=== PATIENT | female | born 1950 | race Caucasian/White ===

== ENCOUNTER → 2017-09-03 13:19 | Outpatient (CLI) | payer MEDICARE, OTHER, SELFPAY ==
[2017-09-03 15:33] LABS: Absolute Lymphocyte Count 1.68 X10^3/ul (0.83-4.51); Absolute Neutrophil Count 2.6 X10^3/uL (2.0-7.7); Basophil# 0.01 X10^3/uL; Basophil% 0.2 % (0-1); Eosinophil# 0.06 X10^3/uL; Eosinophils% 1.3 % (0-5); Hemoglobin 15.7 g/dl (12.0-15.0); Lymphocyte # 1.68 X10^3/ul (4.0); Lymphocyte % 35.6 % (19-41); Mean Corpuscular Hgb 27.2 pg (27.0-32.0); Mean Corpuscular Volume 84.9 fL (81-99); Mean Platelet Vol. 10.6 fl (6.2-12.0); Monocyte# 0.37 X10^3/uL; Monocyte% 7.8 % (0-10); Neutrophil % 55.1 % (47-70); Platelet Count 193 K/mm3 (150-450); RBC Distribution Width CV 13.8 % (11.6-14.6); RBC Distribution Width SD 42.4 fl (35.1-43.9); Red Blood Count 5.77 M/mm3 (4.2-5.4); White Blood Count 4.7 K/mm3 (4.4-11.0)
[2017-09-03 15:43] LABS: POSITIVE COUNT NO; POSITIVE DIFFERENTIAL NO; POSITIVE MORPHOLOGY NO
[2017-09-03 17:10] LABS: AST(SGOT) 18 U/L (15-37); Alanine Aminotransfer ALT/SGPT 27 U/L (13-56); Albumin, Serum 3.5 g/dL (3.2-5.0); Alkaline Phosphatase 105 U/L (45-117); Anion Gap 8 (5-15); BUN 8 mg/dL (7-18); BUN/Creat Ratio 9.1 RATIO (10-20); Chloride 101 mmol/L (98-107); Cholesterol 189 mg/dL (200); Creatinine, Serum 0.88 mg/dL (0.55-1.02); EST Glomerular Filtration Rate 69 mL/min (>60); Est Glom Filt Rate - Afr Amer 83 mL/min (>60); Free T3 2.2 pg/mL (2.18-3.98); Globulin 3.5 g/dL (2.2-4.2); Glucose 209 mg/dL (74-106); High Density Lipoprotein 42 mg/dL; Sodium Level 141 mmol/L (136-145); Thyroid Stim Hormone (TSH) 1.05 uIU/mL (0.358-3.74); Triglycerides 202 mg/dL; Very Low Density Lipoprotein 40 mg/dL (5-40)
== END ==
PROVIDERS: Family Provider Internal Medicine; PCP Internal Medicine; Visit Provider Internal Medicine
DX: E11.65 Type 2 diabetes mellitus with hyperglycemia (principal); E78.5 Hyperlipidemia, unspecified; R94.6 Abnormal results of thyroid function studies
CPT/HCPCS: 36415; 80053; 80061; 84439; 84443; 84481; 85025

== ENCOUNTER → 2017-09-27 13:25 | Outpatient (CLI) | payer MEDICARE, OTHER, SELFPAY ==
[2017-09-27 14:55] LABS: Erythrocyte Sedimentation Rate 35 mm/hr (0-30)
[2017-09-27 14:56] LABS: Absolute Lymphocyte Count 1.77 X10^3/ul (0.83-4.51); Absolute Neutrophil Count 4.7 X10^3/uL (2.0-7.7); Basophil# 0.03 X10^3/uL; Basophil% 0.4 % (0-1); Eosinophil# 0.08 X10^3/uL; Eosinophils% 1.1 % (0-5); Hematocrit 48.4 % (37-47); Hemoglobin 15.1 g/dl (12.0-15.0); Lymphocyte # 1.77 X10^3/ul (4.0); Lymphocyte % 25.1 % (19-41); Mean Corp Hgb Conc 31.2 g/gl (32-36); Mean Corpuscular Hgb 26.9 pg (27.0-32.0); Mean Corpuscular Volume 86.3 fL (81-99); Mean Platelet Vol. 10.7 fl (6.2-12.0); Monocyte# 0.49 X10^3/uL; Neutrophil # 4.68 X10^3/uL (2.7-7.7); Neutrophil % 66.4 % (47-70); Platelet Count 187 K/mm3 (150-450); RBC Distribution Width CV 13.1 % (11.6-14.6); RBC Distribution Width SD 41.2 fl (35.1-43.9); Red Blood Count 5.61 M/mm3 (4.2-5.4); White Blood Count 7.1 K/mm3 (4.4-11.0)
[2017-09-27 14:57] LABS: POSITIVE COUNT NO; POSITIVE DIFFERENTIAL NO; POSITIVE MORPHOLOGY NO
== END ==
PROVIDERS: Family Provider Internal Medicine; PCP Internal Medicine; Visit Provider Orthopaedic Surgery
DX: T84.84XA Pain due to internal orthopedic prosthetic devices, implants and grafts, initial encounter (principal)
CPT/HCPCS: 36415; 85025; 85652; 86140

== ENCOUNTER → 2017-11-18 16:49 | Outpatient (CLI) | payer MEDICARE, OTHER, SELFPAY ==
--- NOTE | 2017-11-18 17:03 | RAD_ITS ---
STUDY: X-RAY CHEST REASON FOR EXAM: Female, 67 years old. Preop TECHNIQUE: Frontal and lateral views COMPARISON: April 09, 2014 FINDINGS: The lungs are clear and expanded. There is no demonstrated pleural abnormality. Normal size heart. Normal mediastinum and gogo. Normal visualized pulmonary arteries. Normal visualized aortic arch and descending thoracic aorta. Degenerative changes of the thoracic spine. Status post surgical fusion of mid cervical levels. Prior right shoulder surgery. There is no demonstrated abnormality of the visualized soft tissue structures of the upper abdomen. RAD/Chest PA and Lateral IMPRESSION: Normal x-ray examination of the chest. Electronically Signed: Shar Arevalo DO at 18:48 EDT Tel [phone], Service support ,
--- NOTE | 2017-11-18 17:04 | EKG12_ITS ---
Test Reason : PRE-OP Blood Pressure : / mmHG Vent. Rate : 073 BPM Atrial Rate : 073 BPM P-R Int : 154 ms QRS Dur : 100 ms QT Int : 414 ms P-R-T Axes : 074 077 064 degrees QTc Int : 456 ms Normal sinus rhythm Possible Left atrial enlargement Low voltage QRS Borderline ECG Confirmed by MARTINA PAN, RIGO ([id number]), fashion editor CATY MEJIA ([id number]) on 11/22/2017 2:38:43 PM Referred By: Jazzy Dunn Confirmed By:RIGO MACK MD
[2017-11-18 17:24] LABS: Hematocrit 47.8 % (37-47); Hemoglobin 14.9 g/dl (12.0-15.0); Mean Corp Hgb Conc 31.2 g/gl (32-36); Mean Corpuscular Hgb 26.9 pg (27.0-32.0); Mean Corpuscular Volume 86.3 fL (81-99); Mean Platelet Vol. 10.1 fl (6.2-12.0); Platelet Count 165 K/mm3 (150-450); RBC Distribution Width CV 13.8 % (11.6-14.6); RBC Distribution Width SD 43.2 fl (35.1-43.9); Red Blood Count 5.54 M/mm3 (4.2-5.4); White Blood Count 4.7 K/mm3 (4.4-11.0)
[2017-11-18 17:26] LABS: Scan Indicated on CBC? Y/N NO
[2017-11-18 17:35] LABS: Anion Gap 4 (5-15); BUN 5 mg/dL (7-18); BUN/Creat Ratio 5.6 RATIO (10-20); Calcium,Total 8.9 mg/dL (8.5-10.1); Chloride 104 mmol/L (98-107); Creatinine, Serum 0.88 mg/dL (0.55-1.02); EST Glomerular Filtration Rate 68 mL/min (>60); Est Glom Filt Rate - Afr Amer 82 mL/min (>60); Glucose 205 mg/dL (74-106); Potassium 3.8 mmol/L (3.5-5.1); Sodium Level 137 mmol/L (136-145)
== END ==
PROVIDERS: Family Provider Internal Medicine; PCP Internal Medicine; Referring Provider Podiatrist Foot & Ankle Surgery; Visit Provider Podiatrist Foot & Ankle Surgery
DX: Z01.810 Encounter for preprocedural cardiovascular examination (principal); Z01.818 Encounter for other preprocedural examination; F17.200 Nicotine dependence, unspecified, uncomplicated
CPT/HCPCS: 36415; 71046; 80048; 85027; 93005

== ENCOUNTER → 2017-12-02 08:03 | Outpatient (CLI) | payer MEDICARE, OTHER, SELFPAY ==
--- NOTE | 2017-12-02 08:03 | MASS_PTH ---
PATIENT: GERARD MEYERS LOC: [facility] U#:[id number] AGE/SX: 74/F ROOM: RE12/02/[address]: Dr. Jazzy Dunn DPM : 1950 BED: DIS: SPEC #: [id number] RECD: 12/02/17 15:59 STATUS: AAMIR PRADIP #: [id number] LUPE: 12/02/17 08:[address]: Jazzy Dunn DEPT: SURGICAL PATHOLOGY RECD BY: Kraig Urbano ENTERED: 12/03/17 11:20 SP TYPE: Mass OTHR DR: Dr. Lucretia Henson, [facility] Tissues: Foot, NOS Procedures: Special Stain Group I Surgery Specimen Level IV AFB Stain (control) GMS Stain (control) HEADER OPERATION: Left foot excision of soft tissue PRE-OP DIAGNOSIS: Mass of left foot TISSUE SUBMITTED: Soft tissue mass left extensor hallucis longus tendon sheath MICROSCOPIC DIAGNOSIS Soft tissue mass extensor hallucis longus tendon sheath: Palisaded granuloma, consistent with granuloma annulare. Special stains for acid fast bacilli and fungi are negative for organisms; matched controls are appropriate. Negative for malignancy. SAMEERA:bernard 12/06/17 COMMENT Differential diagnosis also includes rheumatoid nodule or necrobiosis lipoidica. Clinical correlation and appropriate follow up are necessary. Case has been reviewed in consultation with Dr. Londono who concurs with the above diagnosis. IDC:AM MICROSCOPIC DESCRIPTION Slides are reviewed. GROSS DESCRIPTION Received is one container labeled with the patient's name and not further designated. The specimen consists of three variable sized pieces of churchill, indurated tissue measuring in aggregate 1.5 x 1.4 x 0.2 cm. The entire specimen is submitted in one cassette. / SAMEERA:bernard 12/03/17 TC:5 CPT: 02857, 24418 x2
== END ==
PROVIDERS: Family Provider Internal Medicine; PCP Internal Medicine; Referring Provider Podiatrist Foot & Ankle Surgery; Visit Provider Podiatrist Foot & Ankle Surgery
DX: L92.9 Granulomatous disorder of the skin and subcutaneous tissue, unspecified (principal)
CPT/HCPCS: 88305; 88312

== ENCOUNTER 2017-12-21 07:38 | Day surgery (SDC) | payer MEDICARE, OTHER, SELFPAY ==
[2017-12-21] VITALS (7 sets, daily range): BP systolic 90–134; BP diastolic 49–68; PULSE 71–81; RESP 16–18; TEMP 35.7–37.2; O2SAT 92–98; BMI 30.4
[2017-12-21 08:40] LABS: Bedside Glucose 195 mg/dL (70-110)
[2017-12-21 09:06] LABS: Hematocrit 45.9 % (37-47); Hemoglobin 14.8 g/dl (12.0-15.0); Mean Corp Hgb Conc 32.2 g/gl (32-36); Mean Corpuscular Hgb 27.4 pg (27.0-32.0); Mean Corpuscular Volume 84.8 fL (81-99); Mean Platelet Vol. 10.8 fl (6.2-12.0); Platelet Count 174 K/mm3 (150-450); RBC Distribution Width CV 13.8 % (11.6-14.6); RBC Distribution Width SD 42.5 fl (35.1-43.9); Red Blood Count 5.41 M/mm3 (4.2-5.4); White Blood Count 5.3 K/mm3 (4.4-11.0)
[2017-12-21 09:08] LABS: Scan Indicated on CBC? Y/N NO
[2017-12-21 09:24] LABS: Hemoglobin A1c 10.3 % (4.2-6.3)
[2017-12-21 09:29] LABS: Anion Gap 8 (5-15); BUN 8 mg/dL (7-18); BUN/Creat Ratio 9.3 RATIO (10-20); Calcium,Total 8.9 mg/dL (8.5-10.1); Chloride 103 mmol/L (98-107); Creatinine, Serum 0.86 mg/dL (0.55-1.02); EST Glomerular Filtration Rate 70 mL/min (>60); Est Glom Filt Rate - Afr Amer 85 mL/min (>60); Estimated Creatinine Clearance 60.24 ml/min; Glucose 208 mg/dL (74-106); Potassium 3.7 mmol/L (3.5-5.1); Sodium Level 141 mmol/L (136-145); Thyroid Stim Hormone (TSH) 0.11 uIU/mL (0.358-3.74)
[2017-12-21] MEDS: Cefazolin 2 GM in 0.9% Normal Saline 100 ML IV (09:42)
[2017-12-21] MEDS: Bupivacaine Mpf 0.5% 30 ML VIAL (10:20)
--- NOTE | 2017-12-21 10:38 | PCM.IMDPSTOP ---
Immediate Post-Op Note Date of Procedure: 12/21/17 Primary Surgeon/Physician: Jazzy Dunn DPM computer systems software architect: none Pre-Operative Diagnosis: Left foot abscess Post-Operative Diagnosis: same Surgery/Procedure Performed:: L foot incision and drainage, washout Description of Surgical Findings:: see dictation Estimated Blood Loss: minimal Specimen's removed: wound cx Drains: giorgio Type of Anesthesia:: Local MAC - Admit VTE Documentation VTE Present on Admission: No VTE Mechan Device Prophylaxis: SCD's
--- NOTE | 2017-12-21 10:41 | OP.PN_ITS ---
Immediate Post-Op Note Date of Procedure: 12/21/17 Primary Surgeon/Physician: Jazzy Dunn DPM shoe shanker: none Pre-Operative Diagnosis: Left foot abscess Post-Operative Diagnosis: same Surgery/Procedure Performed:: L foot incision and drainage, washout Description of Surgical Findings:: see dictation Estimated Blood Loss: minimal Specimen's removed: wound cx Drains: giorgio Type of Anesthesia:: Local MAC - Admit VTE Documentation VTE Present on Admission: No VTE Mechan Device Prophylaxis: SCD's
--- NOTE | 2017-12-21 10:56 | OP.PCM_ITS ---
Report of Operation Date of Procedure: 12/21/17 Pre-Operative Diagnosis: Left foot abscess Post-Operative Diagnosis: same Surgery/Procedure Performed:: L foot incision and drainage, washout Description of Surgical Findings:: Indications: Pt is a 67 yo F who presented to my office yesterday for a post- operative appointment for a left EHL tendon soft tissue mass excision, DOI 12/02/2017. Her post operative course had been uneventful until 12/16/2017 when she had gotten her surgical dressing wet while bathing. She did not call the office as she had an appointment already scheduled and felt it would be ok to wait. She presented yesterday with edema, erythema and a small amount of drainage to the surgical site. Two sutures were still intact. She denies pain, fever, chills, nausea, vomiting. She was started on doxycycline and scheduled for surgery this morning. Pt was verbally and visually identified in the pre operative holding area. Risks, benefits and complications were again reviewed with the patient. Patient wished to proceed with the proposed surgery. The left foot was marked as the correct operative extremity. The patient was brought to the operating room by anesthesia and placed on the operating table in the normal supine position. A time out was performed and all present were in agreement. The left lower extremity was then prepped and draped in normal sterile fashion. Attention was the directed to the left dorsal foot. Using a #15 blade a linear incision was made at the previous surgical site. Minimal purulent drainage was noted. The soft tissue was explored with with no jayna abscess noted. Pulse lavage of 3L NSS was used and wound cultures were taken. I felt that the EHL tendon look well healed and did not need opened as the infection appeared to be contained to the superficial soft tissues. I did not want to expose the EHL tendon at this time. Electrocautery was utilized for all bleeders. After copious amounts of irrigation via pulse lavage I used 3.0 prolene for retention sutures of the most distal and proximal ends of my incision. A giorgio drain was placed at the central incision to allow for continued drainage. 10 cc of 0.5% marcaine plain was injected at the surgical site. Betadine soaked adaptic was then applied with 4x4 gauze, kerlix and light compression dressing to the LLE. At the end of the case all neddle and instrument counts were found to be correct. The patient was transported to the pacu by a member of the anesthesia team and myself with all vital signs stable. Pt tolerated the anesthesia and procedure well. Capillary refill was < 3 seconds to all digits of the operative extremity. PT will be WBAT in surgical shoe and continue the doxycycline. I will see her in 6 days in clinic or sooner if needed. household manager: none Type of Anesthesia:: Local MAC Specimen's removed: wound cx Drains: giorgio Estimated Blood Loss (mL): minimal - Admit VTE Documentation VTE Present on Admission: No VTE Mechan Device Prophylaxis: SCD's
--- NOTE | 2017-12-21 11:07 | DCINST_ITS ---
Discharge Activity: May not drive while taking narcotic pain medications., May Not Shower - Do NOT get dressing wet. Weight Bearing Status: Weight bearing as tolerated - in surgical shower, limit activity Keep extremity elevated above heart level: Operative Extremity Call your doctor if your incision/area has: Continuous Slow Oozing, Sudden Increased Bleeding, Increased Pain/ Swelling, Increased Redness, Foul Smelling Discharge, Swelling at the incision site, - - if dressing becomes wet! Call your doctor if you observe: Fever of 101 or Higher, Coldness, Increased Pain, Numbness or Tingling, Change in Color, Shortness of breath, Chest pain, Uncontrolled pain Cleanse incision/area with: Keep Dressing Clean & Dry Allergies/Adverse Reactions: Allergies No Known Allergies Allergy (Verified 02/24/13 15:31) Medications to take at Discharge Doxepin HCl 25 mg PO DAILY 02/24/13 Escitalopram Oxalate [Lexapro] 10 mg PO DAILY 02/24/13 Levothyroxine [Synthroid] 175 mcg PO DAILY 02/24/13 Sulfasalazine [Azulfidine] 500 mg PO BIDCM 02/24/13 Cholecalciferol (VIT D3) [Vitamin D3] 5,000 unit PO DAILY 01/16/14 Folic Acid 1 mg PO DAILY@0800 01/16/14 Metformin HCl [Glucophage] 500 mg PO DAILY 01/16/14 Methotrexate 20 mg PO TU 01/16/14 Omeprazole [Prilosec] 40 mg PO DAILY 01/16/14 Pioglitazone [Actos] 15 mg PO DAILY 01/16/14 Rosuvastatin Calcium [Crestor] 20 mg PO DAILY 01/16/14 Stool Softner 1 tab PO DAILY 01/16/14 Acetaminophen/Codeine #3 [Tylenol#3] 1 tab PO Q4H PRN PRN 7 Days #30 tab 12/21/17 The following prescriptions were given: Acetaminophen/Codeine #3 [Tylenol#3] 1 tab PO Q4H PRN PRN 7 Days #30 tab PRN Reason: Pain Primary Care Physician: Lucretia Henson DO [Primary Care Provider] - Test Results: Test results from this visit will be discussed in further detail at your follow- up appointment, if applicable. Please Follow Up With: Jazzy Dunn DPM When: as previously scheduled
== END 2017-12-21 11:30 | disposition home or self-care (01) ==
LOC: SDC 07:40 → AC 07:40
PROVIDERS: Anesthesiology; Family Provider Internal Medicine; PCP Internal Medicine; Referring Provider Podiatrist Foot & Ankle Surgery; Visit Provider Podiatrist Foot & Ankle Surgery
PROC: (CPT 28002; principal; 2017-12-21 09:20)
DX: L02.612 Cutaneous abscess of left foot (principal); M79.7 Fibromyalgia; M06.9 Rheumatoid arthritis, unspecified; M19.90 Unspecified osteoarthritis, unspecified site; E11.9 Type 2 diabetes mellitus without complications; J44.9 Chronic obstructive pulmonary disease, unspecified; K21.9 Gastro-esophageal reflux disease without esophagitis; E78.00 Pure hypercholesterolemia, unspecified; F17.210 Nicotine dependence, cigarettes, uncomplicated; E07.9 Disorder of thyroid, unspecified; Z79.899 Other long term (current) drug therapy; F32.9 Major depressive disorder, single episode, unspecified
CPT/HCPCS: 28002; 36415; 80048; 82962; 83036; 84443; 85027; 87070; 87075; 87077; 87186; 87205; J7120

== ENCOUNTER → 2018-02-01 09:35 | Outpatient (CLI) | payer MEDICARE, OTHER, SELFPAY ==
[2017-12-21 08:28] VITALS: BMI 30.4
[2018-02-01 12:30] LABS: Hematocrit 45.4 % (37-47); Hemoglobin 14.4 g/dl (12.0-15.0); Mean Corp Hgb Conc 31.7 g/gl (32-36); Mean Corpuscular Hgb 27.2 pg (27.0-32.0); Mean Corpuscular Volume 85.8 fL (81-99); Mean Platelet Vol. 11.7 fl (6.2-12.0); Platelet Count 167 K/mm3 (150-450); RBC Distribution Width CV 13.3 % (11.6-14.6); RBC Distribution Width SD 41.3 fl (35.1-43.9); Red Blood Count 5.29 M/mm3 (4.2-5.4); White Blood Count 5.6 K/mm3 (4.4-11.0)
[2018-02-01 12:36] LABS: Scan Indicated on CBC? Y/N NO
[2018-02-01 12:57] LABS: Anion Gap 10 (5-15); BUN 11 mg/dL (7-18); BUN/Creat Ratio 12.1 RATIO (10-20); Chloride 101 mmol/L (98-107); Creatinine, Serum 0.91 mg/dL (0.55-1.02); EST Glomerular Filtration Rate 66 mL/min (>60); Est Glom Filt Rate - Afr Amer 80 mL/min (>60); Glucose 267 mg/dL (74-106); Potassium 4.3 mmol/L (3.5-5.1); Sodium Level 141 mmol/L (136-145)
--- OUTSIDE RECORDS SUMMARY | 2018-03-20 08:53 | XMS RPT_ITS | Continuity of Care Document ---
:1950 Author Organization [facility] Address [address] [facility] [address] [place] [address] Phone Care Team Providers Name Role Phone Lucretia Henson DO Unavailable VikiReyes pat DO Unavailable GOKUL Cunha Unavailable Unavailable Unavailable Unavailable Problems Name Dates Details Abnormal TSH (R79.89, 790.6) Status: Active Abnormal TSH (R79.89, 790.6) Comments: will try Se first and if doesnt help with more T4- to T3 conversion will add rx cytomel to her levothyroxine Status: Active Abnormal TSH (R79.89, 790.6) Status: Active Annual Medicare Phyiscal WITHOUT abnormal findings (Renamed from Encounter for general adult medical examination without abnormal findings) (Z00.00, V70.9) Status: Active Arthritis, rheumatic, acute or subacute (I00, 390) Comments: sees Dr Gurrola until he retired now [facility] Status: Active BMI 30.0-30.9,adult (Z68.30, V85.30) Status: Active BMI 31.0-31.9,adult (Z68.31, V85.31) Status: Active Body mass index 35.0-35.9, adult (Renamed from Adult body mass index 35.0-35.9) (Z68.35, V85.35) Status: Active Cataract Extraction-Left Comments: 2009 Status: Active Cataract Extraction-Right Comments: 2009 Status: Active COPD, moderate (J44.9, 496) Comments: pt does not take dulera often bc of cost but she states it does work and feels less breathless when she does take italpha one antitrypsin screened 01/07 Status: Active Degenerative Disc Disease Status: Active Depressive disorder (F32.9, 311) Status: Active Diabetes mellitus type 2, uncontrolled (E11.65, 250.02) Comments: pt refuses any medication chg - cant afford most adn doesnt want me to give her rx - she said she feels great and refuses-- we discussed at least changing diet and lifestyle to help reduce sugars. also reiterated feeling good now is not likely a feel good later with cont uncontrolled dm -- she said she doesnt care i am not doing anything diffenetcant afford insulin- and byetta & treseba caused rash and sweats Status: Active Diabetes Mellitus, Type II Status: Active Dyshidrosis (L30.1, 705.81) Status: Active Encounter for Medicare annual wellness exam (Z00.00, V70.0) Status: Active Encounter for screening for malignant neoplasm of colon (Renamed from Special screening for malignant neoplasms, colon) (Z12.11, V76.51) Status: Active Encounter for screening mammogram for breast cancer (Renamed from Encounter for screening mammogram for malignant neoplasm of breast) (Z12.31, V76.12) Status: Active Esophageal Reflux Status: Active Fibroids in uterus Status: Active Fibromyalgia (M79.7, 729.1) Comments: mariah Elliott Status: Active GERD (gastroesophageal reflux disease) (K21.9, 530.81) Status: Active Hypercholesteremia (E78.00, 272.0) Status: Active Hyperlipidemia (E78.5, 272.4) Comments: uncotnrolled-- ekg-4./18diet and exercise -- add fish oil Status: Active Hypothyroidism (E03.9, 244.9) Comments: keep close eye on thyriod labs -- trending toward hyper but not quite yet? Status: Active Hypoxemia (R09.02, 799.02) Status: Active Insomnia, persistent (G47.00, 307.42) Status: Active Knee pain (M25.569, 719.46) Status: Active Need for prophylactic vaccination and inoculation against influenza (Z23, V04.81) Status: Active Noncompliance with dietary restriction (Z91.11, V15.81) Comments: and medication Status: Active Noncompliance with medications (Z91.14, V15.81) Status: Active Non-smoker (Z78.9, V49.89) Status: Active Nutritional counseling (Z71.3, V65.3) Status: Active Obesity, unspecified (E66.9, 278.00) Status: Active Pregnancies () Comments: 2 Status: Active Respiratory distress (Renamed from Distressed breathing) (R06.00, 786.09) Comments: sats at 86% when walked in O2 3 liters to 93% Status: Active Rotater cuff sx Comments: rt arm 10/03 Status: Active Sinusitis, acute (J01.90, 461.9) Status: Active Sinusitis, bacterial (J32.9, 473.9) Status: Active Tobacco use disorder (F17.200, 305.1) Comments: couple cigarretees a day Status: Active Tonsillectomy Comments: 2nd grade Status: Active Total Knee Replacement Comments: rt 03-04 Status: Active Tubal Ligation Comments: 1979 Status: Active Unspecified Diagnosis Status: Active Unspecified osteoarthritis, unspecified site (M19.90, 715.90) Status: Active Vaginal Delivery Comments: Status: Active Vitamin D deficiency (E55.9, 268.9) Status: Active Medications Name Dates Details Actos 15 MG Oral Tablet 1 Tablet qd for 0 days Quantity: 30 {Tablet} Refills: 3 Ordered:22-Nov-2017 Annel Henson DO, DO, Kathleen Start : 22-Nov-2017 Active BD PEN NEEDLE MINI U/F, 31G X 5 MM (Miscellaneous) 1 (one) Misc Misc qd for 0 days Quantity: 1 {Box} Refills: 4 Ordered:03-Sep-2014 Annel Henson DO, DO, Kathleen Start : 03-Sep-2014 Active DIABETIC TESTING SUPPLIES ( Strip) (Free Text) 1 Package(s) tid for 0 days Quantity: 100 {Strip} Refills: 3 Ordered:03-Sep-2014 Annel Henson DO, DO, Kathleen Start : 03-Sep-2014 Active Comments:free style litedx 250.02 Doxepin HCl 75 MG Oral Capsule 1 Capsule qd for 0 days Quantity: 90 {Capsule} Refills: 3 Ordered:06-Sep-2017 Omayra Cunha LPN Start : 06-Sep-2017 Active Folic Acid 1 MG Oral Tablet 1 Tablet qd for 0 days Quantity: 30 {Tablet} Refills: 3 Ordered:06-Sep-2017 Omayra Cunha LPN Start : 06-Sep-2017 Active FREESTYLE LANCETS (Miscellaneous) 1 (one) Misc Misc tid for 0 days Quantity: 270 {Each} Refills: 0 Ordered:21-May-2014 Argenis Sandra MD Start : 25-Jan-2014 Active Levothyroxine Sodium 175 MCG Oral Tablet 1 Tablet qd for 0 days Quantity: 30 {Tablet} Refills: 3 Ordered:06-Sep-2017 Omayra Cunha LPN Start : 06-Sep-2017 Active Comments:new dose Lexapro 20 MG Oral Tablet 1 (one) Tablet daily for 0 days Quantity: 30 {Tablet} Refills: 3 Ordered:06-Sep-2017 Omayra Cunha LPN Start : 06-Sep-2017 Active Lipitor 40 MG Oral Tablet 1 Tablet qd for 0 days Quantity: 30 {Tablet} Refills: 3 Ordered:06-Sep-2017 Omayra Cunha LPN Start : 06-Sep-2017 Active Comments:substitute generic MELOXICAM, 15MG (Oral Tablet) qd (15 MG) Active Comments:Dr. Mendoza MetFORMIN HCl 500 MG Oral Tablet tad Tablet 2am ,1@lunch, 2pm for 0 days Quantity: 150 {Tablet} Refills: 3 Ordered:06-Sep-2017 Annel Henson DO, DO, Kathleen Start : 06-Sep-2017 Active METHOTREXATE, 2.5MG (Oral Tablet) 6 Tablet q week for 30 days Refills: 0 Ordered:28-Dec-2011 Annel Henson DO, DO, Kathleen Start : 28-Dec-2011 Active Omeprazole 40 MG Oral Capsule Delayed Release 1 (one) Capsule DR daily for 0 days Quantity: 30 {Capsule} Refills: 3 Ordered:24-Nov-2017 Annel Henson DO, DO, Kathleen Start : 24-Nov-2017 Active STOOL SOFTENER, 100MG (Oral Tablet) 1 Tablet qd for 30 days Refills: 0 Ordered:28-Dec-2011 Annel Henson DO, DO, Kathleen Start : 28-Dec-2011 Active VITAMIN D3, 5000UNIT (Oral Capsule) 1 Capsule qd for 0 days Quantity: 30 {Capsule} Refills: 3 Ordered:24-Oct-2013 Argenis Sandra MD Start : 24-Oct-2013 Active Zolpidem Tartrate 10 MG Oral Tablet 1 (one) Tablet qhs/prn for 0 days Quantity: 30 {Tablet} Refills: 0 Ordered:23-Dec-2017 Annel Henson DO, DO, Kathleen Start : 23-Dec-2017 Active Comments:thirty Acetaminophen-Codeine #4 300-60 MG Oral Tablet 1 Tablet q 6hrs prn for 30 days Refills: 0 Ordered:11-May-2016 Omayra Cunha LPN Start : 28-Dec-2011 End : 11-May-2016 Inactive Amoxicillin-Pot Clavulanate 875-125 MG Oral Tablet 1 (one) Tablet bid for 0 days Quantity: 20 {Tablet} Refills: 0 Ordered:06-Sep-2017 Omayra Cunha LPN Start : 02-Jun-2017 End : 06-Sep-2017 Inactive AUGMENTIN, 875-125MG (Oral Tablet) 1 Tablet bid for 0 days Quantity: 20 {Tablet} Refills: 0 Ordered:18-Mar-2011 Omayra Cunha LPN Start : 07-Jan-2011 End : 18-Mar-2011 Inactive AZULFIDINE, 500MG (Oral Tablet) 1 bid (500 MG) Inactive CELEXA, 40MG (Oral Tablet) 1 Tablet qd for 0 days Quantity: 30 {Tablet} Refills: 5 Ordered:18-Sep-2010 Omayra Cunha LPN Start : 11-Jun-2010 End : 18-Sep-2010 Inactive CHANTIX, 1MG (Oral Tablet) 1 Tablet bid for 0 days Quantity: 60 {Tablet} Refills: 3 Ordered:28-Dec-2011 Omayra Cunha LPN Start : 21-Dec-2011 End : 28-Dec-2011 Inactive Clobetasol Propionate 0.05 % External Cream appy to affected area Cream sparingly bid for 0 days Quantity: 30 {Gram} Refills: 1 Ordered:14-Aug-2016 Omayra Cunha LPN Start : 03-Dec-2014 End : 14-Aug-2016 Inactive COLACE, 100MG (Oral Capsule) 1 Capsule qd for 30 days Refills: 0 Ordered:28-Dec-2011 Omayra Cunha LPN Start : 09-Sep-2011 End : 28-Dec-2011 Inactive COMBIVENT, 18-103MCG/ACT (Inhalation Aerosol) 3 pufss Aerosol qid for 0 days Quantity: 1 {Aerosol} Refills: 4 Ordered:28-Dec-2011 Omayra Cunha LPN Start : 20-Aug-2011 End : 28-Dec-2011 Inactive DEPLIN, 7.5MG (Oral Tablet) 1 (one) Tablet Every other day for 0 days Quantity: 30 {Tablet} Refills: 3 Ordered:16-Mar-2008 Hayde Major Start : 16-Mar-2008 End : 18-Apr-2008 Inactive Diprolene AF 0.05 % External Cream apply sparingly Cream Cream to affected areas on hand for 0 days Quantity: 15 {Gram} Refills: 1 Ordered:06-Sep-2015 Omayra Cunha LPN Start : 29-May-2013 End : 06-Sep-2015 Inactive Dulera 100-5 MCG/ACT Inhalation Aerosol 1 Aerosol bid for 0 days Quantity: 1 {Aerosol} Refills: 2 Ordered:02-Jan-2016 Omayra Cunha LPN Start : 31-Aug-2012 End : 02-Jan-2016 Inactive FreeStyle Lite Test In Vitro Strip 1 (one) Strip Strip tid for 0 days Quantity: 270 {Strip} Refills: 3 Ordered:02-Jan-2016 Omayra Cunha LPN Start : 25-Jan-2014 End : 02-Jan-2016 Inactive HumaLOG 100 UNIT/ML Subcutaneous Solution 50 units tid ac for 30 days Quantity: 1 {Vial} Refills: 3 Ordered:02-Jan-2016 Omayra Cunha LPN Start : 13-Mar-2015 End : 02-Jan-2016 Inactive HYDROCHLOROTHIAZIDE, 25MG (Oral Tablet) 1/2 Tablet qod for 0 days Quantity: 30 {Tablet} Refills: 3 Ordered:24-Nov-2012 Omayra Cunha LPN Start : 13-Jun-2012 End : 24-Nov-2012 Inactive JANUVIA, 100MG (Oral Tablet) 1 (one) Tablet daily for 0 days Quantity: 30 {Tablet} Refills: 3 Ordered:28-Dec-2011 Omayra Cunha LPN Start : 21-Dec-2011 End : 28-Dec-2011 Inactive Jardiance 10 MG Oral Tablet 1 (one) Tablet qd for 0 days Quantity: 30 {Tablet} Refills: 4 Ordered:02-Jun-2017 Omayra Cunha LPN Start : 03-Mar-2017 End : 02-Jun-2017 Inactive KLOR-CON M20, 20MEQ (Oral Tablet Extended Release) 1 Tablet ER bid for 0 days Quantity: 60 {Tablet_ER} Refills: 3 Ordered:24-Nov-2012 Omayra Cunha LPN Start : 13-Jun-2012 End : 24-Nov-2012 Inactive Lantus SoloStar 100 UNIT/ML Subcutaneous Solution Pen-injector 45 Solution qd for 0 days Quantity: 1 {Container} Refills: 0 Ordered:06-Sep-2015 Omayra Cunha LPN Start : 13-Mar-2015 End : 06-Sep-2015 Inactive LANTUS SOLOSTAR, 100UNIT/ML (Subcutaneous Solution Pen-injector) 50 Soln Pen-inj Soln Pen-inj qd for 0 days Quantity: 3 {Container} Refills: 3 Ordered:13-Mar-2015 Omayra Cunha LPN Start : 03-Sep-2014 End : 13-Mar-2015 Inactive LEVAQUIN, 500MG (Oral Tablet) 1 (one) Tablet daily for 14 days Quantity: 14 {Tablet} Refills: 0 Ordered:28-Dec-2011 Annel Henson DO, DO, Kathleen Start : 28-Dec-2011 End : 11-Jan-2012 Inactive LEVAQUIN, 750MG (Oral Tablet) 1 Tablet Daily for 0 days Quantity: 5 {Tablet} Refills: 0 Ordered:02-Apr-2008 Hayde Major Start : 02-Apr-2008 End : 18-Apr-2008 Inactive LEVEMIR FLEXPEN, 100UNIT/ML (Subcutaneous Solution Pen-injector) 40 Solution bid for 0 days Quantity: 1 {Box} Refills: 2 Ordered:28-Mar-2014 Annel Henson DO, DO, Kathleen Start : 28-Mar-2014 End : 28-Mar-2014 Inactive Comments:dispense pen needles appropriate - 1 box 3 refills LEVEMIR, 100UNIT/ML (Subcutaneous Solution) 40 Solution Solution bid for 0 days Quantity: 2 {Vial} Refills: 4 Ordered:23-Mar-2014 Argenis Sandra MD Start : 23-Mar-2014 End : 23-Mar-2014 Inactive Comments:hold until patient calls for it LOPID, 600MG (Oral Tablet) 1 (one) Tablet bid for 0 days Quantity: 60 {Tablet} Refills: 3 Ordered:11-Nov-2009 Teetee Torres Start : 19-Aug-2009 Inactive LYRICA, 50MG (Oral Capsule) qd (50 MG) Inactive MEDROL, 32MG (Oral Tablet) qd (32 MG) Inactive Comments:[facility] NIASPAN, 500MG (Oral Tablet Extended Release) 1 (one) Tablet ER qd with food for 0 days Quantity: 30 {Tablet_ER} Refills: 3 Ordered:12-Mar-2010 Omayra Cunha LPN Start : 11-Nov-2009 End : 12-Mar-2010 Inactive NovoTwist 32G X 5 MM Miscellaneous 1 Misc Misc 5 x day for 0 days Quantity: 150 {Each} Refills: 4 Ordered:02-Jan-2016 Omayra Cunha LPN Start : 21-Mar-2014 End : 02-Jan-2016 Inactive Osteo Bi-Flex 2 qd Inactive PIOGLITAZONE HCL, 15MG (Oral Tablet) 1 (one) Tablet daily for 360 days Quantity: 360 {Tablet} Refills: 0 Ordered:13-Mar-2015 Omayra Cunha LPN Start : 21-May-2014 End : 13-Mar-2015 Inactive PREDNISONE, 20MG (Oral Tablet) tad Tablet uad for 0 days Quantity: 11 {Tablet} Refills: 0 Ordered:30-Mar-2012 Pilar Kimbrough LPN Start : 29-Dec-2011 End : 30-Mar-2012 Inactive Comments:1 tab bid for 3 days , 1 tab daily for 3 days then 1/2 tab daily for 4 daydispense sufficient quantitiy PROVENTIL HFA, 108 (90 Base)MCG/ACT (Inhalation Aerosol Solution) 2 (two) Aerosol Soln Q 6hr/PRN for 0 days Quantity: 1 {Aerosol_Soln} Refills: 0 Ordered:15-Mar-2013 Ayah Chavis Start : 13-Jun-2012 End : 15-Mar-2013 Inactive SULFAZINE EC, 500MG (Oral Tablet Delayed Release) [address] bid for 30 days Refills: 0 Ordered:07-Sep-2013 Omayra Cunha LPN Start : 09-Sep-2011 End : 07-Sep-2013 Inactive SYMBICORT, 160-4.5MCG/ACT (Inhalation Aerosol) 2 (two) Aerosol bid for 0 days Quantity: 1 {Aerosol} Refills: 3 Ordered:09-Sep-2011 Omayra Cunha LPN Start : 03-Sep-2011 End : 09-Sep-2011 Inactive THEOPHYLLINE ER, 300MG (Oral Tablet Extended Release 12 Hour) 1 tab bid (300 MG) Inactive Comments:[facility] #26 starting on 03-04-13 Tresiba FlexTouch 200 UNIT/ML Subcutaneous Solution Pen-injector 50 Soln Pen-inj qhs for 30 days Quantity: 1 {Container} Refills: 3 Ordered:25-Nov-2016 Omayra Cunha LPN Start : 14-Aug-2016 End : 25-Nov-2016 Inactive Tresiba FlexTouch 200 UNIT/ML Subcutaneous Solution Pen-injector 50 Soln Pen-inj qhs for 0 days Quantity: 3 {Box} Refills: 3 Ordered:25-Nov-2016 Omayra Cunha LPN Start : 14-Aug-2016 End : 25-Nov-2016 Inactive Trulicity 1.5 MG/0.5ML Subcutaneous Solution Pen-injector 1 (one) Milliliter qweek for 0 days Quantity: 1 {Box} Refills: 2 Ordered:25-Nov-2016 Omayra Cunha LPN Start : 14-Aug-2016 End : 25-Nov-2016 Inactive TYLENOL WITH CODEINE #4, 300-60MG (Oral Tablet) 1 Tablet q 6 hr prn for 360 days Refills: 0 Ordered:15-Dec-2010 Omayra Cunha LPN Start : 11-Jun-2010 End : 06-Jun-2011 Inactive VICTOZA, 18MG/3ML (Subcutaneous Solution) 1 Solution UAD for 0 days Quantity: 3 {Solution} Refills: 5 Ordered:09-Sep-2011 Omayra Cunha LPN Start : 18-Mar-2011 End : 09-Sep-2011 Inactive VITAMIN D, 1000UNIT (Oral Capsule) 1 Daily for 0 days Refills: 0 Ordered:28-Dec-2011 Omayra Cunha LPN Start : 09-Sep-2011 End : 28-Dec-2011 Inactive VITAMIN D, 14847COYH (Oral Capsule) 1 daily for 0 days Refills: 0 Ordered:10-May-2009 Omayra Cunhanactive WELLBUTRIN SR, 150MG (Oral Tablet Extended Release 12 Hour) 1 Tablet ER 12HR bid for 0 days Quantity: 60 {Tablet} Refills: 2 Ordered:13-Mar-2015 Omayra Cunha LPN Start : 31-May-2013 End : 13-Mar-2015 Inactive Comments:substitute generic ZETIA, 10MG (Oral Tablet) 1 (one) Tablet Tablet daily for 30 days Quantity: 30 {Tablet} Refills: 3 Ordered:13-Mar-2015 Omayra Cunha LPN Start : 03-Sep-2014 End : 13-Mar-2015 Inactive AMARYL, 1MG (Oral Tablet) 1 (one) Tablet Daily for 0 days Quantity: 30 {Tablet} Refills: 3 Ordered:21-May-2008 Annel Henson DO, DO, Kathleen Start : 21-May-2008 End : 21-May-2008 Discontinued BYETTA 10 MCG PEN, 10MCG/0.04ML (Subcutaneous Solution) 1 Solution 1/2 hr before meal bid for 0 days Quantity: 1 {pen} Refills: 4 Ordered:07-Jan-2011 Annel Henson DO, DO, Kathleen Start : 07-Jan-2011 End : 07-Jan-2011 Discontinued Comments:dispense pen needles with it #qs rfx4 CELEBREX, 200MG (Oral Capsule) 2 Capsule QD for 0 days Quantity: 60 {Capsule} Refills: 3 Ordered:14-Nov-2008 Claudia Ibarra CNP Start : 14-Nov-2008 End : 14-Nov-2008 Discontinued CHANTIX STARTING MONTH RILEY, 0.5 MG X 11 &1 MG X 42 (Oral Tablet) 1 Tablet bid for 0 days Quantity: 1 {package(s)} Refills: 0 Ordered:08-Jul-2011 Annel Henson DO, DO, Kathleen Start : 08-Jul-2011 End : 08-Jul-2011 Discontinued CITALOPRAM HYDROBROMIDE, 40MG (Oral Tablet) 1 Tablet qd for 0 days Refills: 0 Ordered:23-Apr-2008 Hayde Major Start : 15-Jun-2007 End : 15-Jun-2007 Discontinued CRESTOR, 20MG (Oral Tablet) 1 (one) Tablet daily for 0 days Quantity: 30 {Tablet} Refills: 4 Ordered:31-Aug-2012 Annel Henson DO, DO, Kathleen Start : 31-Aug-2012 End : 31-Aug-2012 Discontinued Comments:160$/3 months DUONEB, 0.5-2.5 (3)MG/3ML (Inhalation Solution) 1 (one) Solution Solution qid and q 2 hours prn for 0 days Quantity: 200 {Inhalation} Refills: 4 Ordered:08-Mar-2013 Annel Henson DO, DO, Kathleen Start : 08-Mar-2013 End : 29-Nov-2013 Discontinued Comments:This order discontinued per [employer]. ERGOCALCIFEROL, 91190RHZY (Oral Capsule) 1 (one) Capsule twice weekly for 0 days Quantity: 8 {Capsule} Refills: 2 Ordered:11-Dec-2008 Pilar Kimbrough LPN Start : 11-Dec-2008 End : 11-Mar-2009 Discontinued Comments:This order discontinued per [employer]. LEVEMIR FLEXTOUCH, 100UNIT/ML (Subcutaneous Solution Pen-injector) uad Soln Pen-inj Soln Pen-inj 40 units bid for 0 days Quantity: 2 {Pre-filled_Pen_Syringe} Refills: 2 Ordered:03-Sep-2014 Annel Henson DO, DO, Kathleen Start : 03-Sep-2014 End : 03-Sep-2014 Discontinued METHOTREXATE SODIUM, 2.5MG (Oral Tablet) 8 pills tues for 0 days Refills: 0 Ordered:11-Dec-2008 Omayra Cunha LPN Start : 11-Dec-2008 End : 18-Sep-2010 Discontinued Comments:This order discontinued per [employer]. OMEPRAZOLE, 20MG (PO Cap CR) 1 qd for 0 days Refills: 0 Ordered:25-Oct-2007 Hayde Major Start : 25-Oct-2007 End : 25-Oct-2007 Discontinued Comments:This order discontinued per [employer]. OMEPRAZOLE, 20MG (PO Cap CR) 1 qd for 0 days Refills: 0 Ordered:16-Mar-2008 Omayra Cunha LPN End : 10-May-2009 Discontinued Comments:This order discontinued per [employer]. SIMVASTATIN, 40MG (Oral Tablet) 1 Tablet qd for 0 days Quantity: 30 {Tablet} Refills: 3 Ordered:31-Aug-2012 Annel Henson DO, DO, Kathleen Start : 31-Aug-2012 End : 31-Aug-2012 Discontinued Comments:dont remember reason SPIRIVA HANDIHALER, 18MCG (Inhalation Capsule) 1 Capsule qd for 0 days Quantity: 1 {Capsule} Refills: 3 Ordered:13-Jun-2012 Annel Henson DO, DO, Kathleen Start : 13-Jun-2012 End : 13-Jun-2012 Discontinued Comments:throat feels dry and irritated STOOL SOFTENER & LAXATIVE, 30-100MG (PO Cap) 1 qd for 0 days Refills: 0 Ordered:09-Sep-2011 Omayra Cunha LPN End : 09-Sep-2011 Discontinued Comments:This order discontinued per [employer]. TYLENOL ARTHRITIS EXT RELIEF, 650MG (Oral Tablet Extended Release) 1 prn for 0 days Refills: 0 Ordered:28-Dec-2011 Omayra Cunha LPN End : 28-Dec-2011 Discontinued Comments:This order discontinued per -. ZETIA, 10MG (Oral Tablet) 1 (one) Tablet qd for 0 days Quantity: 30 {Tablet} Refills: 4 Ordered:21-Sep-2013 Annel Henson DO, DO, Kathleen Start : 21-Sep-2013 End : 21-Sep-2013 Discontinued Allergies and Adverse Reactions Name Dates Details No Known Allergies (Allergy) Status: Active Past Medical History Name Dates Details Abnormal blood chemistry (R79.9, 790.6) Status: Inactive as of 11-Sep-2015 Abnormal lung sounds (R09.89, 786.7) Status: Inactive as of 13-Jun-2012 Acute exacerbation of COPD with asthma (J44.1, 493.22) Status: Inactive as of 13-Mar-2015 Acute pain of right hip (M25.551, 719.45) Status: Inactive as of 14-Aug-2016 Acute pain of right knee (M25.561, 719.46) Status: Inactive as of 14-Aug-2016 BMI 32.0-32.9,adult (Z68.32, V85.32) Status: Resolved as of 05-Apr-2017 BMI 33.0-33.9,adult (Z68.33, V85.33) Status: Resolved as of 05-Apr-2017 BMI 37.0-37.9, adult (Z68.37, V85.37) Status: Resolved as of 05-Apr-2017 Controlled diabetes mellitus type II without complication (E11.9, 250.00) Comments: [facility] current from mid [facility]-- she is establishing since dr Johana vee Status: Inactive as of 14-Nov-2008 Cough (R05, 786.2) Status: Resolved as of 15-Mar-2013 Cramp of limb (R25.2, 729.82) Status: Resolved as of 03-Jul-2008 Fibromylgia Status: Inactive as of 14-Aug-2016 Other abnormal finding of urine (R82.99, 791.9) Status: Inactive as of 13-Jun-2012 Pneumonia (J18.9, 486) Status: Inactive as of 13-Mar-2015 Pre-operative examination (Z01.818, V72.84) Comments: requested by DR. Reyes Peres Status: Inactive as of 13-Jun-2012 Shortness of breath (R06.02, 786.05) Status: Inactive as of 13-Jun-2012 Unspecified bacterial pneumonia (J15.9, 482.9) Status: Inactive as of 13-Jun-2012 Uterine fibroid (D25.9, 218.9) Comments: sees dr funez and no intervention needed Status: Inactive as of 03-Jul-2008 Procedures Procedure Dates Details Arthroscopic Knee Surgery - Right Completed Comments: 08/05 Rotator Cuff Repair - Left Completed Comments: Date: 04/11/2014. Total Hip Replacement - Right Completed Comments: Date: 01/29/2014. Date Value Details 21-Dec-2017 Discharge Instruction Result: Comments: See Note; NOTES: [facility] Medical Records Department [address] [place] [id number] Instructions for Home/Discharge Instructions 12/21/17 1103 MR#: [id number] Acct: [id number] Name: ELIZABETH MEYERS Rep #: [id number] : 1950 67 From: Jazzy Dunn DPM PCP: Lucretia Henson DO [place] [facility] [place] Activity: May not drive while taking narcotic pain medication s., May Not Shower - Do NOT get dressing wet. Weight Bearing Status: Weight bearing as tolerated - in surgical shower, limit activity Keep extremity elevated above heart level: Operative Extremity Call your doctor if your incision/area has: Continuous Slow Oozing, Sudden Increased Bleeding, Increased Pain/ Swelling, Increased Redness, Foul Smelling Discharge, Swelling at the incision site, - - if dres sing becomes wet! Call your doctor if you observe: Fever of 101 or Higher, Coldness, Increased Pain, Numbness or Tingling, Change in Color, Shortness of breath, Chest pain, Uncontrolled pain Cleanse inc ision/area with: Keep Dressing Clean AND Dry Allergies/Adverse Reactions: Allergies No Known Allergies Allergy (Verified 02/24/13 15:31) Medications to take at Discharge Doxepin HCl 25 mg PO DAILY 02/24/13 Escitalopram Oxalate [Lexapro] 10 mg PO DAILY 02/24/13 Levothyroxine [Synthroid] 175 mcg PO DAILY 02/24/13 Sulfasalazine [Azulfidine] 500 mg PO BIDCM 02/24/13 Cholecalciferol (VIT D3) [Vitamin D3] 5,000 unit PO DAILY 01/16/14 Folic Acid 1 mg PO DAILY@0800 01/16/14 Metformin HCl [Glucophage] 500 mg PO DAILY 01/16/14 Methotrexate 20 mg PO TU 01/16/14 Omeprazole [Prilosec] 40 mg PO DAILY 4 Pioglitazone [Actos] 15 mg PO DAILY 01/16/14 Rosuvastatin Calcium [Crestor] 20 mg PO DAILY 01/16/14 Stool Softner 1 tab PO DAILY 01/16/14 Acetaminophen/Codeine #3 [Tylenol#3] 1 tab PO Q4H PRN PRN 7 Da ys #30 tab 12/21/17 The following prescriptions were given: Acetaminophen/Codeine #3 [Tylenol#3] 1 tab PO Q4H PRN PRN 7 Days #30 tab PRN Reason: Pain Primary Care Physician: Lucretia Henson DO [[facility]] - Test Results: Test results from this visit will be discussed in further detail at your follow-up appointment, if applicable. Please Follow Up With: Jazzy Dunn DPM When: as previ ously scheduled 12/21/17 1107 <Electronically signed by Jazzy Dunn DPM> Date Jazzy Dunn DPM CC: Lucretia Henson DO 21-Dec-2017 Operative Report Result: Comments: See Note; NOTES: [facility] Medical Records Department [address] [place] [address] Operative Report 12/21/17 1041 MR#: [id number] Acct: [id number] Name: ELIZABETH MEYERS Rep #: [id number] : 1950 67 From: Jazzy Dunn DPM PCP: Lucretia Henson DO Status: REG [facility] Y Location: [place] [address] Report of Operation Date of Procedure: 12/21/17 Pre-Operative Diagnosis: Lef t foot abscess Post-Operative Diagnosis: same Surgery/Procedure Performed:: L foot incision and drainage, washout Description of Surgical Findings:: Indications: Pt is a 67 yo F who presented to my off ice yesterday for a post-operative appointment for a left EHL tendon soft tissue mass excision, DOI 12/02/2017. Her post operative course had been uneventful until 12/16/2017 when she had gotte n her surgical dressing wet while bathing. She did not call the office as she had an appointment already scheduled and felt it would be ok to wait. She presented yesterday with edema, erythema and a sma ll amount of drainage to the surgical site. Two sutures were still intact. She denies pain, fever, chills, nausea, vomiting. She was started on doxycycline and scheduled for surgery this morning. Pt wa s verbally and visually identified in the pre operative holding area. Risks, benefits and complications were again reviewed with the patient. Patient wished to proceed with the proposed surgery. The lef t foot was marked as the correct operative extremity. The patient was brought to the operating room by anesthesia and placed on the operating table in the normal supine position. A time out was performe d and all present were in agreement. The left lower extremity was then prepped and draped in normal sterile fashion. Attention was the directed to the left dorsal foot. Using a #15 blade a linear incisi on was made at the previous surgical site. Minimal purulent drainage was noted. The soft tissue was explored with with no jayna abscess noted. Pulse lavage of 3L NSS was used and wound cultures were maylin en. I felt that the EHL tendon look well healed and did not need opened as the infection appeared to be contained to the superficial soft tissues. I did not want to expose the EHL tendon at this time. E lectrocautery was utilized for all bleeders. After copious amounts of irrigation via pulse lavage I used 3.0 prolene for retention sutures of the most distal and proximal ends of my incision. A giorgio drain was placed at the central incision to allow for continued drainage. 10 cc of 0.5% marcaine plain was injected at the surgical site. Betadine soaked adaptic was then applied with 4x4 gauze, kerlix and light compression dressing to the LLE. At the end of the case all neddle and instrument counts were found to be correct. The patient was transported to the pacu by a member of the anesthesia team an d myself with all vital signs stable. Pt tolerated the anesthesia and procedure well. Capillary refill was < 3 seconds to all digits of the operative extremity. PT will be WBAT in surgical shoe and continue the doxycycline. I will see her in 6 days in clinic or sooner if needed. staff radiologist: none Type of Anesthesia:: Local MAC Specimen's removed: wound cx Drains: giorgio Estimated Blood Loss (mL): minimal - Admit VTE Documentation VTE Present on Admission: No VTE Mechan Device Prophylaxis: SCD's 12/21/17 1058 <Electronically signed by Jazzy Dunn DPM> Date __ Jazzy Dunn DPM CC: ABHAY Dunn; Lucretia Henson DO Signed 22-Nov-2017 12 Lead Electrocardiogram Result: Comments: See Note; NOTES: [facility] Cardiovascular Services [address] [place] [address] 12 Lead EKG 11/18/17 1724 MR#: [id number] Acct: [id number] Name: ELIZABETH MEYERS Rep # : [id number] : 1950 67 From: Hayden Farnsworth MD Attending Dr: Jazzy Dunn DPM Status: REG CLI Ordering Dr: Jazzy Dunn DPM Date: 11/18/17 Location: LAB Sex: F C Admitted: Test Reason : PRE -OP Blood Pressure : / mmHG Vent. Rate : 073 BPM Atrial Rate : 073 BPM P- R Int : 154 ms QRS Dur : 100 ms QT Int : 414 ms P-R-T Axes : 074 077 064 degrees QTc Int : 456 ms Normal sinus rhythm Poss ible Left atrial enlargement Low voltage QRS Borderline ECG Confirmed by MARTINA PAN, HAYDEN ([id number]), primer expeditor and drier CATY MEJIA ([id number]) on 11/22/2017 2:38:43 PM Referred By: Jazzy Dunn Confirmed By:HAYDEN LOZANO MD 11/22/17 1438 Date Hayden Farnsworth MD CC: ABHAY Dunn; Lucretia Henson DO Signed 18-Nov-2017 Chest PA and Lateral Result: Comments: See Note; NOTES: [facility] Imaging Services [address] [place] [address] Chest PA and Lateral MR#: [id number] Acct: [id number] Name: ELIZABETH MEYERS Rep #: [id number] : 1950 F 67 From: Shar Arevalo DO PCP: Lucretia Henson DO Status: REG CLI Study: Chest PA and Lateral Date of Exam: 11/18/17 Exam# [id number] Ordering Dr: Jazzy Dunn DPM STUDY: X-RAY CHEST RE ASON FOR EXAM: Female, 67 years old. Preop TECHNIQUE: Frontal and lateral views COMPARISON: April 09, 2014 FINDINGS: The lungs are clear and expanded. There is no demonstrated pleural abnormality. Normal size heart. Normal mediastinum and gogo. Normal visualized pulmonary arteries. Normal visualized aortic arch and descending thoracic aorta. Degenerative ch anges of the thoracic spine. Status post surgical fusion of mid cervical levels. Prior right shoulder surgery. There is no demonstrated abnormality of the visualized soft tissue structures of the upper abdomen. RAD/Chest PA and Lateral IMPRESSION: Normal x-ray examination of the chest. Electronically Signed: Shar Arevalo DO at 18:48 ED T Tel [phone], Service support , CC: ABHAY Dunn; Lucretia Henson DO Chaperone: Signed 09-Jul-2015 12 Lead Electrocardiogram Result: Comments: See Note; NOTES: [facility] Cardiovascular Services [address] [place] [address] 12 Lead EKG 07/04/151641 MR#: [id number] Acct: [id number] Name: ELIZABETH EPSINAL Rep #: [id number] : 1950 65 From: Ernesto Peacock MD Attending Dr: Siddharth Valdovinos Status: REG [facility] Ordering Dr: Siddharth Mendoza PA-C Date: 07/04/15 Location: LAB Sex: F C Admitted: Test Reason : PREOP Blood Pressure : / mmHG Vent. Rate : 064 BPM Atrial Rate : 064 BPM P-R Int : 148 ms QRS Dur : 094 ms QT Int : 426 ms P-R-T Axes : 064 078 067 degrees QTc Int : 439 ms Normal sinus rhythm Low voltage QRS Borderline ECG Confirmed by ERNESTO PEACOCK MD ([id number]), primer expeditor and drier CATY MEJIA ([id number]) on 07/09/2015 9:57:58 AM Referred By: TANNER Confirmed By:ERNESTO PEACOCK MD 07/08 0958 Date Ernesto Peacock MD CC: Lucretia Henson DO Date Dictated: 07/04/151641 Date Transcribed: 07/04/151641 Chaperone: Signed 19-Jun-2015 Spirometry (36800) Comments: mild restricitoin Result: 03-Dec-2014 EKG (49713) Comments: INC rbbb NSR NO ACUTE CGH Result: [MEASUREMENTS ANALYSIS] Date of Test: 12/03/2014 16:09:42; Heart Rate: 67; ID Interval: 144; QRS: 108; QT Interval: 420; Corrected QT Interval (QTc): 432; P [place]: 63; QRS [place]: 72; T [place] : 65; Blood Pressure: 122/74 [ECG DIAGNOSTIC STATEMENTS] Date of Test: 12/03/2014 16:09:42; Summary: Sinus Rhythm Low voltage -possible pulmonary disease. ABNORMAL 21-May-2014 Spirometry (39267) Comments: good stable Result: 09-Apr-2014 Chest PA and Lateral Result: Comments: See Note; NOTES: [facility] Imaging Services [address] [place] [address] Radiology Report MR#: [id number] Acct: [id number] Name: ELIZABETH MEYERS Rep #: [id number] : 1950 F 63 From: Sabino Osorio DO PCP: Lucretia Henson DO Status: REG CLI Study: Chest PA and Lateral Date of Exam: 04/09/14 Exam# [id number] Ordering Dr: Reyes Goodwin DO STUDY: X-RAY CHEST REASON FOR EXAM: Female, 63 years old. Preop, history of COPD and pneumonia TECHNIQUE: PA and lateral views of the chest. COMPARISON: 05/01/13 F INDINGS: Small granulomatous calcifications are unchanged. There is no focal consolidation. There is no demonstrated pleural abnormality. There is mild cardiac enlargement. Normal mediastinum and h [place]. Normal visualized pulmonary arteries. There is atherosclerotic tortuosity of the aortic arch and descending thoracic aorta. There are diffuse degenerative changes of the visualized thoracic spi ne. Metal suture anchors are seen within the proximal right humerus. Metallic density projects over the lower cervical spine, suggesting previous spinal surgery. There is no demonstrated abnormalit y of the visualized soft tissue structures of the upper abdomen. IMPRESSION: No acute process in the chest. No significant change from 05/01/13. Electronically Signed: Sabino Osorio DO at 2:15 EST Tel , Service support [phone], CC: Lucretia Henson DO; Reyes Goodwin DO Chaperone: Signed 06-Apr-2014 12 Lead Electrocardiogram Result: Comments: See Note; NOTES: [facility] Cardiovascular Services [address] [place] [address] 12 Lead EKG 04/05/142 MR#: [id number] Acct: [id number] Name: KAYLA MEYERSRosa Maria Payne Rep #: [id number] : 1950 63 From: Jey Azar MD Attending Dr: Reyes Goodwin DO Status: REG CLI Ordering Dr: Reyes Goodwin DO Date: 04/05/14 Location: LAB Sex: F C Admitted: Estefani t Reason : PREOP Blood Pressure : / mmHG Vent. Rate : 074 BPM Atrial Rate : 074 BPM P-R Int : 146 ms QRS Dur : 090 ms QT Int : 408 ms P-R-T Axes : 063 080 065 degrees QTc Int : 452 ms No rmal sinus rhythm Low voltage QRS Borderline ECG Confirmed by JEY AZAR ([id number]), primer expeditor and drier CATY MEJIA ([id number]) on 04/06/2014 10 :05:50 AM Referred By: TANNER Confirmed By:JEY AZAR 04/06/14 1005 Date Jey Azar MD CC: Lucretia Henson DO Date Dictated: 04/05/14 1522 Date Transcribed: 04/05/141521 Chaperone: Signed 31-Jan-2014 Operative Report Result: Comments: See Note; NOTES: [facility] Medical Records Department [address] [place] [address] Operative Report MR#: [id number] Acct: [id number] Name: ELIZABETH MEYERS Rep # : [id number] : 1950 63 From: Reyes Goodwin DO PCP: Lucretia Henson DO Status: ADM IN DATE OF SERVICE: 01/29/2014 OPERATION: Right total hip replacement arthroplasty utilizing [place] Trident size 48 cup, MDM metal liner, size 4 Accolade type 2, 132 degree neck angle femoral stem with +3 modular cobalt chromium polyethylene femoral head. PREOPERATIVE DIAGNOSIS: Osteoarthritis, right hip. POSTOPERATIVE DIAGNOSIS: Osteoarthritis, right hip. SURGEON: Reyes Goodwin D.O. AWNING FRAME MAKER: Siddharth Mendoza PA-C. SECOND HEARTH FEEDER ____ PGY4. ANESTHESIA: Spinal. ANESTH ESIOLOGIST: Demar Valadez M.D. DRAINS: None. SPECIMEN: Bone. COMPLICATIONS: None. ESTIMATED BLOOD LOSS: 100 mL. DESCRIPTION OF PROCEDURE: With appropriate informed consent, the patient w as taken to the operative suite. After the induction of spinal anesthetic and administration of preoperative antibiotics, the patient was placed in the lateral decubitus position with the right side up. All bony prominences were well padded. Subsequently, the right hip and leg were prepared and draped in sterile fashion. Thereafter, a gently curved longitudinal incision was made over the later al aspect of the right hip and a standard posterior approach to the hip was carried out. A Charnley retractor was placed underneath the tensor fascia. After incising it, the piriformis was tagged an d cut. Posterior capsulotomy was performed. There was severe osteoarthritis appreciated after dislocating the hip. The femoral neck was measured and marked and an oscillating saw was utilized to pe rform the femoral neck osteotomy. The osteotomized bone was sent as specimen. Retractions were placed deep inside the acetabulum. Subsequently, the labrum was removed and then sequential reaming of the cup was undertaken up to a size 47-mm reamer. A 48 cup was impacted into place with excellent fit and fill within the bony confines of the pelvis. Thereafter, the metal MDM liner was placed. A ttention was now brought to the femur. The access was gained in the femoral shaft and then sequential broaching was carried out to a size 4 broach. Trialing off the 4 broach revealed the +3 head nec k length gave the best combination of range of motion, stability, and reapproximation of the patient's leg lengths. Subsequently, the trial was removed. The pericapsular soft tissues were injected with Exparel (liposomal bupivacaine) for postoperative pain control. Thereafter, the permanent stem was impacted into place. It seated to the exact level of the trial. A trial head was placed and I measured from the lesser trochanter to the center of the femoral head, which was 6 cm. Trial relocation revealed excellent range of motion, stability, and leg length gnosticism. Trial head and nec k was removed and then the trunnion of the stem was thoroughly cleansed. Thereafter, the permanent head neck was impacted into place. The wound was copiously irrigated with sterile saline and then dr ied thoroughly. Thereafter, the hip was relocated for a final time. Short external rotators were repaired through drill holes in the greater trochanter and the wound was closed in layers in standard fashion with renetta on the skin. Sterile well-padded dressing was applied. My water quality assistant, Mr. Mendoza, provided a vital role in performance of this procedure, beginning with positioning the patient, retraction of soft tissues, and maneuvering the leg during exposure of the wound, cutting the bone, and placement of prosthesis. Then, under my direct supervision, he closed the wounds and applied s terile postoperative dressing. Postoperatively, the patient was transferred to the PACU in stable and satisfactory condition. Reyes Goodwin DO T: SHARLA JOB: [id number] 01/31/14 1549 &#60 ;Electronically signed by Reyes Goodwin DO> Date Reyes Goodwin DO CC: Lucretia Goodwin DO Date Dictated: 01/29/141419 Date Transcribed: 01/29/141419 Chaperone: Signed 31-Jan-2014 Discharge Instruction Result: Comments: See Note; NOTES: [facility] Medical Records Department [address] [place] [address] Instructions for Home/Discharge Instructions 01/31/14 1512 MR#: [id number] Acc t: [id number] Name: ELIZABETH MEYERS Rep #: [id number] : 1950 63 From: Siddharth Mendoza PA-C PCP: Lucretia Henson DO Status: DIS IN Discharge Diet: 1800 Calorie Control Diet Discharge Activit y: May Not Drive, May Shower, Use Walker May shower in (days): 3 - only if incision is dry and without drainage. Do NOT soak/submerge in tub/pool/hester/stream/hot tub. May resume sexual activity in: N o Restrictions Ice area for (Minutes): 20 - every hour while awake Weight Bearing Status: Weight bearing as veronica Lifting Restrictions: 20 pounds Elevate: Operative Extremity Call your doctor if your incision/area has: Continuous Slow Oozing, Sudden Increased Bleeding, Increased Pain/ Swelling, Increased Redness, Foul Smelling Discharge Call your doctor if you observe: Fever of 101 or Higher, In ability to urinate, Inability to have a bowel movement, Shortness of breath, Fainting spells, Chest pain, Increased palpitations (irregular heartbeat), Calf discomfort, Uncontrolled pain Change Dres sing in (Days):: 1 - Change daily and as needed. Cleanse incision/area with: Soap AND Water Allergies/Adverse Reactions: Allergies No Known Allergies Allergy (Verified 02/24/13 15:31) Medicatio ns to take at Discharge BuPROPion (SR) [Wellbutrin Sr] 150 mg PO DAILY Doxepin HCl 25 mg PO DAILY Escitalopram Oxalate [Lexapro] 20 mg PO DAILY Levothyroxine [Synthroid] 175 mcg PO DAILY Sulfasala zine [Azulfidine] 500 mg PO BIDCM Cholecalciferol (Vitamin D3) [Vitamin D3] 5,000 unit PO DAILY Folic Acid 1 mg PO DAILY@0800 Insulin Detemir [Levemir FlexPen] 40 units SC BID Insulin Lispro [Humalo g] 30 unit SQ TIDCM Meloxicam [Mobic] 15 mg PO DAILY Metformin HCl [Glucophage] 500 mg PO BIDCM Methotrexate 20 mg PO TU Omeprazole [Prilosec] 40 mg PO DAILY Pioglitazone [Actos] 15 mg PO DAILY Ro suvastatin Calcium [Crestor] 20 mg PO DAILY Stool Softner 1 tab PO DAILY Aspirin E.C. [Ecotrin] 325 mg PO BIDCM #60 tablet Nicotine [Nicoderm Cq] 21 mg TRANSDERM. DAILY #30 patch Oxycodone HCl/Aceta minophen [Percocet 5-325] 1 - 2 tablet PO Q6H PRN PRN #90 tablet The following prescriptions were given: Oxycodone HCl/Acetaminophen [Percocet 5-325] 1 - 2 tablet PO Q6H PRN PRN #90 tablet PRN Re ason: PAIN Nicotine [Nicoderm Cq] 21 mg TRANSDERM. DAILY #30 patch Aspirin E.C. [Ecotrin] 325 mg PO BIDCM #60 tablet Please Follow Up With: Physical therapy w/Reyes Please Follow Up With: Tech sher t with [employer] [facility] @ [place] office Please Follow Up With: Siddharth Mendoza 01/31/14 1514 <Electronically signed by Siddharth Mendoza PA-C> Date Siddharth Mendoza PA-C CC: Lucretia Henson DO; Mau Faulkner DO 31-Jan-2014 12 Lead Electrocardiogram Result: Comments: See Note; NOTES: [facility] Cardiovascular Services [address] [place] [address] 12 Lead EKG 01/29/14 1454 MR#: [id number] Acct: [id number] Name: RACHEL MEYERS Rep #: [id number] : 1950 63 From: Hayden Farnsworth MD Attending Dr: Nadeem Ceballos MD Status: ADM IN Ordering Dr: Demar Valadez MD Date: 01/29/14 [place] [facility] [place] C Admitted: 01/29/14 Test Reason : POST OP Blood Pressure : / mmHG Vent. Rate : 065 BPM Atrial Rate : 065 BPM P-R Int : 158 ms QRS Dur : 092 ms QT Int : 456 ms P-R-T Axes : 063 065 064 degrees QTc Int : 474 m s Normal sinus rhythm Low voltage QRS Borderline ECG Confirmed by MARTINA PAN, HAYDEN ([id number]), primer expeditor and drier CATY MEJIA ([id number]) on 2013 9:46:18 AM Referred By: TANNER Confirmed By:HAYDEN FARNSWORTH MD 01/31/14 0946 Date Hayden Farnsworth MD CC: Lucretia Hensno DO Date Dictated: 01/29/14 145 Date Transcribed: 01/29/141453 Chaperone: Signed 30-Jan-2014 Echocardiogram Complete Result: Comments: See Note; NOTES: [facility] Cardiovascular Services [address] [place] [address] Echo Complete 01/29/14 1508 MR#: [id number] Acct: [id number] Name: ULICES MEYERS Rep #: [id number] : 1950 63 From: Ernesto Peacock MD Attending Dr: Nadeem Ceballos MD Status: ADM IN Ordering Dr: Demar Valadez MD Date: 01/29/14 Location: [facility] Sex: F C Admitted: 01/29/14 Procedure This was a 2D Doppler, Color Flow transthoracic echocardiogram. The exam was of poor technical quality due to pt inability to lay on left side due to recent rt hip surgery. Exam performed portable in patient room. Left Ventricle Normal LV size. Mild concentric left ventricular hypertrophy. Left ventricular systolic function is normal. The estimated ejection fraction is 55 %. Transmi tral diastolic flow velocities suggest mild (stage 1) diastolic dysfunction (reversed pattern). No regional wall motion abnormalities noted. Right Ventricle Normal RV size. Normal systolic functio n. Atria Normal left atrium. Normal right atrium. Mitral Valve Normal mitral valve. Tricuspid Valve The tricuspid valve is not well visualized. Aortic Valve The aortic valve is not well visu alized. Pulmonic Valve The pulmonic valve is not well visualized. Great Vessels Normal aortic root. Pericardium/Pleural Trivial pericardial effusion. MMode/2D Measurements AND Calculations L VIDd: 3.8 cm IVSd: 1.2 cm Ao root diam: 3.1 cm LAV( MOD-sp4): 19.9 ml LVIDs: 2.4 cm LVPWd: 1.2 cm Ao root area: 7.3 cm2 RVDd: 2.4 cm FS: 36.3 % LA dimension: 4.0 cm LA A4 area: 10.1 cm2 RA A4 area: 14.9 cm2 Doppler Measurements AND Calculations MV E max zak: Lat Peak E' Zak: Med Peak E' Zak: Ao V2 max: 54.5 cm /sec 5.3 cm/sec 6.1 cm/sec 129.5 cm/sec MV A max zak: Ao max P.7 mmHg 60.7 cm/sec MV E/A: 0.90 LV V1 max: 1 08.8 cm/sec PA V2 max: 66.5 cm/sec E/E' lat: 10.4 E/ E' med: 8.9 LV V1 max P.7 mmHg PA max P.8 mmHg Interpretation Summary Normal LV size. Mild concentric left ventricular hypertrophy. Lef t ventricular systolic function is normal. The estimated ejection fraction is 55 %. Transmitral diastolic flow velocities suggest mild (stage 1) diastolic dysfunction (reversed pattern). Ordering Physician: Demar Valadez Referring Physician: Lucretia Henson M.D. Performed By: Nicole Augustine 01/29/14 1556 Date Ernesto Peacock MD CC: Demar Valadez MD; Lucretia Henson DO Date Dictated: 01/29/14 1508 Date Transcribed: 01/29/14 1556 Chaperone: Signed 30-Jan-2014 Consultation Result: Comments: See Note; NOTES: [facility] Medical Records Department [address] [place] [address] Consultation 01/30/14 1128 MR#: [id number] Acct: [id number] Name: ULICES MEYERS Rep #: [id number] : 1950 63 From: Nadeem Ceballos MD PCP: Lucretia Henson DO Status: ADM IN Location: [facility] [id number] Reason for Consult Date of Consultation: 01/30/14 Reason for Con sultation: medical management in a patient with right total hip arthroplasty History of Present Illness: The patient is a 63 year old F who has had rheumatoid arthritis for about 20 years. She has b een followed by physicians at the [facility] in [place] since about the year 1999. She states she has taken methotrexate folic acid and other immunosuppressive agents for rheumatoid arthritis over the years. Her primary care physician is Dr. Lucretia Henson. When blood sugars began to become elevated today. She had a total right hip arthroplasty on Wednesday by . There were no complic ations and she states she has only a modest amount of pain in the right hip region. She would like to go home tomorrow she states. Current medicines are listed below Current Home Med List Medica tion Instructions Recorded Confirmed Type BuPROPion (SR) [Wellbutrin Sr] 150 mg PO DAILY 02/24/13 01/16/14 History Doxepin HCl 25 mg PO DAILY 02/24/13 01/16/14 History Escitalopram Oxalate [Lexapr o] 20 mg PO DAILY 02/24/13 01/16/14 History Levothyroxine [Synthroid] 175 mcg PO DAILY 02/24/13 01/16/14 History Sulfasalazine [Azulfidine] 500 mg PO BIDCM 02/24/13 01/16/14 History Acetaminophen [Tylenol] 325 mg PO PRN PRN 01/16/14 01/16/14 History Cholecalciferol (Vitamin D3) 5,000 unit PO DAILY 01/16/14 01/16/14 History [Vitamin D3] Folic Acid 1 mg PO DAILY@0800 01/16/14 01/16/14 Histor y Insulin Detemir [Levemir FlexPen] 40 units SC BID 01/16/14 01/30/14 History Insulin Lispro [Humalog] 30 unit SQ TIDCM 01/16/14 01/30/14 History Meloxicam [Mobic] 15 mg PO DAILY 01/16/14 01/16/14 History Metformin HCl [Glucophage] 500 mg PO BIDCM 01/16/14 01/16/14 History Methotrexate 20 mg PO TU 01/16/14 01/16/14 History Omeprazole [Prilosec] 40 mg PO DAILY 01/16/14 01/29/14 History Pi oglitazone [Actos] 15 mg PO DAILY 01/16/14 01/16/14 History Rosuvastatin Calcium [Crestor] 20 mg PO DAILY 01/16/14 01/16/14 History Stool Softner 1 tab PO DAILY 01/16/14 01/16/14 History She has had diabetes for several years. Interestingly she attributes the origin of diabetes to the use of Crestor. Hospitalist service was asked to see her on consultation Current vital signs Last Vital S igns Temp 98.8 F 01/30/14 07:49 Pulse 90 01/30/14 08:54 Resp 18 01/30/14 07:49 BP 97/58 01/30/14 07:49 Pulse Ox 97 01/30/14 07:40 Current laboratory work Laboratory Tests Past 24 Hrs 01/29/14 01/30/14 15:07 05:06 WBC 10.6 9.5 RBC 5.06 4.15 L Hgb 13.8 11.4 L Hct 44.3 35.9 L MCV 87.5 86.5 MCH 27.3 27.5 MCHC 31.2 L 31.8 L RDW 13.2 13.0 RDW Differential 41.9 39.8 Plt Count 186 162 MPV 11.3 11.4 Sodium 140 138 Potassium 3.6 4.2 Chloride 105 104 Carbon Dioxide 31.0 27.0 Anion Gap 4 L 7 BUN 14 14 Creatinine 1.2 H 1.1 H Estim Creat Clear Calc 45. 50 49.64 Est GFR (MDRD) Af Amer 58 L 64 Est GFR (MDRD) Non-Af 48 L 53 L BUN/Creatinine Ratio 11.7 12.7 Glucose 168 H 259 H Calcium 9.1 8.2 L Total Creatine Kinase 76 CK-MB (CK-2) 1.3 CK- MB (CK-2) Rel Index Not Reportable Troponin I < 0.02 Past Medical History Past Medical History (Chronic Problems): Chronic Problems Depression (Chronic) Fibromyalgia (Chronic) GERD (gastroesophageal reflux disease) (Chronic) HTN (hypertension) (Chronic) Obesity (BMI 35.0-39.9 without comorbidity) (Chronic) Rheumatoid arthritis (Chronic) Allergies No Known Allergies Allergy (Verified 02/24/13 15:31) Home Medications: Ambulatory Orders Medication Instructions Recorded BuPROPion (SR) [Wellbutrin Sr] 150 mg PO DAILY 02/24/13 Doxepin HCl 25 mg PO DAILY 02/24/13 Escitalopram Oxalate [Lexapro] 20 mg PO DAILY 02/24/13 Levothyroxine [Synthroid] 175 mcg PO DAILY 02/24/13 Sulfasalazine [Azulfidine] 500 mg PO BIDCM 02/24/13 Acetaminophen [Tylenol] 325 mg PO ID N PRN 01/16/14 Cholecalciferol (Vitamin D3) 5,000 unit PO DAILY 01/16/14 [Vitamin D3] Folic Acid 1 mg PO DAILY@0800 01/16/14 Insulin Detemir [Levemir FlexPen] 40 units SC BID 01/16/14 Insulin Lispro [Humalog] 30 unit SQ TIDCM 01/16/14 Meloxicam [Mobic] 15 mg PO DAILY 01/16/14 Metformin HCl [Glucophage] 500 mg PO BIDCM 01/16/14 Methotrexate 20 mg PO TU 01/16/14 Omeprazole [Prilosec] 4 0 mg PO DAILY 01/16/14 Pioglitazone [Actos] 15 mg PO DAILY 01/16/14 Rosuvastatin Calcium [Crestor] 20 mg PO DAILY 01/16/14 Stool Softner 1 tab PO DAILY 01/16/14 Surgical History: adenoidectomy , cataract, total knee arthroplasty, tonsillectomy, - - Partial thyroidectomy, rotator cuff surgery Psychiatric History: No pertinent psych hx 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 Denies: Head Aches, Sinus Congestion, Sinus Drainage Cardiovascular: Repo rts: - - No history of coronary artery disease. Denies: Chest Pain, Palpitations Respiratory: Reports: - - No history of lung disease although she does smoke cigarettes. Denies: Cough, Shortness of b reath at rest, Sputum production Gastrointestinal: Denies: Abdominal Pain, Nausea, Vomiting Genitourinary: Reports: - - No current difficulties. Denies: Dysuria Musculoskeletal: Reports: - - Has mult i-joint discomfort from fibromyalgia and rheumatoid arthritis. Denies: Joint Pain, Joint Tenderness Skin: Denies: Rash, Wounds Neurological: Reports: - - Has no history of headaches no history of str christopher. Denies: Focal weakness, Numbness, Tingling Psychiatric: Denies: Anxiety, Depression, Homicidal Ideations, Suicidal Ideations Endocrine: Reports: - Hematologic/ Lymphatic: Denies: Easy Bruising , Easy Bleeding Subjective: This is a white female who was awake alert oriented answered questions appropriately she stated she was only having a modest amount of pain. - Physical Exam General: Al ert, Oriented x3, Cooperative HEENT: Atraumatic, PERRLA, EOMI, Normocephalic Neck: Supple, No JVD, Negative Carotid Bruits Lungs: Clear to auscultation, Normal air movement Cardiovascular: Regular r ate, No murmurs Abdomen: Bowel Sounds Present, Soft, Non Tender Extremities: No edema, Capillary Refill Less than 3 Seconds Skin: No rashes, No breakdown Musculoskeletal: No Tenderness to Palpation of Joints or Extremities, - - Right hip areas covered with a bandage she is wearing compression devices Neurological: Cranial nerves II-XII grossly intact Psych/Mental Status: Normal Affect, Appropri ate Vital Signs Temp Pulse Resp BP Pulse Ox 98.8 F 90 18 97/58 97 01/30/14 07:49 01/30/14 08:54 01/30/14 07:49 01/30/14 07:49 01/30/14 07:40 Oxygen Flow Rate 2 Oxygen Delivery Method Room Air Weight: 226 lb Body Mass Index (BMI) 36.4 Finger Stick Blood Glucose 177 Intake and Output for Last 24 Hours 01/28/14 01/29/14 01/30/14 23:59 23:59 23:59 Intake Total 3700 Balance 3700 Laboratory Tests Past 24 Hrs 01/29/14 01/30/14 15:07 05:06 WBC 10.6 9.5 RBC 5.06 4.15 L Hgb 13.8 11.4 L Hct 44.3 35.9 L MCV 87.5 86.5 MCH 27.3 27.5 MCHC 31.2 L 31.8 L RDW 13.2 13.0 RDW Differential 41.9 39.8 Plt Count 186 162 MPV 11.3 11.4 Sodium 140 138 Potassium 3.6 4.2 Chloride 105 104 Carbon Dioxide 31.0 27.0 Anion Gap 4 L 7 BUN 14 14 Creatinine 1.2 H 1.1 H Estim Creat Clear Calc 45.50 49.64 Est GFR (MDRD) Af Amer 58 L 64 Est GFR (MDRD) Non-Af 48 L 53 L BUN/Creatinine Ratio 11.7 12.7 Glucose 168 H 259 H Calcium 9.1 8.2 L Total Cre atine Kinase 76 CK-MB (CK-2) 1.3 CK-MB (CK-2) Rel Index Not Reportable Troponin I < 0.02 POC Glucose 01/30/14 01/30/14 01/30/14 06:51 04:04 02:10 POC Glucose 289 H 335 H 313 H 01/29/14 01/29/14 01/29/14 21:23 17:43 15:03 POC Glucose 352 H 234 H 177 H Assessment/Plan Problem list * Osteoarthritis not amenable to outpatient therapy right total hip arthroplas ty by Dr. Goodwin * Chronic rheumatoid arthritis * Chronic diabetes mellitus type 2 she uses 50 units of Levemir twice a day * History of partial direct to me now on thyroid replacement therapy * Chr onic depression * Chronic hyperlipidemia * Chronic hypertension * Chronic tobacco abuse disorder * COPD Medical treatment plan/medical decision making * Agree with current medical regimen. * Co ntinue SCD * Nicotine patch for nicotine withdrawal symptoms * We'll follow blood glucoses with sliding scale * Continue home medicines agree with these * We'll speak to orthopedic about plan for DV T prophylaxis * CBC BMP in a.m. * PT OT eval and treat 01/30/14 1139 <Electronically signed by Nadeem Ceballos MD> Date Nadeem cam MD CC: Lucretia Henson DO; Mau Faulkner DO Signed 29-Jan-2014 Hip Min 2 Views (Portable) Result: Comments: See Note; NOTES: [facility] Imaging Services [address] [place] [address] Radiology Report MR#: [id number] Acct: [id number] Name: ELIZABETH MEYERS Rep #: [id number] : 1950 F 63 From: Mane Stephens MD PCP: Lucretia Henson DO Status: ADM IN Study: Hip Min 2 Views (Portable) Date of Exam: 01/29/14 Exam# [id number] Ordering Dr: Reyes Goodwin DO STUDY: X-RAY - RIGHT HIP REASON FOR EXAM: Female, 63 years old. The patient is status post right total hip replacement. TECHNIQUE: 2 view(s) of the hip. COMPARISON: None. FINDINGS: The patient is status post right total hip replacement. There is good alignment. Normal visualized superior and inferior pubic rami and ischial tuberosities. There is a moderate degree of joint space narrowing of the left hip joint. Postoperative soft tissue swelling. IMPRESSION: The patient is status post right total hip repl acement. There is good alignment. Postoperative soft tissue swelling. Electronically Signed: Mane Stephens MD at 16:01 EST Tel [phone], Service support [phone], Fax RAD/Hip Min 2 Views (Portable) IMPRESSION: The patient is status post right total hip replacement. There is good alignment. Postoperative soft tissue swelling. Sandra ctronically Signed: Mane Stephens MD at 16:01 EST Tel [phone], Service support [phone], CC: Lucretia Henson DO; Reyes Goodwin DO Chaperone: Signed 01-May-2013 Chest PA and Lateral Result: Comments: See Note; NOTES: [facility] Imaging Services [address] [place] [address] Radiology Report MR#: [id number] Acct: [id number] Name: ELIZABETH MEYERS Rep #: [id number] : 1950 F 62 From: Siddharth Wahl MD PCP: Lucretia Henson DO Status: REG CLI Study: Chest PA and Lateral Date of Exam: 05/01/13 Exam# [id number] Ordering Dr: Lucretia Henson DO STUDY: X- RAY CHEST REASON FOR EXAM: Female, 62 years old. 6 weeks followup for pneumonia. TECHNIQUE: Frontal and lateral views of the chest. COMPARISON: February 27, 2013 FINDINGS: The patchy linear opacities noted on the prior study have resolved. There are stable granulomatous calcifications. There is no demonstrated pleural abnormality. There is cardiomegaly unchanged. Normal mediastinum and gogo. Normal visualized pulmonary arteries. Normal visualized aortic arch and descending thoracic aorta. Normal visualized thoracic spine. Normal visualized ribs, c lavicles, and shoulders. There is no demonstrated abnormality of the visualized soft tissue structures of the upper abdomen. IMPRESSION: No acute pathology of the chest at this time. Electronically Signed: Siddharth Wahl MD at 11:51 EDT , Service support [phone], CC: Lucretia Henson DO Chaperone: Signed Immunization Name Dates Details Influenza (3 years and up) on: 15-Dec-2007 Comments: 0.5cc given lt arm lot [id number] exp 07-31 Influenza (3 years and up) on: 14-Nov-2008 Pneumococcal (2 years and up) on: 15-Dec-2007 Family History Unknown Family Member Name Dates Details Depression Comments: Family Members In General Status: Active Lung Cancer Comments: First Degree Relatives, Maternal Uncle Status: Active Thyroid Comments: Maternal Grandmother Status: Active Social History Name Dates Details Alcohol Use Comments: Occasional alcohol use Status: Active Caffeine Use Comments: qd Status: Active Exercise History Comments: Inactive Status: Active Living Situation Comments: Lives alone Status: Active No Drug Use Status: Active Pets/Animals Comments: none Status: Active Tobacco Use: Former smoker. Comments: Smokes 2 cigarettes a day. 07/08/11 Status: Active Smoking Status Name Dates Details Former smoker Vital Signs Date Test Result Details :48 Temperature 97.2 f Comments: Method: Temporal Pulse 72 /min Comments: Pattern: Regular Respiration Rate 18 /min Comments: Pattern: Unlabored O2 SAT 20 % Comments: Room air BP Systolic 122 mm[Hg] Comments: Patient Position: Sitting; Cuff Location: Left Arm; Cuff Size: Large BP Diastolic 74 mm[Hg] Comments: Patient Position: Sitting; Cuff Location: Left Arm; Cuff Size: Large Weight 191.375 lb Height 66 in Body Mass Index Calculated 30.89 kg/m2 Body Surface Area Calculated 1.96 m2 [id number] Pulse 78 /min Comments: Pattern: Regular Respiration Rate 18 /min Comments: Pattern: Unlabored O2 SAT 94 % Comments: Room air BP Systolic 134 mm[Hg] Comments: Patient Position: Sitting; Cuff Location: Left Arm; Cuff Size: Large BP Diastolic 70 mm[Hg] Comments: Patient Position: Sitting; Cuff Location: Left Arm; Cuff Size: Large Weight 188 lb Height 66 in Body Mass Index Calculated 30.34 kg/m2 Body Surface Area Calculated 1.95 m2 :21 Pulse 72 /min Comments: Pattern: Regular Respiration Rate 18 /min Comments: Pattern: Unlabored O2 SAT 93 % Comments: Room air BP Systolic 124 mm[Hg] Comments: Patient Position: Sitting; Cuff Location: Left Arm; Cuff Size: Large BP Diastolic 62 mm[Hg] Comments: Patient Position: Sitting; Cuff Location: Left Arm; Cuff Size: Large Weight 198.125 lb Height 66 in Body Mass Index Calculated 31.98 kg/m2 Body Surface Area Calculated 1.99 m2 :31 Pulse 72 /min Comments: Pattern: Regular Respiration Rate 18 /min Comments: Pattern: Unlabored O2 SAT 94 % Comments: Room air BP Systolic 138 mm[Hg] Comments: Patient Position: Sitting; Cuff Location: Left Arm; Cuff Size: Large BP Diastolic 64 mm[Hg] Comments: Patient Position: Sitting; Cuff Location: Left Arm; Cuff Size: Large Weight 196 lb Height 66 in Body Mass Index Calculated 31.63 kg/m2 Body Surface Area Calculated 1.98 m2 :59 Pulse 88 /min Comments: Pattern: Regular Respiration Rate 18 /min Comments: Pattern: Unlabored O2 SAT 91 % Comments: Room air BP Systolic 126 mm[Hg] Comments: Patient Position: Sitting; Cuff Location: Left Arm; Cuff Size: Large BP Diastolic 88 mm[Hg] Comments: Patient Position: Sitting; Cuff Location: Left Arm; Cuff Size: Large Weight 200.3125 lb Height 66 in Body Mass Index Calculated 32.33 kg/m2 Body Surface Area Calculated 2 m2 :05 Pulse 83 /min Comments: Pattern: Regular Respiration Rate 18 /min Comments: Pattern: Unlabored O2 SAT 93 % Comments: Room air BP Systolic 128 mm[Hg] Comments: Patient Position: Sitting; Cuff Location: Left Arm; Cuff Size: Large BP Diastolic 80 mm[Hg] Comments: Patient Position: Sitting; Cuff Location: Left Arm; Cuff Size: Large Weight 207.25 lb Height 66 in Body Mass Index Calculated 33.45 kg/m2 Body Surface Area Calculated 2.03 m2 :21 Pulse 76 /min Comments: Pattern: Regular Respiration Rate 18 /min Comments: Pattern: Unlabored O2 SAT 97 % Comments: Room air BP Systolic 138 mm[Hg] Comments: Patient Position: Sitting; Cuff Location: Left Arm; Cuff Size: Large BP Diastolic 78 mm[Hg] Comments: Patient Position: Sitting; Cuff Location: Left Arm; Cuff Size: Large Weight 210.25 lb Height 66 in Body Mass Index Calculated 33.93 kg/m2 Body Surface Area Calculated 2.04 m2 :32 Comments: hearing wnlDr. Grimm and had a glaucoma test done Pulse 90 /min Comments: Pattern: Regular Respiration Rate 18 /min Comments: Pattern: Unlabored O2 SAT 91 % Comments: Room air BP Systolic 118 mm[Hg] Comments: Patient Position: Sitting; Cuff Location: Left Arm; Cuff Size: Large BP Diastolic 72 mm[Hg] Comments: Patient Position: Sitting; Cuff Location: Left Arm; Cuff Size: Large Weight 217.25 lb Height 66 in Body Mass Index Calculated 35.06 kg/m2 Body Surface Area Calculated 2.07 m2 :46 Pulse 60 /min Comments: Pattern: Regular Respiration Rate 18 /min Comments: Pattern: Unlabored O2 SAT 96 % Comments: Room air BP Systolic 122 mm[Hg] Comments: Patient Position: Sitting; Cuff Location: Left Arm; Cuff Size: Large BP Diastolic 70 mm[Hg] Comments: Patient Position: Sitting; Cuff Location: Left Arm; Cuff Size: Large Weight 217.25 lb Height 66 in Body Mass Index Calculated 35.06 kg/m2 Body Surface Area Calculated 2.07 m2 :57 Pulse 97 /min Comments: Pattern: Regular Respiration Rate 16 /min Comments: Pattern: Unlabored O2 SAT 97 % Comments: Room air BP Systolic 126 mm[Hg] Comments: Patient Position: Sitting; Cuff Location: Left Arm; Cuff Size: Standard BP Diastolic 80 mm[Hg] Comments: Patient Position: Sitting; Cuff Location: Left Arm; Cuff Size: Standard Weight 213 lb Height 66 in Body Mass Index Calculated 34.38 kg/m2 Body Surface Area Calculated 2.05 m2 :40 Temperature 97.4 f Comments: Method: Tympanic Pulse 91 /min Comments: Pattern: Regular Respiration Rate 18 /min Comments: Pattern: Unlabored O2 SAT 93 % Comments: Room air BP Systolic 128 mm[Hg] Comments: Patient Position: Sitting; Cuff Location: Left Arm; Cuff Size: Standard BP Diastolic 78 mm[Hg] Comments: Patient Position: Sitting; Cuff Location: Left Arm; Cuff Size: Standard Weight 213 lb Height 66 in Body Mass Index Calculated 34.38 kg/m2 Body Surface Area Calculated 2.05 m2 :30 Pulse 92 /min Comments: Pattern: Regular Respiration Rate 18 /min Comments: Pattern: Unlabored O2 SAT 98 % Comments: Room air BP Systolic 124 mm[Hg] Comments: Patient Position: Sitting; Cuff Location: Left Arm; Cuff Size: Large BP Diastolic 80 mm[Hg] Comments: Patient Position: Sitting; Cuff Location: Left Arm; Cuff Size: Large Weight 214 lb Height 66 in Body Mass Index Calculated 34.54 kg/m2 Body Surface Area Calculated 2.06 m2 :29 Temperature 98.2 f Comments: Method: Temporal Pulse 70 /min Comments: Pattern: Regular Respiration Rate 16 /min Comments: Pattern: Unlabored O2 SAT 97 % Comments: Room air BP Systolic 122 mm[Hg] Comments: Patient Position: Sitting; Cuff Location: Left Arm; Cuff Size: Standard BP Diastolic 74 mm[Hg] Comments: Patient Position: Sitting; Cuff Location: Left Arm; Cuff Size: Standard Weight 214 lb Height 66 in Body Mass Index Calculated 34.54 kg/m2 Body Surface Area Calculated 2.06 m2 :13 Pulse 82 /min Comments: Pattern: Regular Respiration Rate 18 /min Comments: Pattern: Unlabored O2 SAT 97 % Comments: Room air BP Systolic 138 mm[Hg] Comments: Patient Position: Sitting; Cuff Location: Left Arm; Cuff Size: Large BP Diastolic 82 mm[Hg] Comments: Patient Position: Sitting; Cuff Location: Left Arm; Cuff Size: Large Weight 214.25 lb Height 66 in Body Mass Index Calculated 34.58 kg/m2 Body Surface Area Calculated 2.06 m2 :51 Temperature 98.7 f Pulse 83 /min Comments: Pattern: Regular Respiration Rate 16 /min Comments: Pattern: Unlabored O2 SAT 96 % Comments: Room air BP Systolic 118 mm[Hg] Comments: Patient Position: Sitting; Cuff Location: Left Arm; Cuff Size: Standard BP Diastolic 72 mm[Hg] Comments: Patient Position: Sitting; Cuff Location: Left Arm; Cuff Size: Standard Weight 214.5 lb Height 66 in Body Mass Index Calculated 34.62 kg/m2 Body Surface Area Calculated 2.06 m2 :37 Pulse 113 /min Comments: Pattern: Regular Respiration Rate 20 /min Comments: Pattern: Unlabored O2 SAT 93 % Comments: Room air BP Systolic 118 mm[Hg] Comments: Patient Position: Sitting; Cuff Location: Left Arm; Cuff Size: Large BP Diastolic 62 mm[Hg] Comments: Patient Position: Sitting; Cuff Location: Left Arm; Cuff Size: Large Weight 227.125 lb Height 66 in Body Mass Index Calculated 36.66 kg/m2 Body Surface Area Calculated 2.11 m2 :45 Temperature 96.5 f Comments: Method: Tympanic Pulse 91 /min Comments: Pattern: Regular Respiration Rate 16 /min Comments: Pattern: Unlabored O2 SAT 91 % Comments: Room air BP Systolic 116 mm[Hg] Comments: Patient Position: Sitting; Cuff Location: Left Arm; Cuff Size: Standard BP Diastolic 64 mm[Hg] Comments: Patient Position: Sitting; Cuff Location: Left Arm; Cuff Size: Standard Weight 235.25 lb Height 66 in Body Mass Index Calculated 37.97 kg/m2 Body Surface Area Calculated 2.14 m2 :49 Pulse 88 /min Comments: Pattern: Regular Respiration Rate 18 /min Comments: Pattern: Unlabored O2 SAT 98 % Comments: Room air BP Systolic 142 mm[Hg] Comments: Patient Position: Sitting; Cuff Location: Left Arm; Cuff Size: Large BP Diastolic 98 mm[Hg] Comments: Patient Position: Sitting; Cuff Location: Left Arm; Cuff Size: Large Weight 235.25 lb Height 66 in Body Mass Index Calculated 37.97 kg/m2 Body Surface Area Calculated 2.14 m2 :45 Pulse 88 /min Comments: Pattern: Regular Respiration Rate 20 /min Comments: Pattern: Unlabored O2 SAT 96 % Comments: Room air BP Systolic 128 mm[Hg] Comments: Patient Position: Sitting; Cuff Location: Left Arm; Cuff Size: Large BP Diastolic 82 mm[Hg] Comments: Patient Position: Sitting; Cuff Location: Left Arm; Cuff Size: Large Weight 231 lb Height 66 in Body Mass Index Calculated 37.28 kg/m2 Body Surface Area Calculated 2.13 m2 :15 Pulse 85 /min Comments: Pattern: Regular Respiration Rate 16 /min Comments: Pattern: Unlabored O2 SAT 97 % Comments: 3L O2 BP Systolic 118 mm[Hg] Comments: Patient Position: Sitting; Cuff Location: Left Arm; Cuff Size: Standard BP Diastolic 74 mm[Hg] Comments: Patient Position: Sitting; Cuff Location: Left Arm; Cuff Size: Standard Weight 230 lb Height 66 in Body Mass Index Calculated 37.12 kg/m2 Body Surface Area Calculated 2.12 m2 :57 Pulse 68 /min Comments: Pattern: Regular Respiration Rate 18 /min Comments: Pattern: Unlabored O2 SAT 95 % Comments: 3L O2 BP Systolic 120 mm[Hg] Comments: Patient Position: Sitting; Cuff Location: Left Arm; Cuff Size: Large BP Diastolic 78 mm[Hg] Comments: Patient Position: Sitting; Cuff Location: Left Arm; Cuff Size: Large Weight 230 lb Height 66 in Body Mass Index Calculated 37.12 kg/m2 Body Surface Area Calculated 2.12 m2 :36 Temperature 98.4 f Comments: Method: Oral Pulse 90 /min Comments: Pattern: Regular Respiration Rate 22 /min O2 SAT 86 % Comments: Room air BP Systolic 118 mm[Hg] Comments: Patient Position: Sitting; Cuff Location: Left Arm; Cuff Size: Standard BP Diastolic 72 mm[Hg] Comments: Patient Position: Sitting; Cuff Location: Left Arm; Cuff Size: Standard Weight 235 lb Height 66 in Body Mass Index Calculated 37.93 kg/m2 Body Surface Area Calculated 2.14 m2 :16 Pulse 83 /min Comments: Pattern: Regular Respiration Rate 20 /min Comments: Pattern: Unlabored O2 SAT 95 % Comments: Room air BP Systolic 128 mm[Hg] Comments: Patient Position: Sitting; Cuff Location: Left Arm; Cuff Size: Large BP Diastolic 62 mm[Hg] Comments: Patient Position: Sitting; Cuff Location: Left Arm; Cuff Size: Large Weight 235 lb Height 66 in Body Mass Index Calculated 37.93 kg/m2 Body Surface Area Calculated 2.14 m2 :42 Pulse 86 /min Comments: Pattern: Regular Respiration Rate 18 /min Comments: Pattern: Unlabored O2 SAT 94 % Comments: Room air BP Systolic 115 mm[Hg] Comments: Patient Position: Sitting; Cuff Location: Left Arm; Cuff Size: Standard BP Diastolic 70 mm[Hg] Comments: Patient Position: Sitting; Cuff Location: Left Arm; Cuff Size: Standard Weight 240.3125 lb Height 66 in Body Mass Index Calculated 38.79 kg/m2 Body Surface Area Calculated 2.16 m2 :53 Pulse 80 /min Comments: Pattern: Regular Respiration Rate 18 /min Comments: Pattern: Unlabored BP Systolic 122 mm[Hg] Comments: Patient Position: Sitting; Cuff Location: Left Arm; Cuff Size: Large BP Diastolic 60 mm[Hg] Comments: Patient Position: Sitting; Cuff Location: Left Arm; Cuff Size: Large Weight 244.3125 lb Height 66 in Body Mass Index Calculated 39.43 kg/m2 Body Surface Area Calculated 2.18 m2 :09 Temperature 98.9 f Comments: Method: Oral Pulse 80 /min Comments: Pattern: Regular Respiration Rate 16 /min Comments: Pattern: Unlabored O2 SAT 94 % Comments: Room air BP Systolic 122 mm[Hg] Comments: Patient Position: Sitting; Cuff Location: Left Arm; Cuff Size: Standard BP Diastolic 80 mm[Hg] Comments: Patient Position: Sitting; Cuff Location: Left Arm; Cuff Size: Standard Weight 250.5625 lb Height 66 in Body Mass Index Calculated 40.44 kg/m2 Body Surface Area Calculated 2.2 m2 :45 Temperature 98.6 f Comments: Method: Oral Pulse 72 /min Comments: Pattern: Regular Respiration Rate 16 /min Comments: Pattern: Unlabored BP Systolic 116 mm[Hg] Comments: Patient Position: Sitting; Cuff Location: Left Arm; Cuff Size: Standard BP Diastolic 70 mm[Hg] Comments: Patient Position: Sitting; Cuff Location: Left Arm; Cuff Size: Standard Weight 234.5625 lb Height 66 in Body Mass Index Calculated 37.86 kg/m2 Body Surface Area Calculated 2.14 m2 :58 Temperature 97.9 f Pulse 80 /min Comments: Pattern: Regular Respiration Rate 20 /min Comments: Pattern: Unlabored O2 SAT 91 % Comments: Room air BP Systolic 116 mm[Hg] Comments: Patient Position: Sitting; Cuff Location: Left Arm; Cuff Size: Standard BP Diastolic 68 mm[Hg] Comments: Patient Position: Sitting; Cuff Location: Left Arm; Cuff Size: Standard Weight 234.5625 lb Height 66 in Body Mass Index Calculated 37.86 kg/m2 Body Surface Area Calculated 2.14 m2 :01 Pulse 80 /min Comments: Pattern: Regular Respiration Rate 20 /min Comments: Pattern: Unlabored BP Systolic 136 mm[Hg] Comments: Patient Position: Sitting; Cuff Location: Left Arm; Cuff Size: Standard BP Diastolic 82 mm[Hg] Comments: Patient Position: Sitting; Cuff Location: Left Arm; Cuff Size: Standard Weight 240.375 lb Height 66 in Body Mass Index Calculated 38.8 kg/m2 Body Surface Area Calculated 2.16 m2 :02 Pulse 68 /min Comments: Pattern: Regular Respiration Rate 20 /min Comments: Pattern: Unlabored BP Systolic 128 mm[Hg] Comments: Patient Position: Sitting; Cuff Location: Left Arm; Cuff Size: Large BP Diastolic 60 mm[Hg] Comments: Patient Position: Sitting; Cuff Location: Left Arm; Cuff Size: Large Weight 237.1875 lb Height 66 in Body Mass Index Calculated 38.28 kg/m2 Body Surface Area Calculated 2.15 m2 :26 Pulse 68 /min Comments: Pattern: Regular Respiration Rate 20 /min Comments: Pattern: Unlabored BP Systolic 118 mm[Hg] Comments: Patient Position: Sitting; Cuff Location: Left Arm; Cuff Size: Large BP Diastolic 62 mm[Hg] Comments: Patient Position: Sitting; Cuff Location: Left Arm; Cuff Size: Large Weight 237.1875 lb Height 66 in Body Mass Index Calculated 38.28 kg/m2 Body Surface Area Calculated 2.15 m2 :53 Pulse 68 /min Comments: Pattern: Regular Respiration Rate 20 /min Comments: Pattern: Unlabored BP Systolic 128 mm[Hg] Comments: Patient Position: Sitting; Cuff Location: Left Arm; Cuff Size: Large BP Diastolic 60 mm[Hg] Comments: Patient Position: Sitting; Cuff Location: Left Arm; Cuff Size: Large Weight 237.1875 lb Height 66 in Body Mass Index Calculated 38.28 kg/m2 Body Surface Area Calculated 2.15 m2 :33 Pulse 76 /min Comments: Pattern: Regular Respiration Rate 20 /min Comments: Pattern: Unlabored BP Systolic 122 mm[Hg] Comments: Patient Position: Sitting; Cuff Location: Left Arm; Cuff Size: Large BP Diastolic 70 mm[Hg] Comments: Patient Position: Sitting; Cuff Location: Left Arm; Cuff Size: Large Weight 240.3125 lb Height 66 in Body Mass Index Calculated 38.79 kg/m2 Body Surface Area Calculated 2.16 m2 :46 Comments: pt refused weight today Temperature 98.2 f Comments: Method: Oral Pulse 80 /min Comments: Pattern: Regular Respiration Rate 20 /min Comments: Pattern: Unlabored BP Systolic 122 mm[Hg] Comments: Patient Position: Sitting; Cuff Location: Left Arm; Cuff Size: Large BP Diastolic 78 mm[Hg] Comments: Patient Position: Sitting; Cuff Location: Left Arm; Cuff Size: Large Weight 240.3125 lb Height 66 in Body Mass Index Calculated 38.79 kg/m2 Body Surface Area Calculated 2.16 m2 :55 Pulse 88 /min Comments: Pattern: Regular Respiration Rate 20 /min Comments: Pattern: Unlabored BP Systolic 122 mm[Hg] Comments: Patient Position: Sitting; Cuff Location: Left Arm; Cuff Size: Large BP Diastolic 68 mm[Hg] Comments: Patient Position: Sitting; Cuff Location: Left Arm; Cuff Size: Large Weight 240.3125 lb Height 66 in Body Mass Index Calculated 38.79 kg/m2 Body Surface Area Calculated 2.16 m2 :52 Temperature 97.9 f Comments: Method: Oral Pulse 83 /min Comments: Pattern: Regular Respiration Rate 17 /min Comments: Pattern: Unlabored BP Systolic 102 mm[Hg] Comments: Patient Position: Sitting; Cuff Location: Left Arm; Cuff Size: Large BP Diastolic 64 mm[Hg] Comments: Patient Position: Sitting; Cuff Location: Left Arm; Cuff Size: Large Weight 232.0625 lb Height 66 in Body Mass Index Calculated 37.46 kg/m2 Body Surface Area Calculated 2.13 m2 :08 Temperature 97.6 f Comments: Method: Oral Pulse 76 /min Comments: Pattern: Regular Respiration Rate 20 /min Comments: Pattern: Unlabored BP Systolic 118 mm[Hg] Comments: Patient Position: Sitting; Cuff Location: Left Arm; Cuff Size: Large BP Diastolic 72 mm[Hg] Comments: Patient Position: Sitting; Cuff Location: Left Arm; Cuff Size: Large Weight 229.0625 lb Height 66 in Body Mass Index Calculated 36.97 kg/m2 Body Surface Area Calculated 2.12 m2 :57 Temperature 98 f Comments: Method: Oral Pulse 64 /min Comments: Pattern: Regular Respiration Rate 20 /min Comments: Pattern: Unlabored BP Systolic 122 mm[Hg] Comments: Patient Position: Sitting; Cuff Location: Left Arm; Cuff Size: Large BP Diastolic 70 mm[Hg] Comments: Patient Position: Sitting; Cuff Location: Left Arm; Cuff Size: Large Weight 229.0625 lb Height 66 in Body Mass Index Calculated 36.97 kg/m2 Body Surface Area Calculated 2.12 m2 :17 Temperature 99.2 f Comments: Method: Oral Pulse 68 /min Comments: Pattern: Regular Respiration Rate 20 /min Comments: Pattern: Unlabored BP Systolic 122 mm[Hg] Comments: Patient Position: Sitting; Cuff Location: Left Arm; Cuff Size: Large BP Diastolic 70 mm[Hg] Comments: Patient Position: Sitting; Cuff Location: Left Arm; Cuff Size: Large Weight 229.0625 lb Height 66 in Body Mass Index Calculated 36.97 kg/m2 Body Surface Area Calculated 2.12 m2 :11 Pulse 80 /min Comments: Pattern: Regular Respiration Rate 20 /min Comments: Pattern: Unlabored BP Systolic 118 mm[Hg] Comments: Patient Position: Sitting; Cuff Location: Left Arm; Cuff Size: Large BP Diastolic 70 mm[Hg] Comments: Patient Position: Sitting; Cuff Location: Left Arm; Cuff Size: Large Weight 222.375 lb Height 66 in Body Mass Index Calculated 35.89 kg/m2 Body Surface Area Calculated 2.09 m2 :38 Pulse 60 /min Comments: Pattern: Regular Respiration Rate 20 /min Comments: Pattern: Unlabored BP Systolic 98 mm[Hg] Comments: Patient Position: Sitting; Cuff Location: Left Arm; Cuff Size: Large BP Diastolic 60 mm[Hg] Comments: Patient Position: Sitting; Cuff Location: Left Arm; Cuff Size: Large Weight 217.5 lb Height 66 in Body Mass Index Calculated 35.11 kg/m2 Body Surface Area Calculated 2.07 m2 :50 Pulse 64 /min Comments: Pattern: Regular Respiration Rate 20 /min Comments: Pattern: Unlabored BP Systolic 98 mm[Hg] Comments: Patient Position: Sitting; Cuff Location: Left Arm; Cuff Size: Large BP Diastolic 60 mm[Hg] Comments: Patient Position: Sitting; Cuff Location: Left Arm; Cuff Size: Large Weight 208.4375 lb Height 66 in Body Mass Index Calculated 33.64 kg/m2 Body Surface Area Calculated 2.04 m2 :59 Pulse 68 /min Comments: Pattern: Regular Respiration Rate 20 /min Comments: Pattern: Unlabored BP Systolic 122 mm[Hg] Comments: Patient Position: Sitting; Cuff Location: Left Arm; Cuff Size: Large BP Diastolic 60 mm[Hg] Comments: Patient Position: Sitting; Cuff Location: Left Arm; Cuff Size: Large Weight 214.125 lb :53 Temperature 99.4 f Comments: Method: Oral Pulse 68 /min Comments: Pattern: Regular Respiration Rate 18 /min Comments: Pattern: Unlabored BP Systolic 102 mm[Hg] Comments: Patient Position: Sitting; Cuff Location: Left Arm; Cuff Size: Standard BP Diastolic 78 mm[Hg] Comments: Patient Position: Sitting; Cuff Location: Left Arm; Cuff Size: Standard Weight 211.3125 lb :20 Pulse 72 /min Comments: Pattern: Regular Respiration Rate 18 /min Comments: Pattern: Unlabored BP Systolic 110 mm[Hg] Comments: Patient Position: Sitting; Cuff Location: Left Arm; Cuff Size: Standard BP Diastolic 72 mm[Hg] Comments: Patient Position: Sitting; Cuff Location: Left Arm; Cuff Size: Standard Weight 209 lb :38 Pulse 80 /min Comments: Pattern: Regular Respiration Rate 20 /min Comments: Pattern: Unlabored BP Systolic 120 mm[Hg] Comments: Patient Position: Sitting; Cuff Location: Left Arm; Cuff Size: Large BP Diastolic 76 mm[Hg] Comments: Patient Position: Sitting; Cuff Location: Left Arm; Cuff Size: Large Weight 215.1875 lb Height 66 in Body Mass Index Calculated 34.73 kg/m2 Body Surface Area Calculated 2.06 m2 :27 Pulse 60 /min Comments: Pattern: Regular Respiration Rate 16 /min Comments: Pattern: Unlabored BP Systolic 118 mm[Hg] Comments: Patient Position: Supine; Cuff Location: Left Arm; Cuff Size: Standard BP Diastolic 60 mm[Hg] Comments: Patient Position: Supine; Cuff Location: Left Arm; Cuff Size: Standard Weight 209 lb Height 66 in Body Mass Index Calculated 33.73 kg/m2 Body Surface Area Calculated 2.04 m2 Head Circumference 0.00 cm :18 Pulse 80 /min Comments: Pattern: Regular Respiration Rate 16 /min Comments: Pattern: Unlabored BP Systolic 118 mm[Hg] Comments: Patient Position: Supine; Cuff Location: Left Arm; Cuff Size: Standard BP Diastolic 70 mm[Hg] Comments: Patient Position: Supine; Cuff Location: Left Arm; Cuff Size: Standard Weight 209.25 lb Height 66 in Body Mass Index Calculated 33.77 kg/m2 Body Surface Area Calculated 2.04 m2 Head Circumference 0.00 cm :15 Pulse 67 /min Comments: Pattern: Regular Respiration Rate 16 /min Comments: Pattern: Undefined BP Systolic 102 mm[Hg] Comments: Patient Position: Supine; Cuff Location: Right Arm; Cuff Size: Standard BP Diastolic 60 mm[Hg] Comments: Patient Position: Supine; Cuff Location: Right Arm; Cuff Size: Standard Weight 0 lb Height 0 in Head Circumference 0.00 cm :05 Weight 214 lb Height 0 in Head Circumference 0.00 cm :00 Pulse 72 /min Comments: Pattern: Regular Respiration Rate 20 /min Comments: Pattern: Unlabored O2 SAT 97 % Comments: Room air BP Systolic 118 mm[Hg] Comments: Patient Position: Sitting; Cuff Location: Left Arm; Cuff Size: Large BP Diastolic 72 mm[Hg] Comments: Patient Position: Sitting; Cuff Location: Left Arm; Cuff Size: Large Weight 234.25 lb Height 67 in Body Mass Index Calculated 36.69 kg/m2 Body Surface Area Calculated 2.16 m2 Head Circumference 0.00 cm :22 Temperature 98.2 f Comments: Method: Oral Pulse 90 /min Comments: Pattern: Regular Respiration Rate 18 /min Comments: Pattern: Unlabored O2 SAT 94 % Comments: Room air BP Systolic 112 mm[Hg] Comments: Patient Position: Sitting; Cuff Location: Right Arm; Cuff Size: Large BP Diastolic 70 mm[Hg] Comments: Patient Position: Sitting; Cuff Location: Right Arm; Cuff Size: Large Weight 236.375 lb Height 67 in Body Mass Index Calculated 37.02 kg/m2 Body Surface Area Calculated 2.17 m2 Head Circumference 0.00 cm :56 Temperature 97.1 f Comments: Method: Oral Pulse 73 /min Comments: Pattern: Regular Respiration Rate 18 /min Comments: Pattern: Unlabored O2 SAT 93 % Comments: Room air BP Systolic 122 mm[Hg] Comments: Patient Position: Sitting; Cuff Location: Left Arm; Cuff Size: Large BP Diastolic 64 mm[Hg] Comments: Patient Position: Sitting; Cuff Location: Left Arm; Cuff Size: Large Weight 236.4375 lb Height 0 in Head Circumference 0.00 cm :16 Pulse 72 /min Comments: Pattern: Regular Respiration Rate 20 /min Comments: Pattern: Wheezing O2 SAT 93 % Comments: Room air BP Systolic 118 mm[Hg] Comments: Patient Position: Sitting; Cuff Location: Left Arm; Cuff Size: Standard BP Diastolic 70 mm[Hg] Comments: Patient Position: Sitting; Cuff Location: Left Arm; Cuff Size: Standard Weight 233 lb Height 67 in Body Mass Index Calculated 36.49 kg/m2 Body Surface Area Calculated 2.16 m2 Head Circumference 0.00 cm :51 Temperature 98.1 f Comments: Method: Oral Pulse 88 /min Comments: Pattern: Regular Respiration Rate 20 /min Comments: Pattern: Unlabored O2 SAT 90 % Comments: Room air BP Systolic 118 mm[Hg] Comments: Patient Position: Sitting; Cuff Location: Left Arm; Cuff Size: Large BP Diastolic 64 mm[Hg] Comments: Patient Position: Sitting; Cuff Location: Left Arm; Cuff Size: Large Weight 233.375 lb Height 67 in Body Mass Index Calculated 36.55 kg/m2 Body Surface Area Calculated 2.16 m2 Head Circumference 0.00 cm :01 Pulse 80 /min Comments: Pattern: Regular Respiration Rate 20 /min Comments: Pattern: Unlabored BP Systolic 124 mm[Hg] Comments: Patient Position: Sitting; Cuff Location: Left Arm; Cuff Size: Large BP Diastolic 70 mm[Hg] Comments: Patient Position: Sitting; Cuff Location: Left Arm; Cuff Size: Large Weight 233.375 lb Height 67 in Body Mass Index Calculated 36.55 kg/m2 Body Surface Area Calculated 2.16 m2 Head Circumference 0.00 cm :41 Pulse 60 /min Comments: Pattern: Regular Respiration Rate 20 /min Comments: Pattern: Unlabored BP Systolic 122 mm[Hg] Comments: Patient Position: Sitting; Cuff Location: Left Arm; Cuff Size: Large BP Diastolic 70 mm[Hg] Comments: Patient Position: Sitting; Cuff Location: Left Arm; Cuff Size: Large Weight 228.125 lb Height 66.5 in Body Mass Index Calculated 36.27 kg/m2 Body Surface Area Calculated 2.13 m2 Head Circumference 0.00 cm :29 Pulse 80 /min Comments: Pattern: Regular Respiration Rate 18 /min Comments: Pattern: Unlabored BP Systolic 128 mm[Hg] Comments: Patient Position: Sitting; Cuff Location: Left Arm; Cuff Size: Standard BP Diastolic 72 mm[Hg] Comments: Patient Position: Sitting; Cuff Location: Left Arm; Cuff Size: Standard Weight 235.0625 lb Height 66.5 in Body Mass Index Calculated 37.37 kg/m2 Body Surface Area Calculated 2.15 m2 Head Circumference 0.00 cm :56 Pulse 88 /min Comments: Pattern: Regular Respiration Rate 20 /min Comments: Pattern: Unlabored BP Systolic 128 mm[Hg] Comments: Patient Position: Sitting; Cuff Location: Left Arm; Cuff Size: Standard BP Diastolic 78 mm[Hg] Comments: Patient Position: Sitting; Cuff Location: Left Arm; Cuff Size: Standard Weight 230.375 lb Height 66.5 in Body Mass Index Calculated 36.63 kg/m2 Body Surface Area Calculated 2.14 m2 Head Circumference 0.00 cm Results Date Description Value Details [id number] Culture, Deep Wound Comments: [facility] [address] [place], [address] CUDW See Note (Normal) Comments: Order Date: 09/23/16 List Antibiotics Last 48 Hours? ANCEF Has pt arrived? Y Comments: LEFT FOOT ABSCESS- SWABSGram StainGram Stain 3+ Red Blood Cells No organisms seen Wound CultureORGANISM 1: St aphylococcus aureusAmount Growth 1+ Staphylococcus aureus: REACTION Benzylpenicillin NF <=0.03 R Cefoxitin *NF - Clindamycin $$ <=0.25 S Inducable Clindamycin Resistan - Erythromycin $ 4 I Gentamicin $ <=0.5 S Levofloxacin $ <=0.12 S Linezolid $$$$ 1 S Moxifloxicin *NF <=0.25 S Oxacillin NF <=0.25 S Tigecycline $$$$ <=0.12 S Rifampin $$ <=0.5 S Tetracycline NF <=1 S Trimethoprim/Sulfametho $ <=10 S Vancomycin $ <=0.5 S(NF) indicates non-formulary drug at [facility]. Approval by Infectious Disease Specialist required before non-formulary drugs may be ordered and/or dispensed. * CLSI guidelines does not recommend testing of cephalosporins. This interpretation is deduced from Beta-lactam/penicillin results. Cult, AnaerobicNo anaerobic bacteria isolated. [id number] Basic Metabolic Profile (BMP) Comments: [facility] [address] [place], [place], [id number] GAP 8 (Normal) Range: 5-15 CO2 30.0 mmol/L (Normal) Range: 21.0-32.0 CL 103 mmol/L (Normal) Range: 98-107 K 3.7 mmol/L (Normal) Range: 3.5-5.1 NA 141 mmol/L (Normal) Range: 136-145 CA 8.9 mg/dL (Normal) Range: 8.5-10.1 BUN/CRE 9.3 {RATIO} (Abnormal) Range: 10-20 Estimated CRCL 60.24 ml/min (Normal) EST GFR - AA 85 mL/min (Normal) Comments: GFR Calc EST GFR 70 mL/min (Normal) Comments: Non- GFR Calc CREAT,SERUM 0.86 mg/dL (Normal) Range: 0.55-1.02 Comments: The validity of the calculated GFR AND GFRAA in patients over70 years has not been determined. Clinical correlation isessential. BUN 8 mg/dL (Normal) Range: 7-18 GLU 208 mg/dL (Abnormal) Range: 74-106 Comments: Glucose result greater than or equal to 200 mg/dLsuggests DIABETES MELLITUS per A.D.A. criteria.Please note revised GLUCOSE reference range opdnpqgcv48/02/2018. [id number] CBC-Complete Blood Cnt No Diff Comments: [facility] [address] [place], [place], [id number] MPV 10.8 fL (Normal) Range: 6.2-12.0 PLT 174 K/mm3 (Normal) Range: 150-450 RDW SD 42.5 fL (Normal) Range: 35.1-43.9 RDW CV 13.8 % (Normal) Range: 11.6-14.6 MCHC 32.2 {g/gl} (Normal) Range: 32-36 MCH 27.4 pg (Normal) Range: 27.0-32.0 MCV 84.8 fL (Normal) Range: 81-99 HCT 45.9 % (Normal) Range: 37-47 HGB 14.8 g/dL (Normal) Range: 12.0-15.0 RBC 5.41 {M/mm3} (Abnormal) Range: 4.2-5.4 WBC 5.3 K/mm3 (Normal) Range: 4.4-11.0 :58 Hemoglobin A1c Comments: [facility] [address] [place], [address] HGB A1C 10.3 % (Abnormal) Range: 4.2-6.3 55-[id number]:58 Thyroid Stim Hormone (TSH) Comments: [facility] [address] [place], [address] TSH 0.11 {uIU/mL} (Abnormal) Range: 0.358-3.74 :20 Bedside Glucose Comments: [facility] [address] [place] [address] BEDSIDE GLU 195 mg/dL (Abnormal) Range: 70-110 Comments: MANAGEMENT OF PATIENT CARE PER NURSING PROTOCOL :03 Mass (define area) See Note (Normal) Comments: [facility] [address] [place], [address] Comments: Patient: ELIZABETH MEYERS : 1950 (67/F) Acct Num: [id number] Phys: Jazzy Dunn DPM Unit Num: [id number] Loc: LABSPEC Specimen: [id number] Received: 12/02/171558 Spec Type: Mass TISSUES 1 TISSUES: Foot, NOS COMMENT Differential diagnosis also includes rheumatoid nodule or necrobiosis lipoidica. Clinical correlation and appropriate follow up ar e necessary. Case has been reviewed in consultation with Dr. Londono who concurs with the above diagnosis. IDC:AM GROSS DESCRIPTION Received is one container labeled with the patient's name and no t further designated. The specimen consists of three variable sized pieces of churchill, indurated tissue measuring in aggregate 1.5 x 1.4 x 0.2 cm. The entire specimenis submitted in one cassette. / SJ:bernard 12/03/17 TC:5 CPT: 87691, 17585 x2 HEADER OPERATION: Left foot excision of soft tissue PRE-OP DIAGNOSIS: Mass of left foot TISSUE SUBMITTED: Soft tissue mass left extensor hallucis longus tendon sheath MICROSCOPIC DESCRIPTION Slides are reviewed. MICROSCOPIC DIAGNOSIS Soft tissue mass extensor hallucis longus tendon sheath: Palisaded granuloma, consistent with granuloma annul are. Special stains for acid fast bacilli and fungi are negative for organisms; matched controls are appropriate. Negative for malignancy. SJ:bernard 12/06/17 Signed Dru Al 12/07/17 <signature on file> :54 Basic Metabolic Profile (BMP) Comments: [facility] [address] [place], [place], [id number] GAP 4 (Abnormal) Range: 5-15 CO2 29.0 mmol/L (Normal) Range: 21.0-32.0 CL 104 mmol/L (Normal) Range: 98-107 K 3.8 mmol/L (Normal) Range: 3.5-5.1 Comments: Moderate Hemolysis, Result may be falsely increased. NA 137 mmol/L (Normal) Range: 136-145 CA 8.9 mg/dL (Normal) Range: 8.5-10.1 BUN/CRE 5.6 {RATIO} (Abnormal) Range: 10-20 EST GFR - AA 82 mL/min (Normal) Comments: GFR Calc EST GFR 68 mL/min (Normal) Comments: Non- GFR Calc CREAT,SERUM 0.88 mg/dL (Normal) Range: 0.55-1.02 Comments: The validity of the calculated GFR AND GFRAA in patients over70 years has not been determined. Clinical correlation isessential. BUN 5 mg/dL (Abnormal) Range: 7-18 GLU 205 mg/dL (Abnormal) Range: 74-106 Comments: Glucose result greater than or equal to 200 mg/dLsuggests DIABETES MELLITUS per A.D.A. criteria.Please note revised GLUCOSE reference range /02/2018. [id number] CBC-Complete Blood Cnt No Diff Comments: [facility] [address] [place], [place], [id number] MPV 10.1 fL (Normal) Range: 6.2-12.0 PLT 165 K/mm3 (Normal) Range: 150-450 RDW SD 43.2 fL (Normal) Range: 35.1-43.9 RDW CV 13.8 % (Normal) Range: 11.6-14.6 MCHC 31.2 {g/gl} (Abnormal) Range: 32-36 MCH 26.9 pg (Abnormal) Range: 27.0-32.0 MCV 86.3 fL (Normal) Range: 81-99 HCT 47.8 % (Abnormal) Range: 37-47 HGB 14.9 g/dL (Normal) Range: 12.0-15.0 RBC 5.54 {M/mm3} (Abnormal) Range: 4.2-5.4 WBC 4.7 K/mm3 (Normal) Range: 4.4-11.0 :36 CBC W/Diff, Automated Comments: [facility] [address] [place], [place], [id number] Absolute Lymph 1.77 {X10_3/ul} (Normal) Range: 0.83-4.51 Absolute Neut 4.7 {X10_3/uL} (Normal) Range: 2.0-7.7 IM GRAN % 0.000 % (Normal) Range: 0.0-0.9 Comments: IG% - Immature Granulocytes (promyelocytes, myelocytes andmetamyelocytes) > 1% indicates that a LEFT SHIFT is Present. BASO% 0.4 % (Normal) Range: 0-1 EO% 1.1 % (Normal) Range: 0-5 MONO% 7.0 % (Normal) Range: 0-10 LY% 25.1 % (Normal) Range: 19-41 NEUT% 66.4 % (Normal) Range: 47-70 MPV 10.7 fL (Normal) Range: 6.2-12.0 PLT 187 K/mm3 (Normal) Range: 150-450 RDW SD 41.2 fL (Normal) Range: 35.1-43.9 RDW CV 13.1 % (Normal) Range: 11.6-14.6 MCHC 31.2 {g/gl} (Abnormal) Range: 32-36 MCH 26.9 pg (Abnormal) Range: 27.0-32.0 MCV 86.3 fL (Normal) Range: 81-99 HCT 48.4 % (Abnormal) Range: 37-47 HGB 15.1 g/dL (Abnormal) Range: 12.0-15.0 RBC 5.61 {M/mm3} (Abnormal) Range: 4.2-5.4 WBC 7.1 K/mm3 (Normal) Range: 4.4-11.0 :36 CRP Comments: [facility] [address] [place], [address] C-REACTIVE PROT 24.50 mg/L (Abnormal) Range: 0.0-3.0 Comments: C-Reactive Protein (CRP) provides useful information for thediagnosis, therapy and monitoring of inflammatory processesand associated diseases. For the evaluation of Relative Riskfor Cardiovascular Dise ase, a High Sensitivity CRP (HSCRP)should be ordered. :36 Erythrocyte Sed Rate Comments: [facility] [address] [place], [place], [address] SED RATE 35 mm/h (Abnormal) Range: 0-30 :42 HgA1C , Office (02104) HgA1C , Office 11.2 % (Abnormal) Range: 4.6 - 7.1 :42 Blood Glucose , Office (17109) Blood Glucose , Office 375 (Normal) :28 CBC W/Diff, Automated Comments: [facility] [address] [place], [place], [address] Absolute Lymph 1.68 {X10_3/ul} (Normal) Range: 0.83-4.51 Absolute Neut 2.6 {X10_3/uL} (Normal) Range: 2.0-7.7 IM GRAN % 0.000 % (Normal) Range: 0.0-0.9 Comments: IG% - Immature Granulocytes (promyelocytes, myelocytes andmetamyelocytes) > 1% indicates that a LEFT SHIFT is Present. BASO% 0.2 % (Normal) Range: 0-1 EO% 1.3 % (Normal) Range: 0-5 MONO% 7.8 % (Normal) Range: 0-10 LY% 35.6 % (Normal) Range: 19-41 NEUT% 55.1 % (Normal) Range: 47-70 MPV 10.6 fL (Normal) Range: 6.2-12.0 PLT 193 K/mm3 (Normal) Range: 150-450 RDW SD 42.4 fL (Normal) Range: 35.1-43.9 RDW CV 13.8 % (Normal) Range: 11.6-14.6 MCHC 32.0 {g/gl} (Normal) Range: 32-36 MCH 27.2 pg (Normal) Range: 27.0-32.0 MCV 84.9 fL (Normal) Range: 81-99 HCT 49.0 % (Abnormal) Range: 37-47 HGB 15.7 g/dL (Abnormal) Range: 12.0-15.0 RBC 5.77 {M/mm3} (Abnormal) Range: 4.2-5.4 WBC 4.7 K/mm3 (Normal) Range: 4.4-11.0 [id number] Comprehensive Metabolic Profil Comments: [facility] [address] [place], [address] GAP 8 (Normal) Range: 5-15 CO2 32.0 mmol/L (Normal) Range: 21.0-32.0 CL 101 mmol/L (Normal) Range: 98-107 K 4.0 mmol/L (Normal) Range: 3.5-5.1 NA 141 mmol/L (Normal) Range: 136-145 T BILI 0.40 mg/dL (Normal) Range: 0.20-1.00 ALT 27 U/L (Normal) Range: 13-56 ALK P 105 U/L (Normal) Range: 45-117 AST 18 U/L (Normal) Range: 15-37 CA 9.0 mg/dL (Normal) Range: 8.5-10.1 A/G 1.0 {RATIO} (Normal) Range: 0.9-2.4 GLOB 3.5 g/dL (Normal) Range: 2.2-4.2 ALB 3.5 g/dL (Normal) Range: 3.2-5.0 T PROT 7.0 g/dL (Normal) Range: 6.4-8.2 BUN/CRE 9.1 {RATIO} (Abnormal) Range: 10-20 EST GFR - AA 83 mL/min (Normal) Comments: GFR Calc EST GFR 69 mL/min (Normal) Comments: Non- GFR Calc CREAT,SERUM 0.88 mg/dL (Normal) Range: 0.55-1.02 Comments: The validity of the calculated GFR AND GFRAA in patients over70 years has not been determined. Clinical correlation isessential. BUN 8 mg/dL (Normal) Range: 7-18 GLU 209 mg/dL (Abnormal) Range: 74-106 Comments: Glucose result greater than or equal to 200 mg/dLsuggests DIABETES MELLITUS per A.D.A. criteria.Please note revised GLUCOSE reference range ukeeebtsl00/02/2018. [id number] Free T3 Comments: [facility] [address] [place], [id number] FREE T3 2.2 pg/mL (Normal) Range: 2.18-3.98 47-[id number] Lipid Profile Comments: [facility] [address] [place], [address] VLDL 40 mg/dL (Normal) Range: 5-40 LDL 107 mg/dL (Normal) Range: 0-130 HDL 42 mg/dL (Normal) Comments: The drugs N-Acetylcysteine and Metamizole may falselydepress this assay. Reference Range HDL <40 mg/dL Low HDL Cholesterol HDL >or= 60 mg/dL High HDL Cholesterol TRIG 202 mg/dL (Abnormal) Comments: The drugs N-Acetylcysteine and Metamizole may falselydepress this assay.Serum Triglycerides Reference Interval Normal <150 mg/dL Borderline high 150 - 199 mg/dL High 200 - 499 mg/dL Very High > or = 500 mg/dL CHOL 189 mg/dL (Normal) Comments: <200 mg/dL Desirable 200-240 mg/dL Borderline >240 mg/dL High Risk [id number]-[id number]:28 T4 Free Direct Comments: [facility] [address] [place], [id number] T4 FREE DIRECT 1.70 ng/dL (Abnormal) Range: 0.76-1.46 [id number]-[id number]:28 Thyroid Stim Hormone (TSH) Comments: [facility] [address] [place], [address] TSH 1.05 {uIU/mL} (Normal) Range: 0.358-3.74 59-Ebd-410852:16 HgA1C , Office (17568) HgA1C , Office 11.0 % (Abnormal) Range: 4.6 - 7.1 92-[id number]:15 Blood Glucose , Office (33710) Blood Glucose , Office 508 (Normal) 21-Tys-877242:18 HgA1C , Office (99249) HgA1C , Office 11.7 % (Abnormal) Range: 4.6 - 7.1 26-[id number]:18 Blood Glucose , Office (61826) Blood Glucose , Office 360 (Normal) [id number]-Egn-[id number]:55 CBC W/Diff, Automated Comments: [facility] [address] [place], [address] Absolute Lymph 1.93 {X10_3/ul} (Normal) Range: 0.83-4.51 Absolute Neut 3.3 {X10_3/uL} (Normal) Range: 2.0-7.7 IM GRAN % 0.200 % (Normal) Range: 0.0-0.9 Comments: IG% - Immature Granulocytes (promyelocytes, myelocytes andmetamyelocytes) > 1% indicates that a LEFT SHIFT is Present. BASO% 0.4 % (Normal) Range: 0-1 EO% 0.9 % (Normal) Range: 0-5 MONO% 7.0 % (Normal) Range: 0-10 LY% 33.8 % (Normal) Range: 19-41 NEUT% 57.7 % (Normal) Range: 47-70 MPV 10.7 fL (Normal) Range: 6.2-12.0 PLT 169 K/mm3 (Normal) Range: 150-450 RDW SD 44.4 fL (Abnormal) Range: 35.1-43.9 RDW CV 14.2 % (Normal) Range: 11.6-14.6 MCHC 32.4 {g/gl} (Normal) Range: 32-36 MCH 27.8 pg (Normal) Range: 27.0-32.0 MCV 85.8 fL (Normal) Range: 81-99 HCT 48.4 % (Abnormal) Range: 37-47 HGB 15.7 g/dL (Abnormal) Range: 12.0-15.0 RBC 5.64 {M/mm3} (Abnormal) Range: 4.2-5.4 WBC 5.7 K/mm3 (Normal) Range: 4.4-11.0 [id number] Comprehensive Metabolic Profil Comments: [facility] [address] [place], [place], [id number] GAP 9 (Normal) Range: 5-15 CO2 28.0 mmol/L (Normal) Range: 21.0-32.0 CL 100 mmol/L (Normal) Range: 98-107 K 3.9 mmol/L (Normal) Range: 3.5-5.1 NA 137 mmol/L (Normal) Range: 136-145 T BILI 0.70 mg/dL (Normal) Range: 0.20-1.00 ALT 29 U/L (Normal) Range: 12-78 ALK P 89 U/L (Normal) Range: 45-117 AST 20 U/L (Normal) Range: 15-37 CA 8.5 mg/dL (Normal) Range: 8.5-10.1 A/G 1.1 {RATIO} (Normal) Range: 0.9-2.4 GLOB 3.2 g/dL (Normal) Range: 2.2-4.2 ALB 3.6 g/dL (Normal) Range: 3.4-5.0 Comments: Please note revised Albumin AND Globulin reference rangeeffective 2016. T PROT 6.8 g/dL (Normal) Range: 6.4-8.2 BUN/CRE 8.8 {RATIO} (Abnormal) Range: 10-20 EST GFR - AA 80 mL/min (Normal) Comments: GFR Calc EST GFR 66 mL/min (Normal) Comments: Non- GFR Calc CREAT,SERUM 0.91 mg/dL (Normal) Range: 0.55-1.02 Comments: The validity of the calculated GFR AND GFRAA in patients over70 years has not been determined. Clinical correlation isessential. BUN 8 mg/dL (Normal) Range: 7-18 GLU 231 mg/dL (Abnormal) Range: 70-110 Comments: Glucose result greater than or equal to 200 mg/dLsuggests DIABETES MELLITUS per A.D.A. criteria. [id number] Free T3 Comments: [facility] [address] [place], [place], [id number] FREE T3 1.8 pg/mL (Abnormal) Range: 2.18-3.98 [id number] Lipid Profile Comments: [facility] [address] [facility] [place], [place], [id number] VLDL 41 mg/dL (Abnormal) Range: 5-40 LDL 89 mg/dL (Normal) Range: 0-130 HDL 52 mg/dL (Normal) Comments: The drugs N-Acetylcysteine and Metamizole may falselydepress this assay. Reference Range HDL <40 mg/dL Low HDL Cholesterol HDL >or= 60 mg/dL High HDL Cholesterol TRIG 205 mg/dL (Abnormal) Comments: The drugs N-Acetylcysteine and Metamizole may falselydepress this assay.Serum Triglycerides Reference Interval Normal <150 mg/dL Borderline high 150 - 199 mg/dL High 200 - 499 mg/dL Very High > or = 500 mg/dL CHOL 182 mg/dL (Normal) Comments: <200 mg/dL Desirable 200-240 mg/dL Borderline >240 mg/dL High Risk [id number] Microalb:Creat Ratio,Random UR Comments: [facility] [address] [place], [address] MALB:CREAT 17.2 {mg/g_CRE} (Normal) MICROALBUMIN,UR 7.6 mg/L (Normal) UR CREAT 44.40 mg/dL (Normal) 2-Scl-570924:55 T4 Free Direct Comments: [facility] [address] [place], [place], [id number] T4 FREE DIRECT 1.23 ng/dL (Normal) Range: 0.76-1.46 9-Vfg-630853:55 Thyroid Stim Hormone (TSH) Comments: [facility] [address] [place], [address] TSH 15.10 {uIU/mL} (Abnormal) Range: 0.358-3.74 1-Lbj-575807:55 Urinalysis, Complete Comments: How was Urine Obtained? CLEAN [facility] [address] [place], [address] MUCUS, URINE 0 SEEN {/hpf} (Normal) BACTERIA 0 SEEN {/hpf} (Normal) SQUAM EPI 0-5 SEEN {/hpf} (Normal) Range: 5-10 RBC-UA 0 SEEN {/hpf} (Normal) Range: 0-5 WBC 0 SEEN {/hpf} (Normal) Range: 0-5 LEUK ESTERASE 25 /ul (Abnormal) OCCULT BLOOD-UR 10 /ul (Abnormal) NITRITE UR Negative (Normal) UROBILI Normal mg/dL (Normal) PROT DIPSTX Negative mg/dL (Normal) pH UR 6.0 (Normal) Range: 5.0 - 8.0 SP.GR. DIPSTX 1.010 (Normal) Range: 1.002-1.030 KETONE UR Negative mg/dL (Normal) BILIRUBIN URINE Negative mg/dL (Normal) GLUCOSE, UR 250 mg/dL (Abnormal) CLARITY Clear (Normal) COLOR Yellow (Normal) :55 Vitamin D,25 Hydroxy Comments: [facility] [address] [place], [address] Vitamin D 25-OH 66.6 ng/mL (Normal) Comments: Vitamin D 25(OH) Status Range Deficiency <20 ng/mL (50nmol/L) Insuffciency 20 - 30 ng/mL (50 - 75 nmol/L) Sufficiency 30 - 100 ng/mL (75 - 250 nmol/L) Toxicity >100 ng/mL (>250 nmol/L) :24 HgA1C , Office (62491) HgA1C , Office 10.2 % (Abnormal) Range: 4.6 - 7.1 :24 Blood Glucose , Office (57426) Blood Glucose , Office 261 (Normal) :35 CBC W/Diff, Automated Comments: [facility] [address] [place], [id number] Absolute Lymph 1.72 {X10_3/ul} (Normal) Range: 0.83-4.51 Absolute Neut 3.2 {X10_3/uL} (Normal) Range: 2.0-7.7 IM GRAN % 0.000 % (Normal) Range: 0.0-0.9 Comments: IG% - Immature Granulocytes (promyelocytes, myelocytes andmetamyelocytes) > 1% indicates that a LEFT SHIFT is Present. BASO% 0.4 % (Normal) Range: 0-1 EO% 1.9 % (Normal) Range: 0-5 MONO% 6.7 % (Normal) Range: 0-10 LY% 32.1 % (Normal) Range: 19-41 NEUT% 58.9 % (Normal) Range: 47-70 MPV 11.2 fL (Normal) Range: 6.2-12.0 PLT 196 K/mm3 (Normal) Range: 150-450 RDW SD 44.4 fL (Abnormal) Range: 35.1-43.9 RDW CV 13.9 % (Normal) Range: 11.6-14.6 MCHC 31.2 {g/gl} (Abnormal) Range: 32-36 MCH 27.4 pg (Normal) Range: 27.0-32.0 MCV 87.8 fL (Normal) Range: 81-99 HCT 49.0 % (Abnormal) Range: 37-47 HGB 15.3 g/dL (Abnormal) Range: 12.0-15.0 RBC 5.58 {M/mm3} (Abnormal) Range: 4.2-5.4 WBC 5.4 K/mm3 (Normal) Range: 4.4-11.0 82-Ipt-966585:35 Comprehensive Metabolic Profil Comments: [facility] [address] [place], [place], [address] GAP 10 (Normal) Range: 5-15 CO2 27.0 mmol/L (Normal) Range: 21.0-32.0 CL 102 mmol/L (Normal) Range: 98-107 K 4.0 mmol/L (Normal) Range: 3.5-5.1 NA 139 mmol/L (Normal) Range: 136-145 T BILI 0.40 mg/dL (Normal) Range: 0.20-1.00 ALT 24 U/L (Normal) Range: 12-78 ALK P 105 U/L (Normal) Range: 45-117 AST 18 U/L (Normal) Range: 15-37 CA 8.8 mg/dL (Normal) Range: 8.5-10.1 A/G 0.9 {RATIO} (Normal) Range: 0.9-2.4 GLOB 3.7 g/dL (Abnormal) Range: 2.3-3.5 ALB 3.2 g/dL (Abnormal) Range: 3.4-5.0 T PROT 6.9 g/dL (Normal) Range: 6.4-8.2 BUN/CRE 7.5 {RATIO} (Abnormal) Range: 10-20 EST GFR - AA 78 mL/min (Normal) Comments: GFR Calc EST GFR 64 mL/min (Normal) Comments: Non- GFR Calc CREAT,SERUM 0.93 mg/dL (Normal) Range: 0.55-1.02 Comments: The validity of the calculated GFR AND GFRAA in patients over70 years has not been determined. Clinical correlation isessential. BUN 7 mg/dL (Normal) Range: 7-18 GLU 196 mg/dL (Abnormal) Range: 70-110 Comments: Fasting Glucose result greater than or equal to 126 mg/dLsuggests DIABETES MELLITUS per A.D.A. criteria. 66-Zei-[id number]:35 Lipid Profile Comments: [facility] [address] [place], [place], [id number] VLDL 65 mg/dL (Abnormal) Range: 5-40 LDL 81 mg/dL (Normal) Range: 0-130 HDL 41 mg/dL (Normal) Comments: The drugs N-Acetylcysteine and Metamizole may falselydepress this assay. Reference Range HDL <40 mg/dL Low HDL Cholesterol HDL >or= 60 mg/dL High HDL Cholesterol TRIG 324 mg/dL (Abnormal) Comments: The drugs N-Acetylcysteine and Metamizole may falselydepress this assay.Serum Triglycerides Reference Interval Normal <150 mg/dL Borderline high 150 - 199 mg/dL High 200 - 499 mg/dL Very High > or = 500 mg/dL CHOL 187 mg/dL (Normal) Comments: <200 mg/dL Desirable 200-240 mg/dL Borderline >240 mg/dL High Risk 32-Cmc-803835:35 Microalb:Creat Ratio,Random UR Comments: [facility] [address] [place], [place], [id number] MALB:CREAT Test not performed {mg/g_CRE} (Normal) MICROALBUMIN,UR < 5.0 mg/L (Normal) UR CREAT 19.80 mg/dL (Normal) 50-Xxi-625351:35 Thyroid Stim Hormone (TSH) Comments: [facility] [address] [place], [address] TSH 0.34 {uIU/mL} (Abnormal) Range: 0.358-3.74 03-Jwr-663522:35 Urinalysis, Complete Comments: How was Urine Obtained? CLEAN [facility] [address] [place], [place], [address] MUCUS, URINE 0 SEEN {/hpf} (Normal) BACTERIA 0 SEEN {/hpf} (Normal) SQUAM EPI 0-5 SEEN {/hpf} (Normal) Range: 5-10 RBC-UA 0 SEEN {/hpf} (Normal) Range: 0-5 WBC 0 SEEN {/hpf} (Normal) Range: 0-5 LEUK ESTERASE Negative /ul (Normal) OCCULT BLOOD-UR Negative /ul (Normal) NITRITE UR Negative (Normal) UROBILI Normal mg/dL (Normal) PROT DIPSTX Negative mg/dL (Normal) pH UR 6.5 (Normal) Range: 5.0 - 8.0 SP.GR. DIPSTX 1.005 (Normal) Range: 1.002-1.030 KETONE UR Negative mg/dL (Normal) BILIRUBIN URINE Negative mg/dL (Normal) GLUCOSE, UR Normal mg/dL (Normal) CLARITY Clear (Normal) COLOR Yellow (Normal) 98-Pny-012077:35 Vitamin D,25 Hydroxy Comments: [facility] [address] [facility] [place], [place], [address] Vitamin D 25-OH 49.0 ng/mL (Normal) Comments: Vitamin D 25(OH) Status Range Deficiency <20 ng/mL (50nmol/L) Insuffciency 20 - 30 ng/mL (50 - 75 nmol/L) Sufficiency 30 - 100 ng/mL (75 - 250 nmol/L) Toxicity >100 ng/mL (>250 nmol/L) 50-Eif-597702:55 HgA1C , Office (61482) HgA1C , Office 12.7 % (Abnormal) Range: 4.6 - 7.1 :55 Blood Glucose , Office (04976) Blood Glucose , Office 281 (Normal) 67-Dzx-055781:00 HgA1C , Office (70346) HgA1C , Office 10.9 % (Abnormal) Range: 4.6 - 7.1 08-Diq-779377:00 Blood Glucose , Office (92472) Blood Glucose , Office 294 (Normal) 21-Vje-930454:06 CBC W/Diff, Automated Comments: [facility] [address] [place], [address] Absolute Lymph 2.04 {X10_3/ul} (Normal) Range: 0.83-4.51 Absolute Neut 2.8 {X10_3/uL} (Normal) Range: 2.0-7.7 IM GRAN % 0.200 % (Normal) Range: 0.0-0.9 Comments: IG% - Immature Granulocytes (promyelocytes, myelocytes andmetamyelocytes) > 1% indicates that a LEFT SHIFT is Present. BASO% 0.4 % (Normal) Range: 0-1 EO% 1.1 % (Normal) Range: 0-5 MONO% 6.8 % (Normal) Range: 0-10 LY% 38.7 % (Normal) Range: 19-41 NEUT% 52.8 % (Normal) Range: 47-70 MPV 10.9 fL (Normal) Range: 6.2-12.0 PLT 178 K/mm3 (Normal) Range: 150-450 RDW SD 43.0 fL (Normal) Range: 35.1-43.9 RDW CV 13.5 % (Normal) Range: 11.6-14.6 MCHC 31.5 {g/gl} (Abnormal) Range: 32-36 MCH 27.4 pg (Normal) Range: 27.0-32.0 MCV 86.8 fL (Normal) Range: 81-99 HCT 49.8 % (Abnormal) Range: 37-47 HGB 15.7 g/dL (Abnormal) Range: 12.0-15.0 RBC 5.74 {M/mm3} (Abnormal) Range: 4.2-5.4 WBC 5.3 K/mm3 (Normal) Range: 4.4-11.0 39-Jqx-713496:06 Comprehensive Metabolic Profil Comments: [facility] [address] [place], [address] GAP 7 (Normal) Range: 5-15 CO2 31.0 mmol/L (Normal) Range: 21.0-32.0 CL 100 mmol/L (Normal) Range: 98-107 K 4.6 mmol/L (Normal) Range: 3.5-5.1 NA 138 mmol/L (Normal) Range: 136-145 T BILI 0.30 mg/dL (Normal) Range: 0.20-1.00 ALT 32 U/L (Normal) Range: 12-78 ALK P 102 U/L (Normal) Range: 45-117 AST 20 U/L (Normal) Range: 15-37 CA 8.8 mg/dL (Normal) Range: 8.5-10.1 A/G 1.0 {RATIO} (Normal) Range: 0.9-2.4 GLOB 3.6 g/dL (Abnormal) Range: 2.3-3.5 ALB 3.5 g/dL (Normal) Range: 3.4-5.0 T PROT 7.1 g/dL (Normal) Range: 6.4-8.2 BUN/CRE 9.0 {RATIO} (Abnormal) Range: 10-20 EST GFR - AA 72 mL/min (Normal) Comments: GFR Calc EST GFR 60 mL/min (Normal) Comments: Non- GFR Calc CREAT,SERUM 1.00 mg/dL (Normal) Range: 0.55-1.02 Comments: The validity of the calculated GFR AND GFRAA in patients over70 years has not been determined. Clinical correlation isessential. BUN 9 mg/dL (Normal) Range: 7-18 GLU 246 mg/dL (Abnormal) Range: 70-110 Comments: Glucose result greater than or equal to 200 mg/dLsuggests DIABETES MELLITUS per A.D.A. criteria. 73-Qfa-509792:06 Free T3 Comments: [facility] [address] [place], [place], [address] FREE T3 2.4 pg/mL (Normal) Range: 2.18-3.98 89-Tqy-398606:06 Microalb:Creat Ratio,Random UR Comments: [facility] [address] [place], [address] MALB:CREAT 23.5 {mg/g_CRE} (Normal) MICROALBUMIN,UR 39.5 mg/L (Normal) UR CREAT 168.00 mg/dL (Normal) 86-Byg-984200:06 T4 Free Direct Comments: [facility] [address] [place], [address] T4 FREE DIRECT 1.48 ng/dL (Abnormal) Range: 0.76-1.46 99-Duc-390613:06 Thyroid Stim Hormone (TSH) Comments: [facility] [address] [place], [address] TSH 1.80 {uIU/mL} (Normal) Range: 0.358-3.74 62-Qpt-577907:06 Urinalysis, Complete Comments: How was Urine Obtained? CLEAN [facility] [address] [place], [address] MUCUS, URINE 0 SEEN {/hpf} (Normal) BACTERIA RARE {/hpf} (Normal) SQUAM EPI 5-10 SEEN {/hpf} (Normal) Range: 5-10 RBC-UA 0 SEEN {/hpf} (Normal) Range: 0-5 WBC 0-5 SEEN {/hpf} (Normal) Range: 0-5 LEUK ESTERASE 25 /ul (Abnormal) OCCULT BLOOD-UR Negative /ul (Normal) NITRITE UR Negative (Normal) UROBILI Normal mg/dL (Normal) PROT DIPSTX 15 mg/dL (Abnormal) pH UR 5.0 (Normal) Range: 5.0 - 8.0 SP.GR. DIPSTX 1.020 (Normal) Range: 1.002-1.030 KETONE UR Negative mg/dL (Normal) BILIRUBIN URINE Negative mg/dL (Normal) GLUCOSE, UR 1000 mg/dL (Abnormal) CLARITY Sl. Cloudy (Normal) COLOR Yellow (Normal) 81-Yuy-084634:06 Vitamin D,25 Hydroxy Comments: [facility] [address] [place], [address] Vitamin D 25-OH 38.6 ng/mL (Normal) Comments: Vitamin D 25(OH) Status Range Deficiency <20 ng/mL (50nmol/L) Insuffciency 20 - 30 ng/mL (50 - 75 nmol/L) Sufficiency 30 - 100 ng/mL (75 - 250 nmol/L) Toxicity >100 ng/mL (>250 nmol/L) 26-Hyx-835022:12 HgA1C , Office (34503) HgA1C , Office 10.1 % (Abnormal) Range: 4.6 - 7.1 :12 Blood Glucose , Office (24282) Blood Glucose , Office 265 (Normal) :01 Free T3 Comments: [facility] [address] [place], [id number] FREE T3 1.9 pg/mL (Abnormal) Range: 2.18-3.98 :01 T4 Free Direct Comments: [facility] [address] [place], [id number] T4 FREE DIRECT 1.24 ng/dL (Normal) Range: 0.76-1.46 :01 Thyroid Stim Hormone (TSH) Comments: [facility] [address] [place], [address] TSH 7.84 {uIU/mL} (Abnormal) Range: 0.358-3.74 :26 Fecal Occult Blood , Office (63602) Fecal Occult Blood , Office (Inhouse) negative (Normal) :41 HgA1C , Office (33460) HgA1C , Office 9.1 % (Abnormal) Range: 4.6 - 7.1 :41 Blood Glucose , Office (36925) Blood Glucose , Office 188 (Normal) :54 CBC W/Diff, Automated Comments: [facility] [address] [place], [place], [address] Absolute Lymph 2.03 {X10_3/ul} (Normal) Range: 0.83-4.51 Absolute Neut 4.2 {X10_3/uL} (Normal) Range: 2.0-7.7 IM GRAN % 0.100 % (Normal) Range: 0.0-0.9 Comments: IG% - Immature Granulocytes (promyelocytes, myelocytes andmetamyelocytes) > 1% indicates that a LEFT SHIFT is Present. BASO% 0.1 % (Normal) Range: 0-1 EO% 1.2 % (Normal) Range: 0-5 MONO% 6.1 % (Normal) Range: 0-10 LY% 30.0 % (Normal) Range: 19-41 NEUT% 62.5 % (Normal) Range: 47-70 MPV 10.8 fL (Normal) Range: 6.2-12.0 PLT 163 K/mm3 (Normal) Range: 150-450 RDW SD 41.9 fL (Normal) Range: 35.1-43.9 RDW CV 13.1 % (Normal) Range: 11.6-14.6 MCHC 31.7 {g/gl} (Abnormal) Range: 32-36 MCH 27.7 pg (Normal) Range: 27.0-32.0 MCV 87.2 fL (Normal) Range: 81-99 HCT 45.7 % (Normal) Range: 37-47 HGB 14.5 g/dL (Normal) Range: 12.0-15.0 RBC 5.24 {M/mm3} (Normal) Range: 4.2-5.4 WBC 6.8 K/mm3 (Normal) Range: 4.4-11.0 0-Zzr-877821:54 Comprehensive Metabolic Profil Comments: [facility] [address] [place], [place], [address] GAP 6 (Normal) Range: 5-15 CO2 28.0 mmol/L (Normal) Range: 21.0-32.0 CL 105 mmol/L (Normal) Range: 98-107 K 3.6 mmol/L (Normal) Range: 3.5-5.1 Comments: Slight Hemolysis, Result may be falsely increased. NA 139 mmol/L (Normal) Range: 136-145 T BILI 0.30 mg/dL (Normal) Range: 0.20-1.00 ALT 20 U/L (Normal) Range: 12-78 ALK P 86 U/L (Normal) Range: 50-136 AST 12 U/L (Abnormal) Range: 15-37 Comments: Slight Hemolysis, Result may be falsely increased. CA 8.7 mg/dL (Normal) Range: 8.5-10.1 A/G 1.0 {RATIO} (Normal) Range: 0.9-2.4 GLOB 3.5 g/dL (Normal) Range: 2.3-3.5 ALB 3.4 g/dL (Normal) Range: 3.4-5.0 T PROT 6.9 g/dL (Normal) Range: 6.4-8.2 BUN/CRE 12.8 {RATIO} (Normal) Range: 10-20 EST GFR - AA 78 mL/min (Normal) Comments: GFR Calc EST GFR 64 mL/min (Normal) Comments: Non- GFR Calc CREAT,SERUM 0.93 mg/dL (Normal) Range: 0.55-1.20 Comments: The validity of the calculated GFR AND GFRAA in patients over70 years has not been determined. Clinical correlation isessential. BUN 12 mg/dL (Normal) Range: 7-18 GLU 162 mg/dL (Abnormal) Range: 70-110 Comments: Fasting Glucose result greater than or equal to 126 mg/dLsuggests DIABETES MELLITUS per A.D.A. criteria. 0-Fev-071287:54 Lipid Profile Comments: [facility] [address] [facility] [place], [address] VLDL 53 mg/dL (Abnormal) Range: 5-40 LDL 88 mg/dL (Normal) Range: 0-130 HDL 42 mg/dL (Normal) Comments: The drugs N-Acetylcysteine and Metamizole may falsely deressthis assay. Reference Range HDL <40 mg/dL Low HDL Cholesterol HDL >or= 60 mg/dL High HDL Cholesterol TRIG 264 mg/dL (Abnormal) Comments: The drugs N-Acetylcysteine and Metamizole may falsely deressthis assay.Serum Triglycerides Reference Interval Normal <150 mg/dL Borderline high 150 - 199 mg/dL High 200 - 499 mg/dL Very High > or = 500 mg/dL CHOL 183 mg/dL (Normal) Comments: <200 mg/dL Desirable 200-240 mg/dL Borderline >240 mg/dL High Risk [id number]-Zdx-992176:54 Microalb:Creat Ratio,Random UR Comments: [facility] [address] [place], [address] MALB:CREAT Test not performed {mg/g_CRE} (Normal) MICROALBUMIN,UR < 5.0 mg/L (Normal) UR CREAT < 13.00 mg/dL (Normal) 6-His-025180:54 Thyroid Stim Hormone (TSH) Comments: [facility] [address] [place], [address] TSH 5.02 {uIU/mL} (Abnormal) Range: 0.358-3.74 8-Uwx-837814:54 Urinalysis, Complete Comments: How was Urine Obtained? CLEAN [facility] [address] [place], [address] MUCUS, URINE 0 SEEN {/hpf} (Normal) BACTERIA 1+ {/hpf} (Normal) SQUAM EPI 10-25 SEEN {/hpf} (Normal) Range: 5-10 RBC-UA 0 SEEN {/hpf} (Normal) Range: 0-5 WBC 0 SEEN {/hpf} (Normal) Range: 0-5 LEUK ESTERASE Negative /ul (Normal) OCCULT BLOOD-UR Negative /ul (Normal) NITRITE UR Negative (Normal) UROBILI Normal mg/dL (Normal) PROT DIPSTX Negative mg/dL (Normal) pH UR 5.0 (Normal) Range: 5.0 - 8.0 SP.GR. DIPSTX 1.010 (Normal) Range: 1.002-1.030 KETONE UR Negative mg/dL (Normal) BILIRUBIN URINE Negative mg/dL (Normal) GLUCOSE, UR Normal mg/dL (Normal) CLARITY Cloudy (Normal) COLOR Yellow (Normal) 3-Ebj-644839:54 Vitamin D,25 Hydroxy Comments: [facility] [address] [place], [address] Vitamin D 25-OH 49.1 ng/mL (Normal) Comments: Vitamin D 25(OH) Status Range Deficiency <20 ng/mL (50nmol/L) Insuffciency 20 - 30 ng/mL (50 - 75 nmol/L) Sufficiency 30 - 100 ng/mL (75 - 250 nmol/L) Toxicity >100 ng/mL (>250 nmol/L) 32-Ezg-358143:26 Basic Metabolic Profile (BMP) Comments: [facility] [address] [place], [id number] GAP 1 (Abnormal) Range: 5-15 CO2 34.0 mmol/L (Abnormal) Range: 21.0-32.0 CL 105 mmol/L (Normal) Range: 98-107 K 4.2 mmol/L (Normal) Range: 3.5-5.1 NA 140 mmol/L (Normal) Range: 136-145 CA 8.9 mg/dL (Normal) Range: 8.5-10.1 BUN/CRE 8.5 {RATIO} (Abnormal) Range: 10-20 EST GFR - AA 67 mL/min (Normal) Comments: GFR Calc EST GFR 56 mL/min (Abnormal) Comments: Non- GFR Calc CREAT,SERUM 1.06 mg/dL (Normal) Range: 0.55-1.20 Comments: The validity of the calculated GFR AND GFRAA in patients over70 years has not been determined. Clinical correlation isessential. BUN 9 mg/dL (Normal) Range: 7-18 GLU 212 mg/dL (Abnormal) Range: 70-110 Comments: Glucose result greater than or equal to 200 mg/dLsuggests DIABETES MELLITUS per A.D.A. criteria. :26 CBC-Complete Blood Cnt No Diff Comments: [facility] [address] [place], [place], [id number] MPV 10.6 fL (Normal) Range: 6.2-12.0 PLT 173 K/mm3 (Normal) Range: 150-450 RDW SD 43.9 fL (Normal) Range: 35.1-43.9 RDW CV 13.5 % (Normal) Range: 11.6-14.6 MCHC 30.9 {g/gl} (Abnormal) Range: 32-36 MCH 27.5 pg (Normal) Range: 27.0-32.0 MCV 89.1 fL (Normal) Range: 81-99 HCT 46.0 % (Normal) Range: 37-47 HGB 14.2 g/dL (Normal) Range: 12.0-15.0 RBC 5.16 {M/mm3} (Normal) Range: 4.2-5.4 WBC 6.7 K/mm3 (Normal) Range: 4.4-11.0 :32 HgA1C , Office (76178) HgA1C , Office 12.0 % (Abnormal) Range: 4.6 - 7.1 :24 CBC W/Diff, Automated Comments: [facility] [address] [place], [place], [id number] Absolute Lymph 1.99 {X10_3/ul} (Normal) Range: 0.83-4.51 Absolute Neut 3.2 {X10_3/uL} (Normal) Range: 2.0-7.7 IM GRAN % 0.200 % (Normal) Range: 0.0-0.9 Comments: IG% - Immature Granulocytes (promyelocytes, myelocytes andmetamyelocytes) > 1% indicates that a LEFT SHIFT is Present. BASO% 0.4 % (Normal) Range: 0-1 EO% 1.1 % (Normal) Range: 0-5 MONO% 5.9 % (Normal) Range: 0-10 LY% 35.6 % (Normal) Range: 19-41 NEUT% 56.8 % (Normal) Range: 47-70 MPV 11.2 fL (Normal) Range: 6.2-12.0 PLT 170 K/mm3 (Normal) Range: 150-450 RDW SD 44.4 fL (Abnormal) Range: 35.1-43.9 RDW CV 13.8 % (Normal) Range: 11.6-14.6 MCHC 32.0 {g/gl} (Normal) Range: 32-36 MCH 28.4 pg (Normal) Range: 27.0-32.0 MCV 88.6 fL (Normal) Range: 81-99 HCT 47.5 % (Abnormal) Range: 37-47 HGB 15.2 g/dL (Abnormal) Range: 12.0-15.0 RBC 5.36 {M/mm3} (Normal) Range: 4.2-5.4 WBC 5.6 K/mm3 (Normal) Range: 4.4-11.0 2-Fhf-215340:24 Liver Profile Comments: Comments: '[facility] [address] [place], [address] D BILI 0.09 mg/dL (Normal) Range: 0.00-0.30 T BILI 0.30 mg/dL (Normal) Range: 0.20-1.00 ALT 27 U/L (Normal) Range: 12-78 ALK P 98 U/L (Normal) Range: 50-136 AST 21 U/L (Normal) Range: 15-37 GLOB 3.5 g/dL (Normal) Range: 2.3-3.5 ALB 3.6 g/dL (Normal) Range: 3.4-5.0 T PROT 7.1 g/dL (Normal) Range: 6.4-8.2 :24 Serum Creatinine AND GFR Comments: Comments: '[facility] [address] [place], [place], [address] EST GFR - AA 71 mL/min (Normal) Comments: GFR Calc EST GFR 59 mL/min (Abnormal) Comments: Non- GFR Calc CREAT,SERUM 1.01 mg/dL (Normal) Range: 0.55-1.20 Comments: The validity of the calculated GFR AND GFRAA in patients over70 years has not been determined. Clinical correlation isessential. :24 HgA1C , Office (59445) HgA1C , Office 13.4 % (Abnormal) Range: 4.6 - 7.1 :24 Blood Glucose , Office (24810) Blood Glucose , Office 549 (Normal) :55 CBC W/Diff, Automated Comments: [facility] [address] [place], [place], [address] Absolute Lymph 1.90 {X10_3/ul} (Normal) Range: 0.83-4.51 Absolute Neut 2.4 {X10_3/uL} (Normal) Range: 2.0-7.7 IM GRAN % 0.000 % (Normal) Range: 0.0-0.9 Comments: IG% - Immature Granulocytes (promyelocytes, myelocytes andmetamyelocytes) > 1% indicates that a LEFT SHIFT is Present. BASO% 0.6 % (Normal) Range: 0-1 EO% 1.3 % (Normal) Range: 0-5 MONO% 7.1 % (Normal) Range: 0-10 LY% 40.6 % (Normal) Range: 19-41 NEUT% 50.4 % (Normal) Range: 47-70 MPV 10.7 fL (Normal) Range: 6.2-12.0 PLT 178 K/mm3 (Normal) Range: 150-450 RDW SD 44.5 fL (Abnormal) Range: 35.1-43.9 RDW CV 14.0 % (Normal) Range: 11.6-14.6 MCHC 31.1 {g/gl} (Abnormal) Range: 32-36 MCH 27.0 pg (Normal) Range: 27.0-32.0 MCV 86.9 fL (Normal) Range: 81-99 HCT 47.9 % (Abnormal) Range: 37-47 HGB 14.9 g/dL (Normal) Range: 12.0-15.0 RBC 5.51 {M/mm3} (Abnormal) Range: 4.2-5.4 WBC 4.7 K/mm3 (Normal) Range: 4.4-11.0 54-Dyt-583278:55 Comprehensive Metabolic Profil Comments: [facility] [address] [place], [address] GAP 8 (Normal) Range: 5-15 CO2 27.0 mmol/L (Normal) Range: 21.0-32.0 CL 104 mmol/L (Normal) Range: 98-107 K 3.9 mmol/L (Normal) Range: 3.5-5.1 NA 139 mmol/L (Normal) Range: 136-145 T BILI 0.40 mg/dL (Normal) Range: 0.20-1.00 ALT 34 U/L (Normal) Range: 12-78 ALK P 105 U/L (Normal) Range: 50-136 AST 19 U/L (Normal) Range: 15-37 CA 8.5 mg/dL (Normal) Range: 8.5-10.1 A/G 1.1 {RATIO} (Normal) Range: 0.9-2.4 GLOB 3.3 g/dL (Normal) Range: 2.3-3.5 ALB 3.5 g/dL (Normal) Range: 3.4-5.0 T PROT 6.8 g/dL (Normal) Range: 6.4-8.2 BUN/CRE 12.0 {RATIO} (Normal) Range: 10-20 EST GFR - AA 79 mL/min (Normal) Comments: GFR Calc EST GFR 66 mL/min (Normal) Comments: Non- GFR Calc CREAT,SERUM 0.92 mg/dL (Normal) Range: 0.55-1.20 Comments: The validity of the calculated GFR AND GFRAA in patients over70 years has not been determined. Clinical correlation isessential. BUN 11 mg/dL (Normal) Range: 7-18 GLU 255 mg/dL (Abnormal) Range: 70-110 Comments: Glucose result greater than or equal to 200 mg/dLsuggests DIABETES MELLITUS per A.D.A. criteria. [id number] Lipid Profile Comments: [facility] [id number] [place], [place], [id number] VLDL 53 mg/dL (Abnormal) Range: 5-40 LDL 95 mg/dL (Normal) Range: 0-130 HDL 46 mg/dL (Normal) Comments: Reference Range HDL <40 mg/dL Low HDL Cholesterol HDL >or= 60 mg/dL High HDL Cholesterol TRIG 265 mg/dL (Abnormal) Comments: Serum Triglycerides Reference Interval Normal <150 mg/dL Borderline high 150 - 199 mg/dL High 200 - 499 mg/dL Very High > or = 500 mg/dL CHOL 194 mg/dL (Normal) Comments: <200 mg/dL Desirable 200-240 mg/dL Borderline >240 mg/dL High Risk [id number] Microalb:Creat Ratio,Random UR Comments: [facility] [id number] [place], [place], [id number] MALB:CREAT 25.1 {mg/g_CRE} (Normal) MICROALBUMIN,UR 46.9 mg/L (Normal) UR CREAT 187.00 mg/dL (Normal) [id number] Thyroid Stim Hormone (TSH) Comments: [facility] [id number] [place], [place], [id number] TSH 2.79 {uIU/mL} (Normal) Range: 0.358-3.74 [id number] Urinalysis, Complete Comments: How was Urine Obtained? [facility] [id number] [place], [place], [id number] MUCUS, URINE 0 SEEN {/hpf} (Normal) BACTERIA 1+ {/hpf} (Normal) SQUAM EPI 5-10 SEEN {/hpf} (Normal) Range: 5-10 RBC-UA 0 SEEN {/hpf} (Normal) Range: 0-5 WBC 0-5 SEEN {/hpf} (Normal) Range: 0-5 LEUK ESTERASE 25 /ul (Abnormal) OCCULT BLOOD-UR 10 /ul (Abnormal) NITRITE UR Negative (Normal) UROBILI Normal mg/dL (Normal) PROT DIPSTX 30 mg/dL (Abnormal) pH UR 5.0 (Normal) Range: 5.0 - 8.0 SP.GR. DIPSTX 1.025 (Normal) Range: 1.002-1.030 KETONE UR Negative mg/dL (Normal) BILIRUBIN URINE Negative mg/dL (Normal) GLUCOSE, UR 1000 mg/dL (Abnormal) CLARITY Cloudy (Normal) COLOR Yellow (Normal) [id number] Vitamin D,25 Hydroxy Comments: [facility] [id number] [place], [address] Vitamin D 25-OH 43.2 ng/mL (Normal) Comments: Vitamin D 25(OH) Status Range Deficiency <20 ng/mL (50nmol/L) Insuffciency 20 - 30 ng/mL (50 - 75 nmol/L) Sufficiency 30 - 100 ng/mL (75 - 250 nmol/L) Toxicity >100 ng/mL (>250 nmol/L) :29 HgA1C , Office (37810) HgA1C , Office 9.9 % (Abnormal) Range: 4.6 - 7.1 :29 Blood Glucose , Office (02181) Blood Glucose , Office 132 (Normal) :10 HgA1C , Office (95998) HgA1C , Office 10.2 % (Abnormal) Range: 4.6 - 7.1 :10 Blood Glucose , Office (42387) Blood Glucose , Office 255 (Normal) :53 Bilirubin, Direct Comments: LIVER CRE CBCDDR.ANNA TSH VITD LIPID UAC CBCD MIACRE CMPTest performed at:[facility] [address] [place] [address] D BILI 0.06 mg/dL (Normal) Range: 0.00-0.30 :53 CBC W/Diff, Automated Comments: Test performed at:[facility] [address] [place] [address] Absolute Lymph 1.80 {X10_3/ul} (Normal) Range: 0.83-4.51 Absolute Neut 2.3 {X10_3/uL} (Normal) Range: 2.0-7.7 IM GRAN % 0.000 % (Normal) Range: 0.0-0.9 Comments: IG% - Immature Granulocytes (promyelocytes, myelocytes andmetamyelocytes) > 1% indicates that a LEFT SHIFT is Present. BASO% 0.4 % (Normal) Range: 0-1 EO% 1.8 % (Normal) Range: 0-5 MONO% 6.5 % (Normal) Range: 0-10 LY% 40.2 % (Normal) Range: 19-41 NEUT% 51.1 % (Normal) Range: 47-70 MPV 10.7 fL (Normal) Range: 6.2-12.0 PLT 186 K/mm3 (Normal) Range: 150-450 RDW SD 44.4 fL (Abnormal) Range: 35.1-43.9 RDW CV 14.5 % (Normal) Range: 11.6-14.6 MCHC 31.3 {g/gl} (Abnormal) Range: 32-36 MCH 26.2 pg (Abnormal) Range: 27.0-32.0 MCV 83.8 fL (Normal) Range: 81-99 HCT 47.0 % (Normal) Range: 37-47 HGB 14.7 g/dL (Normal) Range: 12.0-15.0 RBC 5.61 {M/mm3} (Abnormal) Range: 4.2-5.4 WBC 4.5 K/mm3 (Normal) Range: 4.4-11.0 8-Jra-844140:53 Comprehensive Metabolic Profil Comments: LIVER CRE CBCDDR.ANNA TSH VITD LIPID UA CBCD MIACRE CMPTest performed at:[facility] [address] [place], [place] [address] GAP 9 (Normal) Range: 5-15 CO2 27.0 mmol/L (Normal) Range: 21.0-32.0 CL 104 mmol/L (Normal) Range: 98-107 K 3.6 mmol/L (Normal) Range: 3.5-5.1 NA 140 mmol/L (Normal) Range: 136-145 T BILI 0.30 mg/dL (Normal) Range: 0.20-1.00 ALT 21 U/L (Normal) Range: 12-78 ALK P 94 U/L (Normal) Range: 50-136 AST 13 U/L (Abnormal) Range: 15-37 CA 8.8 mg/dL (Normal) Range: 8.5-10.1 A/G 0.9 {RATIO} (Normal) Range: 0.9-2.4 GLOB 3.5 g/dL (Normal) Range: 2.7-4.2 ALB 3.3 g/dL (Abnormal) Range: 3.4-5.0 T PROT 6.8 g/dL (Normal) Range: 6.4-8.2 BUN/CRE 12.2 {RATIO} (Normal) Range: 10-20 EST GFR - AA 81 mL/min (Normal) EST GFR 67 mL/min (Normal) CREAT,SERUM 0.9 mg/dL (Normal) Range: 0.6-1.0 BUN 11 mg/dL (Normal) Range: 7-18 GLU 179 mg/dL (Abnormal) Range: 70-110 Comments: Fasting Glucose result greater than or equal to 126 mg/dLsuggests DIABETES MELLITUS per A.D.A. criteria. :53 Lipid Profile Comments: LIVER CRE CBCDDR.ANNA TSH VITD LIPID [facility] CBCD MIACRE CMPTest performed at:[facility] [address] [place], [place] [id number] VLDL 102 mg/dL (Abnormal) Range: 5-40 LDL Test not performed mg/dL (Normal) Range: 0-130 HDL 33 mg/dL (Abnormal) Comments: Reference Range HDL <40 mg/dL Low HDL Cholesterol HDL >or= 60 mg/dL High HDL Cholesterol TRIG 509 mg/dL (Abnormal) Range: 0-199 Comments: TRIGLYCERIDE IS GREATER THAN 400 mg/dL.LDL RESULT IS INVALID AND WILL NOT BE REPORTED.Serum Triglycerides Reference Interval Normal <150 mg/dL Bord fabian high 150 - 199 mg/dL High 200 - 499 mg/dL Very High > or = 500 mg/dL CHOL 283 mg/dL (Abnormal) Comments: <200 mg/dL Desirable 200-240 mg/dL Borderline >240 mg/dL High Risk :53 Microalb:Creat Ratio,Random UR Comments: Test performed at:[facility] [address] [place] [address] MALB:CREAT 25.8 {mg/g_CRE} (Normal) MICROALBUMIN,UR 85.7 mg/L (Normal) UR CREAT 331.3 mg/dL (Normal) :53 Thyroid Stim Hormone (TSH) Comments: LIVER CRE CBCDDR.ANNA TSH VITD LIPID UAC CBCD MIACRE CMPTest performed at:[facility] [address] [place] [address] TSH 0.99 {uIU/mL} (Normal) Range: 0.358-3.74 :53 Urinalysis, Complete Comments: How was Urine Obtained? CLEAN CATCHTest performed at:[facility] [address] [facility] [place] [address] AMORPHOUS 4+ (Normal) Comments: Microscopic field is filled. Other elements may beobscured. MUCUS, URINE 0 SEEN {/hpf} (Normal) BACTERIA 0 SEEN {/hpf} (Normal) SQUAM EPI 0-5 SEEN {/hpf} (Normal) Range: 5-10 RBC-UA 0 SEEN {/hpf} (Normal) Range: 0-5 WBC 0-5 SEEN {/hpf} (Normal) Range: 0-5 LEUK ESTERASE 25 /ul (Abnormal) OCCULT BLOOD-UR 10 /ul (Abnormal) NITRITE UR Negative (Normal) UROBILI Normal mg/dL (Normal) PROT DIPSTX 30 mg/dL (Abnormal) pH UR 5.0 (Normal) Range: 5.0 - 8.0 SP.GR. DIPSTX 1.025 (Normal) Range: 1.002-1.030 KETONE UR Negative mg/dL (Normal) BILIRUBIN URINE 1 mg/dL (Abnormal) Comments: COLOR OF URINE MAY AFFECT DIPSTICK RESULTS. GLUCOSE, UR 50 mg/dL (Abnormal) CLARITY Turbid (Normal) COLOR Yellow (Normal) :53 Vitamin D,25 Hydroxy Comments: Test performed at:[facility] [address] [place] [address] Vitamin D 25-OH 25.3 ng/mL (Normal) Comments: Vitamin D 25(OH) Status Range Deficiency <20 ng/mL (50nmol/L) Insuffciency 20 - 30 ng/mL (50 - 75 nmol/L) Sufficiency 30 - 100 ng/mL (75 - 250 nmol/L) Toxicity >100 ng/mL (>250 nmol/L) 03-Waw-314705:09 Microscopic Examination Comments: PATIENT NOT FASTINGPERFORMED BY: [facility]Hvymeu5750 [facility] [id number] Bacteria Few (Normal) Mucus Threads Present (Normal) Crystal Type Calcium Oxalate (Normal) Crystals Present (Abnormal) Epithelial Cells (non renal) >10 {/hpf} (Abnormal) Range: 0 - 10 RBC 0-2 {/hpf} (Normal) Range: 0 - 2 WBC 6-10 {/hpf} (Abnormal) Range: 0 - 5 94-Mfu-275019:09 METABOLIC PANEL, COMPREHENSIVE Comments: PATIENT NOT FASTINGPERFORMED BY: [employer] Tihkbq0708 [facility] [id number] ([id number]) ALT (SGPT) 12 [iU]/L (Normal) Range: 0-32 AST (SGOT) 15 [iU]/L (Normal) Range: 0-40 Alkaline Phosphatase, S 89 [iU]/L (Normal) Range: 39-117 Bilirubin, Total 0.2 mg/dL (Normal) Range: 0.0-1.2 A/G Ratio 1.7 (Normal) Range: 1.1-2.5 Globulin, Total 2.4 g/dL (Normal) Range: 1.5-4.5 Albumin, Serum 4.1 g/dL (Normal) Range: 3.6-4.8 Protein, Total, Serum 6.5 g/dL (Normal) Range: 6.0-8.5 Calcium, Serum 9.5 mg/dL (Normal) Range: 8.7-10.3 Carbon Dioxide, Total 26 mmol/L (Normal) Range: 18-29 Chloride, Serum 100 mmol/L (Normal) Range: 97-108 Potassium, Serum 4.2 mmol/L (Normal) Range: 3.5-5.2 Sodium, Serum 140 mmol/L (Normal) Range: 134-144 BUN/Creatinine Ratio 11 (Normal) Range: 11-26 eGFR If Africn Am 83 mL/min/1.73 (Normal) eGFR If NonAfricn Am 72 mL/min/1.73 (Normal) Creatinine, Serum 0.87 mg/dL (Normal) Range: 0.57-1.00 BUN 10 mg/dL (Normal) Range: 8-27 Glucose, Serum 167 mg/dL (Abnormal) Range: 65-99 41-Idw-723503:09 MICROALBUMIN: CREATININE RATIO Comments: PATIENT NOT FASTINGPERFORMED BY: [facility]Cap[facility][id number] [facility] [id number] ([id number]) AND (92338) Microalb/Creat Ratio 10.8 {mg/g_creat} (Normal) Range: 0.0-30.0 Microalbumin, Urine 35.0 ug/mL (Abnormal) Range: 0.0-17.0 Creatinine, Urine 323.9 mg/dL (Abnormal) Range: 15.0-278.0 69-Flw-130243:09 CBC WITH MANUAL DIFF Comments: PATIENT NOT FASTINGPERFORMED BY: [employer] Dzetcg1789 Roy [facility] HospitalPearlChain.netWakeMed [facility] Hospital [id number] Information: [id number] ([id number]) Immature Grans (Abs) 0.0 {x10E3/uL} (Normal) Range: 0.0-0.1 Immature Granulocytes 0 % (Normal) Baso (Absolute) 0.0 {x10E3/uL} (Normal) Range: 0.0-0.2 Eos (Absolute) 0.1 {x10E3/uL} (Normal) Range: 0.0-0.4 Monocytes(Absolute) 0.5 {x10E3/uL} (Normal) Range: 0.1-0.9 Lymphs (Absolute) 2.1 {x10E3/uL} (Normal) Range: 0.7-3.1 Neutrophils (Absolute) 3.6 {x10E3/uL} (Normal) Range: 1.4-7.0 Basos 0 % (Normal) Eos 1 % (Normal) Monocytes 7 % (Normal) Lymphs 33 % (Normal) Neutrophils 59 % (Normal) Platelets 205 {x10E3/uL} (Normal) Range: 150-379 RDW 13.9 % (Normal) Range: 12.3-15.4 MCHC 31.6 g/dL (Normal) Range: 31.5-35.7 MCH 25.7 pg (Abnormal) Range: 26.6-33.0 MCV 82 fL (Normal) Range: 79-97 Hematocrit 45.0 % (Normal) Range: 34.0-46.6 Hemoglobin 14.2 g/dL (Normal) Range: 11.1-15.9 RBC 5.52 {x10E6/uL} (Abnormal) Range: 3.77-5.28 WBC 6.2 {x10E3/uL} (Normal) Range: 3.4-10.8 83-Ubn-777912:09 URINALYSIS, W/ MICRO (19088) Comments: PATIENT NOT FASTINGPERFORMED BY: [employer] [facility] [id number] Microscopic Examination See below: (Normal) Comments: Microscopic was indicated and was performed. Nitrite, Urine Negative (Normal) Urobilinogen,Semi-Qn 1.0 mg/dL (Normal) Range: 0.0-1.9 Bilirubin Negative (Normal) Occult Blood Negative (Normal) Ketones Trace (Abnormal) Glucose Trace (Abnormal) Protein 1+ (Abnormal) WBC Esterase 1+ (Abnormal) Appearance Turbid (Abnormal) Urine-Color Yellow (Normal) pH 5.5 (Normal) Range: 5.0-7.5 Specific [place] >=1.030 (Abnormal) Range: 1.005-1.030 78-Wsb-632547:09 LIPID PANEL (65275) Comments: PATIENT NOT FASTINGPERFORMED BY: [employer] [facility] [id number] RoyRunivermagNovant Health, [facility] [id number] VLDL Cholesterol Dangelo VLDLCH mg/dL (Normal) Range: 5-40 Comments: The calculation for the VLDL cholesterol is not valid whentriglyceride level is >400 mg/dL.Triglyceride result indicated is too high for an accurate LDLcholesterol estimation. HDL Cholesterol 39 mg/dL (Abnormal) Comments: According to ATP-III Guidelines, HDL-C >59 mg/dL is considered anegative risk factor for CHD. Triglycerides 533 mg/dL (Abnormal) Range: 0-149 Cholesterol, Total 337 mg/dL (Abnormal) Range: 100-199 39-Udd-546525:09 Vitamin D Hydroxy (30140) Comments: PATIENT NOT FASTINGPERFORMED BY: [facility] [id number] [facility] [id number] Vitamin D, 25-Hydroxy 32.9 ng/mL (Normal) Range: 30.0-100.0 Comments: Vitamin D deficiency has been defined by the [place] of[facility] Centercine and an Endocrine Society practice guideline as alevel of serum 25-OH vitamin D less than 20 ng/mL (1,2).The Endocrine Society went on to further define vitamin Dinsufficiency as a level between 21 and 29 ng/mL (2).1. IOM ([place] of Medicine). 2010. Dietary reference intakes for calcium and D. [place]: The National Academies Press.2. Yari MF, Caridad MCCRACKEN, Cindy SOTO, et al. Evaluation, treatment, and prevention of vitamin D deficiency: an Endocrine Society clinical practice guideline. JCEM. 2010; 96(7):1911-30. :09 TSH (26411) Comments: PATIENT NOT FASTINGPERFORMED BY: [facility] [id number] [facility] [id number] TSH 0.951 {uIU/mL} (Normal) Range: 0.450-4.500 :39 HgA1C , Office (81099) HgA1C , Office 9.0 % (Abnormal) Range: 4.6 - 7.1 :39 Blood Glucose , Office (06131) Blood Glucose , Office 190 (Normal) 38-Sms-983258:50 Basic Metabolic Profile (BMP) Comments: Test performed at:[facility] [address] [place], [place] [address] GAP 7 (Normal) Range: 5-15 CO2 27.0 mmol/L (Normal) Range: 21.0-32.0 CL 106 mmol/L (Normal) Range: 98-107 K 3.6 mmol/L (Normal) Range: 3.5-5.1 NA 140 mmol/L (Normal) Range: 136-145 CA 8.4 mg/dL (Abnormal) Range: 8.5-10.1 BUN/CRE 10.0 {RATIO} (Normal) Range: 10-20 EST GFR - AA 81 mL/min (Normal) EST GFR 67 mL/min (Normal) CREAT,SERUM 0.9 mg/dL (Normal) Range: 0.6-1.0 BUN 9 mg/dL (Normal) Range: 7-18 GLU 255 mg/dL (Abnormal) Range: 70-110 Comments: Glucose result greater than or equal to 200 mg/dLsuggests DIABETES MELLITUS per A.D.A. criteria. 88-Suj-302962:50 CBC-Complete Blood Cnt No Diff Comments: Test performed at:[facility] [address]ubfd[address] [facility] [place] [address] MPV 11.1 fL (Normal) Range: 6.2-12.0 PLT 177 K/mm3 (Normal) Range: 150-450 RDW SD 43.2 fL (Normal) Range: 35.1-43.9 RDW CV 13.6 % (Normal) Range: 11.6-14.6 MCHC 30.1 {g/gl} (Abnormal) Range: 32-36 MCH 26.3 pg (Abnormal) Range: 27.0-32.0 MCV 87.4 fL (Normal) Range: 81-99 HCT 43.8 % (Normal) Range: 37-47 HGB 13.2 g/dL (Normal) Range: 12.0-15.0 RBC 5.01 {M/mm3} (Normal) Range: 4.2-5.4 WBC 4.9 K/mm3 (Normal) Range: 4.4-11.0 95-Nkv-073566:31 Bedside Glucose Comments: Test performed at:[facility] [address]amlgu9266 [facility] [place] [address] BEDSIDE GLU 189 mg/dL (Abnormal) Range: 70-110 Comments: Policy and Physicians Orders followedMANAGEMENT OF PATIENT CARE PER NURSING PROTOCOL 98-Ygr-62441:07 Bedside Glucose Comments: Test performed at:[facility] Jproqyuhez1038 [facility] [place] [address] BEDSIDE GLU 101 mg/dL (Normal) Range: 70-110 Comments: Policy and Physicians Orders followedMANAGEMENT OF PATIENT CARE PER NURSING PROTOCOL 45-Skn-98951:55 Glucose Comments: Comments: LOW BLOOD SUGAR/LAB TO CHECKTest performed at:[facility] [address] [place] [address] GLU 57 mg/dL (Abnormal) Range: 70-110 :51 Bedside Glucose Comments: Test performed at:[facility] [address] [place] [address] BEDSIDE GLU 64 mg/dL (Abnormal) Range: 70-110 Comments: Policy and Physicians Orders followedMANAGEMENT OF PATIENT CARE PER NURSING PROTOCOL :38 Bedside Glucose Comments: Test performed at:[facility] [address] [place] [address] BEDSIDE GLU 52 mg/dL (Abnormal) Range: 70-110 Comments: Policy and Physicians Orders followedMANAGEMENT OF PATIENT CARE PER NURSING PROTOCOL 9-Tgo-425634:35 Bedside Glucose Comments: Test performed at:[facility] [address] [place] [address] BEDSIDE GLU 144 mg/dL (Abnormal) Range: 70-110 Comments: Policy and Physicians Orders followedMANAGEMENT OF PATIENT CARE PER NURSING PROTOCOL 1-Kwo-189831:46 Bedside Glucose Comments: Test performed at:[facility] Qmgtervjgi4432 [facility] [place] [address] BEDSIDE GLU 84 mg/dL (Normal) Range: 70-110 Comments: Policy and Physicians Orders followedMANAGEMENT OF PATIENT CARE PER NURSING PROTOCOL 6-Rxl-201644:23 Bedside Glucose Comments: Test performed at:[facility] [address] [place] [address] BEDSIDE GLU 85 mg/dL (Normal) Range: 70-110 Comments: Policy and Physicians Orders followedMANAGEMENT OF PATIENT CARE PER NURSING PROTOCOL :51 Bedside Glucose Comments: Test performed at:[facility] [address]wkt[address] [facility] [place] [address] BEDSIDE GLU 289 mg/dL (Abnormal) Range: 70-110 Comments: Policy and Physicians Orders followedMANAGEMENT OF PATIENT CARE PER NURSING PROTOCOL :06 Basic Metabolic Profile (BMP) Comments: Test performed at:[facility] [address] [place] [address] GAP 7 (Normal) Range: 5-15 CO2 27.0 mmol/L (Normal) Range: 21.0-32.0 CL 104 mmol/L (Normal) Range: 98-107 K 4.2 mmol/L (Normal) Range: 3.5-5.1 NA 138 mmol/L (Normal) Range: 136-145 CA 8.2 mg/dL (Abnormal) Range: 8.5-10.1 BUN/CRE 12.7 {RATIO} (Normal) Range: 10-20 Estimated CRCL 49.64 ml/min (Normal) EST GFR - AA 64 mL/min (Normal) EST GFR 53 mL/min (Abnormal) CREAT,SERUM 1.1 mg/dL (Abnormal) Range: 0.6-1.0 BUN 14 mg/dL (Normal) Range: 7-18 GLU 259 mg/dL (Abnormal) Range: 70-110 Comments: Glucose result greater than or equal to 200 mg/dLsuggests DIABETES MELLITUS per A.D.A. criteria. :06 CBC-Complete Blood Cnt No Diff Comments: Test performed at:[facility] [address] [place] [address] MPV 11.4 fL (Normal) Range: 6.2-12.0 PLT 162 K/mm3 (Normal) Range: 150-450 RDW SD 39.8 fL (Normal) Range: 35.1-43.9 RDW CV 13.0 % (Normal) Range: 11.6-14.6 MCHC 31.8 {g/gl} (Abnormal) Range: 32-36 MCH 27.5 pg (Normal) Range: 27.0-32.0 MCV 86.5 fL (Normal) Range: 81-99 HCT 35.9 % (Abnormal) Range: 37-47 HGB 11.4 g/dL (Abnormal) Range: 12.0-15.0 RBC 4.15 {M/mm3} (Abnormal) Range: 4.2-5.4 WBC 9.5 K/mm3 (Normal) Range: 4.4-11.0 :04 Bedside Glucose Comments: Test performed at:[facility] [address] [place] [address] BEDSIDE GLU 335 mg/dL (Abnormal) Range: 70-110 Comments: Policy and Physicians Orders followedMANAGEMENT OF PATIENT CARE PER NURSING PROTOCOL 30-Jan-20142:10 Bedside Glucose Comments: Test performed at:[facility] [address] [place] [address] BEDSIDE GLU 313 mg/dL (Abnormal) Range: 70-110 Comments: Policy and Physicians Orders followedMANAGEMENT OF PATIENT CARE PER NURSING PROTOCOL 2-Ijp-501996:23 Bedside Glucose Comments: Test performed at:[facility] [address] [place] [address] BEDSIDE GLU 352 mg/dL (Abnormal) Range: 70-110 Comments: Policy and Physicians Orders followedMANAGEMENT OF PATIENT CARE PER NURSING PROTOCOL 9-Djq-413757:43 Bedside Glucose Comments: Test performed at:[facility] [address] [place] [address] BEDSIDE GLU 234 mg/dL (Abnormal) Range: 70-110 Comments: Policy and Physicians Orders followedMANAGEMENT OF PATIENT CARE PER NURSING PROTOCOL TOTAL HIP REPLACEMENT See Note (Normal) Comments: Test performed at:[facility] [address] [place] [address] :24 Comments: Patient: ELIZABETH MEYERS : 1950 (63/F) Acct Num: [id number] Phys: Nadeem Ceballos MD Unit Num: [id number] Loc: MS3 SW203-2 Specimen: [id number] Received: 01/30/14741 Spec Type: TOTAL HIP TISSUES TISSUES: GROSS DESCRIPTION Received is one container designated right hip bone and tissue. The specimen consists of a churchill femoral head with portion of femoral nec k. The femoral head measures 4 x 5 x 4.5 cm and the femoral neck measures 2 cm in length. The articular surface displays prominent osteophyte formation, eburnation and bone erosion. Also present in t he specimen container are multiple irregular fragments of bone reamings and pink-yellow soft tissue measuring in aggregate 9 x 8 x 3 cm. A piece of adipose tissue is also present mixed with soft tissue which measures 4 cm in greatest dimension. Supervisor Orchard sections are submitted in two cassettes as follows: 1 - soft tissue, 2 - bone after decalcification. 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 Fibroconnective tissue, fibroadipose tissue and reactive synovial tissue. : 02/02/14 Signed Dru Al 02/02/14 <signature on file> :04 BMP GAP 7 (Normal) Range: 5-15 CO2 28.0 mmol/L (Normal) Range: 21.0-32.0 CL 105 mmol/L (Normal) Range: 98-107 K 4.2 mmol/L (Normal) Range: 3.5-5.1 NA 140 mmol/L (Normal) Range: 136-145 CA 9.3 mg/dL (Normal) Range: 8.5-10.1 BC 12.7 {RATIO} (Normal) Range: 10-20 ECRCL 49.64 ml/min (Normal) GFRAA 64 mL/min (Normal) GFR 53 mL/min (Abnormal) CREAT 1.1 mg/dL (Abnormal) Range: 0.6-1.0 BUN 14 mg/dL (Normal) Range: 7-18 GLU 181 mg/dL (Abnormal) Range: 70-110 Comments: Fasting Glucose result greater than or equal to 126 mg/dLsuggests DIABETES MELLITUS per A.D.A. criteria. :04 CBCD ALC 1.74 {X10_3/ul} (Normal) Range: 0.83-4.51 ANC 3.3 {X10_3/uL} (Normal) Range: 2.0-7.7 IG% 0.200 % (Normal) Range: 0.0-0.9 Comments: IG% - Immature Granulocytes (promyelocytes, myelocytes andmetamyelocytes) > 1% indicates that a LEFT SHIFT is Present. B% 0.5 % (Normal) Range: 0-1 E% 0.9 % (Normal) Range: 0-5 M% 6.9 % (Normal) Range: 0-10 L% 31.4 % (Normal) Range: 19-41 N% 60.1 % (Normal) Range: 47-70 MPV 11.6 fL (Normal) Range: 6.2-12.0 PLT 181 K/mm3 (Normal) Range: 150-450 RDWSD 43.7 fL (Normal) Range: 35.1-43.9 RDWCV 13.8 % (Normal) Range: 11.6-14.6 MCHC 31.6 {g/gl} (Abnormal) Range: 32-36 MCH 27.3 pg (Normal) Range: 27.0-32.0 MCV 86.4 fL (Normal) Range: 81-99 HCT 51.3 % (Abnormal) Range: 37-47 HGB 16.2 g/dL (Abnormal) Range: 12.0-15.0 RBC 5.94 {M/mm3} (Abnormal) Range: 4.2-5.4 WBC 5.5 K/mm3 (Normal) Range: 4.4-11.0 :04 MRSA+SAID SCRN See Note (Normal) Comments: S. AUREUS S. aureus NegativeMRSA MRSA Negative :04 UA Comments: How was Urine Obtained? CLEAN CATCH LILLY 25 /ul (Abnormal) UOB Negative /ul (Normal) RAFIA Negative (Normal) UROBU Normal mg/dL (Normal) uPROTU Negative mg/dL (Normal) JOHN 5.0 (Normal) Range: 5.0 - 8.0 SGU 1.020 (Normal) Range: 1.002-1.030 KETU Negative mg/dL (Normal) BILIU Negative mg/dL (Normal) GLUR 100 mg/dL (Abnormal) UCLAR Sl. Cloudy (Normal) UCOL Yellow (Normal) :12 HgA1C , Office (26815) HgA1C , Office 12.5 % (Abnormal) Range: 4.6 - 7.1 :12 Blood Glucose , Office (35180) Blood Glucose , Office 333 (Normal) 0-Wjm-118660:35 CBCD ALC 1.78 {X10_3/ul} (Normal) Range: 0.83-4.51 ANC 3.0 {X10_3/uL} (Normal) Range: 2.0-7.7 IG% 0.200 % (Normal) Range: 0.0-0.9 Comments: IG% - Immature Granulocytes (promyelocytes, myelocytes andmetamyelocytes) > 1% indicates that a LEFT SHIFT is Present. B% 0.4 % (Normal) Range: 0-1 E% 1.5 % (Normal) Range: 0-5 M% 8.6 % (Normal) Range: 0-10 L% 33.1 % (Normal) Range: 19-41 N% 56.2 % (Normal) Range: 47-70 MPV 11.2 fL (Normal) Range: 6.2-12.0 PLT 173 K/mm3 (Normal) Range: 150-450 RDWSD 44.4 fL (Abnormal) Range: 35.1-43.9 RDWCV 13.8 % (Normal) Range: 11.6-14.6 MCHC 31.7 {g/gl} (Abnormal) Range: 32-36 MCH 28.0 pg (Normal) Range: 27.0-32.0 MCV 88.2 fL (Normal) Range: 81-99 HCT 47.0 % (Normal) Range: 37-47 HGB 14.9 g/dL (Normal) Range: 12.0-15.0 RBC 5.33 {M/mm3} (Normal) Range: 4.2-5.4 WBC 5.4 K/mm3 (Normal) Range: 4.4-11.0 3-Qiv-906541:35 CRE Comments: CBCD CRE LIVERDR.ANNA TSH LIPID LIVER ECRCL 54.61 ml/min (Normal) GFRAA 73 mL/min (Normal) GFR 60 mL/min (Normal) CREAT 1.0 mg/dL (Normal) Range: 0.6-1.0 :35 LIPID Comments: CBCD CRE LIVERDR.ANNA TSH LIPID LIVER VLDL 52 mg/dL (Abnormal) Range: 5-40 LDL 128 mg/dL (Normal) Range: 0-130 HDL 39 mg/dL (Abnormal) Comments: Reference RangeHDL <40 mg/dL Low HDL CholesterolHDL >or= 60 mg/dL High HDL Cholesterol TRIG 261 mg/dL (Abnormal) Range: 0-199 Comments: Serum Triglycerides Reference IntervalNormal <150 mg/dLBorderline high 150 - 199 mg/dLHigh 200 - 499 mg/ dLVery High > or = 500 mg/dL CHOL 219 mg/dL (Abnormal) Comments: <200 mg/dL Pturvxgqo951-075 mg/dL Borderline>240 mg/dL High Risk 5-Xac-698167:35 LIVER Comments: CBCD CRE LIVERDR.ANNA TSH LIPID LIVER BID 0.08 mg/dL (Normal) Range: 0.00-0.30 BIT 0.30 mg/dL (Normal) Range: 0.00-4.00 ALT 32 U/L (Normal) Range: 12-78 ALK 119 U/L (Normal) Range: 50-136 AST 15 U/L (Normal) Range: 15-37 ALB 3.4 g/dL (Normal) Range: 3.4-5.0 TPROT 6.7 g/dL (Normal) Range: 6.4-8.2 3-Aoc-864106:35 TSH 3.38 {uIU/mL} (Normal) Comments: CBCD CRE LIVERDRMonserratANNA TSH LIPID LIVER Range: 0.358-3.74 [id number] HgA1C , Office (44379) HgA1C , Office 9.9 % (Abnormal) Range: 4.6 - 7.1 :36 Blood Glucose , Office (15887) Blood Glucose , Office 247 (Normal) [id number] CBCD ALC 1.81 {X10_3/ul} (Normal) Range: 0.83-4.51 ANC 3.8 {X10_3/uL} (Normal) Range: 2.0-7.7 IG% 0.200 % (Normal) Range: 0.0-0.9 Comments: IG% - Immature Granulocytes (promyelocytes, myelocytes andmetamyelocytes) > 1% indicates that a LEFT SHIFT is Present. B% 0.3 % (Normal) Range: 0-1 E% 1.5 % (Normal) Range: 0-5 M% 6.8 % (Normal) Range: 0-10 L% 29.2 % (Normal) Range: 19-41 N% 62.0 % (Normal) Range: 47-70 MPV 10.5 fL (Normal) Range: 6.2-12.0 PLT 178 K/mm3 (Normal) Range: 150-450 RDWSD 43.0 fL (Normal) Range: 35.1-43.9 RDWCV 14.0 % (Normal) Range: 11.6-14.6 MCHC 32.5 {g/gl} (Normal) Range: 32-36 MCH 27.7 pg (Normal) Range: 27.0-32.0 MCV 85.4 fL (Normal) Range: 81-99 HCT 46.2 % (Normal) Range: 37-47 HGB 15.0 g/dL (Normal) Range: 12.0-15.0 RBC 5.41 {M/mm3} (Abnormal) Range: 4.2-5.4 WBC 6.2 K/mm3 (Normal) Range: 4.4-11.0 [id number] CMP GAP 5 (Normal) Range: 5-15 CL 106 mmol/L (Normal) Range: 98-107 CO2 28.0 mmol/L (Normal) Range: 21.0-32.0 K 3.9 mmol/L (Normal) Range: 3.5-5.1 NA 139 mmol/L (Normal) Range: 136-145 BIT 0.40 mg/dL (Normal) Range: 0.00-1.00 ALT 28 U/L (Normal) Range: 12-78 ALK 111 U/L (Normal) Range: 45-117 AST 16 U/L (Normal) Range: 15-37 AG 1.1 {RATIO} (Normal) Range: 0.9-2.4 CA 9.2 mg/dL (Normal) Range: 8.5-10.1 GLOB 3.3 g/dL (Normal) Range: 2.7-4.2 ALB 3.5 g/dL (Normal) Range: 3.4-5.0 TPROT 6.8 g/dL (Normal) Range: 6.4-8.2 BC 10.0 {RATIO} (Normal) Range: 10-20 GFRAA 81 mL/min (Normal) GFR 67 mL/min (Normal) CREAT 0.9 mg/dL (Normal) Range: 0.6-1.0 BUN 9 mg/dL (Normal) Range: 7-18 GLU 152 mg/dL (Abnormal) Range: 70-110 Comments: Fasting Glucose result greater than or equal to 126 mg/dLsuggests DIABETES MELLITUS per A.D.A. criteria. :24 LIPID LDL 114 mg/dL (Normal) Range: 0-130 VLDL 51 mg/dL (Abnormal) Range: 5-40 HDL 42 mg/dL (Normal) Comments: Reference RangeHDL <40 mg/dL Low HDL CholesterolHDL >or= 60 mg/dL High HDL Cholesterol CHOL 207 mg/dL (Abnormal) Comments: <200 mg/dL Zlxqvtrlw412-413 mg/dL Borderline>240 mg/dL High Risk TRIG 257 mg/dL (Abnormal) Range: 0-199 Comments: Serum Triglycerides Reference IntervalNormal <150 mg/dLBorderline high 150 - 199 mg/dLHigh 200 - 499 mg/ dLVery High > or = 500 mg/dL :24 MIACRE MIALB 61.1 mg/L (Normal) tMICROCREAT 30.6 {mg/g_CRE} (Abnormal) CREU 199.6 mg/dL (Normal) :24 TSH 0.22 {uIU/mL} (Abnormal) Range: 0.358-3.74 :24 UAC Comments: How was Urine Obtained? CLEAN CATCH UMUC 0 SEEN {/hpf} (Normal) UBAC 1+ {/hpf} (Normal) UEPIS 5-10 SEEN {/hpf} (Normal) Range: 5-10 URBC 0 SEEN {/hpf} (Normal) Range: 0-5 UWBC 0-5 SEEN {/hpf} (Normal) Range: 0-5 LILLY 500 /ul (Abnormal) UOB 10 /ul (Abnormal) RAFIA Negative (Normal) UROBU Normal mg/dL (Normal) uPROTU 15 mg/dL (Abnormal) JOHN 5.0 (Normal) Range: 5.0 - 8.0 KETU Negative mg/dL (Normal) SGU 1.015 (Normal) Range: 1.002-1.030 BILIU Negative mg/dL (Normal) GLUR Normal mg/dL (Normal) UCLAR Clear (Normal) UCOL Yellow (Normal) :24 VITD 52.5 mg/mL (Normal) Comments: Vitamin D 25(OH) Status RangeDeficiency <20 ng/mL (50nmol/L)Insuffciency 20 - 30 ng/mL (50 - 75 nmol/L)Sufficiency 30 - 100 ng/mL (75 - 250 nmol/L)Toxicity >100 ng/mL (>250 nmol/L) :19 FECAL OCCULT HGB ASSAY- tubes sent home (39893) FECAL OCCULT HGB ASSAY, QUAL, 1-3 SIMULTANEOU negative (Normal) :28 HgA1C , Office (38787) HgA1C , Office 10.9 % (Abnormal) Range: 4.6 - 7.1 :28 Blood Glucose , Office (57893) Blood Glucose , Office 264 (Normal) :51 METABOLIC PANEL, COMPREHENSIVE Comments: send copy of results to dr gurrola in [facility]; PATIENT NOT FASTINGPERFORMED BY: [facility]Euorvo3709 [facility] [id number] (54145) ALT (SGPT) 18 [iU]/L (Normal) Range: 0-32 AST (SGOT) 16 [iU]/L (Normal) Range: 0-40 Alkaline Phosphatase, S 140 [iU]/L (Abnormal) Range: 47-112 Bilirubin, Total 0.3 mg/dL (Normal) Range: 0.0-1.2 A/G Ratio 1.5 (Normal) Range: 1.1-2.5 Globulin, Total 2.6 g/dL (Normal) Range: 1.5-4.5 Albumin, Serum 4.0 g/dL (Normal) Range: 3.6-4.8 Protein, Total, Serum 6.6 g/dL (Normal) Range: 6.0-8.5 Calcium, Serum 9.0 mg/dL (Normal) Range: 8.6-10.2 Carbon Dioxide, Total 22 mmol/L (Normal) Range: 19-28 Chloride, Serum 102 mmol/L (Normal) Range: 97-108 Potassium, Serum 4.3 mmol/L (Normal) Range: 3.5-5.2 Sodium, Serum 138 mmol/L (Normal) Range: 134-144 BUN/Creatinine Ratio 9 (Abnormal) Range: 11-26 eGFR If Africn Am 69 mL/min/1.73 (Normal) eGFR If NonAfricn Am 60 mL/min/1.73 (Normal) Creatinine, Serum 1.02 mg/dL (Abnormal) Range: 0.57-1.00 BUN 9 mg/dL (Normal) Range: 8-27 Glucose, Serum 245 mg/dL (Abnormal) Range: 65-99 3-Alv-159804:51 CBC WITH MANUAL DIFF Comments: PATIENT NOT FASTINGPERFORMED BY: JAIRO [facility] Xrepoa5608 [facility] [id number] Information: [id number] (50757) Immature Grans (Abs) 0.0 {x10E3/uL} (Normal) Range: 0.0-0.1 Immature Granulocytes 0 % (Normal) Range: 0-2 Baso (Absolute) 0.0 {x10E3/uL} (Normal) Range: 0.0-0.2 Eos (Absolute) 0.1 {x10E3/uL} (Normal) Range: 0.0-0.4 Monocytes(Absolute) 0.4 {x10E3/uL} (Normal) Range: 0.1-0.9 Lymphs (Absolute) 1.8 {x10E3/uL} (Normal) Range: 0.7-3.1 Neutrophils (Absolute) 3.5 {x10E3/uL} (Normal) Range: 1.4-7.0 Basos 0 % (Normal) Range: 0-3 Eos 1 % (Normal) Range: 0-5 Monocytes 8 % (Normal) Range: 4-12 Lymphs 30 % (Normal) Range: 14-46 Neutrophils 61 % (Normal) Range: 40-74 Platelets 202 {x10E3/uL} (Normal) Range: 155-379 RDW 14.4 % (Normal) Range: 12.3-15.4 MCHC 32.0 g/dL (Normal) Range: 31.5-35.7 MCH 26.7 pg (Normal) Range: 26.6-33.0 MCV 83 fL (Normal) Range: 79-97 Hematocrit 45.3 % (Normal) Range: 34.0-46.6 Hemoglobin 14.5 g/dL (Normal) Range: 11.1-15.9 RBC 5.43 {x10E6/uL} (Abnormal) Range: 3.77-5.28 WBC 5.8 {x10E3/uL} (Normal) Range: 3.4-10.8 :03 HgA1C , Office (17494) HgA1C , Office 10.0 % (Abnormal) Range: 4.6 - 7.1 :03 Blood Glucose , Office (86106) Blood Glucose , Office 218 (Normal) :39 HgA1C , Office (78798) HgA1C , Office 8.2 % (Abnormal) Range: 4.6 - 7.1 :39 Blood Glucose , Office (54604) Blood Glucose , Office 176 (Normal) Comments: non-fasting :06 CBCMD RBCM NORM C+C {NORMAL} (Normal) PE ADEQUATE (Normal) Comments: FEW MACROTHROMBOCYTES DC . (Normal) Comments: MANUAL DIFF NRBCM 0 % (Normal) Range: 0-5 EOS 1 % (Normal) Range: 0-5 MON 2 % (Normal) Range: 0-10 LYMPH 32 % (Normal) Range: 19-41 PMN 65 % (Normal) Range: 47-70 CHIP 100 (Normal) ANC 3.3 3/uL (Normal) Range: 2.0-7.7 IG% 0.40 % (Abnormal) Range: 0.0-0.0 B% 0.4 % (Normal) Range: 0-1 E% 2.0 % (Normal) Range: 0-5 M% 7.0 % (Normal) Range: 0-10 L% 30.8 % (Normal) Range: 19-41 N% 59.4 % (Normal) Range: 47-70 MPV 11.1 fL (Normal) Range: 6.2-12.0 PLT 174 K/mm3 (Normal) Range: 150-450 RDWSD 45.5 fL (Abnormal) Range: 35.1-43.9 RDWCV 14.5 % (Normal) Range: 11.6-14.6 MCHC 32.1 g/dL (Normal) Range: 32-36 MCH 27.6 pg (Normal) Range: 27.0-32.0 MCV 86.0 fL (Normal) Range: 81-99 HCT 46.8 % (Normal) Range: 37-47 HGB 15.0 g/dL (Normal) Range: 12.0-15.0 RBC 5.44 {M/mm3} (Abnormal) Range: 4.2-5.4 WBC 5.5 {k/mm3} (Normal) Range: 4.4-11.0 :06 CMP GAP 9 (Normal) Range: 5-15 CO2 26.0 mmol/L (Normal) Range: 21.0-32.0 CL 103 mmol/L (Normal) Range: 98-107 K 4.1 mmol/L (Normal) Range: 3.5-5.1 Comments: Specimen slightly hemolyzed. Results may be affected. NA 138 mmol/L (Normal) Range: 136-145 BIT 0.40 mg/dL (Normal) Range: 0.00-1.00 ALT 24 U/L (Normal) Range: 12-78 ALK 121 U/L (Normal) Range: 50-136 AST 16 U/L (Normal) Range: 15-37 CA 9.6 mg/dL (Normal) Range: 8.5-10.1 AG 0.9 {RATIO} (Normal) Range: 0.9-2.4 GLOB 3.8 g/dL (Normal) Range: 2.7-4.2 ALB 3.5 g/dL (Normal) Range: 3.4-5.0 TPROT 7.3 g/dL (Normal) Range: 6.4-8.2 BC 12.7 {RATIO} (Normal) Range: 10-20 GFRAA 65 mL/min (Normal) GFR 54 mL/min (Abnormal) CREAT 1.1 mg/dL (Abnormal) Range: 0.6-1.0 BUN 14 mg/dL (Normal) Range: 7-18 GLU 155 mg/dL (Abnormal) Range: 70-110 Comments: Fasting Glucose result greater than or equal to 126 mg/dLsuggests DIABETES MELLITUS per A.D.A. criteria. :06 LIPID VLDL 60 mg/dL (Abnormal) Range: 5-40 LDL 229 mg/dL (Abnormal) Range: 0-130 HDL 38 mg/dL (Abnormal) Comments: Reference RangeHDL <40 mg/dL Low HDL CholesterolHDL >or= 60 mg/dL High HDL Cholesterol TRIG 298 mg/dL (Abnormal) Comments: Serum Triglycerides Reference IntervalNormal <150 mg/dLBorderline high 150 - 199 mg/dLHigh 200 - 499 mg/ dLVery High > or = 500 mg/dL CHOL 327 mg/dL (Abnormal) Comments: <200 mg/dL Bitorsqpl213-334 mg/dL Borderline>240 mg/dL High Risk :06 MIACRE tMICROCREAT 8.6 {mg/g_CRE} (Normal) MIALB 7.1 mg/L (Normal) CREU 82.2 mg/dL (Normal) :06 TSH 1.07 {uIU/mL} (Normal) Range: 0.358-3.74 :06 [facility] UMUC 0 SEEN {/hpf} (Normal) UBAC 0 SEEN {/hpf} (Normal) UEPIS 10-25 SEEN {/hpf} (Normal) Range: 5-10 URBC 0 SEEN {/hpf} (Normal) Range: 0-5 UWBC 0 SEEN {/hpf} (Normal) Range: 0-5 LILLY Negative /ul (Normal) UOB Negative /ul (Normal) RAFIA Negative (Normal) UROBU Normal mg/dL (Normal) uPROTU Negative mg/dL (Normal) JOHN 6 (Normal) Range: 5.0 - 8.0 SGU 1.010 (Normal) Range: 1.002-1.030 KETU Negative mg/dL (Normal) BILIU Negative mg/dL (Normal) GLUR Normal mg/dL (Normal) UCLAR Clear (Normal) UCOL Yellow (Normal) :06 VITD 27.1 ng/mL (Normal) Comments: Vitamin D 25(OH) Status RangeDeficiency <20 ng/mL (50nmol/L)Insufficiency 20 - 30 ng/mL (50 - 75 nmol/L)Sufficiency 30 - 100 ng/mL (75 - 250 nm ol/L)Toxicity >100 ng/mL (250 nmol/L)Effective 201213-Jun-201200-Hsx-558158:23 Blood Glucose , Office (29588) Blood Glucose , Office 230 (Normal) :23 HgA1C , Office (25620) HgA1C , Office 9.1 % (Abnormal) Range: 4.6 - 7.1 :19 HgA1C , Office (87446) HgA1C , Office 9.8 % (Abnormal) Range: 4.6 - 7.1 :19 Blood Glucose , Office (85701) Blood Glucose , Office 255 (Normal) 3-Evd-647135:50 CHEST, PA AND LATERAL Radiology Report See Note (Normal) Comments: PROCEDURE: X-RAY CHEST REASON FOR EXAM: Female, 61 years old. Shortness of breath. TECHNIQUE: PA and lateral views of the chest. COMPARISON: None. FINDINGS: The lungs are expanded. There is re ticulonodular interstitial thickeningpresent in both lungs. There is left basilar subsegmental atelectasis.There is no demonstrated pleural abnormality. Normal heart and pericardium. There are calcified mediastinal lymph nodes. Normal visualized pulmonaryarteries. Normal visualized aortic arch and descending thoracic aorta. There is mild thoracic spondylosis. The patient has had previousright-sided shoulder surgery. There is no demonstrated abnormality of the visualized soft tissuestructures of the upper abdomen. IMPRESSION:Left basilar subsegmental atelectasis. Signed:Amisha Mejia M.D.December at 6:59:15 PM [phone] Signed AM/AM If you are the referring physician and would like to consult with theradiologist who provided this interpretation, please contact Amisha jorge M.D. at . If this radiologist is unavailable, you will bedirected to another radiologist to assist. If you are a patient with a question regarding this report, pleasecontactyour refe rring physician directly. Professional Interpretation Provided By: [employer], Phone , These documents contain legally protected and confidential healthinformation intende d only for the use of the individual or entity namedabove. If you are not the intended recipient, you are hereby notifiedthatany disclosure, copying, distribution, or other use of these documents isstri ctly prohibited. If you have received this information in error,pleasenotify the sender immediately and arrange for the return or destructionofthese documents. Dictated on 12/28/119 by Brian PAN, LupeaTranscribed on 12/28/111909 by ITS IMPORTSign by Amisha Mejia MD on 12/28/111910 Sign by: Amisha Mejia MD :52 HgA1C , Office (22900) HgA1C , Office 8.5 % (Abnormal) Range: 4.6 - 7.1 :52 Blood Glucose , Office (52752) Blood Glucose , Office 343 (Normal) :33 Metabolic Panel, Basic Comments: PATIENT NOT FASTINGPERFORMED BY: [facility] [id number] Information: [id number] (99054) Calcium, Serum 8.9 mg/dL (Normal) Range: 8.6-10.2 Carbon Dioxide, Total 24 mmol/L (Normal) Range: 20-32 Chloride, Serum 103 mmol/L (Normal) Range: 97-108 Potassium, Serum 4.2 mmol/L (Normal) Range: 3.5-5.2 Sodium, Serum 140 mmol/L (Normal) Range: 134-144 BUN/Creatinine Ratio 11 (Normal) Range: 11-26 eGFR If Africn Am 66 mL/min/1.73 (Normal) eGFR If NonAfricn Am 57 mL/min/1.73 (Abnormal) Creatinine, Serum 1.06 mg/dL (Abnormal) Range: 0.57-1.00 BUN 12 mg/dL (Normal) Range: 8-27 Glucose, Serum 167 mg/dL (Abnormal) Range: 65-99 46-Run-610101:56 Basic Metabolic Panel (8) Comments: PERFORMED BY: [facility] HospitalPearlChain.netWakeMed [facility] [id number] Information: CC:DR VIVAS Calcium, Serum 9.4 mg/dL (Normal) Range: 8.6-10.2 Carbon Dioxide, Total 27 mmol/L (Normal) Range: 20-32 Chloride, Serum 103 mmol/L (Normal) Range: 97-108 Potassium, Serum 4.9 mmol/L (Normal) Range: 3.5-5.2 Sodium, Serum 140 mmol/L (Normal) Range: 134-144 BUN/Creatinine Ratio 10 (Abnormal) Range: 11-26 eGFR If Africn Am 71 mL/min/1.73 (Normal) eGFR If NonAfricn Am 61 mL/min/1.73 (Normal) Creatinine, Serum 1.00 mg/dL (Normal) Range: 0.57-1.00 BUN 10 mg/dL (Normal) Range: 8-27 Glucose, Serum 203 mg/dL (Abnormal) Range: 65-99 15-Bvr-231115:45 Vitamin D Hydroxy (22519) Comments: PATIENT NOT FASTINGPERFORMED BY: [employer] FoodaW[facility] [id number] Vitamin D, 25-Hydroxy 19.3 ng/mL (Abnormal) Range: 30.0-100.0 Comments: Vitamin D deficiency has been defined by the [place] ofW[facility] Centercine and an Endocrine Society practice guideline as alevel of serum 25-OH vitamin D less than 20 ng/mL (1,2).The Endocrine Society went on to further define vitamin Dinsufficiency as a level between 21 and 29 ng/mL (2).1. IOM ([place] of Medicine). 2010. Dietary reference intakes for calcium and D. [place]: The National Academies Press.2. Yari MF, Caridad NC, Cindy SOTO, et al. Evaluation, treatment, and prevention of vitamin D deficiency: an Endocrine Society clinical practice guideline. JCEM. 2010; 96(7):1911-30. :45 TSH (10971) Comments: PATIENT NOT FASTINGPERFORMED BY: [employer] Mayqto9783 [facility]in [place] [id number] TSH 2.180 {uIU/mL} (Normal) Range: 0.450-4.500 :45 LIPID PANEL (93281) Comments: PATIENT NOT FASTINGPERFORMED BY: [employer] Khygej7534 [facility] RentMYinstrument.comNovant Health, [facility] [id number] Information: PATIENT NOT FASTING. ADD J 75939 AND DRAW FEE [id number] LDL/HDL Ratio 2.5 {ratio_units} (Normal) Range: 0.0-3.2 LDL Cholesterol Calc 119 mg/dL (Abnormal) Range: 0-99 VLDL Cholesterol Dangelo 47 mg/dL (Abnormal) Range: 5-40 HDL Cholesterol 47 mg/dL (Normal) Comments: According to ATP-III Guidelines, HDL-C >59 mg/dL is considered anegative risk factor for CHD. Triglycerides 234 mg/dL (Abnormal) Range: 0-149 Cholesterol, Total 213 mg/dL (Abnormal) Range: 100-199 :51 CBCD ANC 2.7 3/uL (Normal) Range: 2.0-7.7 B% 0.7 % (Normal) Range: 0-1 E% 1.9 % (Normal) Range: 0-5 M% 7.1 % (Normal) Range: 0-10 L% 33.5 % (Normal) Range: 19-41 N% 56.8 % (Normal) Range: 47-70 MPV 9.3 fL (Normal) Range: 6.5-12.0 PLT 172 K/mm3 (Normal) Range: 150-450 RDW 14.7 % (Abnormal) Range: 11.6-14.6 MCHC 33.7 g/dL (Normal) Range: 32-36 MCH 29.0 pg (Normal) Range: 27.0-32.0 MCV 86.0 fL (Normal) Range: 81-99 HCT 42.2 % (Normal) Range: 37-47 HGB 14.2 g/dL (Normal) Range: 12.0-16.0 RBC 4.90 {M/mm3} (Normal) Range: 4.2-5.4 WBC 4.8 K/mm3 (Normal) Range: 4.4-11.0 :51 CRE GFRAA 65 mL/min (Normal) GFR 54 mL/min (Abnormal) CREAT 1.1 mg/dL (Abnormal) Range: 0.6-1.0 :51 LIVER BID 0.08 mg/dL (Normal) Range: 0.00-0.30 BIT 0.30 mg/dL (Normal) Range: 0.00-1.00 ALT 23 U/L (Normal) Range: 12-78 ALK 97 U/L (Normal) Range: 50-136 AST 16 U/L (Normal) Range: 15-37 ALB 3.6 g/dL (Normal) Range: 3.4-5.0 TPROT 7.1 g/dL (Normal) Range: 6.4-8.2 :28 CHEST, PA AND LATERAL Radiology Report See Note (Normal) Comments: PROCEDURE: X-RAY CHEST REASON FOR EXAM: Female, 61 years old. COPD. TECHNIQUE: PA and lateral views of the chest. COMPARISON: Prior comparison studies are not available for review a tthistime. F INDINGS: The lungs are expanded. There is no demonstrated parenchymalabnormality.There is no demonstrated pleural abnormality. Normal heart and pericardium. Normal mediastinum and gogo. Normal visuali zed pulmonary arteries.Thereis atherosclerotic tortuosity of the aortic arch and descending thoracicaorta. There are diffuse degenerative changes of the visualized thoracic spine.The patient is status p ost fusion of the lower cervical spine withanteriorplate and screws. There is no demonstrated abnormality of the visualized soft tissuestructures of the upper abdomen. IMPRESSION:No active pulmonary dis ease. Signed:Bi Hudson M.D.July 06, 2011 at 11:22:03 PM EDTElectronically Signed BZ/BZ Professional Interpretation Provided By: [facility], , Fax To consult with a radiologist regarding this report, please call our [id number] line @ Dictated on 07/06/11 1421 by BI HUDSON MDTranscribed on 07/06/11 2326 by ITS IMPORTSig n by BI HUDSON MD on 07/06/117 Sign by: BI HUDSON MD 51-Ykg-048446:49 HgA1C , Office (46005) HgA1C , Office 7.8 % (Abnormal) Range: 4.6 - 7.1 :49 Blood Glucose , Office (70751) Blood Glucose , Office 231 (Normal) :49 TSH (THYROID STIMULATING Comments: PATIENT NOT FASTINGPERFORMED BY: LabCoAl[facility]quer[facility] Indian Dental ClinicNewoym6282 [facility] [id number] HORMONE) (06610) TSH 2.930 {uIU/mL} (Normal) Range: 0.450-4.500 40-Iyt-478216:00 TSH (02569) Comments: PATIENT NOT FASTINGPERFORMED BY: JAIRO [facility] Ald[address] [id number] Information: [id number] TSH 0.142 {uIU/mL} (Abnormal) Range: 0.450-4.500 88-Qju-305859:44 HgA1C , Office (84367) HgA1C , Office 7.4 % (Abnormal) Range: 4.6 - 7.1 :44 Blood Glucose , Office (15993) Blood Glucose , Office 135 (Normal) :16 HgA1C , Office (09234) HgA1C , Office 7.4 % (Abnormal) Range: 4.6 - 7.1 :16 Blood Glucose , Office (39335) Blood Glucose , Office 118 (Normal) 68-Llq-342339:19 CBCD,SMEAR DIFF RED CELL MORPH SeeNote {NORMAL} (Normal) Comments: Result: NORM C+C PLT EST SeeNote (Normal) Comments: Result: ADEQUATE EOS 5 % (Normal) Range: 0-5 MONOCYTE 8 % (Normal) Range: 0-10 LYMPH 31 % (Normal) Range: 19-41 SEGS 56 % (Normal) Range: 47-70 CELLS COUNTED 100 (Normal) ABSOLUTE NEUT 1.9 3/uL (Abnormal) Range: 2.0-7.7 PLT 169 K/mm3 (Normal) Range: 150-450 RDW 14.4 % (Normal) Range: 11.6-14.6 MCHC 32.9 g/dL (Normal) Range: 32-36 MCH 27.4 pg (Normal) Range: 27.0-32.0 MCV 83.1 fL (Normal) Range: 81-99 HCT 40.5 % (Normal) Range: 37-47 HGB 13.3 g/dL (Normal) Range: 12.0-16.0 RBC 4.87 {M/mm3} (Normal) Range: 4.2-5.4 WBC 3.5 K/mm3 (Abnormal) Range: 4.4-11.0 :19 COMP METABOLIC GAP 8 (Normal) Range: 5-15 CO2 29.0 mmol/L (Normal) Range: 21.0-32.0 CL 105 mmol/L (Normal) Range: 98-107 K 3.8 mmol/L (Normal) Range: 3.5-5.1 NA 142 mmol/L (Normal) Range: 136-145 T BILI 0.40 mg/dL (Normal) Range: 0.00-1.00 ALT 31 U/L (Normal) Range: 12-78 ALK P 98 U/L (Normal) Range: 50-136 AST 21 U/L (Normal) Range: 15-37 CA 8.7 mg/dL (Normal) Range: 8.5-10.1 A/G 1.0 {RATIO} (Normal) Range: 0.9-2.4 GLOB 3.5 g/dL (Normal) Range: 2.7-4.2 ALB 3.4 g/dL (Normal) Range: 3.4-5.0 T PROT 6.9 g/dL (Normal) Range: 6.4-8.2 BUN/CRE 8.0 {RATIO} (Abnormal) Range: 10-20 EST GFR - AA 73 mL/min (Normal) EST GFR 60 mL/min (Normal) CREAT,SERUM 1.0 mg/dL (Normal) Range: 0.6-1.0 BUN 8 mg/dL (Normal) Range: 7-18 GLU 152 mg/dL (Abnormal) Range: 70-110 Comments: Fasting Glucose result greater than or equal to 126 mg/dL suggests DIABETES MELLITUS per A.D.A. criteria. :19 COMPLETE UA AMORPHOUS 2+ (Normal) MUCUS, URINE 0 SEEN {/hpf} (Normal) BACTERIA 1+ {/hpf} (Normal) SQUAM EPI SeeNote {/hpf} (Normal) Range: 5-10 Comments: Result: 5-10 SEEN RBC-UA 0 SEEN {/hpf} (Normal) Range: 0-5 WBC SeeNote {/hpf} (Normal) Range: 0-5 Comments: Result: 0-5 SEEN LEUK ESTERASE SeeNote (Normal) Comments: Result: NEGATIVE OCCULT BLOOD-UR SeeNote (Normal) Comments: Result: NEGATIVE NITRITE UR SeeNote (Normal) Comments: Result: NEGATIVE UROBILI 0.2 EU/dl (Normal) Range: 0.2 - 1.0 PROT DIPSTX SeeNote (Normal) Comments: Result: NEGATIVE pH UR 6.0 (Normal) Range: 5.0-8.0 SP.GR. DIPSTX >=1.030 (Normal) Range: 1.002-1.030 KETONE UR SeeNote mg/dL (Normal) Comments: Result: NEGATIVE BILIRUBIN URINE SeeNote (Normal) Comments: Result: NEGATIVE GLUCOSE, UR SeeNote (Normal) Comments: Result: NEGATIVE CLARITY TURBID (Normal) COLOR YELLOW (Normal) 94-Mya-061552:19 LIPID VLDL 28 mg/dL (Normal) Range: 5-40 LDL 62 mg/dL (Normal) Range: 0-130 HDL 41 mg/dL (Normal) Comments: Reference Range HDL <40 mg/dL Low HDL Cholesterol HDL >or= 60 mg/dL High HDL Cholesterol TRIG 141 mg/dL (Normal) Comments: Serum Triglycerides Reference Interval Normal <150 mg/dL Borderline high 150 - 199 mg/dL High 200 - 499 mg/dL Very High > or = 500 mg/dL CHOL 131 mg/dL (Normal) Comments: <200 mg/dL Desirable 200-240 mg/dL Borderline >240 mg/dL High Risk 29-Yys-634408:19 MICROALB:CRE UR MALB:CREAT 7.6 {mg/g_CRE} (Normal) MICROALBUMIN,UR 15.0 mg/L (Normal) UR CREAT 195.3 mg/dL (Normal) 53-Sko-748511:19 TSH 0.17 {uIU/mL} (Abnormal) Range: 0.358-3.74 :54 Blood Glucose , Office (36135) Blood Glucose , Office 297 (Normal) :54 HgA1C , Office (32285) HgA1C , Office 8.0 % (Abnormal) Range: 4.6 - 7.1 :35 HgA1C , Office (71490) HgA1C , Office 7.5 % (Abnormal) Range: 4.6 - 7.1 :35 Blood Glucose , Office (94434) Blood Glucose , Office 229 (Normal) :47 HgA1C , Office (60108) HgA1C , Office 6.9 % (Normal) Range: 4.6 - 7.1 :47 Blood Glucose , Office (73552) Blood Glucose , Office 111 (Normal) :28 LIPID VLDL 34 mg/dL (Normal) Range: 5-40 HDL 55 mg/dL (Normal) Comments: Reference Range HDL <40 mg/dL Low HDL Cholesterol HDL >or= 60 mg/dL High HDL Cholesterol LDL 114 mg/dL (Normal) Range: 0-130 TRIG 172 mg/dL (Normal) Comments: Serum Triglycerides Reference Interval Normal <150 mg/dL Borderline high 150 - 199 mg/dL High 200 - 499 mg/dL Very High > or = 500 mg/dL CHOL 203 mg/dL (Abnormal) Comments: <200 mg/dL Desirable 200-240 mg/dL Borderline >240 mg/dL High Risk :28 TSH 34.10 {uIU/mL} (Abnormal) Range: 0.358-3.74 :53 HgA1C , Office (60466) HgA1C , Office 7.4 % (Abnormal) Range: 4.6 - 7.1 :53 Blood Glucose , Office (87660) Blood Glucose , Office 113 (Normal) :11 HgA1C , Office (29531) HgA1C , Office 7.2 % (Abnormal) Range: 4.6 - 7.1 :11 Blood Glucose , Office (42293) Blood Glucose , Office 98 (Normal) :37 LOWER EXT/JT ONLY (ROUTINE) Radiology Report See Note (Normal) Comments: Exam Number: [id number] CLINICAL:58-year-old female with a medial right knee pain MRI RIGHT KNEE TECHNIQUE:Standardized fat and water weighted pulse sequences were obtained inall 3 orthogonal planes. COM PARISON:None. FINDINGS:There is a possible small longitudinal tear of the body of themedial meniscus, with abnormal signal extending to the inferiorarticular surface on one coronal stir image (coronal s tir series 11image 10). There is greater than a 50% loss of hyaline cartilage thickness,without exposure of the subchondral bone of the medial femorotibialcompartment (Grade III, Outerbridge classificat ion). Normal medialfemoral condyle and tibial plateau. Normal medial collateral ligamentous complex (MCL). Normal distalsemimembranosus, gracilis and semitendinosus tendons. There is a horizontal tear of the posterior horn and body of thelateral meniscus (sagittal proton density series 6 images 5 -- 8;coronal stir series 11 image 8). Normal hyaline cartilage of the lateral knee compartment. Normall ateral femoral condyle and tibial plateau. Normal proximal tibiofibular articulation. Normal lateralcollateral (fibular) ligament. Normal popliteus tendon. Normal biceps femoris tendon. Normal anter ior cruciate ligament (ACL). Normal posterior cruciate ligament (PCL). Normal congruent patellofemoral articulation. Normal hyaline cartilage of the patellar facets. There is abnormal intrachondral sign al (signal increase on the I7yzzewrwz images), but a normal chondral surface of the hyalinecartilage of the medial trochlea (Grade I, Outerbridgeclassification). There is abnormal intrachondral signal (signalincrease on the T2 weighted images), but a normal chondral surfaceof the hyaline cartilage of the lateral trochlea (Grade I,Outerbridge classification). Normal medial and lateral patellar retinac ulum. Normal Hoffa's fat pad. Normal quadriceps tendon. Normal patellartendon. There is a small volume joint effusion. There is a 1 cm posteriormedial ganglion cyst The soft tissues are unremarkabl e. IMPRESSION:Possible tear of the body of the medial meniscus. Horizontal tear the lateral meniscus. Medial compartment and patella chondromalacia. Small joint effusion. Reported By: BEKAH BOOTHE M.D. 02-Wtt-041749:35 HgA1C , Office ([id number]) Comments: done HgA1C , Office 7.0 % (Normal) Range: 4.6 - 7.1 [id number] Blood Glucose , Office ([id number]) Comments: done Blood Glucose , Office 131 (Normal) [id number] CBC Comments: CLAUDIA IBARRA ORDERED VIT DDR.STELLA ORDERED CBC,LIVER,CRE HCT 44.3 % (Normal) Range: 37-47 HGB 14.2 g/dL (Normal) Range: 12.0-16.0 MCH 27.0 pg (Normal) Range: 27.0-32.0 MCHC 32.0 g/dL (Normal) Range: 32-36 MCV 84.4 fL (Normal) Range: 81-99 MPV 9.1 fL (Normal) Range: 6.5-12.0 PLT 183 K/mm3 (Normal) Range: 150-450 RBC 5.25 {M/mm3} (Normal) Range: 4.2-5.4 RDW 14.2 % (Normal) Range: 11.6-14.6 WBC 5.0 K/mm3 (Normal) Range: 4.4-11.0 [id number] LIVER Comments: CLAUDIA IBARRA ORDERED VIT DDR.STELLA ORDERED CBC,LIVER,CRE ALB 3.6 g/dL (Normal) Range: 3.4-5.0 ALK P 83 U/L (Normal) Range: 50-136 ALT 23 U/L (Normal) Range: 12-78 AST 12 U/L (Abnormal) Range: 15-37 D BILI 0.08 mg/dL (Normal) Range: 0.00-0.30 T BILI 0.30 mg/dL (Normal) Range: 0.00-1.00 T PROT 6.9 g/dL (Normal) Range: 6.4-8.2 [id number] SERUM CRE & GFR Comments: CLAUDIA IBARRA ORDERED VIT DDR.STELLA ORDERED CBC,LIVER,CRE CREAT,SERUM 1.2 mg/dL (Abnormal) Range: 0.6-1.0 EST GFR 49 mL/min (Abnormal) EST GFR - AA 59 mL/min (Abnormal) [id number] VIT D,25 96052 50.3 ng/mL (Normal) Comments: CLAUDIA IBARRA ORDERED VIT DDR.STELLA ORDERED CBC,LIVER,CRE Range: 32.0-100.0 Comments: Recent studies consider the lower limit of 32.0 ng/mL to mora threshold for optimal health.Oren KLEIN. J Nutr. 2004;135(2):317-22.Performed At: [facility] [place], [place] [id number] KIDNEY (HP) Radiology Report See Note (Normal) Comments: Exam Number: [id number] CLINICAL:58 year old female with elevated serum creatinine and BUN levels. RENAL ULTRASOUND COMPARISON:None. TECHNIQUE: Longitudinal and transverse real-time images were obtained both kidneys and the area the urinary bladder. Doppler applied to identify vessels.OBXFINDINGS:The right kidney is normal in size, measuring 11.0 x 4.2 cm. There are no cortical masses or cysts. Ther e is no cortical atrophy. There is no hydronephrosis. There are no renal calculi. The left kidney is normal in size, measuring 10.7 x 5.5 cm. There are no cortical masses or cysts. There is no cortic al atrophy. There is no hydronephrosis. There are no renal calculi. There are no perinephric collections. The urinary bladder was well distended and unremarkable. No ascites. IMPRESSION:Normal examination. Reported By: DAYANARA MEDELLIN Dr. [id number] Urinalysis, Office ([id number]) UA - BLOOD Negative (Normal) UA - LEUKOCYTE ESTERASE Negative (Normal) UA - NITRITE Negative (Normal) UA - PH 6.0 (Normal) UA - PROTEIN Negative mg/dL (Normal) UA - SPECIFIC GRAVITY 1.000 (Normal) URINE UROBILINGN ADRY TIMED Normal mg/dL (Normal) UA - BILIRUBIN Negative (Normal) UA - GLUCOSE Negative (Normal) UA - KETONES Negative mg/dL (Normal) [id number] Blood Glucose , Office (41243) Blood Glucose , Office 128 (Normal) 30-Ixx-967822:00 HgA1C , Office (56718) HgA1C , Office 6.7 % (Normal) Range: 4.6 - 7.1 31-[id number]:10 Blood Glucose , Office (99126) Blood Glucose , Office 118 (Normal) 72-Zyf-528015:10 HgA1C , Office (11996) HgA1C , Office 7.2 % (Abnormal) Range: 4.6 - 7.1 88-Nox-[id number]:56 HgA1C , Office (13570) Comments: done km HgA1C , Office 7.2 % (Abnormal) Range: 4.6 - 7.1 46-Box-[id number]:56 Blood Glucose , Office (42009) Comments: done km Blood Glucose , Office 176 (Normal) 76-Drp-55188:00 Lipoprotein Analysis by NMR Comments: PERFORMED BY: [facility] [place], [place] [address]ner [facility] [id number] Large HDL-P 9.4 umol/L (Normal) Large VLDL-P 1.3 nmol/L (Normal) LDL Particle Size 19.6 nm (Normal) Comments: . Small (Pattern B) 18.0 - 20.5 Large (Pattern A) 20.6 - 23.0 . LDL-P 1640 nmol/L (Abnormal) Comments: . Optimal < 1000 Above optimal 1000 - 1299 Borderline 13 00 - 1599 High 1600 - 2000 Very high > 2000 . Patient Goals SPRCS (Normal) Comments: High Risk: LDL-P < 1000; Secondary goal: Small LDL-P < 850Moderately High-Risk: LDL-P < 1300; Secondary goal: Small LDL-P < 850 Small LDL-P 1523 nmol/L (Abnormal) Comments: . Low < 600 Moderate 600 - 849 Borderline 8 50 - 1200 High > 1200 . :52 HgA1C , Office (48357) Comments: done HgA1C , Office 7.0 % (Normal) Range: 4.6 - 7.1 :52 Blood Glucose , Office (96542) Comments: done Blood Glucose , Office 158 (Normal) 08-Irm-133450:39 HgA1C , Office (71048) Comments: done HgA1C , Office 6.8 % (Normal) Range: 4.6 - 7.1 :38 Blood Glucose , Office (64121) Comments: done Blood Glucose , Office 108 (Normal) :27 HgA1C , Office (38378) Comments: done HgA1C , Office 6.7 % (Normal) Range: 4.6 - 7.1 :27 Blood Glucose , Office (85476) Comments: done Blood Glucose , Office 137 (Normal) :30 CREAT CLR 24H U Comments: DATE STARTED 09/07/07, TIME STARTED 1330DATE ENDED 09/08/07, TIME ENDED 1330PATIENT HAD CREATININE RESULTED 09/07/07 CREAT CLEARANCE 57 ml/min (Abnormal) Range: 100-200 SERUM CREAT 1.0 mg/dL (Normal) Range: 0.6-1.0 UR COLLECT TIME 24.0 {HOURS} (Normal) UR TOTAL VOLUME 600 mL (Normal) URINE CREAT 138.3 mg/dL (Normal) Plan of Care Name Dates Details Instructions Diabetes mellitus type 2, uncontrolled : Follow up in 3 months Indication: Diabetes mellitus type 2, uncontrolled Hyperlipidemia : Continue Current Prescription(s) Indication: Hyperlipidemia Hyperlipidemia : Cholesterol mgmt Indication: Hyperlipidemia Hypothyroidism : Continue Current Prescription(s) Indication: Hypothyroidism Diabetes mellitus type 2, uncontrolled : Follow up in 3 months Indication: Diabetes mellitus type 2, uncontrolled GERD (gastroesophageal reflux disease) : GERD Education Indication: GERD (gastroesophageal reflux disease) Hypothyroidism : Continue Current Prescription(s) Indication: Hypothyroidism Hyperlipidemia : Cholesterol mgmt Indication: Hyperlipidemia Arthritis, rheumatic, acute or subacute : Reviewed Park Maintainer Letter Indication: Arthritis, rheumatic, acute or subacute Arthritis, rheumatic, acute or subacute : Continue Current Prescription(s) Indication: Arthritis, rheumatic, acute or subacute Diabetes mellitus type 2, uncontrolled : Follow up in 3 months Indication: Diabetes mellitus type 2, uncontrolled Hypothyroidism : Reviewed Lab Indication: Hypothyroidism Hyperlipidemia : Cholesterol mgmt Indication: Hyperlipidemia GERD (gastroesophageal reflux disease) : GERD Education Indication: GERD (gastroesophageal reflux disease) Diabetes mellitus type 2, uncontrolled : Diabetes and Exercise: Preventing Low Blood Sugar: blood sugar Indication: Diabetes mellitus type 2, uncontrolled Diabetes mellitus type 2, uncontrolled : Follow up in 3 months Indication: Diabetes mellitus type 2, uncontrolled Hyperlipidemia : Cholesterol mgmt Indication: Hyperlipidemia COPD, moderate : Continue Current Prescription(s) Indication: COPD, moderate GERD (gastroesophageal reflux disease) : GERD Education Indication: GERD (gastroesophageal reflux disease) GERD (gastroesophageal reflux disease) : GERD Education Indication: GERD (gastroesophageal reflux disease) Hyperlipidemia : Cholesterol mgmt Indication: Hyperlipidemia Hypothyroidism : Continue Current Prescription(s) Indication: Hypothyroidism Diabetes mellitus type 2, uncontrolled : Eprescribed prescriptions (G8553) Indication: Diabetes mellitus type 2, uncontrolled Diabetes mellitus type 2, uncontrolled : Diabetes and Exercise: Preventing Low Blood Sugar: blood sugar Indication: Diabetes mellitus type 2, uncontrolled Diabetes mellitus type 2, uncontrolled : Follow up in 3 months Indication: Diabetes mellitus type 2, uncontrolled Hypothyroidism : Continue Current Prescription(s) Indication: Hypothyroidism Hyperlipidemia : Cholesterol mgmt Indication: Hyperlipidemia Abnormal TSH : Continue Current Prescription(s) Indication: Abnormal TSH Diabetes mellitus type 2, uncontrolled : Eprescribed prescriptions (G8553) Indication: Diabetes mellitus type 2, uncontrolled Diabetes mellitus type 2, uncontrolled : Diabetes and Exercise: Preventing Low Blood Sugar: blood sugar Indication: Diabetes mellitus type 2, uncontrolled Annual Medicare Phyiscal WITHOUT abnormal findings (Renamed from Encounter for general adult medical examination without abnormal findings) : fall reduction handout Indication: Annual Medicare Phyiscal WITHOUT abnormal findings (Renamed from Encounter for general adult medical examination without abnormal findings) Annual Medicare Phyiscal WITHOUT abnormal findings (Renamed from Encounter for general adult medical examination without abnormal findings) : elderly packet given Indication: Annual Medicare Phyiscal WITHOUT abnormal findings (Renamed from Encounter for general adult medical examination without abnormal findings) Annual Medicare Phyiscal WITHOUT abnormal findings (Renamed from Encounter for general adult medical examination without abnormal findings) : advance planning information Indication: Annual Medicare Phyiscal WITHOUT abnormal findings (Renamed from Encounter for general adult medical examination without abnormal findings) Annual Medicare Phyiscal WITHOUT abnormal findings (Renamed from Encounter for general adult medical examination without abnormal findings) : *Weight Loss Discussion Indication: Annual Medicare Phyiscal WITHOUT abnormal findings (Renamed from Encounter for general adult medical examination without abnormal findings) Encounter for screening for malignant neoplasm of colon (Renamed from Special screening for malignant neoplasms, colon) : *Colon Cancer Screening Indication: Encounter for screening for malignant neoplasm of colon (Renamed from Special screening for malignant neoplasms, colon) Arthritis, rheumatic, acute or subacute : Reviewed Park Maintainer Letter Indication: Arthritis, rheumatic, acute or subacute Diabetes mellitus type 2, uncontrolled : Follow up in 3 months Indication: Diabetes mellitus type 2, uncontrolled GERD (gastroesophageal reflux disease) : GERD Education Indication: GERD (gastroesophageal reflux disease) Diabetes mellitus type 2, uncontrolled : *Diabetes Education Indication: Diabetes mellitus type 2, uncontrolled Hyperlipidemia : *Cholesterol - Medication Side Effects Indication: Hyperlipidemia Hyperlipidemia : *Cholesterol - Nonprescription Treatment Indication: Hyperlipidemia Hypercholesteremia : Cholesterol mgmt Indication: Hypercholesteremia Diabetes mellitus type 2, uncontrolled : Reviewed Lab Indication: Diabetes mellitus type 2, uncontrolled Diabetes mellitus type 2, uncontrolled : Eprescribed prescriptions (G8553) Indication: Diabetes mellitus type 2, uncontrolled Diabetes mellitus type 2, uncontrolled : Diabetes and Exercise: Preventing Low Blood Sugar: blood sugar Indication: Diabetes mellitus type 2, uncontrolled Diabetes mellitus type 2, uncontrolled : Follow up Wednesday at 1:00 Indication: Diabetes mellitus type 2, uncontrolled Diabetes mellitus type 2, uncontrolled : Continue Current Prescription(s)-- start tresbea Indication: Diabetes mellitus type 2, uncontrolled Acute pain of right knee : Eprescribed prescriptions (G8553) Indication: Acute pain of right knee Diabetes mellitus type 2, uncontrolled : Follow up in 2 weeks- kylee wt/ new med/lab results -- gave tresiba samples 200-do 45 units Indication: Diabetes mellitus type 2, uncontrolled Diabetes mellitus type 2, uncontrolled : Follow up in 3 months- gen med Indication: Diabetes mellitus type 2, uncontrolled COPD, moderate : Continue Current Prescription(s) Indication: COPD, moderate GERD (gastroesophageal reflux disease) : GERD Education Indication: GERD (gastroesophageal reflux disease) Diabetes mellitus type 2, uncontrolled : *Diabetes Education Indication: Diabetes mellitus type 2, uncontrolled Hypercholesteremia : Cholesterol mgmt Indication: Hypercholesteremia Diabetes mellitus type 2, uncontrolled : Eprescribed prescriptions (G8553) Indication: Diabetes mellitus type 2, uncontrolled Diabetes mellitus type 2, uncontrolled : Follow up in 3 months Indication: Diabetes mellitus type 2, uncontrolled Hypercholesteremia : Cholesterol mgmt Indication: Hypercholesteremia Hypercholesteremia : Continue Current Prescription(s) Indication: Hypercholesteremia Hypothyroidism : Reviewed Lab Indication: Hypothyroidism Diabetes mellitus type 2, uncontrolled : *Diabetes Education Indication: Diabetes mellitus type 2, uncontrolled Diabetes mellitus type 2, uncontrolled : Eprescribed prescriptions (G8553) Indication: Diabetes mellitus type 2, uncontrolled Diabetes mellitus type 2, uncontrolled : Diabetes and Exercise: Preventing Low Blood Sugar: blood sugar Indication: Diabetes mellitus type 2, uncontrolled Diabetes mellitus type 2, uncontrolled : Follow up in 3 months Indication: Diabetes mellitus type 2, uncontrolled Diabetes mellitus type 2, uncontrolled : Eprescribed prescriptions ([id number]) Indication: Diabetes mellitus type 2, uncontrolled Hyperlipidemia : Reviewed Lab Indication: Hyperlipidemia Diabetes mellitus type 2, uncontrolled : Follow up in 3 months Indication: Diabetes mellitus type 2, uncontrolled Hypothyroidism : Continue Current Prescription(s) Indication: Hypothyroidism GERD (gastroesophageal reflux disease) : GERD Education Indication: GERD (gastroesophageal reflux disease) Diabetes mellitus type 2, uncontrolled : *Diabetes Education Indication: Diabetes mellitus type 2, uncontrolled Hyperlipidemia : Cholesterol mgmt Indication: Hyperlipidemia Diabetes mellitus type 2, uncontrolled : Eprescribed prescriptions (G8553) Indication: Diabetes mellitus type 2, uncontrolled Diabetes mellitus type 2, uncontrolled : Diabetes and Exercise: Preventing Low Blood Sugar: blood sugar Indication: Diabetes mellitus type 2, uncontrolled Diabetes mellitus type 2, uncontrolled : Eprescribed prescriptions (G8553) Indication: Diabetes mellitus type 2, uncontrolled Diabetes mellitus type 2, uncontrolled : Follow up in 3 months Indication: Diabetes mellitus type 2, uncontrolled GERD (gastroesophageal reflux disease) : GERD Education Indication: GERD (gastroesophageal reflux disease) Diabetes mellitus type 2, uncontrolled : *Diabetes Education Indication: Diabetes mellitus type 2, uncontrolled Hypothyroidism : Continue Current Prescription(s) Indication: Hypothyroidism Diabetes mellitus type 2, uncontrolled : Follow up in 3 months Indication: Diabetes mellitus type 2, uncontrolled Hypercholesteremia : Cholesterol mgmt Indication: Hypercholesteremia Diabetes mellitus type 2, uncontrolled : Flu (Influenza) *: flu shot Indication: Diabetes mellitus type 2, uncontrolled Diabetes mellitus type 2, uncontrolled : Eprescribed prescriptions (G8553) Indication: Diabetes mellitus type 2, uncontrolled Diabetes mellitus type 2, uncontrolled : Diabetes and Exercise: Preventing Low Blood Sugar: blood sugar Indication: Diabetes mellitus type 2, uncontrolled Diabetes mellitus type 2, uncontrolled : follow up in november assure has appt Indication: Diabetes mellitus type 2, uncontrolled Diabetes mellitus type 2, uncontrolled : *Diabetes Education Indication: Diabetes mellitus type 2, uncontrolled Hypercholesteremia : Continue Current Prescription(s) Indication: Hypercholesteremia Diabetes mellitus type 2, uncontrolled : Follow up in 2 weeks- ck Indication: Diabetes mellitus type 2, uncontrolled Vitamin D deficiency : Continue Current Prescription(s) Indication: Vitamin D deficiency Vitamin D deficiency : Reviewed Lab Indication: Vitamin D deficiency Hypercholesteremia : Cholesterol mgmt Indication: Hypercholesteremia Diabetes mellitus type 2, uncontrolled : Follow up in 3 months gen med Indication: Diabetes mellitus type 2, uncontrolled Hyperlipidemia : Cholesterol mgmt Indication: Hyperlipidemia Diabetes mellitus type 2, uncontrolled : Eprescribed prescriptions (G8553) Indication: Diabetes mellitus type 2, uncontrolled Diabetes mellitus type 2, uncontrolled : Diabetes and Exercise: Preventing Low Blood Sugar: blood sugar Indication: Diabetes mellitus type 2, uncontrolled Hypothyroidism : Continue Current Prescription(s) Indication: Hypothyroidism Encounter for Medicare annual wellness exam : fall reduction handout Indication: Encounter for Medicare annual wellness exam Encounter for Medicare annual wellness exam : elderly packet given Indication: Encounter for Medicare annual wellness exam Encounter for Medicare annual wellness exam : advance planning information Indication: Encounter for Medicare annual wellness exam Encounter for Medicare annual wellness exam : *Weight Loss Discussion Indication: Encounter for Medicare annual wellness exam GERD (gastroesophageal reflux disease) : GERD Education Indication: GERD (gastroesophageal reflux disease) Hyperlipidemia : Cholesterol mgmt Indication: Hyperlipidemia Diabetes mellitus type 2, uncontrolled : Diabetes and Exercise: Preventing Low Blood Sugar: blood sugar Indication: Diabetes mellitus type 2, uncontrolled Pneumonia : Pneumonia *: breathing Indication: Pneumonia Hypoxemia : Follow up in 8-12 days to kylee lungs and oxygen status Indication: Hypoxemia Pneumonia : Continue Current Prescription(s) Indication: Pneumonia Pneumonia : Reviewed Diagnostic Tests Indication: Pneumonia Pneumonia : Reviewed Park Maintainer Letter Indication: Pneumonia Arthritis, rheumatic, acute or subacute : Reviewed Park Maintainer Letter Indication: Arthritis, rheumatic, acute or subacute Diabetes mellitus type 2, uncontrolled : Follow up in 3 months Indication: Diabetes mellitus type 2, uncontrolled GERD (gastroesophageal reflux disease) : GERD Education Indication: GERD (gastroesophageal reflux disease) Hyperlipidemia : Cholesterol mgmt Indication: Hyperlipidemia Diabetes mellitus type 2, uncontrolled : Diabetes Mellitus: Type 2 *: blood glucose Indication: Diabetes mellitus type 2, uncontrolled Diabetes mellitus type 2, uncontrolled : Reviewed Lab Indication: Diabetes mellitus type 2, uncontrolled Arthritis, rheumatic, acute or subacute : Reviewed Park Maintainer Letter Indication: Arthritis, rheumatic, acute or subacute Hypothyroidism : Continue Current Prescription(s) Indication: Hypothyroidism GERD (gastroesophageal reflux disease) : GERD Education Indication: GERD (gastroesophageal reflux disease) Hyperlipidemia : Cholesterol mgmt Indication: Hyperlipidemia Diabetes mellitus type 2, uncontrolled : Follow up in 3 months Indication: Diabetes mellitus type 2, uncontrolled Diabetes mellitus type 2, uncontrolled : Allergies: Controlling Your Environment: allergen Indication: Diabetes mellitus type 2, uncontrolled Hypothyroidism : Continue Current Prescription(s) Indication: Hypothyroidism Hyperlipidemia : Cholesterol mgmt Indication: Hyperlipidemia Arthritis, rheumatic, acute or subacute : Reviewed Park Maintainer Letter Indication: Arthritis, rheumatic, acute or subacute Diabetes mellitus type 2, uncontrolled : *Diabetes Education Indication: Diabetes mellitus type 2, uncontrolled GERD (gastroesophageal reflux disease) : GERD Education Indication: GERD (gastroesophageal reflux disease) Diabetes mellitus type 2, uncontrolled : Follow up in 3 months- do ekg and spiromerty Indication: Diabetes mellitus type 2, uncontrolled Diabetes mellitus type 2, uncontrolled : Allergies: allergen Indication: Diabetes mellitus type 2, uncontrolled GERD (gastroesophageal reflux disease) : GERD Education Indication: GERD (gastroesophageal reflux disease) Hypothyroidism : Continue Current Prescription(s) Indication: Hypothyroidism Diabetes mellitus type 2, uncontrolled : Diet, Exercise, and Wt loss Indication: Diabetes mellitus type 2, uncontrolled Diabetes mellitus type 2, uncontrolled : *Diabetes Education Indication: Diabetes mellitus type 2, uncontrolled Diabetes mellitus type 2, uncontrolled : Follow up in 2 weeks Indication: Diabetes mellitus type 2, uncontrolled Shortness of breath : *Antibiotic Usage Education - Female Indication: Shortness of breath Abnormal lung sounds : Solu Medrol Injection/ Education Indication: Abnormal lung sounds Diabetes mellitus type 2, uncontrolled : Diabetes Mellitus: Type 2 *: high blood sugar Indication: Diabetes mellitus type 2, uncontrolled Diabetes mellitus type 2, uncontrolled : Follow up in 3 months Indication: Diabetes mellitus type 2, uncontrolled Diabetes mellitus type 2, uncontrolled : Follow up in 1 week Indication: Diabetes mellitus type 2, uncontrolled Hypothyroidism : Continue Current Prescription(s) Indication: Hypothyroidism GERD (gastroesophageal reflux disease) : GERD Education Indication: GERD (gastroesophageal reflux disease) Arthritis, rheumatic, acute or subacute : Reviewed Park Maintainer Letter Indication: Arthritis, rheumatic, acute or subacute Diabetes mellitus type 2, uncontrolled : Diabetes Overview (Living with Diabetes): high blood glucose Indication: Diabetes mellitus type 2, uncontrolled Hyperlipidemia : *Cholesterol - Nonprescription Treatment Indication: Hyperlipidemia Hyperlipidemia : Cholesterol mgmt Indication: Hyperlipidemia Hypothyroidism : Continue Current Prescription(s) Indication: Hypothyroidism Hypothyroidism : Reviewed Lab Indication: Hypothyroidism Hyperlipidemia : Reviewed Lab Indication: Hyperlipidemia Vitamin D deficiency : Reviewed Lab Indication: Vitamin D deficiency Vitamin D deficiency : *ERGOCALCIFEROL DOSAGE PER SHEWMON Indication: Vitamin D deficiency Diabetes mellitus type 2, uncontrolled : Continue Current Prescription(s) Indication: Diabetes mellitus type 2, uncontrolled GERD (gastroesophageal reflux disease) : GERD Education Indication: GERD (gastroesophageal reflux disease) Arthritis, rheumatic, acute or subacute : Reviewed Park Maintainer Letter Indication: Arthritis, rheumatic, acute or subacute Vitamin D deficiency : Follow up in 5-7 days-- sugar and new rx assessment Indication: Vitamin D deficiency Hyperlipidemia : *Cholesterol - Nonprescription Treatment Indication: Hyperlipidemia Hyperlipidemia : Cholesterol mgmt Indication: Hyperlipidemia COPD, moderate : Continue Current Prescription(s) Indication: COPD, moderate Tobacco use disorder : Smoking: Ways to Quit: quit Indication: Tobacco use disorder Tobacco use disorder : Follow up around august 02 Indication: Tobacco use disorder Hypothyroidism : Reviewed Lab Indication: Hypothyroidism COPD, moderate : Reviewed Diagnostic Tests Indication: COPD, moderate Hyperlipidemia : *Cholesterol - Nonprescription Treatment Indication: Hyperlipidemia Hyperlipidemia : Cholesterol mgmt Indication: Hyperlipidemia COPD, moderate : Follow up in 1 month Indication: COPD, moderate COPD, moderate : Smoking Cessation/Tobacco Education Indication: COPD, moderate Diabetes mellitus type 2, uncontrolled : Follow up in 3 months Indication: Diabetes mellitus type 2, uncontrolled Arthritis, rheumatic, acute or subacute : Reviewed Park Maintainer Letter Indication: Arthritis, rheumatic, acute or subacute Diabetes mellitus type 2, uncontrolled : Reviewed Lab Indication: Diabetes mellitus type 2, uncontrolled Hypothyroidism : Continue Current Prescription(s) Indication: Hypothyroidism Diabetes mellitus type 2, uncontrolled : Reviewed Lab Indication: Diabetes mellitus type 2, uncontrolled Diabetes mellitus type 2, uncontrolled : Follow up in 3 months: do ekg at this visit Indication: Diabetes mellitus type 2, uncontrolled Hyperlipidemia : *Cholesterol - Nonprescription Treatment Indication: Hyperlipidemia Hyperlipidemia : Cholesterol mgmt Indication: Hyperlipidemia Diabetes mellitus type 2, uncontrolled : *Diabetes Education Indication: Diabetes mellitus type 2, uncontrolled Diabetes mellitus type 2, uncontrolled : Diet, Exercise, and Wt loss Indication: Diabetes mellitus type 2, uncontrolled Arthritis, rheumatic, acute or subacute : Reviewed Park Maintainer Letter: seevivian Gurrola-- Indication: Arthritis, rheumatic, acute or subacute Sinusitis, acute : *Antibiotic Usage Education - Female Indication: Sinusitis, acute Diabetes mellitus type 2, uncontrolled : BS MONITORING - SELF Indication: Diabetes mellitus type 2, uncontrolled Diabetes mellitus type 2, uncontrolled : Diet, Exercise, and Wt loss Indication: Diabetes mellitus type 2, uncontrolled Diabetes mellitus type 2, uncontrolled : *Diabetes Education Indication: Diabetes mellitus type 2, uncontrolled Diabetes mellitus type 2, uncontrolled : Follow up in 1 week Indication: Diabetes mellitus type 2, uncontrolled Diabetes mellitus type 2, uncontrolled : Follow up in 2 weeks Indication: Diabetes mellitus type 2, uncontrolled Diabetes mellitus type 2, uncontrolled : Follow up in 3 months Indication: Diabetes mellitus type 2, uncontrolled Hyperlipidemia : *Cholesterol - Nonprescription Treatment Indication: Hyperlipidemia Hyperlipidemia : Cholesterol mgmt Indication: Hyperlipidemia GERD (gastroesophageal reflux disease) : GERD Education Indication: GERD (gastroesophageal reflux disease) Hyperlipidemia : Diet, Exercise, and Wt loss Indication: Hyperlipidemia Diabetes mellitus type 2, uncontrolled : *Diabetes Education Indication: Diabetes mellitus type 2, uncontrolled Diabetes mellitus type 2, uncontrolled : Follow up in 3 months Indication: Diabetes mellitus type 2, uncontrolled Hyperlipidemia : Continue Current Prescription(s) Indication: Hyperlipidemia Hypothyroidism : Continue Current Prescription(s) Indication: Hypothyroidism GERD (gastroesophageal reflux disease) : GERD Education Indication: GERD (gastroesophageal reflux disease) Hyperlipidemia : *Cholesterol - Nonprescription Treatment Indication: Hyperlipidemia Hyperlipidemia : Cholesterol mgmt Indication: Hyperlipidemia Diabetes mellitus type 2, uncontrolled : *Diabetes Education Indication: Diabetes mellitus type 2, uncontrolled Diabetes mellitus type 2, uncontrolled : Diet, Exercise, and Wt loss Indication: Diabetes mellitus type 2, uncontrolled Hypothyroidism : Reviewed Lab Indication: Hypothyroidism Arthritis, rheumatic, acute or subacute : Reviewed Park Maintainer Letter Indication: Arthritis, rheumatic, acute or subacute Hyperlipidemia : *Cholesterol - Medication Side Effects Indication: Hyperlipidemia Hyperlipidemia : CHOLESTEROL MGMT. Indication: Hyperlipidemia Hyperlipidemia : *Cholesterol - Nonprescription Treatment Indication: Hyperlipidemia Hypothyroidism : Continue Current Prescription(s) Indication: Hypothyroidism Diabetes mellitus type 2, uncontrolled : FOLLOW UP IN 3 MONTHS Indication: Diabetes mellitus type 2, uncontrolled Hypothyroidism : Reviewed Lab Indication: Hypothyroidism Diabetes mellitus type 2, uncontrolled : FOLLOW UP IN 3 MONTHS Indication: Diabetes mellitus type 2, uncontrolled GERD (gastroesophageal reflux disease) : GERD Education Indication: GERD (gastroesophageal reflux disease) Hyperlipidemia : *Cholesterol - Nonprescription Treatment Indication: Hyperlipidemia Hyperlipidemia : CHOLESTEROL MGMT. Indication: Hyperlipidemia Diabetes mellitus type 2, uncontrolled : *Diabetes Education Indication: Diabetes mellitus type 2, uncontrolled Diabetes mellitus type 2, uncontrolled : Diet, Exercise, and Wt loss Indication: Diabetes mellitus type 2, uncontrolled Hyperlipidemia : Continue Current Prescription(s) Indication: Hyperlipidemia Diabetes mellitus type 2, uncontrolled : Reviewed Lab Indication: Diabetes mellitus type 2, uncontrolled Hyperlipidemia : Reviewed Lab Indication: Hyperlipidemia Diabetes mellitus type 2, uncontrolled : FOLLOW UP IN 3 MONTHS Indication: Diabetes mellitus type 2, uncontrolled Hyperlipidemia : CHOLESTEROL MGMT. Indication: Hyperlipidemia Diabetes mellitus type 2, uncontrolled : Diet, Exercise, and Wt loss Indication: Diabetes mellitus type 2, uncontrolled Diabetes mellitus type 2, uncontrolled : *Diabetes Education Indication: Diabetes mellitus type 2, uncontrolled Hyperlipidemia : CHOLESTEROL MGMT. Indication: Hyperlipidemia Hyperlipidemia : *Cholesterol - Nonprescription Treatment Indication: Hyperlipidemia Hyperlipidemia : *Cholesterol - Medication Side Effects Indication: Hyperlipidemia Hypothyroidism : Continue Current Prescription(s) Indication: Hypothyroidism Arthritis, rheumatic, acute or subacute : Reviewed Park Maintainer Letter Indication: Arthritis, rheumatic, acute or subacute GERD (gastroesophageal reflux disease) : GERD Education Indication: GERD (gastroesophageal reflux disease) Diabetes mellitus type 2, uncontrolled : Diet, Exercise, and Wt loss Indication: Diabetes mellitus type 2, uncontrolled Diabetes mellitus type 2, uncontrolled : *Diabetes Education Indication: Diabetes mellitus type 2, uncontrolled Diabetes mellitus type 2, uncontrolled : FOLLOW UP IN 3 MONTHS Indication: Diabetes mellitus type 2, uncontrolled Hyperlipidemia : CHOLESTEROL MGMT. Indication: Hyperlipidemia Hyperlipidemia : *Cholesterol - Nonprescription Treatment Indication: Hyperlipidemia Hyperlipidemia : *Cholesterol - Medication Side Effects Indication: Hyperlipidemia Diabetes mellitus type 2, uncontrolled : Diet, Exercise, and Wt loss Indication: Diabetes mellitus type 2, uncontrolled Diabetes mellitus type 2, uncontrolled : *Diabetes Education Indication: Diabetes mellitus type 2, uncontrolled Hypothyroidism : FOLLOW UP IN 2 MONTHS Indication: Hypothyroidism Hypothyroidism : Continue Current Prescription(s) Indication: Hypothyroidism GERD (gastroesophageal reflux disease) : GERD Education Indication: GERD (gastroesophageal reflux disease) Hyperlipidemia : CHOLESTEROL MGMT. Indication: Hyperlipidemia Hyperlipidemia : Cholesterol - Nonprescription Treatment Indication: Hyperlipidemia Hyperlipidemia : Cholesterol - Medication Side Effects Indication: Hyperlipidemia Hypoxemia : MDI Education Indication: Hypoxemia Hypoxemia : Solu Medrol Injection/ Education Indication: Hypoxemia GERD (gastroesophageal reflux disease) : GERD Education Indication: GERD (gastroesophageal reflux disease) Diabetes mellitus type 2, uncontrolled : Diet, Exercise, and Wt loss Indication: Diabetes mellitus type 2, uncontrolled Diabetes mellitus type 2, uncontrolled : *Diabetes Education Indication: Diabetes mellitus type 2, uncontrolled Hyperlipidemia : CHOLESTEROL MGMT. Indication: Hyperlipidemia Hyperlipidemia : Cholesterol - Nonprescription Treatment Indication: Hyperlipidemia Hyperlipidemia : Cholesterol - Medication Side Effects Indication: Hyperlipidemia Diabetes mellitus type 2, uncontrolled : *Diabetes Education Indication: Diabetes mellitus type 2, uncontrolled Diabetes mellitus type 2, uncontrolled : Diet, Exercise, and Wt loss Indication: Diabetes mellitus type 2, uncontrolled Arthritis, rheumatic, acute or subacute : Continue Current Prescription(s) Indication: Arthritis, rheumatic, acute or subacute Hypothyroidism : Continue Current Prescription(s) Indication: Hypothyroidism GERD (gastroesophageal reflux disease) : GERD Education Indication: GERD (gastroesophageal reflux disease) Hyperlipidemia : Cholesterol - Nonprescription Treatment Indication: Hyperlipidemia Hyperlipidemia : CHOLESTEROL MGMT. Indication: Hyperlipidemia Hyperlipidemia : Cholesterol - Medication Side Effects Indication: Hyperlipidemia Controlled diabetes mellitus type II without complication : FOLLOW UP IN 3 MONTHS Indication: Controlled diabetes mellitus type II without complication Depressive disorder : Antidepressant Usage Indication: Depressive disorder Obesity, unspecified : Diet, Exercise, and Wt loss Indication: Obesity, unspecified Hypothyroidism : Continue Current Prescription(s) Indication: Hypothyroidism GERD (gastroesophageal reflux disease) : GERD Education Indication: GERD (gastroesophageal reflux disease) Controlled diabetes mellitus type II without complication : *Diabetes Education Indication: Controlled diabetes mellitus type II without complication Controlled diabetes mellitus type II without complication : Diet, Exercise, and Wt loss Indication: Controlled diabetes mellitus type II without complication Hyperlipidemia : CHOLESTEROL MGMT. Indication: Hyperlipidemia Hyperlipidemia : Cholesterol - Medication Side Effects Indication: Hyperlipidemia Hyperlipidemia : Cholesterol - Nonprescription Treatment Indication: Hyperlipidemia Planned Observations TSH ([id number])Indication: Hypothyroidism On: :16 Request T4, FREE (THYROXINE) ([id number])Indication: Hypothyroidism On: :15 Request T3, FREE (TRIDOTHYRONINE) ([id number])Indication: Hypothyroidism On: :15 Request CBC W/AUTO DIFF WBC ([id number])Indication: Diabetes mellitus type 2, uncontrolled On: 6-Lgy-455702:40 Request METABOLIC PANEL, COMPREHENSIVE ([id number])Indication: Diabetes mellitus type 2, uncontrolled On: 2-Kfu-766642:40 Request LIPID PANEL ([id number])Indication: Hyperlipidemia On: :40 Request T3, FREE (TRIDOTHYRONINE) ([id number])Indication: Abnormal TSH On: : Request T4, FREE (THYROXINE) ([id number])Indication: Abnormal TSH On: : Request TSH ([id number])Indication: Abnormal TSH On: : Request T4, FREE (THYROXINE) ([id number])Indication: Abnormal TSH On: : Request T3, FREE (TRIDOTHYRONINE) ([id number])Indication: Abnormal TSH On: : Request URINALYSIS, W/ MICRO ([id number])Indication: Diabetes mellitus type 2, uncontrolled On: : Request MICROALBUMIN: CREATININE RATIO ([id number]) AND ([id number])Indication: Diabetes mellitus type 2, uncontrolled On: : Request METABOLIC PANEL, COMPREHENSIVE (06173)Indication: Diabetes mellitus type 2, uncontrolled On: : Request CBC W/AUTO DIFF WBC ([id number])Indication: Diabetes mellitus type 2, uncontrolled On: : Request LIPID PANEL ([id number])Indication: Hyperlipidemia On: : Request TSH ([id number])Indication: Abnormal TSH On: : Request CALCIFIDIOL (99436) VIT D 25Indication: Vitamin D deficiency On: : Request CALCIFIDIOL (51396) VIT D 25Indication: Vitamin D deficiency On: :52 Request URINALYSIS, W/ MICRO ([id number])Indication: Diabetes mellitus type 2, uncontrolled On: :51 Request MICROALBUMIN: CREATININE RATIO ([id number]) AND (24373)Indication: Diabetes mellitus type 2, uncontrolled On: :51 Request METABOLIC PANEL, COMPREHENSIVE ([id number])Indication: Diabetes mellitus type 2, uncontrolled On: :51 Request CBC W/AUTO DIFF WBC ([id number])Indication: Diabetes mellitus type 2, uncontrolled On: :51 Request LIPID PANEL ([id number])Indication: Hyperlipidemia On: :51 Request TSH ([id number])Indication: Hypothyroidism On: :51 Request TSH ([id number])Indication: Abnormal TSH On: :53 Request Comments: do at end of jan 2016 T4, FREE (THYROXINE) ([id number])Indication: Abnormal TSH On: :53 Request Comments: do at end 2015 T3, FREE (TRIDOTHYRONINE) ([id number])Indication: Abnormal TSH On: :53 Request Comments: do at end of jan 2016 CALCIFIDIOL ([id number]) VIT D 25Indication: Vitamin D deficiency On: :47 Request URINALYSIS, W/ MICRO ([id number])Indication: Diabetes mellitus type 2, uncontrolled On: :47 Request MICROALBUMIN: CREATININE RATIO ([id number]) AND ([id number])Indication: Diabetes mellitus type 2, uncontrolled On: :47 Request METABOLIC PANEL, COMPREHENSIVE (85547)Indication: Diabetes mellitus type 2, uncontrolled On: :47 Request CBC W/AUTO DIFF WBC ([id number])Indication: Diabetes mellitus type 2, uncontrolled On: :47 Request FECAL OCCULT- Tubes sent home (52200)Indication: Encounter for screening for malignant neoplasm of colon (Renamed from Special screening for malignant neoplasms, colon) On: :47 Request TSH ([id number])Indication: Abnormal TSH On: :57 Request T3, FREE (TRIDOTHYRONINE) ([id number])Indication: Abnormal TSH On: :57 Request T4, FREE (THYROXINE) ([id number])Indication: Abnormal TSH On: :57 Request URINALYSIS, W/ MICRO ([id number])Indication: Diabetes mellitus type 2, uncontrolled On: :10 Request MICROALBUMIN: CREATININE RATIO (07098) AND ([id number])Indication: Diabetes mellitus type 2, uncontrolled On: :10 Request METABOLIC PANEL, COMPREHENSIVE ([id number])Indication: Diabetes mellitus type 2, uncontrolled On: :10 Request LIPID PANEL (87897)Indication: Hypercholesteremia On: 91-Xze-056411:10 Request CBC W/AUTO DIFF WBC (55543)Indication: Diabetes mellitus type 2, uncontrolled On: 36-Qcs-518891:10 Request TSH ([id number])Indication: Hypothyroidism On: 00-Wia-126239:10 Request CALCIFIDIOL (16029) VIT D 25Indication: Vitamin D deficiency On: 51-Cox-847986:09 Request Blood Glucose , Office ([id number])Indication: Diabetes mellitus type 2, uncontrolled On: 62-Ytl-462985:32 Request CALCIFIDIOL (14348) VIT D 25Indication: Vitamin D deficiency On: 24-Wxc-553821: Request URINALYSIS, W/ MICRO ([id number])Indication: Diabetes mellitus type 2, uncontrolled On: 27-Knf-708697: Request MICROALBUMIN: CREATININE RATIO (02445) AND ([id number])Indication: Diabetes mellitus type 2, uncontrolled On: 11-Owk-478620: Request METABOLIC PANEL, COMPREHENSIVE ([id number])Indication: Diabetes mellitus type 2, uncontrolled On: 15-Gxv-044119: Request LIPID PANEL ([id number])Indication: Hyperlipidemia On: 29-Rit-902913:00 Request CBC W/AUTO DIFF WBC ([id number])Indication: Diabetes mellitus type 2, uncontrolled On: 53-Kpk-637774:00 Request TSH ([id number])Indication: Hypothyroidism On: 91-Qke-435834:00 Request URINALYSIS, W/ MICRO ([id number])Indication: Diabetes mellitus type 2, uncontrolled On: 4-Pxc-321868:24 Request MICROALBUMIN: CREATININE RATIO ([id number]) AND ([id number])Indication: Diabetes mellitus type 2, uncontrolled On: 8-Uch-084109:24 Request METABOLIC PANEL, COMPREHENSIVE ([id number])Indication: Diabetes mellitus type 2, uncontrolled On: 0-Jmd-312188:24 Request CBC W/AUTO DIFF WBC ([id number])Indication: Diabetes mellitus type 2, uncontrolled On: 0-Qad-209634:24 Request Vitamin D Hydroxy (62403)Indication: Vitamin D deficiency On: 0-Dux-734706:24 Request HEPATIC FUNCTION PANEL ([id number])Indication: Hyperlipidemia On: :23 Request LIPID PANEL ([id number])Indication: Hyperlipidemia On: 3-Vkm-861068:23 Request TSH ([id number])Indication: Hypothyroidism On: 4-Oma-946567:20 Request METABOLIC PANEL, COMPREHENSIVE (61097)Indication: Diabetes mellitus type 2, uncontrolled On: 8-Vzv-384081:16 Request TSH ([id number])Indication: Diabetes mellitus type 2, uncontrolled On: 2-Bvq-372384:16 Request LIPID PANEL ([id number])Indication: Diabetes mellitus type 2, uncontrolled On: :16 Request CBC WITH MANUAL DIFF ([id number])Indication: Diabetes mellitus type 2, uncontrolled On: 5-Sso-555513:45 Request Comments: send copy of results to dr gurrola in [facility] URINALYSIS, W/ MICRO ([id number])Indication: Diabetes mellitus type 2, uncontrolled On: :43 Request MICROALBUMIN: CREATININE RATIO ([id number]) AND ([id number])Indication: Diabetes mellitus type 2, uncontrolled On: :43 Request LIPID PANEL (20427)Indication: Diabetes mellitus type 2, uncontrolled On: :43 Request TSH ([id number])Indication: Hypothyroidism On: :43 Request LIPID PANEL (54575)Indication: Hyperlipidemia On: 1-Vgv-442250:18 Request TSH (61773)Indication: Hypothyroidism On: 04-Zfg-351291:27 Request LIPID PANEL (33406)Indication: Hyperlipidemia On: 73-Nyz-634858:38 Request Comments: do in 8 weeks TSH ([id number])Indication: Hypothyroidism On: 68-Ylp-831502:33 Request Comments: do in 8 weeks HEPATIC FUNCTION PANEL (82843)Indication: Hyperlipidemia On: :58 Request LIPID PANEL ([id number])Indication: Hyperlipidemia On: 34-Fdm-232297:58 Request URINE ANDRESSA CULTURE (ADRY COL COUNT) (90154)Indication: Other abnormal finding of urine On: 46-Mzp-729843:57 Request TSH ([id number])Indication: Hypothyroidism On: :55 Request URINALYSIS, W/ MICRO ([id number])Indication: Diabetes mellitus type 2, uncontrolled On: 39-Wgu-937073:55 Request MICROALBUMIN: CREATININE RATIO (84091) AND ([id number])Indication: Diabetes mellitus type 2, uncontrolled On: 54-Xzf-984369:55 Request METABOLIC PANEL, COMPREHENSIVE ([id number])Indication: Diabetes mellitus type 2, uncontrolled On: :55 Request LIPOPROTEIN, BLD, BY NMR ([id number])Indication: Diabetes mellitus type 2, uncontrolled On: 16-Ggn-337023:55 Request LIPID PANEL ([id number])Indication: Diabetes mellitus type 2, uncontrolled On: :55 Request CBC WITH MANUAL DIFF ([id number])Indication: Diabetes mellitus type 2, uncontrolled On: :55 Request CALCIFEDIOL (01702)Indication: Vitamin D deficiency On: :33 Request Comments: repeat Mar 03 CALCIFEDIOL ([id number])Indication: Abnormal blood chemistry On: :41 Request RENAL FUNCTION PANEL ([id number])Indication: Abnormal blood chemistry On: :41 Request PARATHORMONE ([id number])Indication: Abnormal blood chemistry On: :40 Request RETICULOCYTE COUNT (54867)Indication: Abnormal blood chemistry On: :40 Request CBC & PLATELETS (AUTO) ([id number])Indication: Abnormal blood chemistry On: :40 Request LIPOPROTEIN, BLD, BY NMR ([id number])Indication: Diabetes mellitus type 2, uncontrolled On: :29 Request Renal function Panel (80802)Indication: Cramp of limb On: 6-Nnd-484462:47 Request TSH ([id number])Indication: Hypothyroidism On: :28 Request HEPATIC FUNCTION PANEL (29577)Indication: Hyperlipidemia On: :27 Request Lipid Panel (33992)Indication: Hyperlipidemia On: 51-Dla-931287:27 Request MICROALBUMIN: CREATININE RATIO (71428) AND ([id number])Indication: Diabetes mellitus type 2, uncontrolled On: 23-Ivw-695516:56 Request METABOLIC PANEL, COMPREHENSIVE ([id number])Indication: Diabetes mellitus type 2, uncontrolled On: :56 Request LIPID PANEL ([id number])Indication: Diabetes mellitus type 2, uncontrolled On: :56 Request CBC WITH MANUAL DIFF ([id number])Indication: Diabetes mellitus type 2, uncontrolled On: :56 Request TSH ([id number])Indication: Hypothyroidism On: 12-Cwn-802504:55 Request TSH ([id number])Indication: Controlled diabetes mellitus type II without complication On: :21 Request MICROALBUMIN: CREATININE RATIO ([id number]) AND ([id number])Indication: Controlled diabetes mellitus type II without complication On: :21 Request LIPID PANEL (13297)Indication: Controlled diabetes mellitus type II without complication On: : Request METABOLIC PANEL, COMPREHENSIVE (22059)Indication: Controlled diabetes mellitus type II without complication On: : Request CBC WITH MANUAL DIFF ([id number])Indication: Controlled diabetes mellitus type II without complication On: : Request CREATININE CLEARANCE (55327) 24 HOURIndication: Controlled diabetes mellitus type II without complication On: Request Planned Encounters Medical; 3 Month FU - On: 28-Feb-2018 14:30 [facility] Lucretia Henson DO, DO, Kathleen Planned Procedures ELECTROCARDIOGRAM, COMPLETE (ECG) On: 02-Jun-2017 Intent (88057)By: Lucretia Henson DO Comments: ICV mild- nsr no acute chg -poor R wave progression and nonspeicici st flattening DO, Lucretia Spirometry (41357)By: Anna KAUR, On: 02-Jun-2017 Intent Lucretia Chahal DO Comments: obstruction pt refused any inhalers Overnight Pulse OX (17419)By: Fast On: 03-Mar-2017 Intent Ghazala KAUR Flu Vaccine (Quadrivalent) 64897Kq: On: 25-Nov-2016 Intent Lucretia Henson DO, DO, Comments: Lot:[id number]:06/09Amt:0.5mlRoute:IMSite: L DltdGiven By: GIULIANO Buitrago signed Lucretia ELECTROCARDIOGRAM, COMPLETE (ECG) On: 11-May-2016 Intent (57722)By: Lucretia Henson DO Comments: nsr no acute chjg DOLucretia Spirometry (34010)By: Anna KAUR On: 11-May-2016 Intent Lucretia Chahal DO Comments: good curve but poor #- pt refused inhalers Flu Vaccine (Quadrivalent) 33210Ml: On: 02-Jan-2016 Intent Lucretia Henson DO, DO, Comments: FLUlot: [id number]:07/08site:Lt deltoidroute:IMdose:.5mlZACH OCHOA MAMMOGRAM, SCREENING, BOTH BREAST On: 11-Sep-2015 Intent (06905)By: Lucretia Henson DO, DO, Kathleen RTGR-JO-WXLY BEHAVIORAL COUNSELING On: 11-Sep-2015 Intent FOR OBESITY, 15 MINUTES (G0447)By: Lucretia Henson DO, DO, Kathleen Six Minute Walk Assessment (93580)By: On: 19-Jun-2015 Intent Lucretia Henson DO, DO, Kathleen Flu Vaccine (Quadrivalent) 84930Yj: On: 03-Dec-2014 Intent Lucretia Henson DO, DO, Comments: Lot:[id number]:08/22/15Dose:0.5mLRoute:IMSite:L DltdGiven By:ANN MARIE signed Lucretia EKG (58645)By: Lucretia Henson DO On: 29-Nov-2013 Intent Lucretia Henson DO FLU VAC, SPLIT, >3 YEARS, INTRAMUSC On: 29-Nov-2013 Intent (08604)By: Lucretia Henson DO Comments: Lot:[id number]:11/07Amt:0.5mlRoute:IMSite: L DltdGiven By: Avril SANTAMARIA signed Lucretia KAUR THDH-MV-TTTU BEHAVIORAL COUNSELING On: 29-May-2013 Intent FOR OBESITY, 15 MINUTES (G0447)By: Lucretia Henson DO, DO, Kathleen ADMINISTRATION OF PNEUMOCOCCAL On: 29-May-2013 Intent VACCINE (G0009)By: Anna KAUR, Comments: Lot #[id number]-L arm, dltd, IMDose-prefilled syringegiven by:GIULIANO Ocasio signed Lucretia Chahal DO PNEUM VAC ADLT/IMUMNOSPR, SBC/INTRM On: 29-May-2013 Intent (98997)By: Lucretia Henson DO, DO, Kathleen Eprescribed prescriptions (G8553)By: On: 29-May-2013 Intent Lucretia Henson DO, DO, Kathleen Six Minute Walk Assessment (82019)By: On: 16-Mar-2013 Intent Lucretia Henson DO, DO, Comments: spirometry stable and O2 93% on room airand walk at lowest-- may discontinue O2 Lucretia Eprescribed prescriptions (G8553)By: On: 15-Mar-2013 Intent Ayah Chavis Radiology - Chest- PA and LatBy: On: 08-Mar-2013 Intent Lucretia Henson DO, DO, Comments: do in 6 weeks Lucretia HYDRATION IV INFUSION, INIT On: 24-Feb-2013 Intent (50127)By: Claudia Ibarra CNP Aerosol Treatment (03213)By: Addi On: 24-Feb-2013 Intent Claudia NO FLU VAC, SPLIT, >3 YEARS, INTRAMUSC On: 24-Nov-2012 Intent (49311)By: Omayra Cunha LPN Comments: Lot:[id number]:6.14Amt:0.5mlRoute:IMSite: L DltdGiven By: GOKUL BuitragoVIS signed ADMINISTRATION OF INFLUENZA VIRUS On: 24-Nov-2012 Intent VACCINE (G0008)By: Omayra Cunha LPN EKG ([id number])By: Lucretia Henson DO On: 31-Aug-2012 Intent Lucretia Henson DO Comments: inc /RBBB poor R wave progression / no acute chg Eprescribed prescriptions (G8553)By: On: 31-Aug-2012 Intent Ayah Chavis Eprescribed prescriptions (G8553)By: On: 13-Jun-2012 Intent Omayra Cunha LPN Eprescribed prescriptions (G8553)By: On: 30-Mar-2012 Intent Lucretia Henson DO, DO, Kathleen Aerosol Treatment (40115)By: Anna On: 11-Jan-2012 Intent Lucretia KAUR DO, Kathleen Comments: no noise adnmore a/e after aerosol Radiology - Chest- PA and LatBy: On: 11-Jan-2012 Intent Lucretia Henson DO, DO, Comments: do repeat cxr in around pedro Lucretia Eprescribed prescriptions (G8553)By: On: 11-Jan-2012 Intent Deysi Galvan LPN Aerosol Treatment (79046)By: Anna On: 28-Dec-2011 Intent Lucretia KAUR DO, Kathleen Comments: more a/e - louider but better movenmnt Spirometry (05857)By: Anna KAUR On: 28-Dec-2011 Intent Lucretia Chahal DO Comments: obstruciotn present nad ecent effort /technique considering how sick she is Solu- Medrol Injection, 125mg On: 28-Dec-2011 Intent (J2930)By: Lucretia Henson DO Comments: Lot:[id number]:mt:125mg/2mlRoute:IMSite:R GlutealGiven by: GOKUL Kwon DO, Kathleen Radiology - Chest- PA and LatBy: On: 28-Dec-2011 Lucretia Gasca DO, DO, Kathleen Pulse Oximetry (93959)By: Anna KAUR, On: 28-Dec-2011 Intent Lucretia Chahal DO ADMINISTRATION OF INFLUENZA VIRUS On: 21-Dec-2011 Intent VACCINE (G0008)By: Omayra Cunha Comments: Lot #[id number]/30/13Site-left deltoidgiven by: Cameron Keller LPN LPN FLU VAC, SPLIT, >3 YEARS, INTRAMUSC On: 21-Dec-2011 Intent (74466)By: Omayra Cunha LPN EKG (54359)By: Omayra Cunha LPN On: 02-Oct-2011 Intent Comments: nsr no acute chg - inc IVCD - Eprescribed prescriptions (G8553)By: On: 18-Sep-2011 Intent Lucretia Henson DO, DO, Kathleen Spirometry (89971)By: Anna KAUR On: 10-Jun-2011 Intent Lucretia Chahal DO Comments: stable -- no chg in inhalers EKG (03739)By: Lucretia Henson DO On: 10-Jun-2011 Intent Lucretia Henson DO Comments: nsr no acute chg Radiology - Chest- PA and LatBy: On: 10-Jun-2011 Intent Lucretia Henson DO, DO, Kathleen ADMINISTRATION OF INFLUENZA VIRUS On: 15-Dec-2010 Intent VACCINE (G0008)By: Anna KAUR, Comments: Lot #[id number]-L arm, IMDose prefilledgiven by:Lucretia Walsh DO FLU VAC, SPLIT, >3 YEARS, INTRAMUSC On: 15-Dec-2010 Intent (06790)By: Lucretia Henson DO, DO, Kathleen TDAP VACCINE >7 IM (13634)By: Anna On: 18-Sep-2010 Intent Lucretia KAUR DO, Kathleen Comments: Lot #[id number]/31/13Site-left deltoidgiven by: Cameron Keller LPN EKG (44272)By: Lucretia Henson DO On: 11-Jun-2010 Intent Lucretia Henson DO Comments: nsr no acute chgng Eprescribed prescriptions (G8553)By: On: 11-Jun-2010 Lucretia Gasca DO, DO, Kathleen FLU VAC, SPLIT, >3 YEARS, INTRAMUSC On: 09-Jan-2010 Intent (23008)By: Omayra Cunha LPN Comments: Lot #[id number]-left deltoidgiven by:LAYO ADMINISTRATION OF INFLUENZA VIRUS On: 09-Jan-2010 Intent VACCINE (G0008)By: Omayra Cunha LPN MRI - Knee(s) - RightBy: Anna KAUR, On: 10-May-2009 Intent Lucretia Chahal DO EKG (96303)By: Lucretia Henson DO On: 10-May-2009 Intent Lucretia Henson DO Comments: nsr no acute changes FLU VAC, SPLIT, >3 YEARS, INTRAMUSC On: 14-Nov-2008 Intent (85600)By: Claudia Ibarra CNP ADMINISTRATION OF INFLUENZA VIRUS On: 14-Nov-2008 Intent VACCINE (G0008)By: Claudia Ibarra CNP Comments: Lot #: [id number] date: mount given: 0.5 mlRoute: IMSite given: left deltoidGiven by: Nellie Siddiqi LPN Ultrasound - RenalBy: Claudia Ibarra CNP On: 14-Nov-2008 Intent E Pulse Oximetry (86224)By: Anna KAUR, On: 21-May-2008 Intent Lucretia Chahal DO Comments: 97% Pulse Oximetry (73045)By: Addi NO, On: 18-Apr-2008 Intent Claudia Payne Comments: 93% before and after aerosol tx Aerosol Treatment (80611)By: Addi On: 18-Apr-2008 Intent MARYBEL Claudia Payne Comments: done-AW Pulse Oximetry (06475)By: Anna KAUR, On: 04-Apr-2008 Intent Lucretia Chahal DO Comments: post treatment- 98% spo2 Aerosol Treatment (50897)By: Anna On: 04-Apr-2008 Intent Lucretia KAUR DO, Kathleen Inhaler Demo (08272)By: Anna KAUR, On: 02-Apr-2008 Intent Lucretia Chahal DO Aerosol Treatment (03458)By: Anan On: 02-Apr-2008 Intent Lucretia KAUR DO, Kathleen Comments: much more air excchange less noise but still there Solu- Medrol Injection, 125mg On: 02-Apr-2008 Intent (J2930)By: Lucretia Henson DO Comments: lot # [id number]- 125mg chenderson tolerated well Lucretia KAUR Pulse Oximetry (28158)By: Anna KAUR On: 02-Apr-2008 Intent Lucretia Chahal DO Comments: after aerosol tx93% on room air Pulse Oximetry (87578)By: Guerline On: 02-Apr-2008 Intent Omayra HODGSON Comments: done km 90 % EKG (93501)By: Lucretia Henson DO On: 15-Dec-2007 Intent Lucretia Henson DO Comments: nsr no acute ischemic changes IMMUNIZ ADMNIN, 1 VAC, SNGL/COMBO On: 15-Dec-2007 Intent ([id number])By: Lucretia Henson DO Comments: lot # [id number]- 01/26/09site- RDLTroute-IMdose- o.5mg chenderson [place] Lucretia KAUR PNEUM VAC ADLT/IMUMNOSPR, SBC/INTRM On: 15-Dec-2007 Intent ([id number])By: Lucretia Henson DO, DO, Kathleen FLU VAC, SPLIT, >3 YEARS, INTRAMUSC On: 15-Dec-2007 Intent (08934)By: Omayra Cunha LPN Comments: 0.5cc given lt arm lot [id number] exp 6 ADMINISTRATION OF INFLUENZA VIRUS On: 15-Dec-2007 Intent VACCINE (G0008)By: Omayra Cunha LPN Planned Medications INJECTION, METHYLPREDNISOLONE SODIUM SUCCINATE, UP TO 125 MG Ordered: 28-Dec-2011 Pending Lucretia Henson DO, DO, Kathleen Instructions Name Dates Details Diabetes mellitus type 2, uncontrolled : How to access health information online Indication: Diabetes mellitus type 2, uncontrolled Diabetes mellitus type 2, uncontrolled : How to access health information online - Detail Indication: Diabetes mellitus type 2, uncontrolled Diabetes mellitus type 2, uncontrolled : Patient Instructions Indication: Diabetes mellitus type 2, uncontrolled Diabetes mellitus type 2, uncontrolled : How to access health information online Indication: Diabetes mellitus type 2, uncontrolled Diabetes mellitus type 2, uncontrolled : How to access health information online - Detail Indication: Diabetes mellitus type 2, uncontrolled Diabetes mellitus type 2, uncontrolled : Patient Instructions Indication: Diabetes mellitus type 2, uncontrolled Diabetes mellitus type 2, uncontrolled : How to access health information online Indication: Diabetes mellitus type 2, uncontrolled Diabetes mellitus type 2, uncontrolled : How to access health information online - Detail Indication: Diabetes mellitus type 2, uncontrolled Diabetes mellitus type 2, uncontrolled : Patient Instructions Indication: Diabetes mellitus type 2, uncontrolled Diabetes mellitus type 2, uncontrolled : How to access health information online Indication: Diabetes mellitus type 2, uncontrolled Diabetes mellitus type 2, uncontrolled : How to access health information online - Detail Indication: Diabetes mellitus type 2, uncontrolled Diabetes mellitus type 2, uncontrolled : Patient Instructions Indication: Diabetes mellitus type 2, uncontrolled Diabetes mellitus type 2, uncontrolled : How to access health information online Indication: Diabetes mellitus type 2, uncontrolled Diabetes mellitus type 2, uncontrolled : How to access health information online - Detail Indication: Diabetes mellitus type 2, uncontrolled Diabetes mellitus type 2, uncontrolled : Patient Instructions Indication: Diabetes mellitus type 2, uncontrolled Diabetes mellitus type 2, uncontrolled : How to access health information online Indication: Diabetes mellitus type 2, uncontrolled Diabetes mellitus type 2, uncontrolled : How to access health information online - Detail Indication: Diabetes mellitus type 2, uncontrolled Diabetes mellitus type 2, uncontrolled : Patient Instructions Indication: Diabetes mellitus type 2, uncontrolled Diabetes mellitus type 2, uncontrolled : How to access health information online Indication: Diabetes mellitus type 2, uncontrolled Diabetes mellitus type 2, uncontrolled : How to access health information online - Detail Indication: Diabetes mellitus type 2, uncontrolled Diabetes mellitus type 2, uncontrolled : Patient Instructions Indication: Diabetes mellitus type 2, uncontrolled Diabetes mellitus type 2, uncontrolled : How to access health information online Indication: Diabetes mellitus type 2, uncontrolled Diabetes mellitus type 2, uncontrolled : How to access health information online - Detail Indication: Diabetes mellitus type 2, uncontrolled Diabetes mellitus type 2, uncontrolled : Patient Instructions Indication: Diabetes mellitus type 2, uncontrolled Diabetes mellitus type 2, uncontrolled : obesity counseling Indication: Diabetes mellitus type 2, uncontrolled Diabetes mellitus type 2, uncontrolled : How to access health information online Indication: Diabetes mellitus type 2, uncontrolled Diabetes mellitus type 2, uncontrolled : How to access health information online - Detail Indication: Diabetes mellitus type 2, uncontrolled Diabetes mellitus type 2, uncontrolled : Patient Instructions Indication: Diabetes mellitus type 2, uncontrolled Acute pain of right knee : How to access health information online Indication: Acute pain of right knee Acute pain of right knee : How to access health information online - Detail Indication: Acute pain of right knee Acute pain of right knee : Patient Instructions Indication: Acute pain of right knee Diabetes mellitus type 2, uncontrolled : How to access health information online Indication: Diabetes mellitus type 2, uncontrolled Diabetes mellitus type 2, uncontrolled : How to access health information online - Detail Indication: Diabetes mellitus type 2, uncontrolled Diabetes mellitus type 2, uncontrolled : Patient Instructions Indication: Diabetes mellitus type 2, uncontrolled Diabetes mellitus type 2, uncontrolled : How to access health information online Indication: Diabetes mellitus type 2, uncontrolled Diabetes mellitus type 2, uncontrolled : How to access health information online - Detail Indication: Diabetes mellitus type 2, uncontrolled Diabetes mellitus type 2, uncontrolled : Patient Instructions Indication: Diabetes mellitus type 2, uncontrolled Diabetes mellitus type 2, uncontrolled : How to access health information online Indication: Diabetes mellitus type 2, uncontrolled Diabetes mellitus type 2, uncontrolled : How to access health information online - Detail Indication: Diabetes mellitus type 2, uncontrolled Diabetes mellitus type 2, uncontrolled : Patient Instructions Indication: Diabetes mellitus type 2, uncontrolled Diabetes mellitus type 2, uncontrolled : How to access health information online Indication: Diabetes mellitus type 2, uncontrolled Diabetes mellitus type 2, uncontrolled : How to access health information online - Detail Indication: Diabetes mellitus type 2, uncontrolled Diabetes mellitus type 2, uncontrolled : Patient Instructions Indication: Diabetes mellitus type 2, uncontrolled Diabetes mellitus type 2, uncontrolled : Patient Instructions Indication: Diabetes mellitus type 2, uncontrolled Diabetes mellitus type 2, uncontrolled : Patient Instructions Indication: Diabetes mellitus type 2, uncontrolled Diabetes mellitus type 2, uncontrolled : How to access health information online Indication: Diabetes mellitus type 2, uncontrolled Diabetes mellitus type 2, uncontrolled : How to access health information online - Detail Indication: Diabetes mellitus type 2, uncontrolled Diabetes mellitus type 2, uncontrolled : Patient Instructions Indication: Diabetes mellitus type 2, uncontrolled BMI 37.0-37.9, adult : obesity counseling Indication: BMI 37.0-37.9, adult Knee pain : Patient Instructions Indication: Knee pain Pneumonia : Patient Instructions Indication: Pneumonia Diabetes mellitus type 2, uncontrolled : Patient Instructions Indication: Diabetes mellitus type 2, uncontrolled Diabetes mellitus type 2, uncontrolled : Patient Instructions Indication: Diabetes mellitus type 2, uncontrolled Diabetes mellitus type 2, uncontrolled : Patient Instructions Indication: Diabetes mellitus type 2, uncontrolled Diabetes mellitus type 2, uncontrolled : Patient Instructions Indication: Diabetes mellitus type 2, uncontrolled Unspecified bacterial pneumonia : Patient Instructions Indication: Unspecified bacterial pneumonia Diabetes mellitus type 2, uncontrolled : Patient Instructions Indication: Diabetes mellitus type 2, uncontrolled Diabetes mellitus type 2, uncontrolled : Patient Instructions Indication: Diabetes mellitus type 2, uncontrolled Encounters Office Visit On: 06-Sep-2017 13:40 Encounter Reason: Follow up tests - Date: (09/03/17 labs)., [ADDITIONAL REASON] Follow up for chronic medical issues - The patient feels well with minor complai End: 06-Sep-2017 14:26 nts, has good energy level and is sleeping well. Patient has been compliant with instructions. Current medication use: no side effects and compliant with dosing regimen. Patient sleeps 8 hours per night . Nutrition: balanced diet and supplemental vitamins. The medical issues the patient is following up for include All identified problems below, blood sugar issues, high blood pressure and high cholesterol. Encounter Diagnosis: Diabetes mellitus type 2, uncontrolled, Hypothyroidism, Noncompliance with dietary restriction, Hyperlipidemia, Vitamin D deficiency, Depressive disorder, Fibromyalgia, COPD, moderate, Arthritis, rheumatic, acute or subacute [facility] Office Visit On: 02-Jun-2017 14:13 Encounter Reason: Follow up tests - Date: (05/23/17 labs)., [ADDITIONAL REASON] Follow up for chronic medical issues - The patient feels well with minor complai End: 02-Jun-2017 16:51 nts, has good energy level and is sleeping well. Patient has been compliant with instructions. Current medication use: no side effects and compliant with dosing regimen. Patient sleeps 8 hours per night . Nutrition: balanced diet and supplemental vitamins. The medical issues the patient is following up for include All identified problems below, blood sugar issues, high blood pressure and high cholesterol. weight :. Encounter Diagnosis: Diabetes mellitus type 2, uncontrolled, BMI 30.0-30.9,adult, Non-smoker, Noncompliance with dietary restriction, GERD (gastroesophageal reflux disease), Vitamin D deficiency, COPD, moderate, Hyperlipidemia, Nutritional counseling, Hypothyroidism, Sinusitis, bacterial [facility] Office Visit On: 03-Mar-2017 15:18 Encounter Reason: Follow up for chronic medical issues - The patient feels well with minor complaints, has good energy level and is sleeping well. Patient has been compliant with instructions. Current medication use: no End: 04-Mar-2017 21:21 side effects and compliant with dosing regimen. Patient sleeps 7 hours per night. Nutrition: balanced diet and supplemental vitamins. The medical issues the patient is following up for include All ident ified problems below, blood sugar issues, high blood pressure and high cholesterol. weight :. Note for Follow up for chronic medical issues: sugar really high - she said she was bad over the holiday s he said the injectables too expensive and make her gain weight- [facility]- admits to noncompliance with diet and ex and still smoking which discussed would be good idea to consider quitting- as hemoglobin high still and i explained secondary polycythemia and how putting stress on heart and lungs- her mood good and sleeping prettty good- sh e says she is taking her thyroid 6 days a week- no gerd breathing stable, [ADDITIONAL REASON] Follow up tests - Date: (02/26/17). Encounter Diagnosis: Diabetes mellitus type 2, uncontrolled, BMI 31.0-31.9,adult, Abnormal TSH, Hyperlipidemia, Vitamin D deficiency, COPD, moderate, Noncompliance with dietary restriction, GERD (gastroesophageal reflux disease) [facility] Office Visit On: 25-Nov-2016 13:23 Encounter Reason: Follow up tests - Date: (11/17/16 labs)., [ADDITIONAL REASON] Follow up for chronic medical issues - The patient feels well with minor complai End: 25-Nov-2016 14:14 nts, has good energy level and is sleeping well. Patient has been compliant with instructions. Current medication use: no side effects and compliant with dosing regimen. Patient sleeps 8 hours per night . Nutrition: balanced diet and supplemental vitamins. The medical issues the patient is following up for include All identified problems below, high blood pressure, high cholesterol and other. Encounter Diagnosis: Diabetes mellitus type 2, uncontrolled, Need for prophylactic vaccination and inoculation against influenza, Vitamin D deficiency, Hyperlipidemia, Hypothyroidism, GERD (gastroesophageal reflux disease), COPD, moderate, Abnormal TSH, Nutritional counseling, Arthritis, rheumatic, acute or subacute [facility] Office Visit On: 14-Aug-2016 13:54 Encounter Reason: Follow up for chronic medical issues - The patient feels well with minor complaints, has good energy level and is sleeping well. Patient has been compliant with instructions. Current medication use: no End: 14-Aug-2016 15:15 side effects and compliant with dosing regimen. Patient sleeps 8 hours per night. Nutrition: balanced diet and supplemental vitamins. The medical issues the patient is following up for include All ident ified problems below, blood sugar issues, high blood pressure and high cholesterol. weight :.Encounter Diagnosis: Diabetes mellitus type 2, uncontrolled, Tobacco use disorder (305.1), BMI 32.0-32.9,adult, Insomnia, persistent, Hypothyroidism, GERD (gastroesophageal reflux disease), Hyperlipidemia, Vitamin D deficiency, Fibromyalgia, COPD, moderate [facility] Office Visit On: 11-May-2016 14:58 Encounter Reason: Follow up tests - Date: (05/06/16 labs)., [ADDITIONAL REASON] Follow up for chronic medical issues - The patient feels well with minor complai End: 11-May-2016 16:59 nts, has good energy level and is sleeping well. Patient has been compliant with instructions. Current medication use: no side effects and compliant with dosing regimen. Patient sleeps 8 hours per night . Nutrition: balanced diet and supplemental vitamins. The medical issues the patient is following up for include All identified problems below, blood sugar issues, high blood pressure and high cholesterol. weight :. Encounter Diagnosis: Diabetes mellitus type 2, uncontrolled, BMI 33.0-33.9,adult, Tobacco use disorder (305.1), Noncompliance with medications, COPD, moderate, Hypothyroidism, Hyperlipidemia, Vitamin D deficiency, GERD (gastroesophageal reflux disease), Insomnia, persistent [facility] Office Visit On: 02-Jan-2016 13:10 Encounter Reason: Follow up tests - Date: (12/30/15 labs)., [ADDITIONAL REASON] Follow up for chronic medical issues - The patient feels well with minor complai End: 02-Jan-2016 15:23 nts, has good energy level and is sleeping well. Patient has been compliant with instructions. Current medication use: no side effects and compliant with dosing regimen. Patient sleeps 7 hours per night . Nutrition: balanced diet and supplemental vitamins. The medical issues the patient is following up for include All identified problems below, blood sugar issues, high blood pressure and high cholesterol. weight :. Encounter Diagnosis: Diabetes mellitus type 2, uncontrolled, Insomnia, persistent, Need for prophylactic vaccination and inoculation against influenza, Tobacco use disorder (305.1), Abnormal TSH, Hyperlipidemia, Fibromyalgia, Hypothyroidism, COPD, moderate, Vitamin D deficiency, Noncompliance with medications [facility] Office Visit On: 01-Oct-2015 10:25 Encounter Diagnosis: Encounter for screening for malignant neoplasm of colon (Renamed from Special screening for malignant neoplasms, colon) End: 01-Oct-2015 10:33 [facility] Office Visit On: 11-Sep-2015 13:19 Encounter Reason: Annual Medicare Exam - The patient had reviewed and updated the family history, medication/s, past medical history and social history. Yes the patient did have () a mini mental status exam done tod End: 11-Sep-2015 13:55 ay. The activities of daily living the patient needs help with are none. The patient has driven in past 6 months and put area rugs through house, but the patient has not had fecal incontinence, had urin axel incontinence, missed or ran out of medications to soon, fallen in the past 6 months, gotten lost, has a medalert necklace or bracelet or put handrails in bathroom. The patient has completed the foll owing preventative measures: PAP smear (yrs), mammography (?) and colonoscopy (51). The patient does have durable power of commercial real estate attorney and living will. The patient has noticed staying at home rather than d oing something new or going out and lack of energy. Other providers contributing to the patient's care are petroleum engineering professor and surgeon.Encounter Diagnosis: Annual Medicare Phyiscal WITHOUT abnormal findings (Renamed from Encounter for general adult medical examination without abnormal findings), Encounter for screening for malignant neoplasm of colon (Renamed from Special screening for malignant neoplasms, colon), Diabetes mellitus type 2, uncontrolled, Body mass index 35.0- 35.9, adult (Renamed from Adult body mass index 35.0-35.9), Tobacco use disorder (305.1), Encounter for screening mammogram for breast cancer (Renamed from Encounter for screening mammogram for malignant neoplasm of breast) [facility] Office Visit On: 06-Sep-2015 13:32 Encounter Reason: Follow up tests - Date: (08/29/15 labs)., [ADDITIONAL REASON] Follow up for chronic medical issues - The patient feels well with minor complai End: 06-Sep-2015 15:06 nts, has decreased energy level and is sleeping poorly. Patient has been compliant with instructions. Current medication use: no side effects and compliant with dosing regimen. Patient sleeps 4 hours pe r night. Nutrition: balanced diet and supplemental vitamins. The medical issues the patient is following up for include All identified problems below, blood sugar issues, high blood pressure and high ch olesterol. blood pressure range :, fasting blood sugars : and weight :. Encounter Diagnosis: Diabetes mellitus type 2, uncontrolled, Insomnia, persistent, Noncompliance with medications, GERD (gastroesophageal reflux disease), Vitamin D deficiency, Fibromyalgia, Hypercholesteremia, Hyperlipidemia, Hypothyroidism, Abnormal TSH, Arthritis, rheumatic, acute or subacute [facility] Office Visit On: 03-Jul-2015 14:32 Encounter Reason: Knee Pain - The injury involved the right knee (and hip).Encounter Diagnosis: Acute pain of right knee, Acute pain of right hip, Diabetes mellitus type 2, uncontrolled End: 03-Jul-2015 16:02 [facility] Office Visit On: 19-Jun-2015 14:32 Encounter Reason: Follow up for chronic medical issues - The patient feels well with no complaints, has good energy level and is sleeping well. Patient has been compliant with instructions. Current medication use: no brian End: 19-Jun-2015 17:21 e effects and compliant with dosing regimen. Patient sleeps 8 hours per night. Nutrition: balanced diet.Encounter Diagnosis: Diabetes mellitus type 2, uncontrolled, COPD, moderate, Hypercholesteremia, Vitamin D deficiency, GERD (gastroesophageal reflux disease), Hypothyroidism, Insomnia, persistent [facility] Office Visit On: 13-Mar-2015 14:22 Encounter Reason: Follow up for chronic medical issues - The patient feels well with minor complaints (sinus and cough), has good energy level and is sleeping poorly. Patient has been compliant with instructions. Current End: 13-Mar-2015 15:12 medication use: no side effects and compliant with dosing regimen. Patient sleeps 1 hours per night. Nutrition: balanced diet and supplemental vitamins. The medical issues the patient is following up f or include All identified problems below, blood sugar issues, high blood pressure and high cholesterol. fasting blood sugars : and weight :., [ADDITIONAL REASON] Follow up tests - Date: (03/08/15 labs). Encounter Diagnosis: Diabetes mellitus type 2, uncontrolled, Insomnia, persistent, Hypothyroidism, COPD, moderate, Vitamin D deficiency, Fibromylgia, Hypercholesteremia, Noncompliance with medications [facility] Office Visit On: 03-Dec-2014 15:27 Encounter Reason: Follow up for chronic medical issues - The patient feels well with minor complaints, has decreased energy level and is sleeping poorly. Patient has been compliant with instructions. Current medication u End: 03-Dec-2014 16:51 se: no side effects and compliant with dosing regimen. Nutrition: balanced diet and no supplemental vitamins & iron. The medical issues the patient is following up for include All identified problem s below, blood sugar issues, high blood pressure and high cholesterol. 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 Patient has been compliant with instructions. Current medication use: no side effects and compliant with dosing regimen. Nutrition: balanced diet and no supplem ental vitamins & iron. The medical issues the patient is following up for include All identified problems below, blood sugar issues, high blood pressure and high cholesterol. fasting blood sugars : and weight :. 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 Patient has been compliant with instructions. Current medication use: no brian End: 21-May-2014 18:11 e effects. Patient sleeps 8 hours per night. Impact of disease: impact on recreation- mild. Nutrition: balanced diet. The medical issues the patient is following up for include blood sugar issues. fasting blood sugars : (159-250).Encounter Diagnosis: Type II Diabetes,uncontrolled (250.02), COPD (496.), Hypothyroidism(244.9), Unspecified vitamin D deficiency (268.9), Hypercholesteremia (272.0), Gerd (530.81) [facility] Phone Encounter On: 25-Jan-2014 10:27 Encounter Diagnosis: Type II Diabetes,uncontrolled (250.02) End: 25-Jan-2014 10:29 [facility] Refill Request On: 09-Jan-2014 12:24 Encounter Diagnosis: Diabetes Mellitus, Type II End: 09-Jan-2014 12:28 [facility] Office Visit On: 29-Nov-2013 15:10 Encounter Reason: Follow up tests - Date: (11/23/13 labs)., [ADDITIONAL REASON] Follow up for chronic medical issues - The patient feels well with minor complai End: 01-Dec-2013 7:02 nts, has good energy level and is sleeping well. Patient has been compliant with instructions. Current medication use: no side effects and compliant with dosing regimen. Patient sleeps 10 hours per nigh t. Nutrition: balanced diet and no supplemental vitamins & iron. The medical issues the patient is following up for include All identified problems below, blood sugar issues, depression, fibromyalgi a, high blood pressure and high cholesterol. blood pressure range :, fasting blood sugars : and weight :. 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 Patient has been compliant with instructions. Nutrition: balanced diet.Encounter Diagnosis: End: 21-Sep-2013 14:43 Type II Diabetes,uncontrolled (250.02), Hypercholesteremia (272.0) [facility] Office Visit On: 07-Sep-2013 13:31 Encounter Reason: Follow up tests - Date: (09/04/13 labs)., [ADDITIONAL REASON] Follow up for chronic medical issues - The patient does not feel well, has decre End: 07-Sep-2013 14:30 ased energy level and is sleeping poorly. Patient has been compliant with instructions. Current medication use: no side effects and compliant with dosing regimen. Patient sleeps 5 hours per night. Nutri tion: inappropriate diet and no supplemental vitamins & iron. The medical issues the patient is following up for include All identified problems below, blood sugar issues, high blood pressure and hi gh cholesterol. blood pressure range :, fasting blood sugars : and weight :. Encounter Diagnosis: Type II Diabetes,uncontrolled (250.02), Hypothyroidism(244.9), Unspecified vitamin D deficiency (268.9), Hyperlipidemia (272.4), Abnormal TSH (794.5), Hypercholesteremia (272.0) [facility] Office Visit On: 29-May-2013 14:28 Encounter Reason: Follow up for chronic medical issues - The patient feels well with minor complaints, has decreased energy level and is sleeping well. Patient has been compliant with instructions. Current medication use End: 29-May-2013 17:10 : no side effects and compliant with dosing regimen. Patient sleeps 10 hours per night. Nutrition: balanced diet and no supplemental vitamins & iron. The medical issues the patient is following up f or include All identified problems below, blood sugar issues, high blood pressure and high cholesterol. fasting blood sugars :., [ADDITIONAL REASON] Annual Medicare Exam - Yes the patient did have ( mmswisper 04/24) a mini men jem status exam done today. The activities of daily living the patient needs help with are housework. The patient has driven in past 6 months and put area rugs through house, but the patient has not had fecal incontinence, had urinary incontinence, missed or ran out of medications to soon, fallen in the past 6 months, gotten lost, has a medalert necklace or bracelet or put handrails in bathroom. The p atient has completed the following preventative measures: PAP smear (over 5 years ago), mammography (over 5 years ago) and colonoscopy (2002). The patient does have durable power of commercial real estate attorney and living will. The patient has noticed dropping activities and interests and thinking most people are better off than them. Other providers contributing to the patient's care are petroleum engineering professor ([place], ), [facility] on (bryan goodwin scott miller,dr higgins, ) and other: (dr upton). Encounter Diagnosis: Type II Diabetes,uncontrolled (250.02), COPD (496.), Hyperlipidemia (272.4), Gerd (530.81), Osteoarthritis, Unspecified Whether Generalized or Localized, Involving other Specified Sites (715.98), Unspecified vitamin D deficiency (268.9), Fibromyalgia, Dyshidrosis (705.81), Knee pain (719.46), Hypothyroidism(244.9), Annual Medicare Physical (V70.0), BMI 37.0-37.9, ADULT (V85.37) [facility] Office Visit On: 15-Mar-2013 13:04 Encounter Reason: Follow up acute care visit - The patient feeling better since last seen and improving. Patient has been compliant with instructions. Patient sleeps 8 hours per night. The medical issues the patient is f End: 16-Mar-2013 15:54 ollowing up for include other (pneumonia)., [ADDITIONAL REASON] Follow up tests - Diagnostic tests include chest X-ray. Encounter Diagnosis: Pneumonia, COPD (496.), Cough (786.2), Hypoxemia (799.02) [facility] Office Visit On: 08-Mar-2013 14:55 Encounter Reason: Transition into care - The patient is transitioning into care from a hospital . Note for Transition into care: wed02-24-13 to 03/04/13, End: 08-Mar-2013 15:50 [ADDITIONAL REASON] Follow up hospital - Reason for ER visit: pneumonia. The patient does not feel well, has decreased energy level and is sleeping well. Patient has been compliant with instructions. C urrent medication use: no side effects and compliant with dosing regimen. Patient sleeps 7 hours per night. Encounter Diagnosis: COPD (496.), Pneumonia, Hypoxemia (799.02) [facility] Refill Request On: 07-Mar-2013 15:40 Encounter Diagnosis: COPD WITH (ACUTE) EXACERBATION (491.21) End: 07-Mar-2013 15:42 [facility] Office Visit On: 24-Feb-2013 14:26 Encounter Reason: Cough - The onset of the cough has been sudden. The cough occurs all the time. The symptoms are aggravated by supine posture. The symptoms have been associated with hoarseness and wheezing, while the s End: 24-Feb-2013 15:06 ymptoms have not been associated with fever or runny nose. Note for Cough : Difficult to breathe Encounter Diagnosis: Respiratory distress (Renamed from Distressed breathing), COPD WITH (ACUTE) EXACERBATION (491.21), Cough (786.2) [facility] Office Visit On: 24-Nov-2012 12:59 Encounter Reason: Follow up for chronic medical issues - The patient feels well with minor complaints, has good energy level and is sleeping well. Patient has been compliant with instructions. Current medication use: no End: 25-Nov-2012 9:19 side effects and compliant with dosing regimen. Patient sleeps 10 hours per night. Nutrition: balanced diet and no supplemental vitamins & iron. The medical issues the patient is following up for in clude All identified problems below, blood sugar issues, high blood pressure and high cholesterol. 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 Patient has been compliant with instructions. Current medication use: no side effects and compliant with dosing regimen. Patient sleeps 8 hours per night. N utrition: inappropriate diet and no supplemental vitamins & iron. The medical issues the patient is following up for include All identified problems below, blood sugar issues, fibromyalgia, gastric reflux, high blood pressure, high cholesterol and hypothyroid. fasting blood sugars : (has not been over 170, average 130). 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 Patient has been compliant with instructions. Current medication use: no End: 13-Jun-2012 15:38 side effects and compliant with dosing regimen. Patient sleeps 8 hours per night. Nutrition: inappropriate diet and no supplemental vitamins & iron. The medical issues the patient is following up fo r include All identified problems below, blood sugar issues, fibromyalgia, gastric reflux, high blood pressure, high cholesterol and hypothyroid. 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 Patient has been compliant with instructions. Current medication use: no side effects, End: 30-Mar-2012 14:33 compliant with dosing regimen and considered effective by patient. Patient sleeps 9 hours per night. Nutrition: balanced diet. The medical issues the patient is following up for include All identified problems below, blood sugar issues (DM), COPD, gastric reflux, high blood pressure, high cholesterol, hypothyroid and other (DDD, OA, RA, ). 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 The medical issues the patient is following up for include other (pneumonia).Encounter Diagnosis: Bacterial pneumonia, unspecified (482.9), End: 11-Jan-2012 16:45 Abnormal Lung Sounds/Rales (786.7) [facility] Office Visit On: 28-Dec-2011 13:57 Encounter Reason: Follow up for diabetes/glucose intolerance - The patient does not feel well (she is sick and not eating well). Patient has been compliant with instructions. Nutrition: inappropriate diet. fasting blood End: 28-Dec-2011 15:29 sugars : (120 to 160 the last 5 days).Encounter Diagnosis: Hyperlipidemia (272.4), Type II Diabetes,uncontrolled (250.02), Bacterial pneumonia, unspecified (482.9), Shortness of breath (786.05), Abnormal Lung Sounds/Rales (786.7) [facility] Office Visit On: 21-Dec-2011 12:50 Encounter Reason: Follow up for chronic medical issues - The patient feels well with minor complaints, has good energy level and is sleeping well. Patient has been compliant with instructions. Current medication use: no End: 21-Dec-2011 13:39 side effects and compliant with dosing regimen. Patient sleeps 7 hours per night. Nutrition: balanced diet and supplemental vitamins. The medical issues the patient is following up for include All ident ified problems below, blood sugar issues, fibromyalgia, high blood pressure and high cholesterol. 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 The surgeon for the procedure will be Dr. Cory Jacobo.Encounter Diagnosis: Pre-operative examination, unspecified (V72.84), Type II Diabetes,uncontrolled (250.02) End: 02-Oct-2011 14:25 [facility] Office Visit On: 18-Sep-2011 14:13 Encounter Reason: Follow up for diabetes/glucose intolerance - The patient feels well with minor complaints, has good energy level and is sleeping well. Patient has been compliant with instructions. Nutrition: balanced d End: 18-Sep-2011 15:06 iet. fasting blood sugars : and postprandial sugars :., [ADDITIONAL REASON] Follow up tests - Date: (09/09/11 labs). Encounter Diagnosis: Type II Diabetes,uncontrolled (250.02), Unspecified vitamin D deficiency (268.9), Hyperlipidemia (272.4), Hypothyroidism(244.9) [facility] Office Visit On: 09-Sep-2011 12:53 Encounter Reason: Follow up for chronic medical issues - The patient feels well with minor complaints, has good energy level and is sleeping well. Patient has been compliant with instructions. Current medication use: no End: 09-Sep-2011 13:41 side effects and compliant with dosing regimen. Patient sleeps 7 hours per night. Nutrition: balanced diet and supplemental vitamins. The medical issues the patient is following up for include All ident ified problems below, blood sugar issues, depression, high blood pressure and high cholesterol. blood pressure range :, fasting blood sugars : and weight :., [ADDITIONAL REASON] Follow up ER - Reason for hospitalization note: (pt in diabetic acidoisis--). Hospitalization details include: abnormal labs Patient has been compliant with instructions. Current m edication use: no side effects. The patient feels well with no complaints (feeling much better -- didnt realize how bad i was feeling ). Impact of disease: no emotional impact. Nutrition: balanced diet. 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), Gerd (530.81) [facility] Phone Encounter On: 03-Sep-2011 15:55 Encounter Diagnosis: COPD (496.) End: 03-Sep-2011 15:56 [facility] Phone Encounter On: 20-Aug-2011 12:56 Encounter Diagnosis: COPD (496.) End: 20-Aug-2011 12:58 [facility] Office Visit On: 03-Aug-2011 15:04 Encounter Diagnosis: COPD (496.), Tobacco use disorder (305.1) End: 03-Aug-2011 16:26 [facility] Office Visit On: 08-Jul-2011 13:45 Encounter Reason: Follow up Meds - The patient feels well with no complaints, has good energy level and is sleeping well. Patient has been compliant with instructions. Current medication use: no side effects, compliant w End: 08-Jul-2011 14:25 ith dosing regimen and considered effective by patient. Patient sleeps 8 hours per night. Impact of disease: emotional impact-mild. Nutrition: balanced diet and supplemental vitamins., [ADDITIONAL REASON] Follow up tests - Diagnostic tests include chest X-ray and other (labs). Date: (07/06/11). Follow up visit with no current symptoms. Encounter Diagnosis: COPD (496.), Hypothyroidism(244.9), Tobacco use disorder (305.1) [facility] Office Visit On: 10-Jun-2011 13:42 Encounter Reason: Follow up for chronic medical issues - The patient does not feel well, has decreased energy level and is sleeping well. Patient has been compliant with instructions. Current medication use: no side effe End: 10-Jun-2011 16:44 cts and compliant with dosing regimen. Patient sleeps 8 hours per night. Nutrition: inappropriate diet and no supplemental vitamins & iron. The medical issues the patient is following up for include All identified problems below, blood sugar issues, depression, fibromyalgia, gastric reflux, high cholesterol, hypothyroid and osteoarthritis. 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 Patient has been compliant with instructions. Current medication use: no side ef End: 18-Mar-2011 14:48 fects and compliant with dosing regimen. Patient sleeps 7 hours per night. Nutrition: inappropriate diet and no supplemental vitamins & iron. The medical issues the patient is following up for inclu de All identified problems below, blood sugar issues, depression, gastric reflux, high blood pressure and high cholesterol. 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 Note for Follow up for diabetes/glucose intolerance: 216 after dinner, End: 07-Jan-2011 13:49 [ADDITIONAL REASON] Follow up Meds - The patient feels well with minor complaints. Patient has been compliant with instructions. Current medication use: no side effects and compliant with dosing regime n. Patient sleeps 7 hours per night. Nutrition: balanced diet. , [ADDITIONAL REASON] Sinusitis - The last clinic visit was 3 week(s) ago. No changes in management we re made at the last visit. Symptoms include nasal congestion, cheek pressure, forehead pain, forehead pressure, cough, ear pressure and headache. Encounter Diagnosis: Type II Diabetes,uncontrolled (250.02), SINUSITIS, ACUTE NOS (461.9) [facility] Office Visit On: 31-Dec-2010 12:55 Encounter Reason: Follow up for diabetes/glucose intolerance - Patient has been compliant with instructions. Nutrition: balanced diet., [ADDITIONAL REASON] Follow up tests - Date: (12/19/10). Encounter Diagnosis: End: 31-Dec-2010 13:39 Type II Diabetes,uncontrolled (250.02) [facility] Office Visit On: 15-Dec-2010 13:15 Encounter Reason: Follow up for chronic medical issues - The patient feels well with minor complaints, has good energy level and is sleeping well. Patient has been compliant with instructions. Current medication use: no End: 15-Dec-2010 14:28 side effects and compliant with dosing regimen. Patient sleeps 6 hours per night. Nutrition: balanced diet and no supplemental vitamins & iron. The medical issues the patient is following up for inc lude All identified problems below, gastric reflux, high blood pressure and high cholesterol. weight :., [ADDITIONAL REASON] Follow up tests - Date: (12/08/10). Encounter Diagnosis: Fibromylgia, Hyperlipidemia (272.4), Hypothyroidism(244.9), Depressive Disorder (311.), Gerd (530.81), Type II Diabetes,uncontrolled (250.02), Need for prophylactic vaccination and inoculation against influenza (V04.81) [facility] Office Visit On: 18-Sep-2010 12:54 Encounter Reason: Follow up for chronic medical issues - The patient feels well with minor complaints, has decreased energy level and is sleeping well. Patient has been compliant with instructions. Current medication use End: 19-Sep-2010 10:08 : no side effects and compliant with dosing regimen. Patient sleeps 6 hours per night. Nutrition: inappropriate diet and no supplemental vitamins & iron. The medical issues the patient is following up for include All identified problems below, blood sugar issues, high blood pressure and high cholesterol.Encounter Diagnosis: Hyperlipidemia (272.4), Fibromylgia, Type II Diabetes,uncontrolled (250.02), Gerd (530.81), Hypothyroidism(244.9) [facility] Office Visit On: 11-Jun-2010 14:34 Encounter Reason: Follow up for chronic medical issues - The patient feels well with minor complaints, has decreased energy level and is sleeping poorly. Patient has been compliant with instructions. Current medication u End: 11-Jun-2010 16:35 se: no side effects and compliant with dosing regimen. Patient sleeps 6 hours per night. Nutrition: balanced diet. 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 Patient has been non-compliant with instructions. Current medication use: End: 12-Mar-2010 15:29 no side effects and non-compliant with dosing regimen. Patient sleeps 6 hours per night. Nutrition: inappropriate diet and supplemental vitamins. The medical issues the patient is following up for incl ude All identified problems below, blood sugar issues, high blood pressure, high cholesterol and hypothyroid., [ADDITIONAL REASON] Follow up, Laboratory Test Results - Date: (03/11/10). 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), 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 Goodwin tomorrow.). Patient has been co End: 19-Aug-2009 15:02 mpliant with instructions. Current medication use: no side effects ,compliant with dosing regimen and considered effective by patient. Patient sleeps 4 hours per night. Nutrition: poor nutrition and sup plemental vitamins. The medical issues the patient is following up for include All identified problems below ,blood sugar issues ,depression ,gastric reflux ,high cholesterol ,hypothyroid and osteoarthritis. 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 Patient has been compliant with instructions. Current medication use: no End: 10-May-2009 16:12 side effects and compliant with dosing regimen. Patient sleeps 6 hours per night. Nutrition: inappropriate diet and no supplemental vitamins & iron. The medical issues the patient is following up fo r include All identified problems below ,blood sugar issues ,high blood pressure and high cholesterol. 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 Date: (11/21/08). , [ADDITIONAL REASON] Follow up, Laboratory Test Results - Date: (12/07/08). 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 Patient has been compliant with instructions. Current medication use: no side ef End: 14-Nov-2008 15:21 fects. Patient sleeps 7 hours per night. Impact of disease: no overall impact. Nutrition: balanced diet. The medical issues the patient is following up for include All identified problems below ,blood s ugar issues ,cardiac issues ,depression ,gastric reflux ,high blood pressure and high cholesterol. 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 Patient has been compliant with instructions. Current medication use: no brian End: 20-Aug-2008 13:16 e effects. Patient sleeps 8 hours per night. Impact of disease: no overall impact. Nutrition: balanced diet. The medical issues the patient is following up for include All identified problems below ,blo od sugar issues ,cardiac issues ,depression ,high blood pressure ,high cholesterol ,hypothyroid ,osteoarthritis and other (RA). 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 Patient has been compliant with instructions. Current medication use: no End: 21-May-2008 14:00 side effects and compliant with dosing regimen. Patient sleeps 7 hours per night. Nutrition: balanced diet and no supplemental vitamins & iron. The medical issues the patient is following up for inc lude All identified problems below ,blood sugar issues ,high blood pressure and high cholesterol. 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 Patient has been compliant with instructions. Current medication use: no side effects and compliant with dosing regimen. Patient End: 23-Apr-2008 13:51 sleeps 8 hours per night. Impact of disease: no overall impact. Nutrition: balanced diet and supplemental vitamins. The medical issues the patient is following up for include All identified problems below ,blood sugar issues and depression. Encounter Diagnosis: Bacterial pneumonia, unspecified (482.9), Hypoxemia (799.02), Cramp of limb (729.82) [facility] Office Visit On: 18-Apr-2008 13:51 Encounter Reason: Pneumonia - The onset of the pneumonia has been acute and has been occurring in a persistent pattern for 3 weeks. The course has been constant. The pneumonia is described as a moderate tightness. Encounter Diagnosis: End: 18-Apr-2008 15:19 Hypoxemia (799.02), Bacterial pneumonia, unspecified (482.9), Tobacco use disorder (305.1) [facility] Office Visit On: 04-Apr-2008 15:15 Encounter Reason: Follow up acute care visit - The patient feeling better since last seen. Patient has been compliant with instructions. Current medication use: no side effects and compliant with dosing regimen. Patient End: 04-Apr-2008 16:05 sleeps 6 hours per night. Nutrition: balanced diet. Encounter Diagnosis: Bacterial pneumonia, unspecified (482.9), Hypoxemia (799.02), Shortness of breath (786.05) [facility] Office Visit On: 02-Apr-2008 15:49 Encounter Reason: Upper respiratory infection - The duration of the symptoms are 1 week The course has been worsening. The upper respiratory infection has no relieving factors. Associated features include cough ,ear pain End: 02-Apr-2008 16:38 and sinus pain. No previous evaluations were reported. Encounter Diagnosis: Bacterial pneumonia, unspecified (482.9), Shortness of breath (786.05), Hypoxemia (799.02) [facility] Office Visit On: 16-Mar-2008 12:51 Encounter Reason: Follow up for chronic medical issues - The patient feels well with no complaints ,has good energy level and is sleeping well. Patient has been non-compliant with instructions. Current medication use: no End: 16-Mar-2008 15:39 side effects and compliant with dosing regimen. Patient sleeps 7 hours per night. Nutrition: inappropriate diet and supplemental vitamins. The medical issues the patient is following up for include All identified problems below ,blood sugar issues ,gastric reflux ,high blood pressure and high cholesterol. weight :. 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 Patient has been compliant with instructions. Current medication u End: 15-Dec-2007 14:32 se: no side effects and compliant with dosing regimen. Patient sleeps 5 hours per night. Nutrition: inappropriate diet. The medical issues the patient is following up for include All identified problems below ,blood sugar issues ,high blood pressure and high cholesterol. Encounter Diagnosis: Type II Diabetes,uncontrolled (250.02), Hyperlipidemia (272.4), Hypothyroidism(244.9), Gerd (530.81), Need for prophylactic vaccination and inoculation against influenza (V04.81) [facility] Historical Summary On: 27-Oct-2007 13:54 [facility] End: 27-Oct-2007 13:56 Office Visit On: 14-Sep-2007 14:25 Encounter Reason: Follow up for chronic medical issues - The patient does not feel well (tired) ,has decreased energy level and is sleeping well. Patient has been compliant with instructions. Current medication use: no s End: 14-Sep-2007 15:22 arcadio effects and compliant with dosing regimen. Patient sleeps 7 hours per night. Nutrition: inappropriate diet and supplemental vitamins. The medical issues the patient is following up for include All i dentified problems below ,blood sugar issues ,gastric reflux ,high blood pressure ,high cholesterol and hypothyroid. 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 General health: feels well with minor complaints ,has good energy level and is sleeping well. The patient's appetite is normal. Nutrition: End: 15-Jun-2007 15:42 supplemental vitamins & iron. Exercises 0 days per week. Sleeps on average 7 hours per night. Normal bowel and bladder habits. Safety measures include appropriate use of safety belts and home smoke detectors. Current emotional problems include depression. screening, mammography and screening, Pap smear. 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
--- OUTSIDE RECORDS SUMMARY | 2018-03-20 08:56 | XMS RPT_ITS | Continuity of Care Document ---
:1950 Author Organization [facility] Address [address] [facility] [address] [place] [address] Phone Care Team Providers Name Role Phone [...] sees Dr Gurrola until he retired now [facility] Status: Active BMI 30.0-30.9,adult (Z68.30, V85.30) Status: [...] 0 days Quantity: 30 {Tablet} Refills: 0 Ordered:27-Jan-2018 Annel Henson DO, DO, Kathleen Start : 27-Jan-2018 Active Comments:needs appt MELOXICAM, 15MG (Oral Tablet) qd (15 MG) [...] 32MG (Oral Tablet) qd (32 MG) Inactive Comments:[facility] NIASPAN, 500MG (Oral Tablet Extended Release) 1 [...] Hour) 1 tab bid (300 MG) Inactive Comments:[facility] #26 starting on 03-04-13 Tresiba FlexTouch 200 [...] 09-Sep-2011 End : 28-Dec-2011 Inactive VITAMIN D, 85899KERG (Oral Capsule) 1 daily for 0 days Refills: 0 Ordered:10-May-2009 Omayra Cunhative WELLBUTRIN SR, 150MG (Oral Tablet Extended Release [...] Discontinued Comments:This order discontinued per [facility]. ERGOCALCIFEROL, 66927YLTB (Oral Capsule) 1 (one) Capsule twice weekly [...] : 28-Dec-2011 Discontinued Comments:This order discontinued per [facility]. 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 Medical Records Department [address] [place] [address] Instructions for Home/Discharge Instructions 12/21/17 1103 MR#: [id number] Acct: [id number] Name: ELIZABETH MEYERS Rep #: [id number] : 1950 67 From: Jazzy Dunn DPM PCP: Lucretia Henson DO Status: REG [facility] Discharge Activity: May not drive while taking [...] Pain Primary Care Physician: Lucretia Henson DO [Prima Care Provider] - Test Results: Test results from this visit will be discussed in further detail at your follow-up appointment, if applicable. Please Follow Up With: Jazzy Dunn DPM When: as previ amanda scheduled 12/21/17 1107 <Electronically signed by Jazzy Dunn DPM> Date Jazzy Mychak DPM CC: Lucretia Anna KAUR 21-Dec-2017 Operative Report Result: Comments: See Note; NOTES: [facility] Medical Records Department [address] [place] [address] Operative Report 12/21/17 1041 MR#: [id number] Acct: [id number] Name: ELIZABETH MEYERS Rep #: [id number] : 1950 67 From: Jazzy Dunn DPM PCP: Lucretia Henson DO Status: REG SDC Y Location: [place] [address] Report of Operation Date of Procedure: 12/21/17 Pre-Operative Diagnosis: Lef t foot abscess Post-Operative Diagnosis: same Surgery/Procedure Performed:: L foot incision and drainage, washout Description of Surgical Findings:: Indications: Pt is a 67 yo F who presented to [place] yesterday for a post-operative appointment [...] days in clinic or sooner if needed. freelance recruiter: none Type of Anesthesia:: Local MAC Specimen's removed: wound cx Drains: giorgio Estimated Blood Loss (mL): minimal - Admit VTE Documentation VTE Present on Admission: No VTE Mechan Device Prophylaxis: SCD's 12/21/17 1058 <Electronically signed by Jazzy Dunn DPM> Date __ Jazzy Dunn DPM CC: ABHAY Henson DO Signed 22-Nov-2017 12 Lead Electrocardiogram Result: Comments: See Note; NOTES: [facility] Cardiovascular Services [address] [place] [address] 12 Lead EKG 11/18/17 1724 MR#: [id number] Acct: [id number] Name: ELIZABETH MEYERS Rep # : [id number] : 1950 67 From: Hayden Farnsworth MD [...] Borderline ECG Confirmed by MARTINA PAN, HAYDEN ([id number]), avid editor CATY MEJIA ([id number]) on 11/22/2017 2:38:43 PM Referred By: Jazzy Dunn Confirmed By:HAYDEN LOZANO MD 11/22/17 1438 Date Hayden Farnsworth MD CC: DPLucy Dunn; Lucretia Henson DO Signed 18-Nov-2017 Chest PA and Lateral Result: Comments: See Note; NOTES: [facility] Imaging Services [address] [place] [address] Chest PA and Lateral MR#: [id number] Acct: [id number] Name: ELIZABETH MEYERS Rep #: [id number] : 1950 F 67 From: Shar Arevalo DO PCP: Lucretia Henson DO Status: REG CLI Study: Chest PA and Lateral Date of Exam: 11/18/17 Exam# [id number] Ordering Dr: Jazzy Dunn DPM STUDY: X-RAY [...] Arevalo DO at 18:48 ED T Tel [phone], Service support , CC: ABHAY Dunn; Lucretia Henson DO Customer Service Representative: Signed 09-Jul-2015 12 Lead Electrocardiogram Result: Comments: See Note; NOTES: [facility] Cardiovascular Services [address] [facility] [place] [address] 12 Lead EKG 07/04/151641 MR#: [id number] Acct: [id number] Name: ELIZABETH ESPINAL Rep #: [id number] : 1950 65 From: Ernesto Peacock MD Attending Dr: Siddharth Valdovinos Status: REG I Ordering Dr: Siddharth Mendoza PA-C Date: 07/04/15 [...] ECG Confirmed by ERNESTO PEACOCK MD ([id number]), avid editor CATY MEJIA (56) on 07/09/2015 9:57:58 AM Referred By: TANNER Confirmed By:ERNESTO PEACOCK MD 07/08 0958 Date Ernesto Peacock MD CC: Lucretia Henson DO Date Dictated: 07/04/151641 Date Transcribed: 07/04/151641 Customer Service Representative: Signed 19-Jun-2015 Spirometry (17944) Comments: mild restricitoin Result: 03-Dec-2014 EKG (34540) Comments: INC rbbb NSR NO ACUTE CGH Result: [MEASUREMENTS ANALYSIS] Date of Test: 12/03/2014 16:09:42; Heart Rate: 67; RI Interval: 144; QRS: 108; QT Interval: 420; Corrected QT Interval (QTc): 432; P Wave [place]: 63; QRS [place]: 72; T [place] : 65; Blood Pressure: 122/74 [ECG DIAGNOSTIC STATEMENTS] Date of Test: 12/03/2014 16:09:42; Summary: Sinus Rhythm Low voltage -possible pulmonary disease. ABNORMAL 21-May-2014 Spirometry (85023) Comments: good stable Result: 09-Apr-2014 Chest PA and Lateral Result: Comments: See Note; NOTES: [facility] Imaging Services [address] [place] [address] Radiology Report MR#: [id number] Acct: [id number] Name: ELIZABETH MEYERS Rep #: [id number] : 1950 F 63 From: Sabino Osorio DO PCP: Lucretia Henson DO Status: REG CLI Study: Chest PA and Lateral Date of Exam: 04/09/14 Exam# [id number] Ordering Dr: Reyes Goodwin DO STUDY: X-RAY [...] significant change from 05/01/13. Electronically Signed: Sabino DO Devon at 2:15 EST Tel , Service support [phone], CC: Lucretia Henson DO; Reyes Goodwin DO Customer Service Representative: Signed 06-Apr-2014 12 Lead Electrocardiogram Result: Comments: See Note; NOTES: [facility] Cardiovascular Services [address] [place] [address] 12 Lead EKG 04/05/14 1522 MR#: [id number] Acct: [id number] Name: RACHEL MEYERS Rep #: [id number] : 1950 63 From: Jey Azar MD [...] Borderline ECG Confirmed by JEY AZAR ([id number]), avid editor CATY MEJIA (56) on 04/06/2014 10 :05:50 AM Referred By: TANNER Confirmed By:JEY AZAR 04/06/14 1005 Date Jey Azar MD CC: Lucretia Henson DO Date Dictated: 04/05/14 1522 Date Transcribed: 04/05/141521 Customer Service Representative: Signed 31-Jan-2014 Operative Report Result: Comments: See Note; NOTES: [facility] Medical Records Department [address] [place] [address] Operative Report MR#: [id number] Acct: [id number] Name: ELIZABETH MEYERS Rep # : [id number] : 1950 63 From: Reyes Goodwin DO PCP: Lucretia Henson DO Status: ADM IN DATE OF SERVICE: 01/29/2014 OPERATION: Right total hip replacement arthroplasty utilizing Yonis Trident size 48 cup, MDM metal liner, size 4 Accolade type 2, 132 degree neck angle femoral stem with +3 modular cobalt chromium polyethylene femoral head. PREOPERATIVE DIAGNOSIS: Osteoarthritis, right hip. POSTOPERATIVE DIAGNOSIS: Osteoarthritis, right hip. SURGEON: Reyes Goodwin D.O. SIDE PULLER: Siddharth Mendoza PA-C. SECOND LEAD BURNER SUPERVISOR ____ PGY4. ANESTHESIA: Spinal. ANESTH ESIOLOGIST: Demar [...] range of motion, stability, and leg length gnosticist. Trial head and nec k was removed [...] skin. Sterile well-padded dressing was applied. My physician assistant, Mr. Mendoza, provided a vital role [...] condition. Reyes Goodwin DO T: SHARLA JOB: [id number] 01/31/14 1549 &#60 ;Electronically signed by Reyes Goodwin DO> Date Reyes Goodwin DO CC: Lucretia Goodwin DO Date Dictated: 01/29/141419 Date Transcribed: 01/29/14 142 Customer Service Representative: Signed 31-Jan-2014 Discharge Instruction Result: Comments: See Note; NOTES: [facility] Medical Records Department [address] [facility] [place] [address] Instructions for Home/Discharge Instructions 01/31/14 1512 MR#: [id number] Acc t: [id number] Name: ELIZABETH MEYERS Rep #: [id number] : 1950 63 From: Siddharth Mendoza PA-C [...] tablet Please Follow Up With: Physical therapy jesus/Reyes Please Follow Up With: Tech sher t with Clinical Convention Services Manager Paola @ [place] office Please Follow Up With: Siddharth Mendoza 01/31/14 1514 <Electronically signed by Siddharth Mendoza PA-C> Date Siddharth Mendoza PA-C CC: Lucretia Henson DO; Mau Faulkner DO 31-Jan-2014 12 Lead Electrocardiogram Result: Comments: See Note; NOTES: [facility] Cardiovascular Services [address] [place] [address] 12 Lead EKG 01/29/14 1454 MR#: [id number] Acct: [id number] Name: RACHEL MEYERS Rep #: [id number] : 1950 63 From: Hayden Farnsworth MD Attending Dr: Nadeem Ceballos MD Status: ADM IN Ordering Dr: Demar Valadez MD Date: 01/29/14 Location: [facility] Sex: F C Admitted: 01/29/14 Test Reason [...] QRS Borderline ECG Confirmed by MARTINA PAN, AHYDEN ([id number]), avid editor CATY MEJIA (56) on 2013 9:46:18 AM Referred By: TANNER Confirmed By:HAYDEN FARNSWORTH MD 01/31/14 0946 Date Hayden Farnsworth MD CC: Lucretia Henson DO Date Dictated: 01/29/141453 Date Transcribed: 01/29/141453 Customer Service Representative: Signed 30-Jan-2014 Echocardiogram Complete Result: Comments: See Note; NOTES: [facility] Cardiovascular Services [address] [place] [address] Echo Complete 01/29/14 1508 MR#: [id number] Acct: [id number] Name: ULICES MEYERS Rep #: [id number] : 1950 63 From: Ernesto Peacock MD Attending Dr: Tucker PANNadeem Status: ADM IN Ordering Dr: Demar Valadez [...] 1556 Date Ernesto Peacock MD CC: Demar Valaedz MD; Lucretia Henson DO Date Dictated: 01/29/14 1508 Date Transcribed: 01/29/14 1556 Customer Service Representative: Signed 30-Jan-2014 Consultation Result: Comments: See Note; NOTES: [facility] Medical Records Department [address] [place] [address] Consultation 01/30/14 1128 MR#: [id number] Acct: [id number] Name: ULICES MEYERS Rep #: [id number] : 1950 63 From: Nadeem Ceballos MD PCP: Lucretia Henson DO Status: ADM IN Y Location: [facility] SM403-9 Reason for Consult Date of Consultation: 01/30/14 Reason for Con sultation: medical management in a patient with right total hip arthroplasty History of Present Illness: The patient is a 63 year old F who has had rheumatoid arthritis for about 20 years. She has b een followed by physicians at the [facility] in [place] since about the year 1999. She states [...] BIDCM 02/24/13 Acetaminophen [Tylenol] 325 mg PO RI N PRN 01/16/14 Cholecalciferol (Vitamin D3) 5,000 [...] surgery Psychiatric History: No pertinent psych hx CHANGE LEAD History: No pertinent CHANGE LEAD history Lives: With Famil y Smoking Status: [...] Views (Portable) Result: Comments: See Note; NOTES: [facility] Imaging Services [address] [place] [address] Radiology Report MR#: [id number] Acct: [id number] Name: ELIZABETH MEYERS Rep #: [id number] : 1950 F 63 From: Mane Stephens MD PCP: Lucretia Henson DO Status: ADM IN Study: Hip Min 2 Views (Portable) Date of Exam: 01/29/14 Exam# [id number] Ordering Dr: Reyes Goodwin DO STUDY: X-RAY [...] Mane Stephens MD at 16:01 EST Tel [phone], Service support [phone], Fax RAD/Hip Min 2 Views (Portable) IMPRESSION: The patient is status post right total hip replacement. There is good alignment. Postoperative soft tissue swelling. Sandra ctronically Signed: Mane Stephens MD at 16:01 EST Tel [phone], Service support [phone], CC: Lucretia Henson DO; Reyes Goodwin DO Customer Service Representative: Signed 01-May-2013 Chest PA and Lateral Result: Comments: See Note; NOTES: [facility] Imaging Services [address] [place] [address] Radiology Report MR#: [id number] Acct: [id number] Name: ELIZABETH MEYERS Rep #: [id number] : 1950 F 62 From: Siddharth Wahl MD PCP: Lucretia Henson DO Status: REG CLI Study: Chest PA and Lateral Date of Exam: 05/01/13 Exam# [id number] Ordering Dr: Lucretia Henson DO STUDY: X- [...] MD at 11:51 EDT , Service support [phone], CC: Lucretia Henson DO Customer Service Representative: Signed Immunization Name Dates Details Influenza (3 years and up) on: 15-Dec-2007 Comments: 0.5cc given lt arm lot [id number] exp 07-31 Influenza (3 years and up) [...] smoker Vital Signs Date Test Result Details 25-Vre-252924:48 Temperature 97.2 f Comments: Method: Temporal Pulse [...] kg/m2 Body Surface Area Calculated 1.96 m2 99-Hmv-838703:19 Pulse 78 /min Comments: Pattern: Regular Respiration [...] kg/m2 Body Surface Area Calculated 1.95 m2 86-Dvk-806072:21 Pulse 72 /min Comments: Pattern: Regular Respiration [...] Area Calculated 2.04 m2 :32 Comments: hearing CirilorMonserrat Grimm and had a glaucoma test done [...] 0.00 cm Results Date Description Value Details 30-Uzm-122135:41 Culture, Deep Wound Comments: [facility] [address] [place], [place], [address] CUDW See Note (Normal) Comments: Order Date: [...] $ <=0.5 S(NF) indicates non-formulary drug at [facility]. Approval by Infectious Disease Specialist required before non-formulary drugs may be ordered and/or dispensed. * CLSI guidelines does not recommend testing of cephalosporins. This interpretation is deduced from Beta-lactam/penicillin results. Cult, AnaerobicNo anaerobic bacteria isolated. 06-Leh-70304:58 Basic Metabolic Profile (BMP) Comments: [facility] [address] [place], [place], [address] GAP 8 (Normal) Range: 5-15 CO2 30.0 [...] A.D.A. criteria.Please note revised GLUCOSE reference range cvhtmhjqi64/02/2018. 50-Jry-33013:58 CBC-Complete Blood Cnt No Diff Comments: [facility] [address] [place], [address] MPV 10.8 fL (Normal) Range: 6.2-12.0 PLT [...] 4.2-5.4 WBC 5.3 K/mm3 (Normal) Range: 4.4-11.0 41-Xie-67509:58 Hemoglobin A1c Comments: [facility] [address] [place], [address] HGB A1C 10.3 % (Abnormal) Range: 4.2-6.3 24-Zvq-46387:58 Thyroid Stim Hormone (TSH) Comments: [facility] [address] [place], [address] TSH 0.11 {uIU/mL} (Abnormal) Range: 0.358-3.74 29-Cet-61325:20 Bedside Glucose Comments: [facility] [address] [place] [address] BEDSIDE GLU 195 mg/dL (Abnormal) Range: 70-110 Comments: MANAGEMENT OF PATIENT CARE PER NURSING PROTOCOL :03 Mass (define area) See Note (Normal) Comments: [facility] [address] [place], [address] Comments: Patient: ELIZABETH MEYERS : 1950 (67/F) Acct Num: [id number] Phys: Jazzy Dunn DPM Unit Num: [id number] Loc: [facility] Specimen: [id number] Received: 12/02/171558 Spec Type: Mass TISSUES 1 [...] entire specimenis submitted in one cassette. / SAMEERA:bernard 12/03/17 TC:5 CPT: 02962, 96361 x2 HEADER OPERATION: Left foot excision of [...] Signed Dru Al 12/07/17 <signature on file> 45-Lvt-402244:54 Basic Metabolic Profile (BMP) Comments: [facility] [address] [place], [place], [address] GAP 4 (Abnormal) Range: 5-15 CO2 29.0 [...] A.D.A. criteria.Please note revised GLUCOSE reference range abgotoaxl35/02/2018. 64-Mdc-121854:54 CBC-Complete Blood Cnt No Diff Comments: [facility] [address] [place], [place], [address] MPV 10.1 fL (Normal) Range: 6.2-12.0 PLT [...] Range: 4.4-11.0 :36 CBC W/Diff, Automated Comments: [facility] [address] [place], [place], [address] Absolute Lymph 1.77 {X10_3/ul} (Normal) Range: 0.83-4.51 [...] 4.2-5.4 WBC 7.1 K/mm3 (Normal) Range: 4.4-11.0 3-Qad-994577:36 CRP Comments: [facility] [address] [place], [place], [address] C-REACTIVE PROT 24.50 mg/L (Abnormal) Range: 0.0-3.0 Comments: C-Reactive Protein (CRP) provides useful information for thediagnosis, therapy and monitoring of inflammatory processesand associated diseases. For the evaluation of Relative Riskfor Cardiovascular Dise ase, a High Sensitivity CRP (HSCRP)should be ordered. :36 Erythrocyte Sed Rate Comments: [facility] [address] [place], [place], [address] SED RATE 35 mm/h (Abnormal) Range: 0-30 :42 HgA1C , Office (81245) HgA1C , Office 11.2 % (Abnormal) Range: 4.6 - 7.1 :42 Blood Glucose , Office (85793) Blood Glucose , Office 375 (Normal) :28 CBC W/Diff, Automated Comments: [facility] [address] [place], [place], [address] Absolute Lymph 1.68 {X10_3/ul} (Normal) Range: 0.83-4.51 [...] 4.2-5.4 WBC 4.7 K/mm3 (Normal) Range: 4.4-11.0 71-Dxb-523640:28 Comprehensive Metabolic Profil Comments: [facility] [address] [place], [place], [address] GAP 8 (Normal) Range: 5-15 CO2 32.0 [...] A.D.A. criteria.Please note revised GLUCOSE reference range bqruwrrkl09/02/2018. 91-Uyw-611817:28 Free T3 Comments: [facility] [address] [place], [address] FREE T3 2.2 pg/mL (Normal) Range: 2.18-3.98 36-Opj-672767:28 Lipid Profile Comments: [facility] [address] [place], [address] VLDL 40 mg/dL (Normal) Range: 5-40 LDL [...] mg/dL Borderline >240 mg/dL High Risk :28 T4 Free Direct Comments: [facility] [address] [place], [address] T4 FREE DIRECT 1.70 ng/dL (Abnormal) Range: 0.76-1.46 45-Rtm-944250:28 Thyroid Stim Hormone (TSH) Comments: [facility] [address] [place], [address] TSH 1.05 {uIU/mL} (Normal) Range: 0.358-3.74 92-Eaj-157249:16 HgA1C , Office (94441) HgA1C , Office 11.0 % (Abnormal) Range: 4.6 - 7.1 :15 Blood Glucose , Office (71815) Blood Glucose , Office 508 (Normal) 67-Dnu-182590:18 HgA1C , Office (47545) HgA1C , Office 11.7 % (Abnormal) Range: 4.6 - 7.1 60-Ygg-188526:18 Blood Glucose , Office (83258) Blood Glucose , Office 360 (Normal) :55 CBC W/Diff, Automated Comments: [facility] [address] [place], [place], [address] Absolute Lymph 1.93 {X10_3/ul} (Normal) Range: 0.83-4.51 [...] 4.2-5.4 WBC 5.7 K/mm3 (Normal) Range: 4.4-11.0 :55 Comprehensive Metabolic Profil Comments: [facility] [address] [place], [place], [address] GAP 9 (Normal) Range: 5-15 CO2 28.0 [...] 200 mg/dLsuggests DIABETES MELLITUS per A.D.A. criteria. 4-Feq-289278:55 Free T3 Comments: [facility] [address] [facility] [address] [place], [place], [address] FREE T3 1.8 pg/mL (Abnormal) Range: 2.18-3.98 0-Qdv-033555:55 Lipid Profile Comments: [facility] [address] [facility] [address] [place], [place], [address] VLDL 41 mg/dL (Abnormal) Range: 5-40 LDL [...] 200-240 mg/dL Borderline >240 mg/dL High Risk 3-Bbq-260925:55 Microalb:Creat Ratio,Random UR Comments: [facility] [address] [place], [address] MALB:CREAT 17.2 {mg/g_CRE} (Normal) MICROALBUMIN,UR 7.6 mg/L (Normal) UR CREAT 44.40 mg/dL (Normal) 8-Wfr-914231:55 T4 Free Direct Comments: [facility] [address] [place], [place], [address] T4 FREE DIRECT 1.23 ng/dL (Normal) Range: 0.76-1.46 5-Guj-618459:55 Thyroid Stim Hormone (TSH) Comments: [facility] [address] [place] [address], [address] TSH 15.10 {uIU/mL} (Abnormal) Range: 0.358-3.74 1-Krr-340142:55 Urinalysis, Complete Comments: How was Urine Obtained? CLEAN [facility] [address] [place], [address] MUCUS, URINE 0 SEEN {/hpf} [...] Yellow (Normal) :55 Vitamin D,25 Hydroxy Comments: [facility] [address] [place], [place], [address] Vitamin D 25-OH 66.6 ng/mL (Normal) Comments: Vitamin D 25(OH) Status Range Deficiency <20 ng/mL (50nmol/L) Insuffciency 20 - 30 ng/mL (50 - 75 nmol/L) Sufficiency 30 - 100 ng/mL (75 - 250 nmol/L) Toxicity >100 ng/mL (>250 nmol/L) :24 HgA1C , Office (71739) HgA1C , Office 10.2 % (Abnormal) Range: 4.6 - 7.1 :24 Blood Glucose , Office (01813) Blood Glucose , Office 261 (Normal) :35 CBC W/Diff, Automated Comments: [facility] [address] [place], [place], [address] Absolute Lymph 1.72 {X10_3/ul} (Normal) Range: 0.83-4.51 [...] 4.2-5.4 WBC 5.4 K/mm3 (Normal) Range: 4.4-11.0 27-Hai-193592:35 Comprehensive Metabolic Profil Comments: [facility] [address] [place], [place], [address] GAP 10 (Normal) Range: 5-15 CO2 27.0 [...] 126 mg/dLsuggests DIABETES MELLITUS per A.D.A. criteria. 81-Vzf-642876:35 Lipid Profile Comments: [facility] [address] [facility] [address] [place], [place], [address] VLDL 65 mg/dL (Abnormal) Range: 5-40 LDL [...] 200-240 mg/dL Borderline >240 mg/dL High Risk 11-Ckh-186637:35 Microalb:Creat Ratio,Random UR Comments: [facility] [address] [facility] [place], [address] MALB:CREAT Test not performed {mg/g_CRE} (Normal) MICROALBUMIN,UR < 5.0 mg/L (Normal) UR CREAT 19.80 mg/dL (Normal) 73-Pxp-561867:35 Thyroid Stim Hormone (TSH) Comments: [facility] [address] [facility] [place], [address] TSH 0.34 {uIU/mL} (Abnormal) Range: 0.358-3.74 16-Vjh-855186:35 Urinalysis, Complete Comments: How was Urine Obtained? [facility] [address] [place], [place], [address] MUCUS, URINE 0 SEEN {/hpf} (Normal) BACTERIA [...] (Normal) CLARITY Clear (Normal) COLOR Yellow (Normal) 64-Bmf-336717:35 Vitamin D,25 Hydroxy Comments: [facility] [address] [place], [place], [address] Vitamin D 25-OH 49.0 ng/mL (Normal) Comments: Vitamin D 25(OH) Status Range Deficiency <20 ng/mL (50nmol/L) Insuffciency 20 - 30 ng/mL (50 - 75 nmol/L) Sufficiency 30 - 100 ng/mL (75 - 250 nmol/L) Toxicity >100 ng/mL (>250 nmol/L) 96-Qwy-884680:55 HgA1C , Office (03264) HgA1C , Office 12.7 % (Abnormal) Range: 4.6 - 7.1 :55 Blood Glucose , Office (42293) Blood Glucose , Office 281 (Normal) 70-Qol-469858:00 HgA1C , Office (97144) HgA1C , Office 10.9 % (Abnormal) Range: 4.6 - 7.1 29-Tqm-594702:00 Blood Glucose , Office (79540) Blood Glucose , Office 294 (Normal) :06 CBC W/Diff, Automated Comments: [facility] [address] [place], [address] Absolute Lymph 2.04 {X10_3/ul} (Normal) Range: 0.83-4.51 [...] 4.2-5.4 WBC 5.3 K/mm3 (Normal) Range: 4.4-11.0 08-Yny-201380:06 Comprehensive Metabolic Profil Comments: [facility] [address] [facility] [place], [place], [address] GAP 7 (Normal) Range: 5-15 CO2 31.0 [...] 200 mg/dLsuggests DIABETES MELLITUS per A.D.A. criteria. 97-Hus-096345:06 Free T3 Comments: [facility] [address] [place], [place], [address] FREE T3 2.4 pg/mL (Normal) Range: 2.18-3.98 66-Gti-845917:06 Microalb:Creat Ratio,Random UR Comments: [facility] [address] [place], [place], [address] MALB:CREAT 23.5 {mg/g_CRE} (Normal) MICROALBUMIN,UR 39.5 mg/L (Normal) UR CREAT 168.00 mg/dL (Normal) 44-Dmg-166061:06 T4 Free Direct Comments: [facility] [address] [place], [place], [address] T4 FREE DIRECT 1.48 ng/dL (Abnormal) Range: 0.76-1.46 :06 Thyroid Stim Hormone (TSH) Comments: [facility] [address] [place], [address] TSH 1.80 {uIU/mL} (Normal) Range: 0.358-3.74 67-Wee-899660:06 Urinalysis, Complete Comments: How was Urine Obtained? CLEAN [facility] [address], [address] MUCUS, URINE 0 SEEN {/hpf} (Normal) [...] CLARITY Sl. Cloudy (Normal) COLOR Yellow (Normal) :06 Vitamin D,25 Hydroxy Comments: [facility] [address] [place], [address] Vitamin D 25-OH 38.6 ng/mL (Normal) Comments: Vitamin D 25(OH) Status Range Deficiency <20 ng/mL (50nmol/L) Insuffciency 20 - 30 ng/mL (50 - 75 nmol/L) Sufficiency 30 - 100 ng/mL (75 - 250 nmol/L) Toxicity >100 ng/mL (>250 nmol/L) :12 HgA1C , Office (83319) HgA1C , Office 10.1 % (Abnormal) Range: 4.6 - 7.1 :12 Blood Glucose , Office (15674) Blood Glucose , Office 265 (Normal) :01 Free T3 Comments: [facility] [address] [place], [id number] FREE T3 1.9 pg/mL (Abnormal) Range: 2.18-3.98 :01 T4 Free Direct Comments: [facility] [address] [place], [id number] T4 FREE DIRECT 1.24 ng/dL (Normal) Range: 0.76-1.46 :01 Thyroid Stim Hormone (TSH) Comments: [facility] [address] [place], [id number] TSH 7.84 {uIU/mL} (Abnormal) Range: 0.358-3.74 :26 Fecal Occult Blood , Office (01001) Fecal Occult Blood , Office (Inhouse) negative (Normal) :41 HgA1C , Office (22334) HgA1C , Office 9.1 % (Abnormal) Range: 4.6 - 7.1 :41 Blood Glucose , Office (58394) Blood Glucose , Office 188 (Normal) :54 CBC W/Diff, Automated Comments: [facility] [address] [place], [address] Absolute Lymph 2.03 {X10_3/ul} (Normal) Range: 0.83-4.51 [...] 4.2-5.4 WBC 6.8 K/mm3 (Normal) Range: 4.4-11.0 8-Sgc-457609:54 Comprehensive Metabolic Profil Comments: [facility] [address] [place], [place], [address] GAP 6 (Normal) Range: 5-15 CO2 28.0 [...] 126 mg/dLsuggests DIABETES MELLITUS per A.D.A. criteria. 5-Gkt-066233:54 Lipid Profile Comments: [facility] [address] [facility] [place], [address] VLDL 53 mg/dL (Abnormal) Range: [...] 200-240 mg/dL Borderline >240 mg/dL High Risk 0-Kme-089001:54 Microalb:Creat Ratio,Random UR Comments: [facility] [address] [place], [address] MALB:CREAT Test not performed {mg/g_CRE} (Normal) MICROALBUMIN,UR < 5.0 mg/L (Normal) UR CREAT < 13.00 mg/dL (Normal) 1-Wkz-569942:54 Thyroid Stim Hormone (TSH) Comments: [facility] [address] [place], [address] TSH 5.02 {uIU/mL} (Abnormal) Range: 0.358-3.74 6-Hdy-116827:54 Urinalysis, Complete Comments: How was Urine Obtained? CLEAN [facility] [address] [place], [id number] MUCUS, URINE 0 SEEN {/hpf} (Normal) BACTERIA [...] (Normal) CLARITY Cloudy (Normal) COLOR Yellow (Normal) 0-Fit-691272:54 Vitamin D,25 Hydroxy Comments: [facility] [address] [place], [address] Vitamin D 25-OH 49.1 ng/mL (Normal) Comments: Vitamin D 25(OH) Status Range Deficiency <20 ng/mL (50nmol/L) Insuffciency 20 - 30 ng/mL (50 - 75 nmol/L) Sufficiency 30 - 100 ng/mL (75 - 250 nmol/L) Toxicity >100 ng/mL (>250 nmol/L) 32-Gyw-808882:26 Basic Metabolic Profile (BMP) Comments: [facility] [address] [place], [address] GAP 1 (Abnormal) Range: 5-15 CO2 34.0 [...] :26 CBC-Complete Blood Cnt No Diff Comments: [facility] [address] [place], [address] MPV 10.6 fL (Normal) Range: 6.2-12.0 PLT [...] (Normal) Range: 4.4-11.0 :32 HgA1C , Office (47340) HgA1C , Office 12.0 % (Abnormal) Range: 4.6 - 7.1 :24 CBC W/Diff, Automated Comments: [facility] [address] [place], [address] Absolute Lymph 1.99 {X10_3/ul} (Normal) Range: 0.83-4.51 [...] 4.2-5.4 WBC 5.6 K/mm3 (Normal) Range: 4.4-11.0 3-Wlk-025638:24 Liver Profile Comments: Comments: '[facility] [address] [place], [place], [id number] D BILI 0.09 mg/dL (Normal) Range: 0.00-0.30 T BILI 0.30 mg/dL (Normal) Range: 0.20-1.00 ALT 27 U/L (Normal) Range: 12-78 ALK P 98 U/L (Normal) Range: 50-136 AST 21 U/L (Normal) Range: 15-37 GLOB 3.5 g/dL (Normal) Range: 2.3-3.5 ALB 3.6 g/dL (Normal) Range: 3.4-5.0 T PROT 7.1 g/dL (Normal) Range: 6.4-8.2 :24 Serum Creatinine AND GFR Comments: Comments: '[facility] [address] [place], [place], [id number] EST GFR - AA 71 mL/min (Normal) Comments: GFR Calc EST GFR 59 mL/min (Abnormal) Comments: Non- GFR Calc CREAT,SERUM 1.01 mg/dL (Normal) Range: 0.55-1.20 Comments: The validity of the calculated GFR AND GFRAA in patients over70 years has not been determined. Clinical correlation isessential. :24 HgA1C , Office (61733) HgA1C , Office 13.4 % (Abnormal) Range: 4.6 - 7.1 :24 Blood Glucose , Office (69813) Blood Glucose , Office 549 (Normal) :55 CBC W/Diff, Automated Comments: [facility] [address] [place], [place], [address] Absolute Lymph 1.90 {X10_3/ul} (Normal) Range: 0.83-4.51 [...] 4.2-5.4 WBC 4.7 K/mm3 (Normal) Range: 4.4-11.0 46-Qis-224167:55 Comprehensive Metabolic Profil Comments: [facility] [address] [place], [place], [address] GAP 8 (Normal) Range: 5-15 CO2 27.0 [...] 200 mg/dLsuggests DIABETES MELLITUS per A.D.A. criteria. 85-Fuc-995437:55 Lipid Profile Comments: [facility] [address] [place], [address] VLDL 53 mg/dL (Abnormal) Range: [...] 200-240 mg/dL Borderline >240 mg/dL High Risk 26-Swn-561491:55 Microalb:Creat Ratio,Random UR Comments: [facility] [address] [place], [address] MALB:CREAT 25.1 {mg/g_CRE} (Normal) MICROALBUMIN,UR 46.9 mg/L (Normal) UR CREAT 187.00 mg/dL (Normal) 17-Knh-827516:55 Thyroid Stim Hormone (TSH) Comments: [facility] [address] [place], [address] TSH 2.79 {uIU/mL} (Normal) Range: 0.358-3.74 89-Ngb-171019:55 Urinalysis, Complete Comments: How was Urine Obtained? [facility] [address] [place], [address] MUCUS, URINE 0 SEEN {/hpf} [...] (Abnormal) CLARITY Cloudy (Normal) COLOR Yellow (Normal) 49-Vpn-477666:55 Vitamin D,25 Hydroxy Comments: [facility] Rxozwzrgqq2564 [facility] [place], [address] Vitamin D 25-OH 43.2 ng/mL (Normal) Comments: Vitamin D 25(OH) Status Range Deficiency <20 ng/mL (50nmol/L) Insuffciency 20 - 30 ng/mL (50 - 75 nmol/L) Sufficiency 30 - 100 ng/mL (75 - 250 nmol/L) Toxicity >100 ng/mL (>250 nmol/L) :29 HgA1C , Office (64583) HgA1C , Office 9.9 % (Abnormal) Range: 4.6 - 7.1 :29 Blood Glucose , Office (69285) Blood Glucose , Office 132 (Normal) :10 HgA1C , Office (69339) HgA1C , Office 10.2 % (Abnormal) Range: 4.6 - 7.1 :10 Blood Glucose , Office (88869) Blood Glucose , Office 255 (Normal) :53 Bilirubin, Direct Comments: LIVER CRE CBCDDR.ANNA TSH VITD LIPID UA CBCD MIACRE CMPTest performed at:[facility] Ag[address]defdlp7373 [facility] [place] [address] D BILI 0.06 mg/dL (Normal) Range: 0.00-0.30 :53 CBC W/Diff, Automated Comments: Test performed at:[facility] Saignqhoxt2000 [facility] [place] [address] Absolute Lymph 1.80 {X10_3/ul} (Normal) Range: 0.83-4.51 [...] 4.2-5.4 WBC 4.5 K/mm3 (Normal) Range: 4.4-11.0 6-Vnd-520658:53 Comprehensive Metabolic Profil Comments: LIVER CRE CBCDDR.ANNA TSH VITD LIPID UAC CBCD MIACRE CMPTest performed at:[facility] [address]itage[address] [place] [address] GAP 9 (Normal) Range: 5-15 CO2 27.0 [...] 126 mg/dLsuggests DIABETES MELLITUS per A.D.A. criteria. 8-Bnu-953291:53 Lipid Profile Comments: LIVER CRE CBCDDR.ANNA TSH VITD LIPID [facility] CBCD MIACRE CMPTest performed at:[facility] [address] [place], [place] [id number] VLDL 102 mg/dL (Abnormal) Range: 5-40 LDL [...] :53 Microalb:Creat Ratio,Random UR Comments: Test performed at:[facility] [address] [place] [address] MALB:CREAT 25.8 {mg/g_CRE} (Normal) MICROALBUMIN,UR 85.7 mg/L (Normal) UR CREAT 331.3 mg/dL (Normal) 2-Qgg-060221:53 Thyroid Stim Hormone (TSH) Comments: LIVER CRE CBCDDR.ANNA TSH VITD LIPID UAC CBCD MIACRE CMPTest performed at:[facility] [address] [place] [address] TSH 0.99 {uIU/mL} (Normal) Range: 0.358-3.74 :53 Urinalysis, Complete Comments: How was Urine Obtained? CLEAN CATCHTest performed at:[facility] [address] [place] [address] AMORPHOUS 4+ (Normal) Comments: Microscopic [...] :53 Vitamin D,25 Hydroxy Comments: Test performed at:[facility] [address] [place] [address] Vitamin D 25-OH 25.3 ng/mL (Normal) Comments: Vitamin D 25(OH) Status Range Deficiency <20 ng/mL (50nmol/L) Insuffciency 20 - 30 ng/mL (50 - 75 nmol/L) Sufficiency 30 - 100 ng/mL (75 - 250 nmol/L) Toxicity >100 ng/mL (>250 nmol/L) 83-Igm-141978:09 Microscopic Examination Comments: PATIENT NOT FASTINGPERFORMED BY: [facility] Pyfpzj7642 [facility] [id number] Bacteria Few (Normal) Mucus Threads Present (Normal) Crystal Type Calcium Oxalate (Normal) Crystals Present (Abnormal) Epithelial Cells (non renal) >10 {/hpf} (Abnormal) Range: 0 - 10 RBC 0-2 {/hpf} (Normal) Range: 0 - 2 WBC 6-10 {/hpf} (Abnormal) Range: 0 - 5 60-Efc-858797:09 METABOLIC PANEL, COMPREHENSIVE Comments: PATIENT NOT FASTINGPERFORMED BY: [employer] [facility] Cktwhv3731 [facility] [id number] (24361) ALT (SGPT) 12 [iU]/L (Normal) Range: 0-32 [...] Glucose, Serum 167 mg/dL (Abnormal) Range: 65-99 73-Gen-551808:09 MICROALBUMIN: CREATININE RATIO Comments: PATIENT NOT FASTINGPERFORMED BY: [facility]Par[facility]uteHackettstown Medical CenterErczft2710 [facility] [id number] (75130) AND (98357) Microalb/Creat Ratio 10.8 {mg/g_creat} (Normal) Range: 0.0-30.0 Microalbumin, Urine 35.0 ug/mL (Abnormal) Range: 0.0-17.0 Creatinine, Urine 323.9 mg/dL (Abnormal) Range: 15.0-278.0 56-Dfo-617091:09 CBC WITH MANUAL DIFF Comments: PATIENT NOT FASTINGPERFORMED BY: [facility] ServiciosHackettstown [facility] CenterFzemwo0328 [facility] [id number] Information: [id number] (06032) Immature Grans (Abs) 0.0 {x10E3/uL} (Normal) Range: [...] 3.77-5.28 WBC 6.2 {x10E3/uL} (Normal) Range: 3.4-10.8 92-Ehk-724165:09 URINALYSIS, W/ MICRO (62317) Comments: PATIENT NOT FASTINGPERFORMED BY: [facility] [id number] Microscopic Examination See below: (Normal) Comments: Microscopic was indicated and was performed. Nitrite, Urine Negative (Normal) Urobilinogen,Semi-Qn 1.0 mg/dL (Normal) Range: 0.0-1.9 Bilirubin Negative (Normal) Occult Blood Negative (Normal) Ketones Trace (Abnormal) Glucose Trace (Abnormal) Protein 1+ (Abnormal) WBC Esterase 1+ (Abnormal) Appearance Turbid (Abnormal) Urine-Color Yellow (Normal) pH 5.5 (Normal) Range: 5.0-7.5 Specific [place] >=1.030 (Abnormal) Range: 1.005-1.030 21-Hio-647643:09 LIPID PANEL (45999) Comments: PATIENT NOT FASTINGPERFORMED BY: [employer] Ilgegs8805 [facility] [id number] VLDL Cholesterol Dangelo VLDLCH mg/dL (Normal) Range: [...] Cholesterol, Total 337 mg/dL (Abnormal) Range: 100-199 70-Mjy-083973:09 Vitamin D Hydroxy (74682) Comments: PATIENT NOT FASTINGPERFORMED BY: LabCoHackettstown Medical CenterBqueus2775 [facility] [id number] Vitamin D, 25-Hydroxy 32.9 ng/mL (Normal) Range: 30.0-100.0 Comments: Vitamin D deficiency has been defined by the [place] ofMed[employer] and an Endocrine Society practice guideline as alevel of serum 25-OH vitamin D less than 20 ng/mL (1,2).The Endocrine Society went on to further define vitamin Dinsufficiency as a level between 21 and 29 ng/mL (2).1. IOM ([place] of Medicine). 2010. Dietary reference intakes for calcium and D. [place]: The National Academies Press.2. Yari MF, Caridad MCCRACKEN, Cindy SOTO, et al. Evaluation, treatment, and prevention of vitamin D deficiency: an Endocrine Society clinical practice guideline. JCEM. 2010; 96(7):1911-30. :09 TSH (93781) Comments: PATIENT NOT FASTINGPERFORMED BY: LabCoHackettstown Medical CenterIxysyt9871 [facility] [id number] TSH 0.951 {uIU/mL} (Normal) Range: 0.450-4.500 :39 HgA1C , Office (64886) HgA1C , Office 9.0 % (Abnormal) Range: 4.6 - 7.1 :39 Blood Glucose , Office (04869) Blood Glucose , Office 190 (Normal) :50 Basic Metabolic Profile (BMP) Comments: Test performed at:[facility] [address] [place], [place] [address] GAP 7 (Normal) Range: 5-15 CO2 27.0 [...] 200 mg/dLsuggests DIABETES MELLITUS per A.D.A. criteria. 08-Kdh-871367:50 CBC-Complete Blood Cnt No Diff Comments: Test performed at:[facility] Xcrqhiqmzw2037 [facility] [place] [address] MPV 11.1 fL (Normal) Range: 6.2-12.0 PLT [...] 4.2-5.4 WBC 4.9 K/mm3 (Normal) Range: 4.4-11.0 43-Sgd-457189:31 Bedside Glucose Comments: Test performed at:[facility] [address]se[address] [place] [address] BEDSIDE GLU 189 mg/dL (Abnormal) Range: 70-110 Comments: Policy and Physicians Orders followedMANAGEMENT OF PATIENT CARE PER NURSING PROTOCOL 65-Nau-24856:07 Bedside Glucose Comments: Test performed at:[facility] N[address]qqx[address]upuz[address] [facility] [place] [address] BEDSIDE GLU 101 mg/dL (Normal) Range: 70-110 Comments: Policy and Physicians Orders followedMANAGEMENT OF PATIENT CARE PER NURSING PROTOCOL :55 Glucose Comments: Comments: LOW BLOOD SUGAR/LAB TO CHECKTest performed at:[facility] [address] [place] [address] GLU 57 mg/dL (Abnormal) Range: 70-110 :51 Bedside Glucose Comments: Test performed at:[facility] [address] [place] [address] BEDSIDE GLU 64 mg/dL (Abnormal) Range: 70-110 Comments: Policy and Physicians Orders followedMANAGEMENT OF PATIENT CARE PER NURSING PROTOCOL 27-Lko-86725:38 Bedside Glucose Comments: Test performed at:[facility] [address] [place] [address] BEDSIDE GLU 52 mg/dL (Abnormal) Range: 70-110 Comments: Policy and Physicians Orders followedMANAGEMENT OF PATIENT CARE PER NURSING PROTOCOL 4-Fvb-487757:35 Bedside Glucose Comments: Test performed at:[facility] Rkrxupxjzw1223 [place] [address] BEDSIDE GLU 144 mg/dL (Abnormal) Range: 70-110 Comments: Policy and Physicians Orders followedMANAGEMENT OF PATIENT CARE PER NURSING PROTOCOL 3-Ggt-555461:46 Bedside Glucose Comments: Test performed at:[facility] [address] [place] [address] BEDSIDE GLU 84 mg/dL (Normal) Range: 70-110 Comments: Policy and Physicians Orders followedMANAGEMENT OF PATIENT CARE PER NURSING PROTOCOL 5-Bbe-837717:23 Bedside Glucose Comments: Test performed at:[facility] [address] [place] [address] BEDSIDE GLU 85 mg/dL (Normal) Range: 70-110 Comments: Policy and Physicians Orders followedMANAGEMENT OF PATIENT CARE PER NURSING PROTOCOL :51 Bedside Glucose Comments: Test performed at:[facility] [address] [place] [address] BEDSIDE GLU 289 mg/dL (Abnormal) Range: 70-110 Comments: Policy and Physicians Orders followedMANAGEMENT OF PATIENT CARE PER NURSING PROTOCOL :06 Basic Metabolic Profile (BMP) Comments: Test performed at:[facility] [address]sspu[address] [place], [place] [address] GAP 7 (Normal) Range: 5-15 CO2 27.0 [...] Blood Cnt No Diff Comments: Test performed at:[facility] [address]qrnb[address] [place] [address] MPV 11.4 fL (Normal) Range: [...] 4.2-5.4 WBC 9.5 K/mm3 (Normal) Range: 4.4-11.0 9-Dec-84541:04 Bedside Glucose Comments: Test performed at:[facility] [address] [place] [address] BEDSIDE GLU 335 mg/dL (Abnormal) Range: 70-110 Comments: Policy and Physicians Orders followedMANAGEMENT OF PATIENT CARE PER NURSING PROTOCOL 30-Jan-20142:10 Bedside Glucose Comments: Test performed at:[facility] [address] [place] [address] BEDSIDE GLU 313 mg/dL (Abnormal) Range: 70-110 Comments: Policy and Physicians Orders followedMANAGEMENT OF PATIENT CARE PER NURSING PROTOCOL 6-Xtf-784416:23 Bedside Glucose Comments: Test performed at:[facility] [address] [place] [address] BEDSIDE GLU 352 mg/dL (Abnormal) Range: 70-110 Comments: Policy and Physicians Orders followedMANAGEMENT OF PATIENT CARE PER NURSING PROTOCOL 9-Fbo-498603:43 Bedside Glucose Comments: Test performed at:[facility] [address] [place] [address] BEDSIDE GLU 234 mg/dL (Abnormal) Range: 70-110 Comments: Policy and Physicians Orders followedMANAGEMENT OF PATIENT CARE PER NURSING PROTOCOL TOTAL HIP REPLACEMENT See Note (Normal) Comments: Test performed at:[facility] [address] [place] [address] :24 Comments: Patient: ELIZABETH MEYERS : 1950 (63/F) Acct Num: [id number] Phys: Nadeem Ceballos MD Unit Num: [id number] Loc: MS3 [id number] Specimen: [id number] Received: 01/30/14741 Spec Type: TOTAL HIP TISSUES [...] which measures 4 cm in greatest dimension. Table Assembler sections are submitted in two cassettes as follows: 1 - soft tissue, 2 - bone after decalcification. / : 01/30/14 TC:5 CPT: 96203, 883 11 HEADER OPERATION: Total hip replacement [...] UCOL Yellow (Normal) :12 HgA1C , Office (88866) HgA1C , Office 12.5 % (Abnormal) Range: 4.6 - 7.1 :12 Blood Glucose , Office (78737) Blood Glucose , Office 333 (Normal) 4-Orw-036228:35 CBCD ALC 1.78 {X10_3/ul} (Normal) Range: 0.83-4.51 [...] 4.2-5.4 WBC 5.4 K/mm3 (Normal) Range: 4.4-11.0 5-Omp-394532:35 CRE Comments: CBCD CRE LIVERDR.ANNA TSH LIPID LIVER ECRCL 54.61 ml/min (Normal) GFRAA 73 mL/min (Normal) GFR 60 mL/min (Normal) CREAT 1.0 mg/dL (Normal) Range: 0.6-1.0 7-Liv-406032:35 LIPID Comments: CBCD CRE LIVERDR.ANNA TSH LIPID [...] CHOL 219 mg/dL (Abnormal) Comments: <200 mg/dL Lczimwmml565-832 mg/dL Borderline>240 mg/dL High Risk :35 LIVER Comments: CBCD CRE LIVERDR.ANNA TSH LIPID LIVER BID 0.08 mg/dL (Normal) Range: 0.00-0.30 BIT 0.30 mg/dL (Normal) Range: 0.00-4.00 ALT 32 U/L (Normal) Range: 12-78 ALK 119 U/L (Normal) Range: 50-136 AST 15 U/L (Normal) Range: 15-37 ALB 3.4 g/dL (Normal) Range: 3.4-5.0 TPROT 6.7 g/dL (Normal) Range: 6.4-8.2 :35 TSH 3.38 {uIU/mL} (Normal) Comments: CBCD CRE LIVERDRSURAJ TSH LIPID LIVER Range: 0.358-3.74 :36 HgA1C , Office (27601) HgA1C , Office 9.9 % (Abnormal) Range: 4.6 - 7.1 :36 Blood Glucose , Office (77264) Blood Glucose , Office 247 (Normal) 83-Kom-721218:24 CBCD ALC 1.81 {X10_3/ul} (Normal) Range: 0.83-4.51 [...] 4.2-5.4 WBC 6.2 K/mm3 (Normal) Range: 4.4-11.0 06-Qhl-916183:24 CMP GAP 5 (Normal) Range: 5-15 CL [...] CHOL 207 mg/dL (Abnormal) Comments: <200 mg/dL Qfkymyhxg970-400 mg/dL Borderline>240 mg/dL High Risk TRIG 257 [...] (Normal) UCLAR Clear (Normal) UCOL Yellow (Normal) 46-Pvv-812147:24 VITD 52.5 mg/mL (Normal) Comments: Vitamin D 25(OH) Status RangeDeficiency <20 ng/mL (50nmol/L)Insuffciency 20 - 30 ng/mL (50 - 75 nmol/L)Sufficiency 30 - 100 ng/mL (75 - 250 nmol/L)Toxicity >100 ng/mL (>250 nmol/L) 9-Vvz-399747:19 FECAL OCCULT HGB ASSAY- tubes sent home (55507) FECAL OCCULT HGB ASSAY, QUAL, 1-3 SIMULTANEOU negative (Normal) 8-Dce-204068:28 HgA1C , Office (81725) HgA1C , Office 10.9 % (Abnormal) Range: 4.6 - 7.1 4-Cvp-052950:28 Blood Glucose , Office (32651) Blood Glucose , Office 264 (Normal) 9-Ycl-170651:51 METABOLIC PANEL, COMPREHENSIVE Comments: send copy of results to dr gurrola in [facility]; PATIENT NOT FASTINGPERFORMED BY: [facility] Qunbsk4984 [facility] [id number] (16370) ALT (SGPT) 18 [iU]/L (Normal) Range: 0-32 [...] Glucose, Serum 245 mg/dL (Abnormal) Range: 65-99 5-Qdi-905551:51 CBC WITH MANUAL DIFF Comments: PATIENT NOT FASTINGPERFORMED BY: [facility]6370 [facility] [id number] Information: [id number] (08098) Immature Grans (Abs) 0.0 {x10E3/uL} (Normal) Range: [...] (Normal) Range: 3.4-10.8 :03 HgA1C , Office (28700) HgA1C , Office 10.0 % (Abnormal) Range: 4.6 - 7.1 :03 Blood Glucose , Office (11131) Blood Glucose , Office 218 (Normal) :39 HgA1C , Office (13165) HgA1C , Office 8.2 % (Abnormal) Range: 4.6 - 7.1 :39 Blood Glucose , Office (60824) Blood Glucose , Office 176 (Normal) Comments: [...] CHOL 327 mg/dL (Abnormal) Comments: <200 mg/dL Qbcxsoctc609-924 mg/dL Borderline>240 mg/dL High Risk :06 MIACRE tMICROCREAT 8.6 {mg/g_CRE} (Normal) MIALB 7.1 mg/L (Normal) CREU 82.2 mg/dL (Normal) :06 TSH 1.07 {uIU/mL} (Normal) Range: 0.358-3.74 :06 UAC UMUC 0 SEEN {/hpf} (Normal) UBAC 0 [...] 250 nm ol/L)Toxicity >100 ng/mL (250 nmol/L)Effective 2012:23 Blood Glucose , Office (21642) Blood Glucose , Office 230 (Normal) 21-Mlv-627658:23 HgA1C , Office (79545) HgA1C , Office 9.1 % (Abnormal) Range: 4.6 - 7.1 :19 HgA1C , Office (80015) HgA1C , Office 9.8 % (Abnormal) Range: 4.6 - 7.1 :19 Blood Glucose , Office (58011) Blood Glucose , Office 255 (Normal) 8-Sqw-402265:50 CHEST, PA AND LATERAL Radiology Report See [...] atelectasis. Signed:Amisha Mejia M.D.December at 6:59:15 PM [phone] Signed AM/AM If you are the referring physician and would like to consult with theradiologist who provided this interpretation, please contact Amisha jorge M.D. at . If this radiologist is unavailable, you will bedirected to another radiologist to assist. If you are a patient with a question regarding this report, pleasecontactyour refe rring physician directly. Professional Interpretation Provided By: [employer], Phone , These documents contain legally protected [...] the return or destructionofthese documents. Dictated on 12/28/11 1559 by Brian PAN, LupeaTranscribed on 12/28/111909 by ITS IMPORTSign by Amisha Mejia MD on 12/28/111910 Sign by: Amisha Mejia MD :52 HgA1C , Office (04329) HgA1C , Office 8.5 % (Abnormal) Range: 4.6 - 7.1 :52 Blood Glucose , Office (10320) Blood Glucose , Office 343 (Normal) :33 Metabolic Panel, Basic Comments: PATIENT NOT FASTINGPERFORMED BY: [facility] ServiciosHackettstown Medical CenterCtaieo4586 [facility] [id number] Information: [id number] (22189) Calcium, Serum 8.9 mg/dL (Normal) Range: 8.6-10.2 [...] Glucose, Serum 167 mg/dL (Abnormal) Range: 65-99 76-Bwm-367329:56 Basic Metabolic Panel (8) Comments: PERFORMED BY: dinCloudlin6370 [facility] [id number] Information: CC:DR VIVAS Calcium, Serum 9.4 mg/dL [...] Glucose, Serum 203 mg/dL (Abnormal) Range: 65-99 :45 Vitamin D Hydroxy (47940) Comments: PATIENT NOT FASTINGPERFORMED BY: [employer] Jmyurj6908 [facility] [id number] Vitamin D, 25-Hydroxy 19.3 ng/mL (Abnormal) Range: 30.0-100.0 Comments: Vitamin D deficiency has been defined by the [place] ofTr[facility] and an Endocrine Society practice guideline as alevel of serum 25-OH vitamin D less than 20 ng/mL (1,2).The Endocrine Society went on to further define vitamin Dinsufficiency as a level between 21 and 29 ng/mL (2).1. IOM ([place] of Medicine). 2010. Dietary reference intakes for calcium and D. [place]: The National Academies Press.2. Yari MF, Caridad MCCRACKEN, Cindy SOTO, et al. Evaluation, treatment, and prevention of vitamin D deficiency: an Endocrine Society clinical practice guideline. JCEM. 2010; 96(7):1911-30. :45 TSH (62318) Comments: PATIENT NOT FASTINGPERFORMED BY: [facility] [id number] [facility] [id number] TSH 2.180 {uIU/mL} (Normal) Range: 0.450-4.500 :45 LIPID PANEL (11547) Comments: PATIENT NOT FASTINGPERFORMED BY: [facility] [id number] [facility] [id number] Information: PATIENT NOT FASTING. ADD J [id number] AND DRAW FEE [id number] LDL/HDL Ratio 2.5 {ratio_units} (Normal) Range: 0.0-3.2 LDL Cholesterol Calc 119 mg/dL (Abnormal) Range: 0-99 VLDL Cholesterol Dangelo 47 mg/dL (Abnormal) Range: 5-40 HDL Cholesterol 47 mg/dL (Normal) Comments: According to ATP-III Guidelines, HDL-C >59 mg/dL is considered anegative risk factor for CHD. Triglycerides 234 mg/dL (Abnormal) Range: 0-149 Cholesterol, Total 213 mg/dL (Abnormal) Range: 100-199 [id number] CBCD ANC 2.7 3/uL (Normal) Range: 2.0-7.7 [...] 3.4-5.0 TPROT 7.1 g/dL (Normal) Range: 6.4-8.2 [id number] CHEST, PA AND LATERAL Radiology Report See [...] EDTElectronically Signed BZ/BZ Professional Interpretation Provided By: [facility] [facility] , Fax To consult with a radiologist regarding this report, please call our [id number] line @ Dictated on 07/06/11 1421 by BI HUDSON MDTranscribed on 07/06/112325 by ITS IMPORTSig n by BI HUDSON MD on 07/06/112326 Sign by: BI HUDSON MD 41-Jiz-247156:49 HgA1C , Office (87772) HgA1C , Office 7.8 % (Abnormal) Range: 4.6 - 7.1 34-Nlu-162500:49 Blood Glucose , Office (40138) Blood Glucose , Office 231 (Normal) 30-Fyt-905815:49 TSH (THYROID STIMULATING Comments: PATIENT NOT FASTINGPERFORMED BY: [facility] [facility] [id number] HORMONE) (72227) TSH 2.930 {uIU/mL} (Normal) Range: 0.450-4.500 82-Zjh-379717:00 TSH (66792) Comments: PATIENT NOT FASTINGPERFORMED BY: JAIRO [facility] Wwdmvc3708 [facility] [id number] Information: [id number] TSH 0.142 {uIU/mL} (Abnormal) Range: 0.450-4.500 10-Rgg-658984:44 HgA1C , Office (85418) HgA1C , Office 7.4 % (Abnormal) Range: 4.6 - 7.1 :44 Blood Glucose , Office (87562) Blood Glucose , Office 135 (Normal) :16 HgA1C , Office (29703) HgA1C , Office 7.4 % (Abnormal) Range: 4.6 - 7.1 :16 Blood Glucose , Office (08133) Blood Glucose , Office 118 (Normal) 22-Teg-998171:19 CBCD,SMEAR DIFF RED CELL MORPH SeeNote {NORMAL} [...] NEGATIVE CLARITY TURBID (Normal) COLOR YELLOW (Normal) 69-Ddz-761311:19 LIPID VLDL 28 mg/dL (Normal) Range: 5-40 [...] 200-240 mg/dL Borderline >240 mg/dL High Risk 71-Bvt-412447:19 MICROALB:CRE UR MALB:CREAT 7.6 {mg/g_CRE} (Normal) MICROALBUMIN,UR 15.0 mg/L (Normal) UR CREAT 195.3 mg/dL (Normal) 88-Fff-402050:19 TSH 0.17 {uIU/mL} (Abnormal) Range: 0.358-3.74 :54 Blood Glucose , Office (08873) Blood Glucose , Office 297 (Normal) :54 HgA1C , Office (67006) HgA1C , Office 8.0 % (Abnormal) Range: 4.6 - 7.1 :35 HgA1C , Office (73376) HgA1C , Office 7.5 % (Abnormal) Range: 4.6 - 7.1 :35 Blood Glucose , Office (90619) Blood Glucose , Office 229 (Normal) :47 HgA1C , Office (73746) HgA1C , Office 6.9 % (Normal) Range: 4.6 - 7.1 :47 Blood Glucose , Office (43374) Blood Glucose , Office 111 (Normal) :28 [...] (Abnormal) Range: 0.358-3.74 :53 HgA1C , Office (00017) HgA1C , Office 7.4 % (Abnormal) Range: 4.6 - 7.1 :53 Blood Glucose , Office (49616) Blood Glucose , Office 113 (Normal) :11 HgA1C , Office (00961) HgA1C , Office 7.2 % (Abnormal) Range: 4.6 - 7.1 :11 Blood Glucose , Office (73723) Blood Glucose , Office 98 (Normal) :37 LOWER EXT/JT ONLY (ROUTINE) Radiology Report See Note (Normal) Comments: Exam Number: [id number] CLINICAL:58-year-old female with a medial right knee pain MRI RIGHT KNEE TECHNIQUE:Standardized fat and water weighted pulse sequences were obtained inall 3 orthogonal planes. [facility]:None. FINDINGS:There is a possible small longitudinal [...] intrachondral sign al (signal increase on the U9hcpcbcls images), but a normal chondral surface of [...] joint effusion. Reported By: BEKAH BOOTHE M.D. 80-Zuf-933795:35 HgA1C , Office (85580) Comments: done HgA1C , Office 7.0 % (Normal) Range: 4.6 - 7.1 81-Lsi-518268:35 Blood Glucose , Office (30242) Comments: done Blood Glucose , Office 131 (Normal) 58-Wwx-277361:59 CBC Comments: CLAUDIA IBARRA ORDERED VIT DDR.STELLA [...] 11.6-14.6 WBC 5.0 K/mm3 (Normal) Range: 4.4-11.0 15-Ieb-881586:59 LIVER Comments: CLAUDIA IBARRA ORDERED VIT DDR.STELLA ORDERED CBC,LIVER,CRE ALB 3.6 g/dL (Normal) Range: 3.4-5.0 ALK P 83 U/L (Normal) Range: 50-136 ALT 23 U/L (Normal) Range: 12-78 AST 12 U/L (Abnormal) Range: 15-37 D BILI 0.08 mg/dL (Normal) Range: 0.00-0.30 T BILI 0.30 mg/dL (Normal) Range: 0.00-1.00 T PROT 6.9 g/dL (Normal) Range: 6.4-8.2 93-Ohd-163319:59 SERUM CRE & GFR Comments: CLAUDIA IBARRA ORDERED VIT DDR.STELLA ORDERED CBC,LIVER,CRE CREAT,SERUM 1.2 mg/dL (Abnormal) Range: 0.6-1.0 EST GFR 49 mL/min (Abnormal) EST GFR - AA 59 mL/min (Abnormal) 00-Vtf-952586:59 VIT D,25 48177 50.3 ng/mL (Normal) Comments: CLAUDIA IBARRA ORDERED VIT DDR.STELLA ORDERED CBC,LIVER,CRE Range: 32.0-100.0 Comments: Recent studies consider the lower limit of 32.0 ng/mL to mora threshold for optimal health.Oren KLEIN. J Nutr. 2004;135(2):317-22.Performed At: [address] [id number] 77-Pbq-589997:59 KIDNEY (HP) Radiology Report See Note (Normal) Comments: Exam Number: [id number] CLINICAL:58 year old female with elevated serum [...] IMPRESSION:Normal examination. Reported By: DAYANARA MEDELLIN Dr. 75-Cyz-474020:37 Urinalysis, Office (75213) UA - BLOOD Negative (Normal) UA - LEUKOCYTE ESTERASE Negative (Normal) UA - NITRITE Negative (Normal) UA - PH 6.0 (Normal) UA - PROTEIN Negative mg/dL (Normal) UA - SPECIFIC GRAVITY 1.000 (Normal) URINE UROBILINGN ADRY TIMED Normal mg/dL (Normal) UA - BILIRUBIN Negative (Normal) UA - GLUCOSE Negative (Normal) UA - KETONES Negative mg/dL (Normal) 04-Yiq-054362:00 Blood Glucose , Office (09089) Blood Glucose , Office 128 (Normal) 81-Arx-459161:00 HgA1C , Office (36330) HgA1C , Office 6.7 % (Normal) Range: 4.6 - 7.1 78-Yqd-566248:10 Blood Glucose , Office (18451) Blood Glucose , Office 118 (Normal) 10-Lsn-967006:10 HgA1C , Office (01045) HgA1C , Office 7.2 % (Abnormal) Range: 4.6 - 7.1 05-Vnh-863421:56 HgA1C , Office (09079) Comments: done km HgA1C , Office 7.2 % (Abnormal) Range: 4.6 - 7.1 72-Zgo-827266:56 Blood Glucose , Office (15431) Comments: done km Blood Glucose , Office 176 (Normal) 68-Rfv-51686:00 Lipoprotein Analysis by NMR Comments: PERFORMED BY: Buru Buru [address] [id number] Large HDL-P 9.4 umol/L (Normal) Large VLDL-P [...] > 1200 . :52 HgA1C , Office (28619) Comments: done HgA1C , Office 7.0 % (Normal) Range: 4.6 - 7.1 :52 Blood Glucose , Office (50236) Comments: done Blood Glucose , Office 158 (Normal) :39 HgA1C , Office (79962) Comments: done HgA1C , Office 6.8 % (Normal) Range: 4.6 - 7.1 :38 Blood Glucose , Office (03275) Comments: done Blood Glucose , Office 108 (Normal) :27 HgA1C , Office (16200) Comments: done HgA1C , Office 6.7 % (Normal) Range: 4.6 - 7.1 :27 Blood Glucose , Office (44239) Comments: done Blood Glucose , Office 137 [...] Arthritis, rheumatic, acute or subacute : Reviewed Compliance Clerk Letter Indication: Arthritis, rheumatic, acute or subacute [...] Arthritis, rheumatic, acute or subacute : Reviewed Compliance Clerk Letter Indication: Arthritis, rheumatic, acute or subacute [...] Diagnostic Tests Indication: Pneumonia Pneumonia : Reviewed Compliance Clerk Letter Indication: Pneumonia Arthritis, rheumatic, acute or subacute : Reviewed Compliance Clerk Letter Indication: Arthritis, rheumatic, acute or subacute [...] Arthritis, rheumatic, acute or subacute : Reviewed Compliance Clerk Letter Indication: Arthritis, rheumatic, acute or subacute [...] Arthritis, rheumatic, acute or subacute : Reviewed Compliance Clerk Letter Indication: Arthritis, rheumatic, acute or subacute [...] Arthritis, rheumatic, acute or subacute : Reviewed Compliance Clerk Letter Indication: Arthritis, rheumatic, acute or subacute [...] Arthritis, rheumatic, acute or subacute : Reviewed Compliance Clerk Letter Indication: Arthritis, rheumatic, acute or subacute [...] Arthritis, rheumatic, acute or subacute : Reviewed Compliance Clerk Letter Indication: Arthritis, rheumatic, acute or subacute [...] Arthritis, rheumatic, acute or subacute : Reviewed Compliance Clerk Letter: seevivian Gurrola-- Indication: Arthritis, rheumatic, acute [...] Arthritis, rheumatic, acute or subacute : Reviewed Compliance Clerk Letter Indication: Arthritis, rheumatic, acute or subacute [...] Arthritis, rheumatic, acute or subacute : Reviewed Compliance Clerk Letter Indication: Arthritis, rheumatic, acute or subacute [...] Nonprescription Treatment Indication: Hyperlipidemia Planned Observations TSH (61033)Indication: Hypothyroidism On: 22-Dgz-552119:16 Request T4, FREE (THYROXINE) (77121)Indication: Hypothyroidism On: 85-Nia-951603:15 Request T3, FREE (TRIDOTHYRONINE) (71330)Indication: Hypothyroidism On: 64-Jku-795269:15 Request CBC W/AUTO DIFF WBC (89774)Indication: Diabetes mellitus type 2, uncontrolled On: 7-Mxl-253182:40 Request METABOLIC PANEL, COMPREHENSIVE (43078)Indication: Diabetes mellitus type 2, uncontrolled On: :40 Request LIPID PANEL (92932)Indication: Hyperlipidemia On: :40 Request T3, FREE (TRIDOTHYRONINE) (32849)Indication: Abnormal TSH On: : Request T4, FREE (THYROXINE) (11948)Indication: Abnormal TSH On: : Request TSH (79364)Indication: Abnormal TSH On: : Request T4, FREE (THYROXINE) (78950)Indication: Abnormal TSH On: : Request T3, FREE (TRIDOTHYRONINE) (51301)Indication: Abnormal TSH On: : Request URINALYSIS, W/ MICRO (04231)Indication: Diabetes mellitus type 2, uncontrolled On: : Request MICROALBUMIN: CREATININE RATIO (53117) AND (57122)Indication: Diabetes mellitus type 2, uncontrolled On: : Request METABOLIC PANEL, COMPREHENSIVE (67961)Indication: Diabetes mellitus type 2, uncontrolled On: : Request CBC W/AUTO DIFF WBC (31005)Indication: Diabetes mellitus type 2, uncontrolled On: : Request LIPID PANEL (61009)Indication: Hyperlipidemia On: : Request TSH (42414)Indication: Abnormal TSH On: : Request CALCIFIDIOL (90456) VIT D 25Indication: Vitamin D deficiency On: : Request CALCIFIDIOL (57427) VIT D 25Indication: Vitamin D deficiency On: :52 Request URINALYSIS, W/ MICRO (99196)Indication: Diabetes mellitus type 2, uncontrolled On: :51 Request MICROALBUMIN: CREATININE RATIO (34530) AND (42663)Indication: Diabetes mellitus type 2, uncontrolled On: :51 Request METABOLIC PANEL, COMPREHENSIVE (02362)Indication: Diabetes mellitus type 2, uncontrolled On: :51 Request CBC W/AUTO DIFF WBC (33899)Indication: Diabetes mellitus type 2, uncontrolled On: 84-Fpf-197536:51 Request LIPID PANEL (56283)Indication: Hyperlipidemia On: :51 Request TSH (21363)Indication: Hypothyroidism On: :51 Request TSH (49001)Indication: Abnormal TSH On: :53 Request Comments: do at end of jan 2016 T4, FREE (THYROXINE) (93281)Indication: Abnormal TSH On: :53 Request Comments: do at end 2015 T3, FREE (TRIDOTHYRONINE) (69438)Indication: Abnormal TSH On: :53 Request Comments: do at end of jan 2016 CALCIFIDIOL (08242) VIT D 25Indication: Vitamin D deficiency On: :47 Request URINALYSIS, W/ MICRO (96001)Indication: Diabetes mellitus type 2, uncontrolled On: :47 Request MICROALBUMIN: CREATININE RATIO (09208) AND (71687)Indication: Diabetes mellitus type 2, uncontrolled On: :47 Request METABOLIC PANEL, COMPREHENSIVE (23993)Indication: Diabetes mellitus type 2, uncontrolled On: :47 Request CBC W/AUTO DIFF WBC (14666)Indication: Diabetes mellitus type 2, uncontrolled On: :47 Request FECAL OCCULT- Tubes sent home (63127)Indication: Encounter for screening for malignant neoplasm of colon (Renamed from Special screening for malignant neoplasms, colon) On: :47 Request TSH (33131)Indication: Abnormal TSH On: :57 Request T3, FREE (TRIDOTHYRONINE) (97737)Indication: Abnormal TSH On: :57 Request T4, FREE (THYROXINE) (55618)Indication: Abnormal TSH On: :57 Request URINALYSIS, W/ MICRO (27865)Indication: Diabetes mellitus type 2, uncontrolled On: 27-Die-005236:10 Request MICROALBUMIN: CREATININE RATIO (03945) AND (13760)Indication: Diabetes mellitus type 2, uncontrolled On: 93-Hvx-076139:10 Request METABOLIC PANEL, COMPREHENSIVE (27207)Indication: Diabetes mellitus type 2, uncontrolled On: :10 Request LIPID PANEL (53457)Indication: Hypercholesteremia On: 21-Ubv-294016:10 Request CBC W/AUTO DIFF WBC (39138)Indication: Diabetes mellitus type 2, uncontrolled On: 98-Sal-089443:10 Request TSH (88372)Indication: Hypothyroidism On: 75-Abx-854519:10 Request CALCIFIDIOL (51621) VIT D 25Indication: Vitamin D deficiency On: :09 Request Blood Glucose , Office (90633)Indication: Diabetes mellitus type 2, uncontrolled On: 10-Whu-629577:32 Request CALCIFIDIOL (10268) VIT D 25Indication: Vitamin D deficiency On: : Request URINALYSIS, W/ MICRO (57108)Indication: Diabetes mellitus type 2, uncontrolled On: 24-Rsw-349349: Request MICROALBUMIN: CREATININE RATIO (28146) AND (73620)Indication: Diabetes mellitus type 2, uncontrolled On: 15-Xfi-222057: Request METABOLIC PANEL, COMPREHENSIVE (85290)Indication: Diabetes mellitus type 2, uncontrolled On: 89-Eqa-909855: Request LIPID PANEL (72251)Indication: Hyperlipidemia On: 65-Wzz-222281:00 Request CBC W/AUTO DIFF WBC (91715)Indication: Diabetes mellitus type 2, uncontrolled On: 06-Egi-996605:00 Request TSH (54580)Indication: Hypothyroidism On: 04-Qus-805167:00 Request URINALYSIS, W/ MICRO (62435)Indication: Diabetes mellitus type 2, uncontrolled On: :24 Request MICROALBUMIN: CREATININE RATIO (17130) AND (43954)Indication: Diabetes mellitus type 2, uncontrolled On: 8-Sig-023729:24 Request METABOLIC PANEL, COMPREHENSIVE (80206)Indication: Diabetes mellitus type 2, uncontrolled On: :24 Request CBC W/AUTO DIFF WBC (46669)Indication: Diabetes mellitus type 2, uncontrolled On: 7-Jcj-323830:24 Request Vitamin D Hydroxy (75041)Indication: Vitamin D deficiency On: :24 Request HEPATIC FUNCTION PANEL (20635)Indication: Hyperlipidemia On: :23 Request LIPID PANEL (58182)Indication: Hyperlipidemia On: 6-Yyq-237859:23 Request TSH (77690)Indication: Hypothyroidism On: 7-Jgp-369723:20 Request METABOLIC PANEL, COMPREHENSIVE (30073)Indication: Diabetes mellitus type 2, uncontrolled On: 1-Wks-689857:16 Request TSH (42641)Indication: Diabetes mellitus type 2, uncontrolled On: 3-Jvk-448368:16 Request LIPID PANEL (92525)Indication: Diabetes mellitus type 2, uncontrolled On: :16 Request CBC WITH MANUAL DIFF (89235)Indication: Diabetes mellitus type 2, uncontrolled On: 2-Yue-673345:45 Request Comments: send copy of results to dr gurrola in [facility] URINALYSIS, W/ MICRO (26873)Indication: Diabetes mellitus type 2, uncontrolled On: 5-Sga-537770:43 Request MICROALBUMIN: CREATININE RATIO (93372) AND (27376)Indication: Diabetes mellitus type 2, uncontrolled On: :43 Request LIPID PANEL (97066)Indication: Diabetes mellitus type 2, uncontrolled On: 2-Ofe-602279:43 Request TSH (12950)Indication: Hypothyroidism On: 8-Nfy-458960:43 Request LIPID PANEL (56024)Indication: Hyperlipidemia On: 0-Gah-561760:18 Request TSH (53577)Indication: Hypothyroidism On: 50-Vjy-295581:27 Request LIPID PANEL (80610)Indication: Hyperlipidemia On: 30-Spw-169440:38 Request Comments: do in 8 weeks TSH (10859)Indication: Hypothyroidism On: 01-Ecf-279033:33 Request Comments: do in 8 weeks HEPATIC FUNCTION PANEL (28401)Indication: Hyperlipidemia On: 34-Ybk-751947:58 Request LIPID PANEL (29823)Indication: Hyperlipidemia On: 55-Uma-731358:58 Request URINE ANDRESSA CULTURE (ADRY COL COUNT) (84199)Indication: Other abnormal finding of urine On: 28-Xsg-331134:57 Request TSH (28916)Indication: Hypothyroidism On: 90-Kiw-763680:55 Request URINALYSIS, W/ MICRO (80111)Indication: Diabetes mellitus type 2, uncontrolled On: 96-Ell-594349:55 Request MICROALBUMIN: CREATININE RATIO (58498) AND (47333)Indication: Diabetes mellitus type 2, uncontrolled On: :55 Request METABOLIC PANEL, COMPREHENSIVE (68732)Indication: Diabetes mellitus type 2, uncontrolled On: :55 Request LIPOPROTEIN, BLD, BY NMR (72694)Indication: Diabetes mellitus type 2, uncontrolled On: :55 Request LIPID PANEL (12714)Indication: Diabetes mellitus type 2, uncontrolled On: :55 Request CBC WITH MANUAL DIFF (86945)Indication: Diabetes mellitus type 2, uncontrolled On: :55 Request CALCIFEDIOL (28757)Indication: Vitamin D deficiency On: :33 Request Comments: repeat Mar 03 CALCIFEDIOL (93289)Indication: Abnormal blood chemistry On: :41 Request RENAL FUNCTION PANEL (05399)Indication: Abnormal blood chemistry On: :41 Request PARATHORMONE (39342)Indication: Abnormal blood chemistry On: :40 Request RETICULOCYTE COUNT (40086)Indication: Abnormal blood chemistry On: :40 Request CBC & PLATELETS (AUTO) (99484)Indication: Abnormal blood chemistry On: :40 Request LIPOPROTEIN, BLD, BY NMR (63121)Indication: Diabetes mellitus type 2, uncontrolled On: 65-Avi-579860:29 Request Renal function Panel (15738)Indication: Cramp of limb On: 0-Odg-985660:47 Request TSH (13671)Indication: Hypothyroidism On: :28 Request HEPATIC FUNCTION PANEL (91613)Indication: Hyperlipidemia On: :27 Request Lipid Panel (88440)Indication: Hyperlipidemia On: 29-Ioh-301893:27 Request MICROALBUMIN: CREATININE RATIO (47753) AND (72445)Indication: Diabetes mellitus type 2, uncontrolled On: 75-Wqc-814176:56 Request METABOLIC PANEL, COMPREHENSIVE (64360)Indication: Diabetes mellitus type 2, uncontrolled On: 02-Ofq-164941:56 Request LIPID PANEL (12414)Indication: Diabetes mellitus type 2, uncontrolled On: :56 Request CBC WITH MANUAL DIFF (00714)Indication: Diabetes mellitus type 2, uncontrolled On: 12-Kmq-229897:56 Request TSH (67629)Indication: Hypothyroidism On: 10-Gkw-135603:55 Request TSH (44927)Indication: Controlled diabetes mellitus type II without complication On: 54-Jzw-205989:21 Request MICROALBUMIN: CREATININE RATIO (57370) AND (95352)Indication: Controlled diabetes mellitus type II without complication On: :21 Request LIPID PANEL (12751)Indication: Controlled diabetes mellitus type II without complication On: :21 Request METABOLIC PANEL, COMPREHENSIVE (70170)Indication: Controlled diabetes mellitus type II without complication On: : Request CBC WITH MANUAL DIFF (40309)Indication: Controlled diabetes mellitus type II without complication On: : Request CREATININE CLEARANCE (85739) 24 HOURIndication: Controlled diabetes mellitus type II without complication On: : Request Planned Encounters Medical; 3 Month FU - On: 28-Feb-2018 14:30 [facility] Lucretia Henson DO, DO, Kathleen Planned Procedures ELECTROCARDIOGRAM, COMPLETE (ECG) On: 02-Jun-2017 Intent (51652)By: Lucretia Henson DO Comments: ICV mild- nsr no acute chg -poor R wave progression and nonspeicici st flattening DOLucretia Spirometry (69791)By: Anna KAUR On: 02-Jun-2017 Intent Lucretia Chahal DO Comments: obstruction pt refused any inhalers Overnight Pulse OX (86117)By: Salbador On: 03-Mar-2017 Ghazala Bull DO Flu Vaccine (Quadrivalent) 72385Ey: On: 25-Nov-2016 Lucretia Gasca DO, DO, Comments: Lot:[id number]:06/09Amt:0.5mlRoute:IMSite: L DltdGiven By: GIULIANO Buitrago signed Lucretia ELECTROCARDIOGRAM, COMPLETE (ECG) On: 11-May-2016 Intent (15192)By: Lucretia Henson DO Comments: nsr no acute chjg DOLucretia Spirometry (66666)By: Anna KAUR On: 11-May-2016 Intent Lucretia Chahal DO Comments: good curve but poor #- pt refused inhalers Flu Vaccine (Quadrivalent) 98192Ks: On: 02-Jan-2016 Intent Lucretia Henson DO, DO, Comments: FLUlot: [id number]:07/08site:Lt deltoidroute:IMdose:.5mlZACH OCHOA MAMMOGRAM, SCREENING, BOTH BREAST On: 11-Sep-2015 Intent (24501)By: Lucretia Henson DO, DO, Kathleen OHGP-ND-MXLL BEHAVIORAL COUNSELING On: 11-Sep-2015 Intent FOR OBESITY, 15 MINUTES (G0447)By: Lucretia Henson DO, DO, Kathleen Six Minute Walk Assessment (03836)By: On: 19-Jun-2015 Intent Lucretia Henson DO, DO, Kathleen Flu Vaccine (Quadrivalent) 43529Ga: On: 03-Dec-2014 Intent Lucretia Henson DO, DO, Comments: Lot:[id number]:08/22/15Dose:0.5mLRoute:IMSite:L DltdGiven By:ANN MARIE signed Lucretia EKG (40418)By: Lucretia Henson DO On: 29-Nov-2013 Intent Lucretia Henson DO FLU VAC, SPLIT, >3 YEARS, INTRAMUSC On: 29-Nov-2013 Intent (81080)By: Lucretia Henson DO Comments: Lot:[id number]:11/07Amt:0.5mlRoute:IMSite: L DltdGiven By: Avril SANTAMARIA signed Lucretia KAUR [id number] BEHAVIORAL COUNSELING On: 29-May-2013 Intent FOR OBESITY, 15 MINUTES (G0447)By: Lucretia Henson DO, DO, Kathleen ADMINISTRATION OF PNEUMOCOCCAL On: 29-May-2013 Intent VACCINE (G0009)By: Anna KAUR, Comments: Lot #[id number]-L arm, dltd, IMDose-prefilled syringegiven by:GUILIANO Ocasio signed Lucretia Chahal DO PNEUM VAC ADLT/IMUMNOSPR, SBC/INTRM On: 29-May-2013 Intent (62942)By: Lucretia Henson DO, DO, Kathleen Eprescribed prescriptions (G8553)By: On: 29-May-2013 Intent Lucretia Henson DO, DO, Kathleen Six Minute Walk Assessment (65510)By: On: 16-Mar-2013 Intent Lucretia Henson DO, DO, Comments: spirometry stable and O2 93% on room airand walk at lowest-- may discontinue O2 Lucretia Eprescribed prescriptions (G8553)By: On: 15-Mar-2013 Intent Ayah Chavis Radiology - Chest- PA and LatBy: On: 08-Mar-2013 Intent Lucretia Henson DO, DO, Comments: do in 6 weeks Lucretia HYDRATION IV INFUSION, INIT On: 24-Feb-2013 Intent (73102)By: Claudia Ibarra CNP Aerosol Treatment (85010)By: Addi On: 24-Feb-2013 Intent Claudia NO FLU VAC, SPLIT, >3 YEARS, INTRAMUSC On: 24-Nov-2012 Intent (75478)By: Omayra Cunha LPN Comments: Lot:[id number]:6.14Amt:0.5mlRoute:IMSite: L DltdGiven By: GOKUL BuitragoVIS signed ADMINISTRATION OF INFLUENZA VIRUS On: 24-Nov-2012 Intent VACCINE (G0008)By: Omayra Cunha LPN EKG (10747)By: Lucretia Henson DO On: 31-Aug-2012 Intent Lucretia Henson DO Comments: inc /RBBB poor R wave progression / no acute chg Eprescribed prescriptions (G8553)By: On: 31-Aug-2012 Intent Ayah Chavis Eprescribed prescriptions (G8553)By: On: 13-Jun-2012 Intent Omayra Cunha LPN Eprescribed prescriptions (G8553)By: On: 30-Mar-2012 Intent Lucretia Henson DO, DO, Kathleen Aerosol Treatment (91227)By: Anna On: 11-Jan-2012 Intent Lucretia KAUR DO, Kathleen Comments: no noise adnmore a/e after aerosol Radiology - Chest- PA and LatBy: On: 11-Jan-2012 Intent Lucretia Henson DO, DO, Comments: do repeat cxr in around pedro Lucretia Eprescribed prescriptions (G8553)By: On: 11-Jan-2012 Intent Deysi Galvan LPN Aerosol Treatment (69442)By: Anna On: 28-Dec-2011 Intent Lucretia KAUR DO, Kathleen Comments: more a/e - louider but better movenmnt Spirometry (11778)By: Anna KAUR, On: 28-Dec-2011 Intent Lucretia Chahal DO Comments: obstruciotn present nad ecent effort /technique considering how sick she is Solu- Medrol Injection, 125mg On: 28-Dec-2011 Intent (J2930)By: Lucretia Henson DO Comments: Lot:[id number]:mt:125mg/2mlRoute:IMSite:R GlutealGiven by: GOKUL Kwon DO, Kathleen Radiology - Chest- PA and LatBy: On: 28-Dec-2011 Intent Lucretia Henson DO, DO, Kathleen Pulse Oximetry (17730)By: Anna KAUR, On: 28-Dec-2011 Intent Lucretia Chahal DO ADMINISTRATION OF INFLUENZA VIRUS On: 21-Dec-2011 Intent VACCINE (G0008)By: Omayra Cunha Comments: Lot #[id number]/30/13Site-left deltoidgiven by: Cameron Keller LPN LPN FLU VAC, SPLIT, >3 YEARS, INTRAMUSC On: 21-Dec-2011 Intent (75202)By: Omayra Cunha LPN EKG (60343)By: Omayra Cunha LPN On: 02-Oct-2011 Intent Comments: nsr no acute chg - inc IVCD - Eprescribed prescriptions (G8553)By: On: 18-Sep-2011 Intent Lucretia Henson DO, DO, Kathleen Spirometry (56090)By: Anna KAUR, On: 10-Jun-2011 Intent Lucretia Chahal DO Comments: stable -- no chg in inhalers EKG (08753)By: Lucretia Henson DO On: 10-Jun-2011 Intent Lucretia Henson DO Comments: nsr no acute chg Radiology - Chest- PA and LatBy: On: 10-Jun-2011 Intent Lucretia Henson DO, DO, Kathleen ADMINISTRATION OF INFLUENZA VIRUS On: 15-Dec-2010 Intent VACCINE (G0008)By: Anna KAUR, Comments: Lot #[id number]-L arm, IMDose prefilledgiven by:Lucretia Walsh DO FLU VAC, SPLIT, >3 YEARS, INTRAMUSC On: 15-Dec-2010 Intent (92463)By: Lucretia Henson DO, DO, Kathleen TDAP VACCINE >7 IM (70133)By: Anna On: 18-Sep-2010 Lucretia Bull DO, DO, Kathleen Comments: Lot #[id number]/31/13Site-left deltoidgiven by: Cameron Keller LPN EKG (97040)By: Lucretia Henson DO On: 11-Jun-2010 Intent Lucretia Henson DO Comments: nsr no acute chgng Eprescribed prescriptions (G8553)By: On: 11-Jun-2010 Intent Lucretia Henson DO, DO, Kathleen FLU VAC, SPLIT, >3 YEARS, INTRAMUSC On: 09-Jan-2010 Intent (93168)By: Omayra Cunha LPN Comments: Lot #[id number]/11Site-left deltoidgiven by:[facility] ADMINISTRATION OF INFLUENZA VIRUS On: 09-Jan-2010 Intent VACCINE (G0008)By: Omayra Cunha LPN MRI - Knee(s) - RightBy: Anna KAUR, On: 10-May-2009 Intent Lucretia Chahal DO EKG (69374)By: Lucretia Henson DO On: 10-May-2009 Intent Lucretia Henson DO Comments: nsr no acute changes FLU VAC, SPLIT, >3 YEARS, INTRAMUSC On: 14-Nov-2008 Intent (83070)By: Claudia Ibarra CNP ADMINISTRATION OF INFLUENZA VIRUS On: 14-Nov-2008 Intent VACCINE (G0008)By: Addi NO Claudia Payne Comments: Lot #: [id number] date: mount given: 0.5 mlRoute: IMSite given: left deltoidGiven by: Nellie Siddiqi LPN Ultrasound - RenalBy: Addi NOClaudia On: 14-Nov-2008 Intent E Pulse Oximetry (20444)By: Anna KAUR, On: 21-May-2008 Intent Lucretia Chahal DO Comments: 97% Pulse Oximetry ([id number])By: Addi NO, On: 18-Apr-2008 Intent Claudia Payne Comments: 93% before and after aerosol tx Aerosol Treatment ([id number])By: Addi On: 18-Apr-2008 Intent MARYBEL Claudia Payne Comments: done-AW Pulse Oximetry ([id number])By: Anna KAUR, On: 04-Apr-2008 Intent Lucretia Chahal DO Comments: post treatment- 98% spo2 Aerosol Treatment ([id number])By: Anna On: 04-Apr-2008 Intent Lucretia KAUR DO, Kathleen Inhaler Demo ([id number])By: Anna KAUR On: 02-Apr-2008 Intent Lucretia Chahal DO Aerosol Treatment ([id number])By: Anna On: 02-Apr-2008 Intent Lucretia KAUR DO, Kathleen Comments: much more air excchange less noise but still there Solu- Medrol Injection, 125mg On: 02-Apr-2008 Intent ([id number])By: Lucretia Henson DO Comments: lot # [id number] ozsw-QAIJTertle-NEydkw- 125mg chenderson tolerated well Lucretia KAUR Pulse Oximetry ([id number])By: Anna KAUR On: 02-Apr-2008 Intent Lucretia Chahal DO Comments: after aerosol tx93% on room air Pulse Oximetry ([id number])By: Guerline On: 02-Apr-2008 Intent Omayra HODGSON Comments: done km 90 % EKG ([id number])By: Lucretia Henson DO On: 15-Dec-2007 Intent Lucretia Henson DO Comments: nsr no acute ischemic changes IMMUNIZ ADMNIN, 1 VAC, SNGL/COMBO On: 15-Dec-2007 Intent ([id number])By: Lucretia Henson DO Comments: lot # [id number]- 01/26/09site- RDLTroute-IMdose- o.5mg chenderson MA , Lucretia PNEUM VAC ADLT/IMUMNOSPR, SBC/INTRM On: 15-Dec-2007 Intent ([id number])By: Lucretia Henson DO, DO, Kathleen FLU VAC, SPLIT, >3 YEARS, INTRAMUSC On: 15-Dec-2007 Intent ([id number])By: Omayra Cunha LPN Comments: 0.5cc given lt arm lot [id number] exp 6 ADMINISTRATION OF INFLUENZA VIRUS On: [...] make her gain weight- goes to see potato pancake frier tomorrow at [facility] that doing well Dr Elliott- admits to [...] () a mini mental status exam done to End: 11-Sep-2015 13:55 ay. The activities of [...] The patient does have durable power of claims attorney and living will. The patient has noticed staying at home rather than d oing something new or going out and lack of energy. Other providers contributing to the patient's care are potato pancake frier and surgeon.Encounter Diagnosis: Annual Medicare Phyiscal WITHOUT [...] The patient does have durable power of claims attorney and living will. The patient has noticed dropping activities and interests and thinking most people are better off than them. Other providers contributing to the patient's care are potato pancake frier ([place], ), surge on (bryan [facility] [...] Depressive Disorder (311.) [facility] Elvis Meyers; nellie guarantor
--- OUTSIDE RECORDS SUMMARY | 2018-03-20 08:58 | XMS RPT_ITS | Continuity of Care Document ---
:1950 Author Organization [facility] Address [address] [facility] [address] [place] [address] Phone Care Team Providers Name Role Phone [...] sees Dr Gurrola until he retired now [facility] Status: Active BMI 30.0-30.9,adult (Z68.30, V85.30) Status: [...] 32MG (Oral Tablet) qd (32 MG) Inactive Comments:[facility] NIASPAN, 500MG (Oral Tablet Extended Release) 1 [...] Hour) 1 tab bid (300 MG) Inactive Comments:[facility] #26 starting on 03-04-13 Tresiba FlexTouch 200 [...] 09-Sep-2011 End : 28-Dec-2011 Inactive VITAMIN D, 59695HJAY (Oral Capsule) 1 daily for 0 days [...] Discontinued Comments:This order discontinued per [employer]. 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) Comments: [facility] current from mid may-- she is [...] Discharge Instruction Result: Comments: See Note; NOTES: [facility] Medical Records Department [address] [place] [address] Instructions for Home/Discharge Instructions 12/21/17 1103 MR#: [id number] Acct: [id number] Name: ELIZABETH MEYERS Rep #: [id number] : 1950 67 From: Jazzy Dunn DPM PCP: Lucretia Henson DO Status: [place] [facility] [place] Activity: May not drive while taking [...] Pain Primary Care Physician: Lucretia Henson DO [[facility] Care Provider] - Test Results: Test results from this visit will be discussed in further detail at your follow-up appointment, if applicable. Please Follow Up With: Jazzy Dunn DPM When: as previ ously scheduled 12/21/17 1107 <Electronically signed by Jazzy Dunn DPM> Date Jazzy Dunn DPM CC: Lucretia Henson DO 21-Dec-2017 Operative Report Result: Comments: See Note; NOTES: [facility] Medical Records Department [address] [place] [address] Operative Report 12/21/17 1041 MR#: [id number] Acct: [id number] Name: ELIZABETH MEYERS Rep #: [id number] : 1950 67 From: Jazzy Dunn DPM PCP: Lucretia Henson DO Status: REG SDC Y Location: [place] [address] Report of Operation Date of Procedure: 12/21/17 [...] days in clinic or sooner if needed. page technician: none Type of Anesthesia:: Local MAC Specimen's removed: wound cx Drains: giorgio Estimated Blood Loss (mL): minimal - Admit VTE Documentation VTE Present on Admission: No VTE Mechan Device Prophylaxis: SCD's 12/21/17 1058 <Electronically signed by Jazzy Dunn DPM> Date __ Jazzy Dunn DPM CC: ABHAY Dunn; Lucretia Henson DO Signed 22-Nov-2017 12 Lead Electrocardiogram Result: Comments: See Note; NOTES: [facility] Cardiovascular Services [address] [place] [address] 12 Lead EKG 11/18/17 1724 MR#: [id number] Acct: [id number] Name: ELIZABETH MEYERS Rep # : [id number] : 1950 67 From: Hayden Farnsworth MD [...] Borderline ECG Confirmed by MARTINA PAN, HAYDEN ([id number]), assignment desk editor CATY MEJIA ([id number]) on 11/22/2017 2:38:43 PM Referred By: Jazzy Dunn Confirmed By:HAYDEN LOZANO MD 11/22/17 1438 Date Hayden Farnsworth MD CC: ABHAY Dunn; Lucretia Henson DO Signed 18-Nov-2017 Chest PA and Lateral Result: Comments: See Note; NOTES: [facility] Imaging Services [address] [place] [address] Chest PA and Lateral MR#: [id number] Acct: [id number] Name: ELIZABETH MEYERS Rep #: [id number] : 1950 F 67 From: Shar Arevalo DO PCP: Lucretia Henson DO Status: REG CLI Study: Chest PA and Lateral Date of Exam: 11/18/17 Exam# [id number] Ordering Dr: Jazzy Dunn DPM STUDY: X-RAY [...] Arevalo DO at 18:48 ED T Tel [phone], Service support , CC: ABHAY Dunn; Lucretia Henson DO Digital Advertising Specialist: Signed 09-Jul-2015 12 Lead Electrocardiogram Result: Comments: See Note; NOTES: [facility] Cardiovascular Services [address] [place] [address] 12 Lead EKG 07/04/151641 MR#: [id number] Acct: [id number] Name: ELIZABETH ESPINAL Rep #: [id number] : 1950 65 From: Ernesto Peacock MD Attending Dr: Siddharth Valdovinos Status: REG [facility] Ordering Dr: Siddharth Mendoza PA-C Date: 07/04/15 [...] ECG Confirmed by ERNESTO PEACOCK MD ([id number]), assignment desk editor CATY MEJIA ([id number]) on 07/09/2015 9:57:58 AM Referred By: TANNER Confirmed By:ERNESTO PEACOCK MD 07/08 0958 Date Ernesto Peacock MD CC: Lucretia Henson DO Date Dictated: 07/04/151641 Date Transcribed: 07/04/151641 Digital Advertising Specialist: Signed 19-Jun-2015 Spirometry (15286) Comments: mild restricitoin Result: 03-Dec-2014 EKG (81868) Comments: INC rbbb NSR NO ACUTE CGH Result: [MEASUREMENTS ANALYSIS] Date of Test: 12/03/2014 16:09:42; Heart Rate: 67; ID Interval: 144; QRS: 108; QT Interval: 420; Corrected QT Interval (QTc): 432; P Wave [place]: 63; QRS Wave [place]: 72; T Wave [place] : 65; Blood Pressure: 122/74 [ECG DIAGNOSTIC STATEMENTS] Date of Test: 12/03/2014 16:09:42; Summary: Sinus Rhythm Low voltage -possible pulmonary disease. ABNORMAL 21-May-2014 Spirometry (89772) Comments: good stable Result: 09-Apr-2014 Chest PA and Lateral Result: Comments: See Note; NOTES: [facility] Imaging Services [address] [place] [address] Radiology Report MR#: [id number] Acct: [id number] Name: ELIZABETH MEYERS Rep #: [id number] : 1950 F 63 From: Sabino Osorio DO PCP: Lucretia Henson DO Status: REG CLI Study: Chest PA and Lateral Date of Exam: 04/09/14 Exam# [id number] Ordering Dr: Reyes Goodwin DO STUDY: X-RAY [...] at 2:15 EST Tel , Service support [phone], CC: Lucretia Henson DO; Reyes Goodwin DO Digital Advertising Specialist: Signed 06-Apr-2014 12 Lead Electrocardiogram Result: Comments: See Note; NOTES: [facility] Cardiovascular Services [address] [place] [address] 12 Lead EKG 04/05/142 MR#: [id number] Acct: [id number] Name: KAYLA MEYERSRosa Maria Payne Rep #: [id number] : 1950 63 From: Jey Azar MD [...] Borderline ECG Confirmed by JEY AZAR ([id number]), assignment desk editor CATY MEJIA ([id number]) on 04/06/2014 10 :05:50 AM Referred By: TANNER Confirmed By:JEY AZAR 04/06/14 1005 Date Jey Azar MD CC: Lucretia Henson DO Date Dictated: 04/05/14 1522 Date Transcribed: 04/05/141521 Digital Advertising Specialist: Signed 31-Jan-2014 Operative Report Result: Comments: See Note; NOTES: [facility] Medical Records Department [address] [place] [address] Operative Report MR#: [id number] Acct: [id number] Name: ELIZABETH MEYERS Rep # : [id number] : 1950 63 From: Reyes Goodwin DO PCP: Lucretia Henson DO Status: ADM IN DATE OF SERVICE: 01/29/2014 OPERATION: Right total hip replacement arthroplasty utilizing Edgemont Trident size 48 cup, MDM metal liner, size 4 Accolade type 2, 132 degree neck angle femoral stem with +3 modular cobalt chromium polyethylene femoral head. PREOPERATIVE DIAGNOSIS: Osteoarthritis, right hip. POSTOPERATIVE DIAGNOSIS: Osteoarthritis, right hip. SURGEON: Reyes Goodwin D.O. DIRECTOR SALES TRAINING: Siddharth Mendoza PA-C. SECOND PUBLICATIONS PRODUCTION SUPERVISOR ____ PGY4. ANESTHESIA: Spinal. ANESTH ESIOLOGIST: [...] range of motion, stability, and leg length orthodoxy. Trial head and nec k was removed [...] skin. Sterile well-padded dressing was applied. My retail event and sales assistant, Mr. Mendoza, provided a vital role [...] condition. Reyes Goodwin DO T: SHARLA JOB: [id number] 01/31/14 1549 &#60 ;Electronically signed by Reyes Goodwni DO> Date Reyes Goodwin DO CC: Lucretia Goodwin DO Date Dictated: 01/29/141419 Date Transcribed: 01/29/141419 Digital Advertising Specialist: Signed 31-Jan-2014 Discharge Instruction Result: Comments: See Note; NOTES: [facility] Medical Records Department [address] [place] [address] Instructions for Home/Discharge Instructions 01/31/14 1512 MR#: [id number] Acc t: [id number] Name: ELIZABETH MEYERS Rep #: [id number] : 1950 63 From: Siddharth Mendoza PA-C [...] Up With: Tech sher t with Clinical Auto Body Technician Paola @ [place] office Please Follow Up With: Siddharth Mendoza 01/31/14 1514 <Electronically signed by Siddharth Mendoza PA-C> Date Siddharth Mendoza PA-C CC: Lucretia Henson DO; Mau Faulkner DO 31-Jan-2014 12 Lead Electrocardiogram Result: Comments: See Note; NOTES: [facility] Cardiovascular Services [address] [place] [address] 12 Lead EKG 01/29/14 1454 MR#: [id number] Acct: [id number] Name: RACHEL MEYERS Rep #: [id number] : 1950 63 From: Hayden Farnsworth MD Attending Dr: Nadeem Ceballos MD Status: ADM IN Ordering Dr: Demar Valadez MD Date: 01/29/14 [place] [facility] [place] C Admitted: 01/29/14 Test Reason [...] Borderline ECG Confirmed by MARTINA PAN, HAYDEN ([id number]), assignment desk editor CATY MEJIA ([id number]) on 2013 9:46:18 AM Referred By: TANNER Confirmed By:HAYDEN FARNSWORTH MD 01/31/14 0946 Date Hayden Farnsworth MD CC: Lucretia Henson DO Date Dictated: 01/29/14 145 Date Transcribed: 01/29/141453 Digital Advertising Specialist: Signed 30-Jan-2014 Echocardiogram Complete Result: Comments: See Note; NOTES: [facility] Cardiovascular Services [address] [place] [address] Echo Complete 01/29/14 1508 MR#: [id number] Acct: [id number] Name: ULICES MEYERS Rep #: [id number] : 1950 63 From: Ernesto Peacock MD [...] Dictated: 01/29/14 1508 Date Transcribed: 01/29/14 1556 Digital Advertising Specialist: Signed 30-Jan-2014 Consultation Result: Comments: See Note; NOTES: [facility] Medical Records Department [address] [place] [address] Consultation 01/30/14 1128 MR#: [id number] Acct: [id number] Name: ULICES MEYERS Rep #: [id number] : 1950 63 From: Nadeem Ceballos MD PCP: Lucretia Henson DO Status: ADM IN Location: DC3 [id number] Reason for Consult Date of Consultation: 01/30/14 Reason for Con sultation: medical management in a patient with right total hip arthroplasty History of Present Illness: The patient is a 63 year old F who has had rheumatoid arthritis for about 20 years. She has b een followed by physicians at the [facility] in [place] since about the year 1999. 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 Lives: With Famil y [...] Views (Portable) Result: Comments: See Note; NOTES: [facility] Imaging Services [address] [place] [address] Radiology Report MR#: [id number] Acct: [id number] Name: ELIZABETH MEYERS Rep #: [id number] : 1950 F 63 From: Mane Stephens MD PCP: Lucretia Henson DO Status: ADM IN Study: Hip Min 2 Views (Portable) Date of Exam: 01/29/14 Exam# [id number] Ordering Dr: Reyes Goodwin DO STUDY: X-RAY [...] Mane Stephens MD at 16:01 EST Tel [phone], Service support [phone], Fax RAD/Hip Min 2 Views (Portable) IMPRESSION: The patient is status post right total hip replacement. There is good alignment. Postoperative soft tissue swelling. Sandra ctronically Signed: Mane Stephens MD at 16:01 EST Tel [phone], Service support [phone], CC: Lucretia Henson DO; Reyes Goodwin DO Digital Advertising Specialist: Signed 01-May-2013 Chest PA and Lateral Result: Comments: See Note; NOTES: [facility] Imaging Services [address] [place] [address] Radiology Report MR#: [id number] Acct: [id number] Name: ELIZABETH MEYERS Rep #: [id number] : 1950 F 62 From: Siddharth Wahl MD PCP: Lucretia Henson DO Status: REG CLI Study: Chest PA and Lateral Date of Exam: 05/01/13 Exam# [id number] Ordering Dr: Lucretia Henson DO STUDY: X- [...] MD at 11:51 EDT , Service support [phone], CC: Lucretia Henson DO Digital Advertising Specialist: Signed Immunization Name Dates Details Influenza (3 years and up) on: 15-Dec-2007 Comments: 0.5cc given lt arm lot jadsz846id exp 07-31 Influenza (3 years and up) [...] kg/m2 Body Surface Area Calculated 1.96 m2 16-Igg-996793:19 Pulse 78 /min Comments: Pattern: Regular Respiration [...] 0.00 cm Results Date Description Value Details 12-Rsv-529231:41 Culture, Deep Wound Comments: [facility] [address] [place], [address] CUDW See Note (Normal) Comments: Order Date: [...] $ <=0.5 S(NF) indicates non-formulary drug at [facility]. Approval by Infectious Disease Specialist required before non-formulary drugs may be ordered and/or dispensed. * CLSI guidelines does not recommend testing of cephalosporins. This interpretation is deduced from Beta-lactam/penicillin results. Cult, AnaerobicNo anaerobic bacteria isolated. 26-Crj-72180:58 Basic Metabolic Profile (BMP) Comments: [facility] [address] [place], [place], [address] GAP 8 (Normal) Range: 5-15 CO2 30.0 [...] A.D.A. criteria.Please note revised GLUCOSE reference range bboksdfyk77/02/2018. 76-Ghe-80020:58 CBC-Complete Blood Cnt No Diff Comments: [facility] [address] [place], [place], [address] MPV 10.8 fL (Normal) Range: 6.2-12.0 PLT [...] (Normal) Range: 4.4-11.0 :58 Hemoglobin A1c Comments: [facility] [address] [place], [address] HGB A1C 10.3 % (Abnormal) Range: 4.2-6.3 60-Tjk-18686:58 Thyroid Stim Hormone (TSH) Comments: [facility] [address] [place], [address] TSH 0.11 {uIU/mL} (Abnormal) Range: 0.358-3.74 :20 Bedside Glucose Comments: [facility] [address] [place] [address] BEDSIDE GLU 195 mg/dL (Abnormal) Range: 70-110 Comments: MANAGEMENT OF PATIENT CARE PER NURSING PROTOCOL :03 Mass (define area) See Note (Normal) Comments: [facility] [address] [place], [address] Comments: Patient: ELIZABETH MEYERS : 1950 (67/F) Acct Num: [id number] Phys: Jazzy Dunn DPM Unit Num: [id number] Loc: [facility] Specimen: [id number] Received: 12/02/171558 Spec Type: Mass TISSUES 1 [...] one cassette. / SJ:bernard 12/03/17 TC:5 CPT: 72728, 62311 x2 HEADER OPERATION: Left foot excision of [...] file> :54 Basic Metabolic Profile (BMP) Comments: [facility] [address] [place], [place], [address] GAP 4 (Abnormal) Range: 5-15 CO2 29.0 [...] A.D.A. criteria.Please note revised GLUCOSE reference range inwdydjni55/02/2018. 99-Qyg-666992:54 CBC-Complete Blood Cnt No Diff Comments: [facility] [address] [place], [place], [address] MPV 10.1 fL (Normal) Range: 6.2-12.0 PLT [...] Range: 4.4-11.0 :36 CBC W/Diff, Automated Comments: [facility] [address] [place], [place], [address] Absolute Lymph 1.77 {X10_3/ul} (Normal) Range: 0.83-4.51 [...] K/mm3 (Normal) Range: 4.4-11.0 :36 CRP Comments: [facility] [address] [place], [address] C-REACTIVE PROT 24.50 mg/L (Abnormal) Range: 0.0-3.0 Comments: C-Reactive Protein (CRP) provides useful information for thediagnosis, therapy and monitoring of inflammatory processesand associated diseases. For the evaluation of Relative Riskfor Cardiovascular Dise ase, a High Sensitivity CRP (HSCRP)should be ordered. :36 Erythrocyte Sed Rate Comments: [facility] [address] [place], [place], [address] SED RATE 35 mm/h (Abnormal) Range: 0-30 :42 HgA1C , Office (47087) HgA1C , Office 11.2 % (Abnormal) Range: 4.6 - 7.1 :42 Blood Glucose , Office (42178) Blood Glucose , Office 375 (Normal) :28 CBC W/Diff, Automated Comments: [facility] [address] [place], [place], [address] Absolute Lymph 1.68 {X10_3/ul} (Normal) Range: 0.83-4.51 [...] 4.2-5.4 WBC 4.7 K/mm3 (Normal) Range: 4.4-11.0 10-Ioy-631976:28 Comprehensive Metabolic Profil Comments: [facility] [address] [place], [address] GAP 8 (Normal) Range: 5-15 CO2 32.0 [...] A.D.A. criteria.Please note revised GLUCOSE reference range edpmuqwwo62/02/2018. 60-Lki-436242:28 Free T3 Comments: [facility] [address] [place], [address] FREE T3 2.2 pg/mL (Normal) Range: 2.18-3.98 94-Cdl-976531:28 Lipid Profile Comments: [facility] [address] [place], [address] VLDL 40 mg/dL (Normal) Range: 5-40 LDL [...] 200-240 mg/dL Borderline >240 mg/dL High Risk 46-Gxq-354547:28 T4 Free Direct Comments: [facility] [address] [place], [address] T4 FREE DIRECT 1.70 ng/dL (Abnormal) Range: 0.76-1.46 69-Igo-337914:28 Thyroid Stim Hormone (TSH) Comments: [facility] [address] [place], [address] TSH 1.05 {uIU/mL} (Normal) Range: 0.358-3.74 89-Wag-354537:16 HgA1C , Office (05804) HgA1C , Office 11.0 % (Abnormal) Range: 4.6 - 7.1 70-Vcb-344015:15 Blood Glucose , Office (43884) Blood Glucose , Office 508 (Normal) 90-Zjp-788773:18 HgA1C , Office (46253) HgA1C , Office 11.7 % (Abnormal) Range: 4.6 - 7.1 95-Taj-207051:18 Blood Glucose , Office (83882) Blood Glucose , Office 360 (Normal) 3-Ilq-288203:55 CBC W/Diff, Automated Comments: [facility] [address] [place], [address] Absolute Lymph 1.93 {X10_3/ul} (Normal) [...] 4.2-5.4 WBC 5.7 K/mm3 (Normal) Range: 4.4-11.0 6-Idb-724519:55 Comprehensive Metabolic Profil Comments: [facility] [address] [place], [place], [address] GAP 9 (Normal) Range: 5-15 CO2 28.0 [...] 200 mg/dLsuggests DIABETES MELLITUS per A.D.A. criteria. 5-Sqe-622955:55 Free T3 Comments: [facility] [address] [facility] [address] [place], [place], [address] FREE T3 1.8 pg/mL (Abnormal) Range: 2.18-3.98 6-Vah-446958:55 Lipid Profile Comments: [facility] [address] [facility] [place], [place], [address] VLDL 41 mg/dL (Abnormal) Range: 5-40 LDL [...] 200-240 mg/dL Borderline >240 mg/dL High Risk 8-Rqz-561064:55 Microalb:Creat Ratio,Random UR Comments: [facility] [address] [place], [address] MALB:CREAT 17.2 {mg/g_CRE} (Normal) MICROALBUMIN,UR 7.6 mg/L (Normal) UR CREAT 44.40 mg/dL (Normal) 9-Chk-287832:55 T4 Free Direct Comments: [facility] [address] [place], [place], [address] T4 FREE DIRECT 1.23 ng/dL (Normal) Range: 0.76-1.46 0-Zhd-676264:55 Thyroid Stim Hormone (TSH) Comments: [facility] [address] [place], [address] TSH 15.10 {uIU/mL} (Abnormal) Range: 0.358-3.74 0-Xjd-420831:55 Urinalysis, Complete Comments: How was Urine Obtained? CLEAN [facility] [address] [place], [address] MUCUS, URINE 0 SEEN {/hpf} [...] Yellow (Normal) :55 Vitamin D,25 Hydroxy Comments: [facility] [address] [place], [address] Vitamin D 25-OH 66.6 ng/mL (Normal) Comments: Vitamin D 25(OH) Status Range Deficiency <20 ng/mL (50nmol/L) Insuffciency 20 - 30 ng/mL (50 - 75 nmol/L) Sufficiency 30 - 100 ng/mL (75 - 250 nmol/L) Toxicity >100 ng/mL (>250 nmol/L) :24 HgA1C , Office (49892) HgA1C , Office 10.2 % (Abnormal) Range: 4.6 - 7.1 :24 Blood Glucose , Office (72195) Blood Glucose , Office 261 (Normal) :35 CBC W/Diff, Automated Comments: [facility] [address] [place], [address] Absolute Lymph 1.72 {X10_3/ul} (Normal) Range: 0.83-4.51 [...] 4.2-5.4 WBC 5.4 K/mm3 (Normal) Range: 4.4-11.0 37-Nxd-302163:35 Comprehensive Metabolic Profil Comments: [facility] [address] [place], [place], [address] GAP 10 (Normal) Range: 5-15 CO2 27.0 [...] 126 mg/dLsuggests DIABETES MELLITUS per A.D.A. criteria. 92-Qxv-224762:35 Lipid Profile Comments: [facility] [address] [place], [place], [address] VLDL 65 mg/dL (Abnormal) Range: 5-40 LDL [...] 200-240 mg/dL Borderline >240 mg/dL High Risk 47-Fph-343657:35 Microalb:Creat Ratio,Random UR Comments: [facility] [address] [place], [place], [address] MALB:CREAT Test not performed {mg/g_CRE} (Normal) MICROALBUMIN,UR < 5.0 mg/L (Normal) UR CREAT 19.80 mg/dL (Normal) 99-Avx-239183:35 Thyroid Stim Hormone (TSH) Comments: [facility] [address] [place], [address] TSH 0.34 {uIU/mL} (Abnormal) Range: 0.358-3.74 03-Syh-594045:35 Urinalysis, Complete Comments: How was Urine Obtained? CLEAN [facility] [address] [facility] [address] [place], [place], [address] MUCUS, URINE 0 SEEN {/hpf} (Normal) BACTERIA [...] (Normal) CLARITY Clear (Normal) COLOR Yellow (Normal) 54-Xum-587254:35 Vitamin D,25 Hydroxy Comments: [facility] [address] [facility] [place], [place], [address] Vitamin D 25-OH 49.0 ng/mL (Normal) Comments: Vitamin D 25(OH) Status Range Deficiency <20 ng/mL (50nmol/L) Insuffciency 20 - 30 ng/mL (50 - 75 nmol/L) Sufficiency 30 - 100 ng/mL (75 - 250 nmol/L) Toxicity >100 ng/mL (>250 nmol/L) 21-Uze-247795:55 HgA1C , Office (01268) HgA1C , Office 12.7 % (Abnormal) Range: 4.6 - 7.1 :55 Blood Glucose , Office (01119) Blood Glucose , Office 281 (Normal) 95-Lat-374462:00 HgA1C , Office (40329) HgA1C , Office 10.9 % (Abnormal) Range: 4.6 - 7.1 35-Omk-798171:00 Blood Glucose , Office (80984) Blood Glucose , Office 294 (Normal) 21-Ywr-583773:06 CBC W/Diff, Automated Comments: [facility] [address] [place], [address] Absolute Lymph 2.04 {X10_3/ul} (Normal) [...] 4.2-5.4 WBC 5.3 K/mm3 (Normal) Range: 4.4-11.0 36-Eek-543011:06 Comprehensive Metabolic Profil Comments: [facility] [address] [place], [address] GAP 7 (Normal) Range: 5-15 [...] 200 mg/dLsuggests DIABETES MELLITUS per A.D.A. criteria. 30-Vxa-843861:06 Free T3 Comments: [facility] [address] [facility] [address] [place], [place], [address] FREE T3 2.4 pg/mL (Normal) Range: 2.18-3.98 76-Vbo-619001:06 Microalb:Creat Ratio,Random UR Comments: [facility] [address] [facility] [place], [address] MALB:CREAT 23.5 {mg/g_CRE} (Normal) MICROALBUMIN,UR 39.5 mg/L (Normal) UR CREAT 168.00 mg/dL (Normal) 12-Ese-135074:06 T4 Free Direct Comments: [facility] [address] [place], [address] T4 FREE DIRECT 1.48 ng/dL (Abnormal) Range: 0.76-1.46 02-Wbg-808728:06 Thyroid Stim Hormone (TSH) Comments: [facility] [address] [place], [address] TSH 1.80 {uIU/mL} (Normal) Range: 0.358-3.74 08-Hqp-549017:06 Urinalysis, Complete Comments: How was Urine Obtained? CLEAN [facility] [address] [place], [address] MUCUS, URINE 0 SEEN {/hpf} (Normal) [...] CLARITY Sl. Cloudy (Normal) COLOR Yellow (Normal) 39-Uet-802707:06 Vitamin D,25 Hydroxy Comments: [facility] [address] [place], [address] Vitamin D 25-OH 38.6 ng/mL (Normal) Comments: Vitamin D 25(OH) Status Range Deficiency <20 ng/mL (50nmol/L) Insuffciency 20 - 30 ng/mL (50 - 75 nmol/L) Sufficiency 30 - 100 ng/mL (75 - 250 nmol/L) Toxicity >100 ng/mL (>250 nmol/L) 18-Exq-347143:12 HgA1C , Office (35425) HgA1C , Office 10.1 % (Abnormal) Range: 4.6 - 7.1 :12 Blood Glucose , Office (70730) Blood Glucose , Office 265 (Normal) :01 Free T3 Comments: [facility] [address] [place], [address] FREE T3 1.9 pg/mL (Abnormal) Range: 2.18-3.98 :01 T4 Free Direct Comments: [facility] [address] [place], [address] T4 FREE DIRECT 1.24 ng/dL (Normal) Range: 0.76-1.46 :01 Thyroid Stim Hormone (TSH) Comments: [facility] [address] [place], [address] TSH 7.84 {uIU/mL} (Abnormal) Range: 0.358-3.74 :26 Fecal Occult Blood , Office (35246) Fecal Occult Blood , Office (Inhouse) negative (Normal) :41 HgA1C , Office (95256) HgA1C , Office 9.1 % (Abnormal) Range: 4.6 - 7.1 :41 Blood Glucose , Office (39346) Blood Glucose , Office 188 (Normal) :54 CBC W/Diff, Automated Comments: [facility] [address] [place], [place], [address] Absolute Lymph 2.03 {X10_3/ul} (Normal) Range: 0.83-4.51 [...] 4.2-5.4 WBC 6.8 K/mm3 (Normal) Range: 4.4-11.0 7-Sal-159962:54 Comprehensive Metabolic Profil Comments: [facility] [address] [place], [place], [address] GAP 6 (Normal) Range: 5-15 CO2 28.0 [...] 126 mg/dLsuggests DIABETES MELLITUS per A.D.A. criteria. 2-Kbi-357129:54 Lipid Profile Comments: [facility] [facility] [address] [place], [address] VLDL 53 mg/dL (Abnormal) Range: [...] 200-240 mg/dL Borderline >240 mg/dL High Risk 5-Hmj-091474:54 Microalb:Creat Ratio,Random UR Comments: [facility] [address] [place], [address] MALB:CREAT Test not performed {mg/g_CRE} (Normal) MICROALBUMIN,UR < 5.0 mg/L (Normal) UR CREAT < 13.00 mg/dL (Normal) 8-Aem-669053:54 Thyroid Stim Hormone (TSH) Comments: [facility] [address] [place], [address] TSH 5.02 {uIU/mL} (Abnormal) Range: 0.358-3.74 2-Guz-204053:54 Urinalysis, Complete Comments: How was Urine Obtained? CLEAN [facility] [address] [place], [address] MUCUS, URINE 0 SEEN {/hpf} (Normal) [...] (Normal) CLARITY Cloudy (Normal) COLOR Yellow (Normal) 9-Uhe-144376:54 Vitamin D,25 Hydroxy Comments: [facility] [address] [place], [address] Vitamin D 25-OH 49.1 ng/mL (Normal) Comments: Vitamin D 25(OH) Status Range Deficiency <20 ng/mL (50nmol/L) Insuffciency 20 - 30 ng/mL (50 - 75 nmol/L) Sufficiency 30 - 100 ng/mL (75 - 250 nmol/L) Toxicity >100 ng/mL (>250 nmol/L) 52-Ftp-566863:26 Basic Metabolic Profile (BMP) Comments: [facility] [address] [place], [id number] GAP 1 (Abnormal) Range: 5-15 CO2 34.0 [...] :26 CBC-Complete Blood Cnt No Diff Comments: [facility] [address] [place], [place], [id number] MPV 10.6 fL (Normal) Range: 6.2-12.0 PLT [...] (Normal) Range: 4.4-11.0 :32 HgA1C , Office (81438) HgA1C , Office 12.0 % (Abnormal) Range: 4.6 - 7.1 :24 CBC W/Diff, Automated Comments: [facility] [address] [place], [place], [id number] Absolute Lymph 1.99 {X10_3/ul} (Normal) Range: 0.83-4.51 [...] 4.2-5.4 WBC 5.6 K/mm3 (Normal) Range: 4.4-11.0 7-Kad-212290:24 Liver Profile Comments: Comments: '[facility] [address] [place], [address] D BILI 0.09 mg/dL (Normal) Range: 0.00-0.30 T BILI 0.30 mg/dL (Normal) Range: 0.20-1.00 ALT 27 U/L (Normal) Range: 12-78 ALK P 98 U/L (Normal) Range: 50-136 AST 21 U/L (Normal) Range: 15-37 GLOB 3.5 g/dL (Normal) Range: 2.3-3.5 ALB 3.6 g/dL (Normal) Range: 3.4-5.0 T PROT 7.1 g/dL (Normal) Range: 6.4-8.2 :24 Serum Creatinine AND GFR Comments: Comments: '[facility] [address] [place], [place], [address] EST GFR - AA 71 mL/min (Normal) Comments: GFR Calc EST GFR 59 mL/min (Abnormal) Comments: Non- GFR Calc CREAT,SERUM 1.01 mg/dL (Normal) Range: 0.55-1.20 Comments: The validity of the calculated GFR AND GFRAA in patients over70 years has not been determined. Clinical correlation isessential. :24 HgA1C , Office (65995) HgA1C , Office 13.4 % (Abnormal) Range: 4.6 - 7.1 :24 Blood Glucose , Office (15616) Blood Glucose , Office 549 (Normal) :55 CBC W/Diff, Automated Comments: [facility] [address] [place], [place], [address] Absolute Lymph 1.90 {X10_3/ul} (Normal) Range: 0.83-4.51 [...] 4.2-5.4 WBC 4.7 K/mm3 (Normal) Range: 4.4-11.0 09-Hsn-819577:55 Comprehensive Metabolic Profil Comments: [facility] [address] [place], [address] GAP 8 (Normal) Range: 5-15 CO2 27.0 [...] 200 mg/dLsuggests DIABETES MELLITUS per A.D.A. criteria. 70-Wts-054384:55 Lipid Profile Comments: [facility] [address] [place], [place], [address] VLDL 53 mg/dL (Abnormal) Range: 5-40 LDL [...] 200-240 mg/dL Borderline >240 mg/dL High Risk 49-Wpz-721009:55 Microalb:Creat Ratio,Random UR Comments: [facility] [address] [place], [place], [address] MALB:CREAT 25.1 {mg/g_CRE} (Normal) MICROALBUMIN,UR 46.9 mg/L (Normal) UR CREAT 187.00 mg/dL (Normal) 43-Reo-298713:55 Thyroid Stim Hormone (TSH) Comments: [facility] [address] [place], [place], [address] TSH 2.79 {uIU/mL} (Normal) Range: 0.358-3.74 56-Txl-134846:55 Urinalysis, Complete Comments: How was Urine Obtained? [facility] [address] [place], [place], [address] MUCUS, URINE 0 SEEN {/hpf} (Normal) BACTERIA [...] (Abnormal) CLARITY Cloudy (Normal) COLOR Yellow (Normal) 54-Aba-294443:55 Vitamin D,25 Hydroxy Comments: [facility] [address] [place], [address] Vitamin D 25-OH 43.2 ng/mL (Normal) Comments: Vitamin D 25(OH) Status Range Deficiency <20 ng/mL (50nmol/L) Insuffciency 20 - 30 ng/mL (50 - 75 nmol/L) Sufficiency 30 - 100 ng/mL (75 - 250 nmol/L) Toxicity >100 ng/mL (>250 nmol/L) :29 HgA1C , Office (90822) HgA1C , Office 9.9 % (Abnormal) Range: 4.6 - 7.1 :29 Blood Glucose , Office (70358) Blood Glucose , Office 132 (Normal) :10 HgA1C , Office (17316) HgA1C , Office 10.2 % (Abnormal) Range: 4.6 - 7.1 :10 Blood Glucose , Office (20921) Blood Glucose , Office 255 (Normal) :53 Bilirubin, Direct Comments: LIVER CRE CBCDDR.ANNA TSH VITD LIPID UAC CBCD MIACRE CMPTest performed at:[facility] [address] [place] [address] D BILI 0.06 mg/dL (Normal) Range: 0.00-0.30 :53 CBC W/Diff, Automated Comments: Test performed at:[facility] [address] [place] [address] Absolute Lymph 1.80 {X10_3/ul} (Normal) Range: 0.83-4.51 [...] 4.2-5.4 WBC 4.5 K/mm3 (Normal) Range: 4.4-11.0 0-Ejn-659488:53 Comprehensive Metabolic Profil Comments: LIVER CRE CBCDDR.ANNA TSH VITD LIPID UA CBCD MIACRE CMPTest performed at:[facility] [address] [place], [place] [address] GAP 9 (Normal) Range: 5-15 CO2 27.0 [...] Comments: LIVER CRE CBCDDR.ANNA TSH VITD LIPID [facility] CBCD MIACRE CMPTest performed at:[facility] [address] [place], [place] [address] VLDL 102 mg/dL (Abnormal) Range: 5-40 LDL [...] :53 Microalb:Creat Ratio,Random UR Comments: Test performed at:[facility] [address] [place] [address] MALB:CREAT 25.8 {mg/g_CRE} (Normal) MICROALBUMIN,UR 85.7 mg/L (Normal) UR CREAT 331.3 mg/dL (Normal) :53 Thyroid Stim Hormone (TSH) Comments: LIVER CRE CBCDDR.ANNA TSH VITD LIPID UAC CBCD MIACRE CMPTest performed at:[facility] [address] [facility] [place] [address] TSH 0.99 {uIU/mL} (Normal) Range: 0.358-3.74 :53 Urinalysis, Complete Comments: How was Urine Obtained? CLEAN CATCHTest performed at:[facility] [address] [place] [address] AMORPHOUS 4+ (Normal) Comments: Microscopic [...] :53 Vitamin D,25 Hydroxy Comments: Test performed at:[facility] [address] [place] [address] Vitamin D 25-OH 25.3 ng/mL (Normal) Comments: Vitamin D 25(OH) Status Range Deficiency <20 ng/mL (50nmol/L) Insuffciency 20 - 30 ng/mL (50 - 75 nmol/L) Sufficiency 30 - 100 ng/mL (75 - 250 nmol/L) Toxicity >100 ng/mL (>250 nmol/L) 33-Pfy-041444:09 Microscopic Examination Comments: PATIENT NOT FASTINGPERFORMED BY: IP GhosterVirtua BerlinToxiyl0424 [facility] [id number] Bacteria Few (Normal) Mucus Threads Present (Normal) Crystal Type Calcium Oxalate (Normal) Crystals Present (Abnormal) Epithelial Cells (non renal) >10 {/hpf} (Abnormal) Range: 0 - 10 RBC 0-2 {/hpf} (Normal) Range: 0 - 2 WBC 6-10 {/hpf} (Abnormal) Range: 0 - 5 69-Kol-079821:09 METABOLIC PANEL, COMPREHENSIVE Comments: PATIENT NOT FASTINGPERFORMED BY: [employer] Yphmuk4499 [facility] [id number] (52348) ALT (SGPT) 12 [iU]/L (Normal) Range: 0-32 [...] Glucose, Serum 167 mg/dL (Abnormal) Range: 65-99 90-Ymb-351007:09 MICROALBUMIN: CREATININE RATIO Comments: PATIENT NOT FASTINGPERFORMED BY: Kimerick TechnologiesVirtua BerlinJpjcpq1116 [facility] [id number] (33920) AND (85652) Microalb/Creat Ratio 10.8 {mg/g_creat} (Normal) Range: 0.0-30.0 Microalbumin, Urine 35.0 ug/mL (Abnormal) Range: 0.0-17.0 Creatinine, Urine 323.9 mg/dL (Abnormal) Range: 15.0-278.0 10-Nhr-303111:09 CBC WITH MANUAL DIFF Comments: PATIENT NOT FASTINGPERFORMED BY: [employer] Wbalxl6151 [facility] CenterInstraGrokGranville Medical Center [id number] Information: [id number] (80069) Immature Grans (Abs) 0.0 {x10E3/uL} (Normal) Range: [...] 3.77-5.28 WBC 6.2 {x10E3/uL} (Normal) Range: 3.4-10.8 22-Xxb-111365:09 URINALYSIS, W/ MICRO (22891) Comments: PATIENT NOT FASTINGPERFORMED BY: [employer] [place] Art70 [facility] [id number] Microscopic Examination See below: (Normal) Comments: Microscopic was indicated and was performed. Nitrite, Urine Negative (Normal) Urobilinogen,Semi-Qn 1.0 mg/dL (Normal) Range: 0.0-1.9 Bilirubin Negative (Normal) Occult Blood Negative (Normal) Ketones Trace (Abnormal) Glucose Trace (Abnormal) Protein 1+ (Abnormal) WBC Esterase 1+ (Abnormal) Appearance Turbid (Abnormal) Urine-Color Yellow (Normal) pH 5.5 (Normal) Range: 5.0-7.5 Specific [place] >=1.030 (Abnormal) Range: 1.005-1.030 03-Cmx-827241:09 LIPID PANEL (64847) Comments: PATIENT NOT FASTINGPERFORMED BY: CLEAR [facility] Auhbdi0760 RoyRealRiderEC[facility] [id number] VLDL Cholesterol Dangelo VLDLCH mg/dL (Normal) Range: [...] Cholesterol, Total 337 mg/dL (Abnormal) Range: 100-199 53-Kpt-994744:09 Vitamin D Hydroxy (14944) Comments: PATIENT NOT FASTINGPERFORMED BY: [facility] Gmdrcf3543 [facility] [id number] Vitamin D, 25-Hydroxy 32.9 ng/mL (Normal) Range: 30.0-100.0 Comments: Vitamin D deficiency has been defined by the [place] of[facility] Hospitalcine and an Endocrine Society practice guideline as alevel of serum 25-OH vitamin D less than 20 ng/mL (1,2).The Endocrine Society went on to further define vitamin Dinsufficiency as a level between 21 and 29 ng/mL (2).1. IOM ([place] of Medicine). 2010. Dietary reference intakes for calcium and D. [place]: The National Academies Press.2. Yari MF, Caridad MCCRACKEN, Cindy SOTO, et al. Evaluation, treatment, and prevention of vitamin D deficiency: an Endocrine Society clinical practice guideline. JCEM. 2010; 96(7):1911-30. :09 TSH (55748) Comments: PATIENT NOT FASTINGPERFORMED BY: [facility] Lglbpa8109 [facility] [id number] TSH 0.951 {uIU/mL} (Normal) Range: 0.450-4.500 :39 HgA1C , Office (46112) HgA1C , Office 9.0 % (Abnormal) Range: 4.6 - 7.1 :39 Blood Glucose , Office (32249) Blood Glucose , Office 190 (Normal) 84-Jfw-611809:50 Basic Metabolic Profile (BMP) Comments: Test performed at:[facility] [address] [place], [place] [address] GAP 7 (Normal) Range: 5-15 CO2 27.0 [...] 200 mg/dLsuggests DIABETES MELLITUS per A.D.A. criteria. 43-Kwr-020999:50 CBC-Complete Blood Cnt No Diff Comments: Test performed at:[facility] [address] [facility] [place] [address] MPV 11.1 fL (Normal) Range: 6.2-12.0 PLT [...] 4.2-5.4 WBC 4.9 K/mm3 (Normal) Range: 4.4-11.0 96-Ici-114608:31 Bedside Glucose Comments: Test performed at:[facility] [address] [facility] [place] [address] BEDSIDE GLU 189 mg/dL (Abnormal) Range: 70-110 Comments: Policy and Physicians Orders followedMANAGEMENT OF PATIENT CARE PER NURSING PROTOCOL 89-Eeg-43171:07 Bedside Glucose Comments: Test performed at:[facility] Hzfujcxeqb2778 [place] [address] BEDSIDE GLU 101 mg/dL (Normal) Range: 70-110 Comments: Policy and Physicians Orders followedMANAGEMENT OF PATIENT CARE PER NURSING PROTOCOL 12-Fyg-13646:55 Glucose Comments: Comments: LOW BLOOD SUGAR/LAB TO CHECKTest performed at:[facility] [address] [place] [address] GLU 57 mg/dL (Abnormal) Range: 70-110 :51 Bedside Glucose Comments: Test performed at:[facility] [address] [place] [address] BEDSIDE GLU 64 mg/dL (Abnormal) Range: 70-110 Comments: Policy and Physicians Orders followedMANAGEMENT OF PATIENT CARE PER NURSING PROTOCOL :38 Bedside Glucose Comments: Test performed at:[facility] [address] [place] [address] BEDSIDE GLU 52 mg/dL (Abnormal) Range: 70-110 Comments: Policy and Physicians Orders followedMANAGEMENT OF PATIENT CARE PER NURSING PROTOCOL 9-Rcq-736010:35 Bedside Glucose Comments: Test performed at:[facility] [address] [place] [address] BEDSIDE GLU 144 mg/dL (Abnormal) Range: 70-110 Comments: Policy and Physicians Orders followedMANAGEMENT OF PATIENT CARE PER NURSING PROTOCOL 9-Lrm-429445:46 Bedside Glucose Comments: Test performed at:[facility] [address] [place] [address] BEDSIDE GLU 84 mg/dL (Normal) Range: 70-110 Comments: Policy and Physicians Orders followedMANAGEMENT OF PATIENT CARE PER NURSING PROTOCOL 3-Fyq-738914:23 Bedside Glucose Comments: Test performed at:[facility] [address] [place] [address] BEDSIDE GLU 85 mg/dL (Normal) Range: 70-110 Comments: Policy and Physicians Orders followedMANAGEMENT OF PATIENT CARE PER NURSING PROTOCOL :51 Bedside Glucose Comments: Test performed at:[facility] [address]bsmh[address] [place] [address] BEDSIDE GLU 289 mg/dL (Abnormal) Range: 70-110 Comments: Policy and Physicians Orders followedMANAGEMENT OF PATIENT CARE PER NURSING PROTOCOL :06 Basic Metabolic Profile (BMP) Comments: Test performed at:[facility] [address] [place] [address] GAP 7 (Normal) Range: 5-15 [...] Blood Cnt No Diff Comments: Test performed at:[facility] [address] [place] [address] MPV 11.4 fL (Normal) Range: [...] 4.4-11.0 :04 Bedside Glucose Comments: Test performed at:[facility] [address] [place] [address] BEDSIDE GLU 335 mg/dL (Abnormal) Range: 70-110 Comments: Policy and Physicians Orders followedMANAGEMENT OF PATIENT CARE PER NURSING PROTOCOL 30-Jan-20142:10 Bedside Glucose Comments: Test performed at:[facility] [address] [place] [address] BEDSIDE GLU 313 mg/dL (Abnormal) Range: 70-110 Comments: Policy and Physicians Orders followedMANAGEMENT OF PATIENT CARE PER NURSING PROTOCOL 3-Bbp-013227:23 Bedside Glucose Comments: Test performed at:[facility] [address] [place] [address] BEDSIDE GLU 352 mg/dL (Abnormal) Range: 70-110 Comments: Policy and Physicians Orders followedMANAGEMENT OF PATIENT CARE PER NURSING PROTOCOL 8-Zsm-575976:43 Bedside Glucose Comments: Test performed at:[facility] [address] [place] [address] BEDSIDE GLU 234 mg/dL (Abnormal) Range: 70-110 Comments: Policy and Physicians Orders followedMANAGEMENT OF PATIENT CARE PER NURSING PROTOCOL TOTAL HIP REPLACEMENT See Note (Normal) Comments: Test performed at:[facility] [address] [place] [address] :24 Comments: Patient: ELIZABETH MEYERS : 1950 (63/F) Acct Num: [id number] Phys: Nadeem Ceballos MD Unit Num: [id number] Loc: MS3 [id number] Specimen: [id number] Received: 01/30/14741 Spec Type: TOTAL HIP TISSUES [...] which measures 4 cm in greatest dimension. Tow Driver sections are submitted in two cassettes as follows: 1 - soft tissue, 2 - bone after decalcification. / : 01/30/14 TC:5 CPT: 72454, 883 11 HEADER OPERATION: Total hip replacement [...] UCOL Yellow (Normal) :12 HgA1C , Office (46474) HgA1C , Office 12.5 % (Abnormal) Range: 4.6 - 7.1 :12 Blood Glucose , Office (72341) Blood Glucose , Office 333 (Normal) 1-Axd-235845:35 CBCD ALC 1.78 {X10_3/ul} (Normal) Range: 0.83-4.51 [...] 4.2-5.4 WBC 5.4 K/mm3 (Normal) Range: 4.4-11.0 9-Hfk-494990:35 CRE Comments: CBCD CRE LIVERDR.ANNA TSH LIPID [...] CHOL 219 mg/dL (Abnormal) Comments: <200 mg/dL Rhnlxsahf444-986 mg/dL Borderline>240 mg/dL High Risk 4-Gzd-015533:35 LIVER Comments: CBCD CRE LIVERDR.ANNA TSH LIPID LIVER BID 0.08 mg/dL (Normal) Range: 0.00-0.30 BIT 0.30 mg/dL (Normal) Range: 0.00-4.00 ALT 32 U/L (Normal) Range: 12-78 ALK 119 U/L (Normal) Range: 50-136 AST 15 U/L (Normal) Range: 15-37 ALB 3.4 g/dL (Normal) Range: 3.4-5.0 TPROT 6.7 g/dL (Normal) Range: 6.4-8.2 4-Aol-034267:35 TSH 3.38 {uIU/mL} (Normal) Comments: CBCD CRE LIVERDRMonserratANNA TSH LIPID LIVER Range: 0.358-3.74 24-Cyd-212528:36 HgA1C , Office (67585) HgA1C , Office 9.9 % (Abnormal) Range: 4.6 - 7.1 :36 Blood Glucose , Office (94376) Blood Glucose , Office 247 (Normal) 89-Esq-728889:24 CBCD ALC 1.81 {X10_3/ul} (Normal) Range: 0.83-4.51 [...] 4.2-5.4 WBC 6.2 K/mm3 (Normal) Range: 4.4-11.0 89-Ngm-675452:24 CMP GAP 5 (Normal) Range: 5-15 CL [...] CHOL 207 mg/dL (Abnormal) Comments: <200 mg/dL Bpouhlktd138-575 mg/dL Borderline>240 mg/dL High Risk TRIG 257 [...] FECAL OCCULT HGB ASSAY- tubes sent home (51228) FECAL OCCULT HGB ASSAY, QUAL, 1-3 SIMULTANEOU negative (Normal) :28 HgA1C , Office (36963) HgA1C , Office 10.9 % (Abnormal) Range: 4.6 - 7.1 :28 Blood Glucose , Office (62149) Blood Glucose , Office 264 (Normal) :51 METABOLIC PANEL, COMPREHENSIVE Comments: send copy of results to dr [facility]rol[place] in [facility]; PATIENT NOT FASTINGPERFORMED BY: LabCoVirtua BerlinPuhiwf4845 [facility] [id number] (28410) ALT (SGPT) 18 [iU]/L (Normal) Range: 0-32 [...] Glucose, Serum 245 mg/dL (Abnormal) Range: 65-99 8-Bzn-567949:51 CBC WITH MANUAL DIFF Comments: PATIENT NOT FASTINGPERFORMED BY: JAIRO [facility] Shmylv5632 [facility] [id number] Information: [id number] (63833) Immature Grans (Abs) 0.0 {x10E3/uL} (Normal) Range: [...] (Normal) Range: 3.4-10.8 :03 HgA1C , Office (52051) HgA1C , Office 10.0 % (Abnormal) Range: 4.6 - 7.1 :03 Blood Glucose , Office (49870) Blood Glucose , Office 218 (Normal) :39 HgA1C , Office (72990) HgA1C , Office 8.2 % (Abnormal) Range: 4.6 - 7.1 :39 Blood Glucose , Office (15425) Blood Glucose , Office 176 (Normal) Comments: [...] CHOL 327 mg/dL (Abnormal) Comments: <200 mg/dL Unhhbcqkh465-339 mg/dL Borderline>240 mg/dL High Risk :06 MIACRE tMICROCREAT 8.6 {mg/g_CRE} (Normal) MIALB 7.1 mg/L (Normal) CREU 82.2 mg/dL (Normal) :06 TSH 1.07 {uIU/mL} (Normal) Range: 0.358-3.74 :06 [facility]UC 0 SEEN {/hpf} (Normal) UBAC 0 [...] 250 nm ol/L)Toxicity >100 ng/mL (250 nmol/L)Effective 201213-Jun-201247-Thv-330899:23 Blood Glucose , Office (97662) Blood Glucose , Office 230 (Normal) :23 HgA1C , Office (71216) HgA1C , Office 9.1 % (Abnormal) Range: 4.6 - 7.1 :19 HgA1C , Office (60198) HgA1C , Office 9.8 % (Abnormal) Range: 4.6 - 7.1 :19 Blood Glucose , Office (05080) Blood Glucose , Office 255 (Normal) 5-Lta-638167:50 CHEST, PA AND LATERAL Radiology Report See [...] atelectasis. Signed:Amisha Mejia M.D.December at 6:59:15 PM [phone] Signed AM/AM If you are the referring physician and would like to consult with theradiologist who provided this interpretation, please contact Amisha jorge M.D. at . If this radiologist is unavailable, you will bedirected to another radiologist to assist. If you are a patient with a question regarding this report, pleasecontactyour refe rring physician directly. Professional Interpretation Provided By: [place], Phone , These documents contain legally protected [...] Amisha Mejia MD :52 HgA1C , Office (39688) HgA1C , Office 8.5 % (Abnormal) Range: 4.6 - 7.1 :52 Blood Glucose , Office (42931) Blood Glucose , Office 343 (Normal) :33 Metabolic Panel, Basic Comments: PATIENT NOT FASTINGPERFORMED BY: [employer] [facility] [id number] Information: [id number] (33628) Calcium, Serum 8.9 mg/dL (Normal) Range: 8.6-10.2 [...] Glucose, Serum 167 mg/dL (Abnormal) Range: 65-99 23-Bsl-921500:56 Basic Metabolic Panel (8) Comments: PERFORMED BY: [employer] [facility] CenterInstraGrokGranville [facility] Center [id number] Information: CC:DR VIVAS Calcium, Serum 9.4 mg/dL [...] Glucose, Serum 203 mg/dL (Abnormal) Range: 65-99 48-Eva-333587:45 Vitamin D Hydroxy (83769) Comments: PATIENT NOT FASTINGPERFORMED BY: [employer] [place] [employer]70 [facility] [id number] Vitamin D, 25-Hydroxy 19.3 ng/mL (Abnormal) Range: 30.0-100.0 Comments: Vitamin D deficiency has been defined by the [place] of[facility] Hospitalcine and an Endocrine Society practice guideline as alevel of serum 25-OH vitamin D less than 20 ng/mL (1,2).The Endocrine Society went on to further define vitamin Dinsufficiency as a level between 21 and 29 ng/mL (2).1. IOM ([place] of Medicine). 2010. Dietary reference intakes for calcium and D. [place]: The National Academies Press.2. Yari MF, Caridad [place], Cindy SOTO, et al. Evaluation, treatment, and prevention of vitamin D deficiency: an Endocrine Society clinical practice guideline. JCEM. 2010; 96(7):1911-30. :45 TSH (70160) Comments: PATIENT NOT FASTINGPERFORMED BY: [employer] Kqxfgf5945 [facility]in [place] [id number] TSH 2.180 {uIU/mL} (Normal) Range: 0.450-4.500 :45 LIPID PANEL (58573) Comments: PATIENT NOT FASTINGPERFORMED BY: [employer] Adatjx9364 Roy nuevoStageECU [facility] Hospital [id number] Information: PATIENT NOT FASTING. ADD J [address]56 AND DRAW FEE 298237 LDL/HDL Ratio 2.5 {ratio_units} (Normal) Range: 0.0-3.2 [...] EDTElectronically Signed BZ/BZ Professional Interpretation Provided By: [facility], , Fax To consult with a radiologist regarding this report, please call our 30H8tcarrjb line @ Dictated on 07/06/11 1421 by BI HUDSON MDTranscribed on 07/06/11 2326 by ITS IMPORTSig n by BI HUDSON MD on 07/06/117 Sign by: BI HUDSON MD 35-Agg-049189:49 HgA1C , Office (83725) HgA1C , Office 7.8 % (Abnormal) Range: 4.6 - 7.1 :49 Blood Glucose , Office (76517) Blood Glucose , Office 231 (Normal) :49 TSH (THYROID STIMULATING Comments: PATIENT NOT FASTINGPERFORMED BY: LabCoPresbyterian Española HospitalJyuxdh8565 [facility] [id number] HORMONE) (36862) TSH 2.930 {uIU/mL} (Normal) Range: 0.450-4.500 16-Snl-710574:00 TSH (48292) Comments: PATIENT NOT FASTINGPERFORMED BY: JAIRO [facility] Qsmulc44[address] [place] [place] [id number] Information: [id number] TSH 0.142 {uIU/mL} (Abnormal) Range: 0.450-4.500 05-Zvc-916190:44 HgA1C , Office (49524) HgA1C , Office 7.4 % (Abnormal) Range: 4.6 - 7.1 :44 Blood Glucose , Office (14553) Blood Glucose , Office 135 (Normal) :16 HgA1C , Office (24004) HgA1C , Office 7.4 % (Abnormal) Range: 4.6 - 7.1 :16 Blood Glucose , Office (58540) Blood Glucose , Office 118 (Normal) 94-Shi-495167:19 CBCD,SMEAR DIFF RED CELL MORPH SeeNote {NORMAL} [...] NEGATIVE CLARITY TURBID (Normal) COLOR YELLOW (Normal) 98-Hya-861932:19 LIPID VLDL 28 mg/dL (Normal) Range: 5-40 [...] 200-240 mg/dL Borderline >240 mg/dL High Risk 72-Zmj-503413:19 MICROALB:CRE UR MALB:CREAT 7.6 {mg/g_CRE} (Normal) MICROALBUMIN,UR 15.0 mg/L (Normal) UR CREAT 195.3 mg/dL (Normal) 90-Fdq-218875:19 TSH 0.17 {uIU/mL} (Abnormal) Range: 0.358-3.74 :54 Blood Glucose , Office (20744) Blood Glucose , Office 297 (Normal) :54 HgA1C , Office (52449) HgA1C , Office 8.0 % (Abnormal) Range: 4.6 - 7.1 :35 HgA1C , Office (17744) HgA1C , Office 7.5 % (Abnormal) Range: 4.6 - 7.1 :35 Blood Glucose , Office (28487) Blood Glucose , Office 229 (Normal) :47 HgA1C , Office (67450) HgA1C , Office 6.9 % (Normal) Range: 4.6 - 7.1 :47 Blood Glucose , Office (55341) Blood Glucose , Office 111 (Normal) :28 [...] (Abnormal) Range: 0.358-3.74 :53 HgA1C , Office (58895) HgA1C , Office 7.4 % (Abnormal) Range: 4.6 - 7.1 :53 Blood Glucose , Office (05420) Blood Glucose , Office 113 (Normal) :11 HgA1C , Office (36382) HgA1C , Office 7.2 % (Abnormal) Range: 4.6 - 7.1 :11 Blood Glucose , Office (81246) Blood Glucose , Office 98 (Normal) :37 LOWER EXT/JT ONLY (ROUTINE) Radiology Report See Note (Normal) Comments: Exam Number: [id number] CLINICAL:58-year-old female with a medial right knee [...] intrachondral sign al (signal increase on the [id number] images), but a normal chondral surface of [...] joint effusion. Reported By: BEKAH BOOTHE M.D. [id number] HgA1C , Office (87192) Comments: done HgA1C , Office 7.0 % (Normal) Range: 4.6 - 7.1 [id number]:35 Blood Glucose , Office (77806) Comments: done Blood Glucose , Office 131 (Normal) 72-Kex-824944:59 CBC Comments: CLAUDIA IBARRA ORDERED VIT DDR.STELLA [...] 11.6-14.6 WBC 5.0 K/mm3 (Normal) Range: 4.4-11.0 25-Kuy-484823:59 LIVER Comments: CLAUDIA IBARRA ORDERED VIT DDR.STELLA ORDERED CBC,LIVER,CRE ALB 3.6 g/dL (Normal) Range: 3.4-5.0 ALK P 83 U/L (Normal) Range: 50-136 ALT 23 U/L (Normal) Range: 12-78 AST 12 U/L (Abnormal) Range: 15-37 D BILI 0.08 mg/dL (Normal) Range: 0.00-0.30 T BILI 0.30 mg/dL (Normal) Range: 0.00-1.00 T PROT 6.9 g/dL (Normal) Range: 6.4-8.2 18-But-828060:59 SERUM CRE & GFR Comments: CLAUDIA IBARRA ORDERED VIT DDR.STELLA ORDERED CBC,LIVER,CRE CREAT,SERUM 1.2 mg/dL (Abnormal) Range: 0.6-1.0 EST GFR 49 mL/min (Abnormal) EST GFR - AA 59 mL/min (Abnormal) 91-Ask-192276:59 VIT D,25 09226 50.3 ng/mL (Normal) Comments: CLAUDIA IBARRA ORDERED VIT DDR.STELLA ORDERED CBC,LIVER,CRE Range: 32.0-100.0 Comments: Recent studies consider the lower limit of 32.0 ng/mL to mora threshold for optimal health.Oren KLEIN. J Nutr. 2004;135(2):317-22.Performed At: [facility], [place] [id number] 51-Lbn-310770:59 KIDNEY (HP) Radiology Report See Note (Normal) Comments: Exam Number: [id number] CLINICAL:58 year old female with elevated serum [...] IMPRESSION:Normal examination. Reported By: DAYANARA MEDELLIN Dr. 22-Rzv-775972:37 Urinalysis, Office (11097) UA - BLOOD Negative (Normal) UA - LEUKOCYTE ESTERASE Negative (Normal) UA - NITRITE Negative (Normal) UA - PH 6.0 (Normal) UA - PROTEIN Negative mg/dL (Normal) UA - SPECIFIC GRAVITY 1.000 (Normal) URINE UROBILINGN ADRY TIMED Normal mg/dL (Normal) UA - BILIRUBIN Negative (Normal) UA - GLUCOSE Negative (Normal) UA - KETONES Negative mg/dL (Normal) 99-Fjm-470543:00 Blood Glucose , Office (57294) Blood Glucose , Office 128 (Normal) 31-Ful-257410:00 HgA1C , Office (34038) HgA1C , Office 6.7 % (Normal) Range: 4.6 - 7.1 36-Mwv-716385:10 Blood Glucose , Office (57926) Blood Glucose , Office 118 (Normal) 61-Zhb-118963:10 HgA1C , Office (59310) HgA1C , Office 7.2 % (Abnormal) Range: 4.6 - 7.1 97-Xiq-122291:56 HgA1C , Office (61969) Comments: done km HgA1C , Office 7.2 % (Abnormal) Range: 4.6 - 7.1 74-Ueq-418100:56 Blood Glucose , Office (57362) Comments: done km Blood Glucose , Office 176 (Normal) 68-Gew-18304:00 Lipoprotein Analysis by NMR Comments: PERFORMED BY: [facility] [place], [place] [address]ner [facility] [id number] Large HDL-P 9.4 umol/L (Normal) Large VLDL-P [...] > 1200 . :52 HgA1C , Office (51849) Comments: done HgA1C , Office 7.0 % (Normal) Range: 4.6 - 7.1 :52 Blood Glucose , Office (01783) Comments: done Blood Glucose , Office 158 (Normal) 12-Saf-625454:39 HgA1C , Office (40767) Comments: done HgA1C , Office 6.8 % (Normal) Range: 4.6 - 7.1 :38 Blood Glucose , Office (88297) Comments: done Blood Glucose , Office 108 (Normal) :27 HgA1C , Office (55408) Comments: done HgA1C , Office 6.7 % (Normal) Range: 4.6 - 7.1 :27 Blood Glucose , Office (13925) Comments: done Blood Glucose , Office 137 [...] Arthritis, rheumatic, acute or subacute : Reviewed Personnel Research Psychologist Letter Indication: Arthritis, rheumatic, acute or subacute [...] Arthritis, rheumatic, acute or subacute : Reviewed Personnel Research Psychologist Letter Indication: Arthritis, rheumatic, acute or subacute [...] Diagnostic Tests Indication: Pneumonia Pneumonia : Reviewed Personnel Research Psychologist Letter Indication: Pneumonia Arthritis, rheumatic, acute or subacute : Reviewed Personnel Research Psychologist Letter Indication: Arthritis, rheumatic, acute or subacute [...] Arthritis, rheumatic, acute or subacute : Reviewed Personnel Research Psychologist Letter Indication: Arthritis, rheumatic, acute or subacute [...] Arthritis, rheumatic, acute or subacute : Reviewed Personnel Research Psychologist Letter Indication: Arthritis, rheumatic, acute or subacute [...] Arthritis, rheumatic, acute or subacute : Reviewed Personnel Research Psychologist Letter Indication: Arthritis, rheumatic, acute or subacute [...] Arthritis, rheumatic, acute or subacute : Reviewed Personnel Research Psychologist Letter Indication: Arthritis, rheumatic, acute or subacute [...] Arthritis, rheumatic, acute or subacute : Reviewed Personnel Research Psychologist Letter Indication: Arthritis, rheumatic, acute or subacute [...] Arthritis, rheumatic, acute or subacute : Reviewed Personnel Research Psychologist Letter: seevivian Gurrola-- Indication: Arthritis, rheumatic, acute [...] Arthritis, rheumatic, acute or subacute : Reviewed Personnel Research Psychologist Letter Indication: Arthritis, rheumatic, acute or subacute [...] Arthritis, rheumatic, acute or subacute : Reviewed Personnel Research Psychologist Letter Indication: Arthritis, rheumatic, acute or subacute [...] Nonprescription Treatment Indication: Hyperlipidemia Planned Observations TSH (28800)Indication: Hypothyroidism On: :16 Request T4, FREE (THYROXINE) (26253)Indication: Hypothyroidism On: :15 Request T3, FREE (TRIDOTHYRONINE) (51605)Indication: Hypothyroidism On: :15 Request CBC W/AUTO DIFF WBC (84766)Indication: Diabetes mellitus type 2, uncontrolled On: 3-Efx-571115:40 Request METABOLIC PANEL, COMPREHENSIVE (24297)Indication: Diabetes mellitus type 2, uncontrolled On: 9-Bmj-933173:40 Request LIPID PANEL (33404)Indication: Hyperlipidemia On: :40 Request T3, FREE (TRIDOTHYRONINE) (56422)Indication: Abnormal TSH On: : Request T4, FREE (THYROXINE) (81532)Indication: Abnormal TSH On: : Request TSH (32095)Indication: Abnormal TSH On: : Request T4, FREE (THYROXINE) (21117)Indication: Abnormal TSH On: : Request T3, FREE (TRIDOTHYRONINE) (82671)Indication: Abnormal TSH On: : Request URINALYSIS, W/ MICRO (86266)Indication: Diabetes mellitus type 2, uncontrolled On: : Request MICROALBUMIN: CREATININE RATIO (11982) AND (84420)Indication: Diabetes mellitus type 2, uncontrolled On: : Request METABOLIC PANEL, COMPREHENSIVE (51297)Indication: Diabetes mellitus type 2, uncontrolled On: : Request CBC W/AUTO DIFF WBC (63288)Indication: Diabetes mellitus type 2, uncontrolled On: : Request LIPID PANEL (35923)Indication: Hyperlipidemia On: : Request TSH (36386)Indication: Abnormal TSH On: : Request CALCIFIDIOL (13122) VIT D 25Indication: Vitamin D deficiency On: : Request CALCIFIDIOL (12132) VIT D 25Indication: Vitamin D deficiency On: :52 Request URINALYSIS, W/ MICRO (40109)Indication: Diabetes mellitus type 2, uncontrolled On: :51 Request MICROALBUMIN: CREATININE RATIO (75665) AND (01567)Indication: Diabetes mellitus type 2, uncontrolled On: :51 Request METABOLIC PANEL, COMPREHENSIVE (56097)Indication: Diabetes mellitus type 2, uncontrolled On: :51 Request CBC W/AUTO DIFF WBC (47308)Indication: Diabetes mellitus type 2, uncontrolled On: :51 Request LIPID PANEL (94209)Indication: Hyperlipidemia On: :51 Request TSH (04335)Indication: Hypothyroidism On: :51 Request TSH (91324)Indication: Abnormal TSH On: :53 Request Comments: do at end of jan 2016 T4, FREE (THYROXINE) (77741)Indication: Abnormal TSH On: :53 Request Comments: do at end 2015 T3, FREE (TRIDOTHYRONINE) (22862)Indication: Abnormal TSH On: :53 Request Comments: do at end of jan 2016 CALCIFIDIOL (50540) VIT D 25Indication: Vitamin D deficiency On: :47 Request URINALYSIS, W/ MICRO (36708)Indication: Diabetes mellitus type 2, uncontrolled On: :47 Request MICROALBUMIN: CREATININE RATIO (68145) AND (24218)Indication: Diabetes mellitus type 2, uncontrolled On: :47 Request METABOLIC PANEL, COMPREHENSIVE (06466)Indication: Diabetes mellitus type 2, uncontrolled On: :47 Request CBC W/AUTO DIFF WBC (12679)Indication: Diabetes mellitus type 2, uncontrolled On: :47 Request FECAL OCCULT- Tubes sent home (07974)Indication: Encounter for screening for malignant neoplasm of colon (Renamed from Special screening for malignant neoplasms, colon) On: :47 Request TSH (90055)Indication: Abnormal TSH On: :57 Request T3, FREE (TRIDOTHYRONINE) (81065)Indication: Abnormal TSH On: :57 Request T4, FREE (THYROXINE) (93256)Indication: Abnormal TSH On: :57 Request URINALYSIS, W/ MICRO (95157)Indication: Diabetes mellitus type 2, uncontrolled On: :10 Request MICROALBUMIN: CREATININE RATIO (78696) AND (06017)Indication: Diabetes mellitus type 2, uncontrolled On: :10 Request METABOLIC PANEL, COMPREHENSIVE (96879)Indication: Diabetes mellitus type 2, uncontrolled On: :10 Request LIPID PANEL (98273)Indication: Hypercholesteremia On: 17-Usa-996817:10 Request CBC W/AUTO DIFF WBC (70558)Indication: Diabetes mellitus type 2, uncontrolled On: 31-Ftk-709461:10 Request TSH (77885)Indication: Hypothyroidism On: 22-Fxa-502309:10 Request CALCIFIDIOL (85615) VIT D 25Indication: Vitamin D deficiency On: 52-Ptj-561826:09 Request Blood Glucose , Office (32896)Indication: Diabetes mellitus type 2, uncontrolled On: 69-Axh-687511:32 Request CALCIFIDIOL (93714) VIT D 25Indication: Vitamin D deficiency On: 15-Vcy-314458: Request URINALYSIS, W/ MICRO (70125)Indication: Diabetes mellitus type 2, uncontrolled On: 07-Daw-525848: Request MICROALBUMIN: CREATININE RATIO (06916) AND (33219)Indication: Diabetes mellitus type 2, uncontrolled On: 12-Ato-973457: Request METABOLIC PANEL, COMPREHENSIVE (50859)Indication: Diabetes mellitus type 2, uncontrolled On: 27-Xzm-596902: Request LIPID PANEL (21595)Indication: Hyperlipidemia On: 20-Plq-445687:00 Request CBC W/AUTO DIFF WBC (89033)Indication: Diabetes mellitus type 2, uncontrolled On: 11-Bqd-253451:00 Request TSH (58713)Indication: Hypothyroidism On: 38-Ucn-763029:00 Request URINALYSIS, W/ MICRO (16054)Indication: Diabetes mellitus type 2, uncontrolled On: 3-Wqq-552155:24 Request MICROALBUMIN: CREATININE RATIO (13419) AND (77507)Indication: Diabetes mellitus type 2, uncontrolled On: 4-Whl-817949:24 Request METABOLIC PANEL, COMPREHENSIVE (15220)Indication: Diabetes mellitus type 2, uncontrolled On: 1-Tzd-288563:24 Request CBC W/AUTO DIFF WBC (18793)Indication: Diabetes mellitus type 2, uncontrolled On: 6-Xyo-299004:24 Request Vitamin D Hydroxy (29510)Indication: Vitamin D deficiency On: 1-Htz-915694:24 Request HEPATIC FUNCTION PANEL (66158)Indication: Hyperlipidemia On: :23 Request LIPID PANEL (98847)Indication: Hyperlipidemia On: 8-Jch-504443:23 Request TSH (00507)Indication: Hypothyroidism On: 5-Gul-308547:20 Request METABOLIC PANEL, COMPREHENSIVE (84839)Indication: Diabetes mellitus type 2, uncontrolled On: 9-Amn-571156:16 Request TSH (51067)Indication: Diabetes mellitus type 2, uncontrolled On: 4-Ugd-797665:16 Request LIPID PANEL (81661)Indication: Diabetes mellitus type 2, uncontrolled On: :16 Request CBC WITH MANUAL DIFF (60748)Indication: Diabetes mellitus type 2, uncontrolled On: 1-Cpn-274703:45 Request Comments: send copy of results to dr g[place]rol[place] in [facility] URINALYSIS, W/ MICRO (26125)Indication: Diabetes mellitus type 2, uncontrolled On: :43 Request MICROALBUMIN: CREATININE RATIO (01241) AND (89756)Indication: Diabetes mellitus type 2, uncontrolled On: :43 Request LIPID PANEL (47878)Indication: Diabetes mellitus type 2, uncontrolled On: :43 Request TSH (75912)Indication: Hypothyroidism On: :43 Request LIPID PANEL (37117)Indication: Hyperlipidemia On: 1-Aqe-731879:18 Request TSH (18823)Indication: Hypothyroidism On: 16-Orq-189630:27 Request LIPID PANEL (09108)Indication: Hyperlipidemia On: 72-Wis-757819:38 Request Comments: do in 8 weeks TSH (58891)Indication: Hypothyroidism On: 28-Hzx-442708:33 Request Comments: do in 8 weeks HEPATIC FUNCTION PANEL (21536)Indication: Hyperlipidemia On: :58 Request LIPID PANEL (34165)Indication: Hyperlipidemia On: 79-Vzt-125387:58 Request URINE ANDRESSA CULTURE (ADRY COL COUNT) (24994)Indication: Other abnormal finding of urine On: 16-Nis-111311:57 Request TSH (69611)Indication: Hypothyroidism On: :55 Request URINALYSIS, W/ MICRO (62574)Indication: Diabetes mellitus type 2, uncontrolled On: 71-Ddc-377499:55 Request MICROALBUMIN: CREATININE RATIO (56410) AND (62566)Indication: Diabetes mellitus type 2, uncontrolled On: 38-Msn-378454:55 Request METABOLIC PANEL, COMPREHENSIVE (23588)Indication: Diabetes mellitus type 2, uncontrolled On: :55 Request LIPOPROTEIN, BLD, BY NMR (00035)Indication: Diabetes mellitus type 2, uncontrolled On: 20-Isb-217509:55 Request LIPID PANEL (52810)Indication: Diabetes mellitus type 2, uncontrolled On: :55 Request CBC WITH MANUAL DIFF (99279)Indication: Diabetes mellitus type 2, uncontrolled On: :55 Request CALCIFEDIOL (63701)Indication: Vitamin D deficiency On: :33 Request Comments: repeat Mar 03 CALCIFEDIOL (25374)Indication: Abnormal blood chemistry On: :41 Request RENAL FUNCTION PANEL (68891)Indication: Abnormal blood chemistry On: :41 Request PARATHORMONE (67609)Indication: Abnormal blood chemistry On: :40 Request RETICULOCYTE COUNT (73948)Indication: Abnormal blood chemistry On: :40 Request CBC & PLATELETS (AUTO) (53769)Indication: Abnormal blood chemistry On: :40 Request LIPOPROTEIN, BLD, BY NMR (73380)Indication: Diabetes mellitus type 2, uncontrolled On: :29 Request Renal function Panel (41352)Indication: Cramp of limb On: 9-Cbo-008203:47 Request TSH (70567)Indication: Hypothyroidism On: :28 Request HEPATIC FUNCTION PANEL (73213)Indication: Hyperlipidemia On: :27 Request Lipid Panel (47520)Indication: Hyperlipidemia On: 65-Qan-421554:27 Request MICROALBUMIN: CREATININE RATIO (95753) AND (57377)Indication: Diabetes mellitus type 2, uncontrolled On: 25-Mvd-381811:56 Request METABOLIC PANEL, COMPREHENSIVE (10196)Indication: Diabetes mellitus type 2, uncontrolled On: :56 Request LIPID PANEL (67625)Indication: Diabetes mellitus type 2, uncontrolled On: :56 Request CBC WITH MANUAL DIFF (22422)Indication: Diabetes mellitus type 2, uncontrolled On: :56 Request TSH (82741)Indication: Hypothyroidism On: 93-Xwq-408567:55 Request TSH (35299)Indication: Controlled diabetes mellitus type II without complication On: :21 Request MICROALBUMIN: CREATININE RATIO (82000) AND (85000)Indication: Controlled diabetes mellitus type II without complication On: :21 Request LIPID PANEL (60624)Indication: Controlled diabetes mellitus type II without complication On: : Request METABOLIC PANEL, COMPREHENSIVE (27100)Indication: Controlled diabetes mellitus type II without complication On: : Request CBC WITH MANUAL DIFF (93352)Indication: Controlled diabetes mellitus type II without complication On: : Request CREATININE CLEARANCE (07822) 24 HOURIndication: Controlled diabetes mellitus type II without complication On: Request Planned Encounters Medical; 3 Month FU - On: 28-Feb-2018 14:30 [facility] Lucretia Henson DO, DO, Kathleen Planned Procedures ELECTROCARDIOGRAM, COMPLETE (ECG) On: 02-Jun-2017 Intent (28058)By: Lucretia Henson DO Comments: ICV mild- nsr no acute chg -poor R wave progression and nonspeicici st flattening DO, Lucretia Spirometry (50357)By: Anna KAUR, On: 02-Jun-2017 Intent Lucretia Chahal DO Comments: obstruction pt refused any inhalers Overnight Pulse OX (66356)By: Fast On: 03-Mar-2017 Intent Ghazala KAUR Flu Vaccine (Quadrivalent) 80946Un: On: 25-Nov-2016 Intent Lucretia Henson DO, DO, Comments: Lot:[id number]:06/09Amt:0.5mlRoute:IMSite: L DltdGiven By: GIULIANO Buitrago signed Lucretia ELECTROCARDIOGRAM, COMPLETE (ECG) On: 11-May-2016 Intent (05184)By: Lucretia Henson DO Comments: nsr no acute chjg DOLucretia Spirometry (69301)By: Anna KAUR On: 11-May-2016 Intent Lucretia Chahal DO Comments: good curve but poor #- pt refused inhalers Flu Vaccine (Quadrivalent) 46363Zc: On: 02-Jan-2016 Intent Lucretia Henson DO, DO, Comments: FLUlot: [id number]:07/08site:Lt deltoidroute:IMdose:.5mlZACH OCHOA MAMMOGRAM, SCREENING, BOTH BREAST On: 11-Sep-2015 Intent (41945)By: Lucretia Henson DO, DO, Kathleen KSTW-NS-WPOT BEHAVIORAL COUNSELING On: 11-Sep-2015 Intent FOR OBESITY, 15 MINUTES (G0447)By: Lucretia Henson DO, DO, Kathleen Six Minute Walk Assessment (81104)By: On: 19-Jun-2015 Intent Lucretia Henson DO, DO, Kathleen Flu Vaccine (Quadrivalent) 85913Nj: On: 03-Dec-2014 Intent Lucretia Henson DO, DO, Comments: Lot:[id number]:08/22/15Dose:0.5mLRoute:IMSite:L DltdGiven By:ANN MARIE signed Lucretia EKG (01867)By: Lucretia Henson DO On: 29-Nov-2013 Intent Lucretia Henson DO FLU VAC, SPLIT, >3 YEARS, INTRAMUSC On: 29-Nov-2013 Intent (32769)By: Lucretia Henson DO Comments: Lot:[id number]:11/07Amt:0.5mlRoute:IMSite: L DltdGiven By: Avril SANTAMARIA signed Lucretia KAUR SIKL-KX-UGNE BEHAVIORAL COUNSELING On: 29-May-2013 Intent FOR OBESITY, 15 MINUTES (G0447)By: Lucretia Henson DO, DO, Kathleen ADMINISTRATION OF PNEUMOCOCCAL On: 29-May-2013 Intent VACCINE (G0009)By: Anna KAUR, Comments: Lot #[id number]-L arm, dltd, IMDose-prefilled syringegiven by:GIULIANO Ocasio signed Lucretia Chahal DO PNEUM VAC ADLT/IMUMNOSPR, SBC/INTRM On: 29-May-2013 Intent (46436)By: Lucretia Henson DO, DO, Kathleen Eprescribed prescriptions (G8553)By: On: 29-May-2013 Intent Lucretia Henson DO, DO, Kathleen Six Minute Walk Assessment (99910)By: On: 16-Mar-2013 Intent Lucretia Henson DO, DO, Comments: spirometry stable and O2 93% on room airand walk at lowest-- may discontinue O2 Lucretia Eprescribed prescriptions (G8553)By: On: 15-Mar-2013 Intent Ayah Chavis Radiology - Chest- PA and LatBy: On: 08-Mar-2013 Intent Lucretia Henson DO, DO, Comments: do in 6 weeks Lucretia HYDRATION IV INFUSION, INIT On: 24-Feb-2013 Intent (23934)By: Claudia Ibarra CNP Aerosol Treatment (79363)By: Addi On: 24-Feb-2013 Intent Claudia NO FLU VAC, SPLIT, >3 YEARS, INTRAMUSC On: 24-Nov-2012 Intent (88446)By: Omayra Cunha LPN Comments: Lot:[id number]:6.14Amt:0.5mlRoute:IMSite: L DltdGiven By: GOKUL BuitragoVIS signed ADMINISTRATION OF INFLUENZA VIRUS On: 24-Nov-2012 Intent VACCINE (G0008)By: Omayra Cunha LPN EKG (01925)By: Lucretia Henson DO On: 31-Aug-2012 Intent Lucretia Henson DO Comments: inc /RBBB poor R wave progression / no acute chg Eprescribed prescriptions (G8553)By: On: 31-Aug-2012 Intent Ayah Chavis Eprescribed prescriptions (G8553)By: On: 13-Jun-2012 Intent Omayra Cunha LPN Eprescribed prescriptions (G8553)By: On: 30-Mar-2012 Intent Lucretia Henson DO, DO, Kathleen Aerosol Treatment (80193)By: Anna On: 11-Jan-2012 Intent Lucretia KAUR DO, Kathleen Comments: no noise adnmore a/e after aerosol Radiology - Chest- PA and LatBy: On: 11-Jan-2012 Intent Lucretia Henson DO, DO, Comments: do repeat cxr in around pedro Lucretia Eprescribed prescriptions (G8553)By: On: 11-Jan-2012 Intent Deysi Galvan LPN Aerosol Treatment (78168)By: Anna On: 28-Dec-2011 Intent Lucretia KAUR DO, Kathleen Comments: more a/e - louider but better movenmnt Spirometry (54844)By: Anna KAUR On: 28-Dec-2011 Intent Lucretia Chahal DO Comments: obstruciotn present nad ecent effort /technique considering how sick she is Solu- Medrol Injection, 125mg On: 28-Dec-2011 Intent (J2930)By: Lucretia Henson DO Comments: Lot:[id number]:mt:125mg/2mlRoute:IMSite:R GlutealGiven by: GOKUL Kwon DO, Kathleen Radiology - Chest- PA and LatBy: On: 28-Dec-2011 Lucretia Gasca DO, DO, Kathleen Pulse Oximetry (63146)By: Anna KAUR, On: 28-Dec-2011 Intent Lucretia Chahal DO ADMINISTRATION OF INFLUENZA VIRUS On: 21-Dec-2011 Intent VACCINE (G0008)By: Omayra Cunha Comments: Lot #[id number]/30/13Site-left deltoidgiven by: Cameron Keller LPN LPN FLU VAC, SPLIT, >3 YEARS, INTRAMUSC On: 21-Dec-2011 Intent (48888)By: Omayra Cunha LPN EKG (71856)By: Omayra Cunha LPN On: 02-Oct-2011 Intent Comments: nsr no acute chg - inc IVCD - Eprescribed prescriptions (G8553)By: On: 18-Sep-2011 Intent Lucretia Henson DO, DO, Kathleen Spirometry (73779)By: Anna KAUR On: 10-Jun-2011 Intent Lucretia Chahal DO Comments: stable -- no chg in inhalers EKG (14542)By: Lucretia Henson DO On: 10-Jun-2011 Intent Lucretia Henson DO Comments: nsr no acute chg Radiology - Chest- PA and LatBy: On: 10-Jun-2011 Intent Lucretia Henson DO, DO, Kathleen ADMINISTRATION OF INFLUENZA VIRUS On: 15-Dec-2010 Intent VACCINE (G0008)By: Anna KAUR, Comments: Lot #[id number]-L arm, IMDose prefilledgiven by:Lucretia Walsh DO FLU VAC, SPLIT, >3 YEARS, INTRAMUSC On: 15-Dec-2010 Intent (90016)By: Lucretia Henson DO, DO, Kathleen TDAP VACCINE >7 IM (21681)By: Anna On: 18-Sep-2010 Intent Lucretia KAUR DO, Kathleen Comments: Lot #[id number]/31/13Site-left deltoidgiven by: Cameron Keller LPN EKG (20715)By: Lucretia Henson DO On: 11-Jun-2010 Intent Lucretia Henson DO Comments: nsr no acute chgng Eprescribed prescriptions (G8553)By: On: 11-Jun-2010 Lucretia Gasca DO, DO, Kathleen FLU VAC, SPLIT, >3 YEARS, INTRAMUSC On: 09-Jan-2010 Intent (22823)By: Omayra Cunha LPN Comments: Lot #[id number]-left deltoidgiven by:LAYO ADMINISTRATION OF INFLUENZA VIRUS On: 09-Jan-2010 Intent VACCINE (G0008)By: Omayra Cunha LPN MRI - Knee(s) - RightBy: Anna KAUR, On: 10-May-2009 Intent Lucretia Chahal DO EKG (48189)By: Lucretia Henson DO On: 10-May-2009 Intent Lucretia Henson DO Comments: nsr no acute changes FLU VAC, SPLIT, >3 YEARS, INTRAMUSC On: 14-Nov-2008 Intent (46415)By: Claudia Ibarra CNP ADMINISTRATION OF INFLUENZA VIRUS On: 14-Nov-2008 Intent VACCINE (G0008)By: Claudia Ibarra CNP Comments: Lot #: [id number] date: mount given: 0.5 mlRoute: IMSite given: left deltoidGiven by: Nellie Siddiqi LPN Ultrasound - RenalBy: Claudia Ibarra CNP On: 14-Nov-2008 Intent E Pulse Oximetry (72449)By: Anna KAUR, On: 21-May-2008 Intent Lucretia Chahal DO Comments: 97% Pulse Oximetry (09199)By: Addi NO, On: 18-Apr-2008 Intent Claudia Payne Comments: 93% before and after aerosol tx Aerosol Treatment (76377)By: Addi On: 18-Apr-2008 Intent MARYBEL Claudia Payne Comments: done-AW Pulse Oximetry (72512)By: Anna KAUR, On: 04-Apr-2008 Intent Lucretia Chahal DO Comments: post treatment- 98% spo2 Aerosol Treatment (83108)By: Anna On: 04-Apr-2008 Intent Lucretia KAUR DO, Kathleen Inhaler Demo (88702)By: Anna KAUR, On: 02-Apr-2008 Intent Lucretia Chahal DO Aerosol Treatment (20982)By: Anna On: 02-Apr-2008 Intent Lucretia KAUR DO, Kathleen Comments: much more air excchange less noise but still there Solu- Medrol Injection, 125mg On: 02-Apr-2008 Intent (J2930)By: Lucretia Henson DO Comments: lot # [id number] wxme-NOHQNnrnit-NLanqt- 125mg chenderson tolerated well Lucretia KAUR Pulse Oximetry (80433)By: Anna KAUR On: 02-Apr-2008 Intent Lucretia Chahal DO Comments: after aerosol tx93% on room air Pulse Oximetry (98447)By: Guerline On: 02-Apr-2008 Intent Omayra HODGSON Comments: done km 90 % EKG (40736)By: Lucretia Henson DO On: 15-Dec-2007 Intent Lucretia Henson DO Comments: nsr no acute ischemic changes IMMUNIZ ADMNIN, 1 VAC, SNGL/COMBO On: 15-Dec-2007 Intent (10238)By: Lucretia Henson DO Comments: lot # [id number]- 01/26/09site- RDLTroute-IMdose- o.5mg chenderson MA Lucretia KAUR PNEUM VAC ADLT/IMUMNOSPR, SBC/INTRM On: 15-Dec-2007 Intent (74510)By: Lucretia Henson DO, DO, Kathleen FLU VAC, SPLIT, >3 YEARS, INTRAMUSC On: 15-Dec-2007 Intent (38577)By: Omayra Cunha LPN Comments: 0.5cc given lt arm lot [id number] 6 ADMINISTRATION OF INFLUENZA VIRUS On: [...] make her gain weight- [facility]- admits [...] The patient does have durable power of compliance attorney and living will. The patient has noticed staying at home rather than d oing something new or going out and lack of energy. Other providers contributing to the patient's care are structural technician and surgeon.Encounter Diagnosis: Annual Medicare Phyiscal WITHOUT [...] The patient does have durable power of compliance attorney and living will. The patient has noticed dropping activities and interests and thinking most people are better off than them. Other providers contributing to the patient's care are structural technician ([place], ), surge on ([facility] [...] Disorder (311.) [facility] Payers MedicareUnited [employer] [facility] Elvis Meyers; a guarantor
--- OUTSIDE RECORDS SUMMARY | 2018-03-20 09:00 | XMS RPT_ITS | Continuity of Care Document ---
:1950 Author Organization [facility] Address [address] [facility] [address] [place] [address] Phone Care Team Providers Name Role Phone [...] sees Dr Gurrola until he retired now [facility] Status: Active BMI 30.0-30.9,adult (Z68.30, V85.30) [...] for 30 days Refills: 0 Ordered:11-May-2016 Omayra Cnuha LPN Start : 28-Dec-2011 End : 11-May-2016 [...] 32MG (Oral Tablet) qd (32 MG) Inactive Comments:[facility] NIASPAN, 500MG (Oral Tablet Extended [...] Hour) 1 tab bid (300 MG) Inactive Comments:[facility] #26 starting on 03-04-13 Tresiba [...] 09-Sep-2011 End : 28-Dec-2011 Inactive VITAMIN D, 39469QAIV (Oral Capsule) 1 daily for 0 days [...] Discontinued Comments:This order discontinued per [employer]. 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) Comments: [facility] current from mid may-- she is [...] Discharge Instruction Result: Comments: See Note; NOTES: [facility] Medical Records Department [address] [place] [address] Instructions for Home/Discharge Instructions 12/21/17 1103 MR#: [id number] Acct: [id number] Name: ELIZABETH MEYERS Rep #: [id number] : 1950 67 From: Jazzy Dunn DPM PCP: Lucretia Henson DO Status: REG [facility] Discharge Activity: May not drive while taking [...] Pain Primary Care Physician: Lucretia Henson DO [[facility] Care Provider] - Test Results: Test results from this visit will be discussed in further detail at your follow-up appointment, if applicable. Please Follow Up With: Jazzy Dunn DPM When: as previ ously scheduled 12/21/17 1107 <Electronically signed by Jazzy Dunn DPM> Date Jazzy Dunn DPM CC: Lucretia Henson DO 21-Dec-2017 Operative Report Result: Comments: See Note; NOTES: [facility] Medical Records Department [address] [place] [address] Operative Report 12/21/17 1041 MR#: [id number] Acct: [id number] Name: ELIZABETH MEYERS Rep #: [id number] : 1950 67 From: Jazzy Dunn DPM PCP: Lucretia Henson DO Status: REG SDC Y Location: [place] [address] Report of Operation Date of Procedure: 12/21/17 [...] days in clinic or sooner if needed. investment sales assistant: none Type of Anesthesia:: Local MAC Specimen's removed: wound cx Drains: giorgio Estimated Blood Loss (mL): minimal - Admit VTE Documentation VTE Present on Admission: No VTE Mechan Device Prophylaxis: SCD's 12/21/17 1058 <Electronically signed by Jazzy Dunn DPM> Date __ Jazzy Dunn DPM CC: ABHAY Dunn; Lucretia Henson DO Signed 22-Nov-2017 12 Lead Electrocardiogram Result: Comments: See Note; NOTES: [facility] Cardiovascular Services [address] [place] [address] 12 Lead EKG 11/18/17 1724 MR#: [id number] Acct: [id number] Name: ELIZABETH MEYERS Rep # : [id number] : 1950 67 From: Hayden Farnsworth MD [...] Borderline ECG Confirmed by MARTINA PAN, HAYDEN ([id number]), content editor CATY MEJIA ([id number]) on 11/22/2017 2:38:43 PM Referred By: Jazzy Dunn Confirmed By:HAYDEN LOZANO MD 11/22/17 1438 Date Hayden Farnsworth MD CC: ABHAY Dunn; Lucretia Henson DO Signed 18-Nov-2017 Chest PA and Lateral Result: Comments: See Note; NOTES: [facility] Imaging Services [address] [place] [address] Chest PA and Lateral MR#: [id number] Acct: [id number] Name: ELIZABETH MEYERS Rep #: [id number] : 1950 F 67 From: Shar Arevalo DO PCP: Lucretia Henson DO Status: REG CLI Study: Chest PA and Lateral Date of Exam: 11/18/17 Exam# [id number] Ordering Dr: Jazzy Dunn DPM STUDY: X-RAY [...] Arevalo DO at 18:48 ED T Tel [phone], Service support , CC: ABHAY Dunn; Lucretia Henson DO Mobile Marketing Specialist: Signed 09-Jul-2015 12 Lead Electrocardiogram Result: Comments: See Note; NOTES: [facility] Cardiovascular Services [address] [place] [address] 12 Lead EKG 07/04/151641 MR#: [id number] Acct: [id number] Name: ELIZABETH ESPINAL Rep #: [id number] : 1950 65 From: Ernesto Peacock MD Attending Dr: Siddharth Valdovinos Status: REG [facility] Ordering Dr: Siddharth Mendoza PA-C Date: 07/04/15 [...] ECG Confirmed by ERNESTO PEACOCK MD ([id number]), content editor CATY MEJIA ([id number]) on 07/09/2015 9:57:58 AM Referred By: TANNER Confirmed By:ERNESTO PEACOCK MD 07/08 0958 Date Ernseto Peacock MD CC: Lucretia Henson DO Date Dictated: 07/04/151641 Date Transcribed: 07/04/151641 Mobile Marketing Specialist: Signed 19-Jun-2015 Spirometry (69726) Comments: mild restricitoin Result: 03-Dec-2014 EKG (96973) Comments: INC rbbb NSR NO ACUTE CGH Result: [MEASUREMENTS ANALYSIS] Date of Test: 12/03/2014 16:09:42; Heart Rate: 67; UT Interval: 144; QRS: 108; QT Interval: 420; Corrected QT Interval (QTc): 432; P Wave Theresa: 63; QRS Wave Theresa: 72; T Wave Theresa : 65; Blood Pressure: 122/74 [ECG DIAGNOSTIC STATEMENTS] Date of Test: 12/03/2014 16:09:42; Summary: Sinus Rhythm Low voltage -possible pulmonary disease. ABNORMAL 21-May-2014 Spirometry (47509) Comments: good stable Result: 09-Apr-2014 Chest PA and Lateral Result: Comments: See Note; NOTES: [facility] Imaging Services [address] [place] [address] Radiology Report MR#: [id number] Acct: [id number] Name: ELIZABETH MEYERS Rep #: [id number] : 1950 F 63 From: Sabino Osorio DO PCP: Lucretia Henson DO Status: REG CLI Study: Chest PA and Lateral Date of Exam: 04/09/14 Exam# [id number] Ordering Dr: Reyes Goodwin DO STUDY: X-RAY [...] at 2:15 EST Tel , Service support [phone], CC: Lucretia Henson DO; Reyes Goodwin DO Mobile Marketing Specialist: Signed 06-Apr-2014 12 Lead Electrocardiogram Result: Comments: See Note; NOTES: [facility] Cardiovascular Services [address] [place] [address] 12 Lead EKG 04/05/142 MR#: [id number] Acct: [id number] Name: KAYLA MEYERSRosa Maria Payne Rep #: [id number] : 1950 63 From: Jey Azar MD [...] Borderline ECG Confirmed by JEY AZAR ([id number]), content editor CATY MEJIA (56) on 04/06/2014 10 :05:50 AM Referred By: TANNER Confirmed By:JEY AZAR 04/06/14 1005 Date Jey Azar MD CC: Lucretia Henson DO Date Dictated: 04/05/14 1522 Date Transcribed: 04/05/141521 Mobile Marketing Specialist: Signed 31-Jan-2014 Operative Report Result: Comments: See Note; NOTES: [facility] Medical Records Department [address] [place] [address] Operative Report MR#: [id number] Acct: [id number] Name: ELIZABETH MEYERS Rep # : [id number] : 1950 63 From: Reyes Goodwin DO PCP: Lucretia Henson DO Status: ADM IN DATE OF SERVICE: 01/29/2014 OPERATION: Right total hip replacement arthroplasty utilizing [place] Trident size 48 cup, MDM metal liner, size 4 Accolade type 2, 132 degree neck angle femoral stem with +3 modular cobalt chromium polyethylene femoral head. PREOPERATIVE DIAGNOSIS: Osteoarthritis, right hip. POSTOPERATIVE DIAGNOSIS: Osteoarthritis, right hip. SURGEON: Reyes Goodwin D.O. DENTAL ASSISTANT TEACHER: Siddharth Mendoza PA-C. SECOND AEROSPACE ENGINEER OFFICER ARMAMENT ____ PGY4. ANESTHESIA: Spinal. ANESTH ESIOLOGIST: Demar [...] range of motion, stability, and leg length druze. Trial head and nec k was removed [...] skin. Sterile well-padded dressing was applied. My blood and plasma laboratory assistant, Mr. Mendoza, provided a vital role [...] condition. Reyes Goodwin DO T: SHARLA JOB: [id number] 01/31/14 1549 &#60 ;Electronically signed by Reyes Goodwin DO> Date Reyes Goodwin DO CC: Lucretia Goodwin DO Date Dictated: 01/29/141419 Date Transcribed: 01/29/141419 Mobile Marketing Specialist: Signed 31-Jan-2014 Discharge Instruction Result: Comments: See Note; NOTES: [facility] Medical Records Department [address] [place] [address] Instructions for Home/Discharge Instructions 01/31/14 1512 MR#: [id number] Acc t: [id number] Name: ELIZABETH MEYERS Rep #: [id number] : 1950 63 From: Siddharth Mendoza PA-C [...] Up With: Tech sher t with Clinical Celery Cutter Paola @ [place] office Please Follow Up With: Siddharth Mendoza 01/31/14 1514 <Electronically signed by Siddharth Mendoza PA-C> Date Siddharth Mendoza PA-C CC: Lucretia Henson DO; Mau Faulkner DO 31-Jan-2014 12 Lead Electrocardiogram Result: Comments: See Note; NOTES: [facility] Cardiovascular Services [address] [place] [address] 12 Lead EKG 01/29/14 1454 MR#: [id number] Acct: [id number] Name: RACHEL MEYERS Rep #: [id number] : 1950 63 From: Hayden Farnsworth MD Attending Dr: Nadeem Ceballso MD Status: ADM IN Ordering Dr: Demar Valadez MD Date: 01/29/14 Location: [facility] [place] Sex: F C Admitted: 01/29/14 Test [...] Borderline ECG Confirmed by MARTINA PAN, HAYDEN ([id number]), content editor CATY MEJIA (56) on 2013 9:46:18 AM Referred By: TANNER Confirmed By:HAYDEN FARNSWORTH MD 01/31/14 0946 Date Hayden Farnsworth MD CC: Lucretia Henson DO Date Dictated: 01/29/14 145 Date Transcribed: 01/29/141453 Mobile Marketing Specialist: Signed 30-Jan-2014 Echocardiogram Complete Result: Comments: See Note; NOTES: [facility] Cardiovascular Services [address] [place] [address] Echo Complete 01/29/14 1508 MR#: [id number] Acct: [id number] Name: ULICES MEYERS Rep #: [id number] : 1950 63 From: Ernesto Peacock MD [...] Dictated: 01/29/14 1508 Date Transcribed: 01/29/14 1556 Mobile Marketing Specialist: Signed 30-Jan-2014 Consultation Result: Comments: See Note; NOTES: [facility] Medical Records Department [address] [place] [address] Consultation 01/30/14 1128 MR#: [id number] Acct: [id number] Name: ULICES MEYERS Rep #: [id number] : 1950 63 From: Nadeem Ceballos MD PCP: Lucretia Henson DO Status: ADM IN Location: [place]3 [id number] Reason for Consult Date of Consultation: 01/30/14 Reason for Con sultation: medical management in a patient with right total hip arthroplasty History of Present Illness: The patient is a 63 year old F who has had rheumatoid arthritis for about 20 years. She has b een followed by physicians at the [facility] in [place] since about the year 1999. She states [...] BIDCM 02/24/13 Acetaminophen [Tylenol] 325 mg PO UT N PRN 01/16/14 Cholecalciferol (Vitamin D3) 5,000 [...] surgery Psychiatric History: No pertinent psych hx MECHANICAL ASSEMBLY TECHNICIAN History: No pertinent MECHANICAL ASSEMBLY TECHNICIAN history Lives: With Famil y Smoking Status: [...] Views (Portable) Result: Comments: See Note; NOTES: [facility] Imaging Services [address] [place] [address] Radiology Report MR#: [id number] Acct: [id number] Name: ELIZABETH MEYERS Rep #: [id number] : 1950 F 63 From: Mane Stephens MD PCP: Lucretia Henson DO Status: ADM IN Study: Hip Min 2 Views (Portable) Date of Exam: 01/29/14 Exam# [id number] Ordering Dr: Reyes oGodwin DO STUDY: X-RAY - RIGHT HIP REASON [...] Mane Stephens MD at 16:01 EST Tel [phone], Service support [phone], Fax RAD/Hip Min 2 Views (Portable) IMPRESSION: The patient is status post right total hip replacement. There is good alignment. Postoperative soft tissue swelling. Sandra ctronically Signed: Mane Stephens MD at 16:01 EST Tel [phone], Service support [phone], CC: Lucretia Henson DO; Reyes Goodwin DO Mobile Marketing Specialist: Signed 01-May-2013 Chest PA and Lateral Result: Comments: See Note; NOTES: [facility] Imaging Services [address] [place] [address] Radiology Report MR#: [id number] Acct: [id number] Name: ELIZABETH MEYERS Rep #: [id number] : 1950 F 62 From: Siddharth Wahl MD PCP: Lucretia Henson DO Status: REG CLI Study: Chest PA and Lateral Date of Exam: 05/01/13 Exam# [id number] Ordering Dr: Lucretia Henson DO STUDY: X- [...] MD at 11:51 EDT , Service support [phone], CC: Lucretia Henson DO Mobile Marketing Specialist: Signed Immunization Name Dates Details Influenza (3 years and up) on: 15-Dec-2007 Comments: 0.5cc given lt arm lot [id number] exp 07-31 Influenza (3 years and up) [...] kg/m2 Body Surface Area Calculated 1.96 m2 56-Nyc-689106:19 Pulse 78 /min Comments: Pattern: Regular Respiration [...] 0.00 cm Results Date Description Value Details 30-Ywv-685459:41 Culture, Deep Wound Comments: [facility] [address] [place], [address] CUDW See Note (Normal) Comments: Order Date: [...] $ <=0.5 S(NF) indicates non-formulary drug at [facility]. Approval by Infectious Disease Specialist required before non-formulary drugs may be ordered and/or dispensed. * CLSI guidelines does not recommend testing of cephalosporins. This interpretation is deduced from Beta-lactam/penicillin results. Cult, AnaerobicNo anaerobic bacteria isolated. 23-Mdh-39330:58 Basic Metabolic Profile (BMP) Comments: [facility] [address] [place], [place], [address] GAP 8 (Normal) Range: 5-15 CO2 30.0 [...] A.D.A. criteria.Please note revised GLUCOSE reference range gokmqrwtl48/02/2018. 64-Uqr-14112:58 CBC-Complete Blood Cnt No Diff Comments: [facility] [address] [place], [place], [address] MPV 10.8 fL (Normal) Range: 6.2-12.0 PLT [...] (Normal) Range: 4.4-11.0 :58 Hemoglobin A1c Comments: [facility] [address] [place], [address] HGB A1C 10.3 % (Abnormal) Range: 4.2-6.3 42-Dlv-63218:58 Thyroid Stim Hormone (TSH) Comments: [facility] [address] [place], [address] TSH 0.11 {uIU/mL} (Abnormal) Range: 0.358-3.74 :20 Bedside Glucose Comments: [facility] [address] [place] [address] BEDSIDE GLU 195 mg/dL (Abnormal) Range: 70-110 Comments: MANAGEMENT OF PATIENT CARE PER NURSING PROTOCOL :03 Mass (define area) See Note (Normal) Comments: [facility] [address] [place], [address] Comments: Patient: ELIZABETH MEYERS : 1950 (67/F) Acct Num: [id number] Phys: Jazzy Dunn DPM Unit Num: [id number] Loc: [facility]SPEC Specimen: [id number] Received: 12/02/171558 Spec Type: Mass TISSUES 1 [...] one cassette. / SJ:bernard 12/03/17 TC:5 CPT: 17309, 61232 x2 HEADER OPERATION: Left foot excision of [...] file> :54 Basic Metabolic Profile (BMP) Comments: [facility] [address] [place], [place], [address] GAP 4 (Abnormal) Range: 5-15 CO2 29.0 [...] A.D.A. criteria.Please note revised GLUCOSE reference range imlvqjobh36/02/2018. 80-Hsx-028960:54 CBC-Complete Blood Cnt No Diff Comments: [facility] [address] [place], [place], [address] MPV 10.1 fL (Normal) Range: 6.2-12.0 PLT [...] Range: 4.4-11.0 :36 CBC W/Diff, Automated Comments: [facility] [address] [place], [place], [address] Absolute Lymph 1.77 {X10_3/ul} (Normal) Range: 0.83-4.51 [...] K/mm3 (Normal) Range: 4.4-11.0 :36 CRP Comments: [facility] [address] [place], [address] C-REACTIVE PROT 24.50 mg/L (Abnormal) Range: 0.0-3.0 Comments: C-Reactive Protein (CRP) provides useful information for thediagnosis, therapy and monitoring of inflammatory processesand associated diseases. For the evaluation of Relative Riskfor Cardiovascular Dise ase, a High Sensitivity CRP (HSCRP)should be ordered. :36 Erythrocyte Sed Rate Comments: [facility] [address] [place], [place], [address] SED RATE 35 mm/h (Abnormal) Range: 0-30 :42 HgA1C , Office (94066) HgA1C , Office 11.2 % (Abnormal) Range: 4.6 - 7.1 :42 Blood Glucose , Office (78509) Blood Glucose , Office 375 (Normal) :28 CBC W/Diff, Automated Comments: [facility] [address] [place], [place], [address] Absolute Lymph 1.68 {X10_3/ul} (Normal) Range: 0.83-4.51 [...] 4.2-5.4 WBC 4.7 K/mm3 (Normal) Range: 4.4-11.0 88-Ojl-341463:28 Comprehensive Metabolic Profil Comments: [facility] [address] [place], [address] GAP 8 (Normal) Range: 5-15 CO2 32.0 [...] A.D.A. criteria.Please note revised GLUCOSE reference range kawgyysdy90/02/2018. 41-Pxz-751340:28 Free T3 Comments: [facility] [address] [place], [address] FREE T3 2.2 pg/mL (Normal) Range: 2.18-3.98 40-Ofn-791461:28 Lipid Profile Comments: [facility] [address] [place], [address] VLDL 40 mg/dL (Normal) Range: 5-40 LDL [...] 200-240 mg/dL Borderline >240 mg/dL High Risk 56-Dqm-050928:28 T4 Free Direct Comments: [facility] [address] [place], [address] T4 FREE DIRECT 1.70 ng/dL (Abnormal) Range: 0.76-1.46 13-Tco-734536:28 Thyroid Stim Hormone (TSH) Comments: [facility] [address] [place], [address] TSH 1.05 {uIU/mL} (Normal) Range: 0.358-3.74 92-Vov-729188:16 HgA1C , Office (13496) HgA1C , Office 11.0 % (Abnormal) Range: 4.6 - 7.1 73-Vmt-733757:15 Blood Glucose , Office (77207) Blood Glucose , Office 508 (Normal) 98-Roi-607453:18 HgA1C , Office (89197) HgA1C , Office 11.7 % (Abnormal) Range: 4.6 - 7.1 39-Pgm-810675:18 Blood Glucose , Office (93675) Blood Glucose , Office 360 (Normal) 2-Xht-136722:55 CBC W/Diff, Automated Comments: [facility] [address] [place], [address] Absolute Lymph 1.93 {X10_3/ul} (Normal) [...] 4.2-5.4 WBC 5.7 K/mm3 (Normal) Range: 4.4-11.0 1-Wks-187217:55 Comprehensive Metabolic Profil Comments: [facility] [address] [place], [place], [address] GAP 9 (Normal) Range: 5-15 CO2 28.0 [...] 200 mg/dLsuggests DIABETES MELLITUS per A.D.A. criteria. 1-Ojq-231323:55 Free T3 Comments: [facility] [address] [facility] [address] [place], [place], [address] FREE T3 1.8 pg/mL (Abnormal) Range: 2.18-3.98 9-Spu-290190:55 Lipid Profile Comments: [facility] [address] [facility] [place], [place], [address] VLDL 41 mg/dL (Abnormal) Range: 5-40 LDL [...] 200-240 mg/dL Borderline >240 mg/dL High Risk 5-Anj-182340:55 Microalb:Creat Ratio,Random UR Comments: [facility] [address] [place], [address] MALB:CREAT 17.2 {mg/g_CRE} (Normal) MICROALBUMIN,UR 7.6 mg/L (Normal) UR CREAT 44.40 mg/dL (Normal) 4-Wsc-908102:55 T4 Free Direct Comments: [facility] [address] [place], [place], [address] T4 FREE DIRECT 1.23 ng/dL (Normal) Range: 0.76-1.46 4-Wpk-167434:55 Thyroid Stim Hormone (TSH) Comments: [facility] [address] [place], [address] TSH 15.10 {uIU/mL} (Abnormal) Range: 0.358-3.74 1-Ppo-360525:55 Urinalysis, Complete Comments: How was Urine Obtained? CLEAN [facility] [address] [place], [address] MUCUS, URINE 0 SEEN {/hpf} [...] Yellow (Normal) :55 Vitamin D,25 Hydroxy Comments: [facility] [address] [place], [address] Vitamin D 25-OH 66.6 ng/mL (Normal) Comments: Vitamin D 25(OH) Status Range Deficiency <20 ng/mL (50nmol/L) Insuffciency 20 - 30 ng/mL (50 - 75 nmol/L) Sufficiency 30 - 100 ng/mL (75 - 250 nmol/L) Toxicity >100 ng/mL (>250 nmol/L) :24 HgA1C , Office (79633) HgA1C , Office 10.2 % (Abnormal) Range: 4.6 - 7.1 :24 Blood Glucose , Office (06760) Blood Glucose , Office 261 (Normal) :35 CBC W/Diff, Automated Comments: [facility] [address] [place], [address] Absolute Lymph 1.72 {X10_3/ul} (Normal) Range: 0.83-4.51 [...] 4.2-5.4 WBC 5.4 K/mm3 (Normal) Range: 4.4-11.0 29-Zdr-754374:35 Comprehensive Metabolic Profil Comments: [facility] [address] [place], [place], [address] GAP 10 (Normal) Range: 5-15 CO2 27.0 [...] 126 mg/dLsuggests DIABETES MELLITUS per A.D.A. criteria. 88-Mun-522909:35 Lipid Profile Comments: [facility] [address] [place], [place], [address] VLDL 65 mg/dL (Abnormal) Range: 5-40 LDL [...] 200-240 mg/dL Borderline >240 mg/dL High Risk 60-Iyk-836169:35 Microalb:Creat Ratio,Random UR Comments: [facility] [address] [place], [place], [address] MALB:CREAT Test not performed {mg/g_CRE} (Normal) MICROALBUMIN,UR < 5.0 mg/L (Normal) UR CREAT 19.80 mg/dL (Normal) 57-Vdz-127937:35 Thyroid Stim Hormone (TSH) Comments: [facility] [address] [place], [address] TSH 0.34 {uIU/mL} (Abnormal) Range: 0.358-3.74 42-Hgt-648111:35 Urinalysis, Complete Comments: How was Urine Obtained? CLEAN [facility] [address] [facility] [address] [place], [place], [address] MUCUS, URINE 0 SEEN {/hpf} (Normal) BACTERIA [...] (Normal) CLARITY Clear (Normal) COLOR Yellow (Normal) 59-Plw-646808:35 Vitamin D,25 Hydroxy Comments: [facility] [address] [facility] [place], [place], [address] Vitamin D 25-OH 49.0 ng/mL (Normal) Comments: Vitamin D 25(OH) Status Range Deficiency <20 ng/mL (50nmol/L) Insuffciency 20 - 30 ng/mL (50 - 75 nmol/L) Sufficiency 30 - 100 ng/mL (75 - 250 nmol/L) Toxicity >100 ng/mL (>250 nmol/L) 82-Kuv-898806:55 HgA1C , Office (85310) HgA1C , Office 12.7 % (Abnormal) Range: 4.6 - 7.1 :55 Blood Glucose , Office (44424) Blood Glucose , Office 281 (Normal) 24-Bld-836813:00 HgA1C , Office (90359) HgA1C , Office 10.9 % (Abnormal) Range: 4.6 - 7.1 93-Nbu-415063:00 Blood Glucose , Office (29285) Blood Glucose , Office 294 (Normal) 18-Mzb-672926:06 CBC W/Diff, Automated Comments: [facility] [address] [place], [address] Absolute Lymph 2.04 {X10_3/ul} (Normal) [...] 4.2-5.4 WBC 5.3 K/mm3 (Normal) Range: 4.4-11.0 84-Dsy-489605:06 Comprehensive Metabolic Profil Comments: [facility] [address] [place], [address] GAP 7 (Normal) Range: 5-15 [...] 200 mg/dLsuggests DIABETES MELLITUS per A.D.A. criteria. 64-Xsi-297444:06 Free T3 Comments: [facility] [address] [facility] [address] [place], [place], [address] FREE T3 2.4 pg/mL (Normal) Range: 2.18-3.98 31-Ebd-314940:06 Microalb:Creat Ratio,Random UR Comments: [facility] [address] [facility] [place], [address] MALB:CREAT 23.5 {mg/g_CRE} (Normal) MICROALBUMIN,UR 39.5 mg/L (Normal) UR CREAT 168.00 mg/dL (Normal) 19-Iqw-761686:06 T4 Free Direct Comments: [facility] [address] [place], [address] T4 FREE DIRECT 1.48 ng/dL (Abnormal) Range: 0.76-1.46 70-Upp-028193:06 Thyroid Stim Hormone (TSH) Comments: [facility] [address] [place], [address] TSH 1.80 {uIU/mL} (Normal) Range: 0.358-3.74 15-Lhk-189335:06 Urinalysis, Complete Comments: How was Urine Obtained? CLEAN [facility] [address] [place], [address] MUCUS, URINE 0 SEEN {/hpf} (Normal) [...] CLARITY Sl. Cloudy (Normal) COLOR Yellow (Normal) 99-Phb-169886:06 Vitamin D,25 Hydroxy Comments: [facility] [address] [place], [address] Vitamin D 25-OH 38.6 ng/mL (Normal) Comments: Vitamin D 25(OH) Status Range Deficiency <20 ng/mL (50nmol/L) Insuffciency 20 - 30 ng/mL (50 - 75 nmol/L) Sufficiency 30 - 100 ng/mL (75 - 250 nmol/L) Toxicity >100 ng/mL (>250 nmol/L) 91-Sft-366591:12 HgA1C , Office (08323) HgA1C , Office 10.1 % (Abnormal) Range: 4.6 - 7.1 :12 Blood Glucose , Office (92739) Blood Glucose , Office 265 (Normal) :01 Free T3 Comments: [facility] [address] [place], [address] FREE T3 1.9 pg/mL (Abnormal) Range: 2.18-3.98 :01 T4 Free Direct Comments: [facility] [address] [place], [address] T4 FREE DIRECT 1.24 ng/dL (Normal) Range: 0.76-1.46 :01 Thyroid Stim Hormone (TSH) Comments: [facility] [address] [place], [address] TSH 7.84 {uIU/mL} (Abnormal) Range: 0.358-3.74 :26 Fecal Occult Blood , Office (69655) Fecal Occult Blood , Office (Inhouse) negative (Normal) :41 HgA1C , Office (48463) HgA1C , Office 9.1 % (Abnormal) Range: 4.6 - 7.1 :41 Blood Glucose , Office (74997) Blood Glucose , Office 188 (Normal) :54 CBC W/Diff, Automated Comments: [facility] [address] [place], [place], [address] Absolute Lymph 2.03 {X10_3/ul} (Normal) Range: 0.83-4.51 [...] 4.2-5.4 WBC 6.8 K/mm3 (Normal) Range: 4.4-11.0 1-[id number] Comprehensive Metabolic Profil Comments: [facility] [id number] [place], [place], [id number] GAP 6 (Normal) Range: 5-15 CO2 28.0 [...] 126 mg/dLsuggests DIABETES MELLITUS per A.D.A. criteria. [id number] Lipid Profile Comments: [facility] [id number] [facility] [place], [address] VLDL 53 mg/dL (Abnormal) Range: [...] 200-240 mg/dL Borderline >240 mg/dL High Risk 5-Qbx-398461:54 Microalb:Creat Ratio,Random UR Comments: [facility] [address] [place], [address] MALB:CREAT Test not performed {mg/g_CRE} (Normal) MICROALBUMIN,UR < 5.0 mg/L (Normal) UR CREAT < 13.00 mg/dL (Normal) 1-Zvz-763242:54 Thyroid Stim Hormone (TSH) Comments: [facility] [address] [place], [address] TSH 5.02 {uIU/mL} (Abnormal) Range: 0.358-3.74 6-Ghf-444009:54 Urinalysis, Complete Comments: How was Urine Obtained? CLEAN [facility] [address] [place], [address] MUCUS, URINE 0 SEEN {/hpf} (Normal) [...] (Normal) CLARITY Cloudy (Normal) COLOR Yellow (Normal) 9-Wdg-404764:54 Vitamin D,25 Hydroxy Comments: [facility] [address] [place], [address] Vitamin D 25-OH 49.1 ng/mL (Normal) Comments: Vitamin D 25(OH) Status Range Deficiency <20 ng/mL (50nmol/L) Insuffciency 20 - 30 ng/mL (50 - 75 nmol/L) Sufficiency 30 - 100 ng/mL (75 - 250 nmol/L) Toxicity >100 ng/mL (>250 nmol/L) 12-Xfq-200345:26 Basic Metabolic Profile (BMP) Comments: [facility] [address] [place], [id number] GAP 1 (Abnormal) Range: 5-15 CO2 34.0 [...] :26 CBC-Complete Blood Cnt No Diff Comments: [facility] [address] [place], [place], [id number] MPV 10.6 fL (Normal) Range: 6.2-12.0 PLT [...] (Normal) Range: 4.4-11.0 :32 HgA1C , Office (91962) HgA1C , Office 12.0 % (Abnormal) Range: 4.6 - 7.1 :24 CBC W/Diff, Automated Comments: [facility] [address] [place], [place], [id number] Absolute Lymph 1.99 {X10_3/ul} (Normal) Range: 0.83-4.51 [...] 4.2-5.4 WBC 5.6 K/mm3 (Normal) Range: 4.4-11.0 5-Cax-847765:24 Liver Profile Comments: Comments: '[facility] [address] [place], [address] D BILI 0.09 mg/dL (Normal) Range: 0.00-0.30 T BILI 0.30 mg/dL (Normal) Range: 0.20-1.00 ALT 27 U/L (Normal) Range: 12-78 ALK P 98 U/L (Normal) Range: 50-136 AST 21 U/L (Normal) Range: 15-37 GLOB 3.5 g/dL (Normal) Range: 2.3-3.5 ALB 3.6 g/dL (Normal) Range: 3.4-5.0 T PROT 7.1 g/dL (Normal) Range: 6.4-8.2 :24 Serum Creatinine AND GFR Comments: Comments: '[facility] [address] [place], [place], [address] EST GFR - AA 71 mL/min (Normal) Comments: GFR Calc EST GFR 59 mL/min (Abnormal) Comments: Non- GFR Calc CREAT,SERUM 1.01 mg/dL (Normal) Range: 0.55-1.20 Comments: The validity of the calculated GFR AND GFRAA in patients over70 years has not been determined. Clinical correlation isessential. :24 HgA1C , Office (88306) HgA1C , Office 13.4 % (Abnormal) Range: 4.6 - 7.1 :24 Blood Glucose , Office (12206) Blood Glucose , Office 549 (Normal) :55 CBC W/Diff, Automated Comments: [facility] [address] [place], [place], [address] Absolute Lymph 1.90 {X10_3/ul} (Normal) Range: 0.83-4.51 [...] 4.2-5.4 WBC 4.7 K/mm3 (Normal) Range: 4.4-11.0 02-Tba-935498:55 Comprehensive Metabolic Profil Comments: [facility] [address] [place], [address] GAP 8 (Normal) Range: 5-15 CO2 27.0 [...] 200 mg/dLsuggests DIABETES MELLITUS per A.D.A. criteria. 44-Zab-910088:55 Lipid Profile Comments: [facility] [address] [place], [place], [address] VLDL 53 mg/dL (Abnormal) Range: 5-40 LDL [...] 200-240 mg/dL Borderline >240 mg/dL High Risk 70-Qeo-344769:55 Microalb:Creat Ratio,Random UR Comments: [facility] [address] [place], [place], [address] MALB:CREAT 25.1 {mg/g_CRE} (Normal) MICROALBUMIN,UR 46.9 mg/L (Normal) UR CREAT 187.00 mg/dL (Normal) 39-Mnn-539553:55 Thyroid Stim Hormone (TSH) Comments: [facility] [address] [place], [place], [address] TSH 2.79 {uIU/mL} (Normal) Range: 0.358-3.74 62-Exa-335366:55 Urinalysis, Complete Comments: How was Urine Obtained? [facility] [address] [place], [place], [address] MUCUS, URINE 0 SEEN {/hpf} (Normal) BACTERIA [...] (Abnormal) CLARITY Cloudy (Normal) COLOR Yellow (Normal) 04-Bgx-657719:55 Vitamin D,25 Hydroxy Comments: [facility] [address] [place], [address] Vitamin D 25-OH 43.2 ng/mL (Normal) Comments: Vitamin D 25(OH) Status Range Deficiency <20 ng/mL (50nmol/L) Insuffciency 20 - 30 ng/mL (50 - 75 nmol/L) Sufficiency 30 - 100 ng/mL (75 - 250 nmol/L) Toxicity >100 ng/mL (>250 nmol/L) :29 HgA1C , Office (92785) HgA1C , Office 9.9 % (Abnormal) Range: 4.6 - 7.1 :29 Blood Glucose , Office (76446) Blood Glucose , Office 132 (Normal) :10 HgA1C , Office (99627) HgA1C , Office 10.2 % (Abnormal) Range: 4.6 - 7.1 :10 Blood Glucose , Office (12991) Blood Glucose , Office 255 (Normal) :53 Bilirubin, Direct Comments: LIVER CRE CBCDDR.ANNA TSH VITD LIPID UAC CBCD MIACRE CMPTest performed at:[facility] [address] [place] [address] D BILI 0.06 mg/dL (Normal) Range: 0.00-0.30 :53 CBC W/Diff, Automated Comments: Test performed at:[facility] [address] [place] [address] Absolute Lymph 1.80 {X10_3/ul} (Normal) Range: 0.83-4.51 [...] 4.2-5.4 WBC 4.5 K/mm3 (Normal) Range: 4.4-11.0 1-Oxa-628507:53 Comprehensive Metabolic Profil Comments: LIVER CRE CBCDDR.ANNA TSH VITD LIPID UA CBCD MIACRE CMPTest performed at:[facility] [address] [place], [place] [address] GAP 9 (Normal) Range: 5-15 CO2 27.0 [...] Comments: LIVER CRE CBCDDR.ANNA TSH VITD LIPID [facility] CBCD MIACRE CMPTest performed at:[facility] [address] [place], [place] [address] VLDL 102 mg/dL (Abnormal) Range: 5-40 LDL [...] :53 Microalb:Creat Ratio,Random UR Comments: Test performed at:[facility] [address] [place] [address] MALB:CREAT 25.8 {mg/g_CRE} (Normal) MICROALBUMIN,UR 85.7 mg/L (Normal) UR CREAT 331.3 mg/dL (Normal) :53 Thyroid Stim Hormone (TSH) Comments: LIVER CRE CBCDDR.ANNA TSH VITD LIPID UAC CBCD MIACRE CMPTest performed at:[facility] [address] [facility] [place] [address] TSH 0.99 {uIU/mL} (Normal) Range: 0.358-3.74 :53 Urinalysis, Complete Comments: How was Urine Obtained? CLEAN CATCHTest performed at:[facility] Zty[address]jxj[address] [facility] [place] [address] AMORPHOUS 4+ (Normal) Comments: Microscopic [...] :53 Vitamin D,25 Hydroxy Comments: Test performed at:[facility] [address] [place] [address] Vitamin D 25-OH 25.3 ng/mL (Normal) Comments: Vitamin D 25(OH) Status Range Deficiency <20 ng/mL (50nmol/L) Insuffciency 20 - 30 ng/mL (50 - 75 nmol/L) Sufficiency 30 - 100 ng/mL (75 - 250 nmol/L) Toxicity >100 ng/mL (>250 nmol/L) 00-Jjd-411728:09 Microscopic Examination Comments: PATIENT NOT FASTINGPERFORMED BY: InterpretOmicsRar[facility], Old BridgePvwjeu7398 [facility] [id number] Bacteria Few (Normal) Mucus Threads Present (Normal) Crystal Type Calcium Oxalate (Normal) Crystals Present (Abnormal) Epithelial Cells (non renal) >10 {/hpf} (Abnormal) Range: 0 - 10 RBC 0-2 {/hpf} (Normal) Range: 0 - 2 WBC 6-10 {/hpf} (Abnormal) Range: 0 - 5 79-Yli-253970:09 METABOLIC PANEL, COMPREHENSIVE Comments: PATIENT NOT FASTINGPERFORMED BY: [employer] Hgcyuy1286 [facility] [id number] (11597) ALT (SGPT) 12 [iU]/L (Normal) Range: 0-32 [...] Glucose, Serum 167 mg/dL (Abnormal) Range: 65-99 40-Lqu-300616:09 MICROALBUMIN: CREATININE RATIO Comments: PATIENT NOT FASTINGPERFORMED BY: [facility] RockstarRaritan [facility], Old BridgeJzntlz7690 [facility]ovusSam[facility] [id number] (53899) AND (54461) Microalb/Creat Ratio 10.8 {mg/g_creat} (Normal) Range: 0.0-30.0 Microalbumin, Urine 35.0 ug/mL (Abnormal) Range: 0.0-17.0 Creatinine, Urine 323.9 mg/dL (Abnormal) Range: 15.0-278.0 73-Wmj-379242:09 CBC WITH MANUAL DIFF Comments: PATIENT NOT FASTINGPERFORMED BY: [employer] Wbbnbo5949 [facility] HospitalSocialmothSampson Regional [facility] Center [id number] Information: [id number] (03880) Immature Grans (Abs) 0.0 {x10E3/uL} (Normal) Range: [...] 3.77-5.28 WBC 6.2 {x10E3/uL} (Normal) Range: 3.4-10.8 35-Cfz-731865:09 URINALYSIS, W/ MICRO (99615) Comments: PATIENT NOT FASTINGPERFORMED BY: [employer] DiagnovusSampson [facility] Center [id number] Microscopic Examination See below: (Normal) Comments: Microscopic was indicated and was performed. Nitrite, Urine Negative (Normal) Urobilinogen,Semi-Qn 1.0 mg/dL (Normal) Range: 0.0-1.9 Bilirubin Negative (Normal) Occult Blood Negative (Normal) Ketones Trace (Abnormal) Glucose Trace (Abnormal) Protein 1+ (Abnormal) WBC Esterase 1+ (Abnormal) Appearance Turbid (Abnormal) Urine-Color Yellow (Normal) pH 5.5 (Normal) Range: 5.0-7.5 Specific [place] >=1.030 (Abnormal) Range: 1.005-1.030 29-Qov-048111:09 LIPID PANEL (09323) Comments: PATIENT NOT FASTINGPERFORMED BY: [email or web address] [facility] Fmthky3228 RoyLigand PharmaceuticalsVidant Pungo Hospital [id number] VLDL Cholesterol Dangelo VLDLCH mg/dL (Normal) Range: [...] Cholesterol, Total 337 mg/dL (Abnormal) Range: 100-199 09-Xwg-233373:09 Vitamin D Hydroxy (46825) Comments: PATIENT NOT FASTINGPERFORMED BY: [facility] Hildoi7961 [facility] [id number] Vitamin D, 25-Hydroxy 32.9 ng/mL (Normal) Range: 30.0-100.0 Comments: Vitamin D deficiency has been defined by the [place] of[facility] Hospitalcine and an Endocrine Society practice guideline as alevel of serum 25-OH vitamin D less than 20 ng/mL (1,2).The Endocrine Society went on to further define vitamin Dinsufficiency as a level between 21 and 29 ng/mL (2).1. IOM ([place] of Medicine). 2010. Dietary reference intakes for calcium and D. [place]: The National Academies Press.2. Yari MF, Caridad MCCRACKEN, Cindy SOTO, et al. Evaluation, treatment, and prevention of vitamin D deficiency: an Endocrine Society clinical practice guideline. JCEM. 2010; 96(7):1911-30. :09 TSH (07621) Comments: PATIENT NOT FASTINGPERFORMED BY: [facility] Dxityi1614 [facility] [id number] TSH 0.951 {uIU/mL} (Normal) Range: 0.450-4.500 :39 HgA1C , Office (89548) HgA1C , Office 9.0 % (Abnormal) Range: 4.6 - 7.1 :39 Blood Glucose , Office (47552) Blood Glucose , Office 190 (Normal) 73-Nxb-019489:50 Basic Metabolic Profile (BMP) Comments: Test performed at:[facility] [address] [place], [place] [address] GAP 7 (Normal) Range: 5-15 CO2 27.0 [...] 200 mg/dLsuggests DIABETES MELLITUS per A.D.A. criteria. 64-Kag-302312:50 CBC-Complete Blood Cnt No Diff Comments: Test performed at:[facility] Z[address]phkyaorx3015 [facility] [place] [address] MPV 11.1 fL (Normal) Range: 6.2-12.0 PLT [...] 4.2-5.4 WBC 4.9 K/mm3 (Normal) Range: 4.4-11.0 96-Nhg-357051:31 Bedside Glucose Comments: Test performed at:[facility] P[address]vsvnsyaf[address]70 [facility] [place] [address] BEDSIDE GLU 189 mg/dL (Abnormal) Range: 70-110 Comments: Policy and Physicians Orders followedMANAGEMENT OF PATIENT CARE PER NURSING PROTOCOL 19-Gup-64876:07 Bedside Glucose Comments: Test performed at:[facility] Hzfxhrlcul8603 [facility] [place] [address] BEDSIDE GLU 101 mg/dL (Normal) Range: 70-110 Comments: Policy and Physicians Orders followedMANAGEMENT OF PATIENT CARE PER NURSING PROTOCOL 12-Aqy-44110:55 Glucose Comments: Comments: LOW BLOOD SUGAR/LAB TO CHECKTest performed at:[facility] [address] [place] [address] GLU 57 mg/dL (Abnormal) Range: 70-110 :51 Bedside Glucose Comments: Test performed at:[facility] [address] [place] [address] BEDSIDE GLU 64 mg/dL (Abnormal) Range: 70-110 Comments: Policy and Physicians Orders followedMANAGEMENT OF PATIENT CARE PER NURSING PROTOCOL :38 Bedside Glucose Comments: Test performed at:[facility] [address] [place] [address] BEDSIDE GLU 52 mg/dL (Abnormal) Range: 70-110 Comments: Policy and Physicians Orders followedMANAGEMENT OF PATIENT CARE PER NURSING PROTOCOL 3-Hjj-469941:35 Bedside Glucose Comments: Test performed at:[facility] [address] [place] [address] BEDSIDE GLU 144 mg/dL (Abnormal) Range: 70-110 Comments: Policy and Physicians Orders followedMANAGEMENT OF PATIENT CARE PER NURSING PROTOCOL 9-Ncf-633485:46 Bedside Glucose Comments: Test performed at:[facility] Bqkimbdwsi8085 [facility] [place] [address] BEDSIDE GLU 84 mg/dL (Normal) Range: 70-110 Comments: Policy and Physicians Orders followedMANAGEMENT OF PATIENT CARE PER NURSING PROTOCOL 1-Qju-577301:23 Bedside Glucose Comments: Test performed at:[facility] [address] [place] [address] BEDSIDE GLU 85 mg/dL (Normal) Range: 70-110 Comments: Policy and Physicians Orders followedMANAGEMENT OF PATIENT CARE PER NURSING PROTOCOL :51 Bedside Glucose Comments: Test performed at:[facility] Ofpijkdlzv0764 [facility] [place] [address] BEDSIDE GLU 289 mg/dL (Abnormal) Range: 70-110 Comments: Policy and Physicians Orders followedMANAGEMENT OF PATIENT CARE PER NURSING PROTOCOL :06 Basic Metabolic Profile (BMP) Comments: Test performed at:[facility] [address] [place] [address] GAP 7 (Normal) Range: 5-15 [...] Blood Cnt No Diff Comments: Test performed at:[facility] [address] [place] [address] MPV 11.4 fL (Normal) Range: [...] 4.4-11.0 :04 Bedside Glucose Comments: Test performed at:[facility] [address] [place] [address] BEDSIDE GLU 335 mg/dL (Abnormal) Range: 70-110 Comments: Policy and Physicians Orders followedMANAGEMENT OF PATIENT CARE PER NURSING PROTOCOL 30-Jan-20142:10 Bedside Glucose Comments: Test performed at:[facility] [address] [place] [address] BEDSIDE GLU 313 mg/dL (Abnormal) Range: 70-110 Comments: Policy and Physicians Orders followedMANAGEMENT OF PATIENT CARE PER NURSING PROTOCOL 7-Sew-310207:23 Bedside Glucose Comments: Test performed at:[facility] [address] [place] [address] BEDSIDE GLU 352 mg/dL (Abnormal) Range: 70-110 Comments: Policy and Physicians Orders followedMANAGEMENT OF PATIENT CARE PER NURSING PROTOCOL 1-Lxh-616543:43 Bedside Glucose Comments: Test performed at:[facility] [address] [place] [address] BEDSIDE GLU 234 mg/dL (Abnormal) Range: 70-110 Comments: Policy and Physicians Orders followedMANAGEMENT OF PATIENT CARE PER NURSING PROTOCOL TOTAL HIP REPLACEMENT See Note (Normal) Comments: Test performed at:[facility] [address] [place] [address] :24 Comments: Patient: ELIZABETH MEYERS : 1950 (63/F) Acct Num: [id number] Phys: Nadeem Ceballos MD Unit Num: [id number] Loc: MS3 UM280-7 Specimen: [id number] Received: 01/30/14741 Spec Type: TOTAL HIP TISSUES [...] which measures 4 cm in greatest dimension. Manufacturing Planner sections are submitted in two cassettes as follows: 1 - soft tissue, 2 - bone after decalcification. / : 01/30/14 TC:5 CPT: 44897, 883 11 HEADER OPERATION: Total hip replacement [...] UCOL Yellow (Normal) :12 HgA1C , Office (58886) HgA1C , Office 12.5 % (Abnormal) Range: 4.6 - 7.1 :12 Blood Glucose , Office (11288) Blood Glucose , Office 333 (Normal) 0-Etv-736979:35 CBCD ALC 1.78 {X10_3/ul} (Normal) Range: 0.83-4.51 [...] 4.2-5.4 WBC 5.4 K/mm3 (Normal) Range: 4.4-11.0 4-Goq-439702:35 CRE Comments: CBCD CRE LIVERDR.ANNA TSH LIPID [...] CHOL 219 mg/dL (Abnormal) Comments: <200 mg/dL Ygesxkdjx908-402 mg/dL Borderline>240 mg/dL High Risk 5-Pzu-513859:35 LIVER Comments: CBCD CRE LIVERDR.ANNA TSH LIPID LIVER BID 0.08 mg/dL (Normal) Range: 0.00-0.30 BIT 0.30 mg/dL (Normal) Range: 0.00-4.00 ALT 32 U/L (Normal) Range: 12-78 ALK 119 U/L (Normal) Range: 50-136 AST 15 U/L (Normal) Range: 15-37 ALB 3.4 g/dL (Normal) Range: 3.4-5.0 TPROT 6.7 g/dL (Normal) Range: 6.4-8.2 8-Zfn-985773:35 TSH 3.38 {uIU/mL} (Normal) Comments: CBCD CRE LIVERDRMonserratANNA TSH LIPID LIVER Range: 0.358-3.74 56-Ran-810867:36 HgA1C , Office (88360) HgA1C , Office 9.9 % (Abnormal) Range: 4.6 - 7.1 :36 Blood Glucose , Office (35597) Blood Glucose , Office 247 (Normal) 63-Gdt-704114:24 CBCD ALC 1.81 {X10_3/ul} (Normal) Range: 0.83-4.51 [...] 4.2-5.4 WBC 6.2 K/mm3 (Normal) Range: 4.4-11.0 49-Fvq-029491:24 CMP GAP 5 (Normal) Range: 5-15 CL [...] CHOL 207 mg/dL (Abnormal) Comments: <200 mg/dL Rpzcahzoe644-546 mg/dL Borderline>240 mg/dL High Risk TRIG 257 [...] FECAL OCCULT HGB ASSAY- tubes sent home (06103) FECAL OCCULT HGB ASSAY, QUAL, 1-3 SIMULTANEOU negative (Normal) :28 HgA1C , Office (69294) HgA1C , Office 10.9 % (Abnormal) Range: 4.6 - 7.1 :28 Blood Glucose , Office (48581) Blood Glucose , Office 264 (Normal) :51 METABOLIC PANEL, COMPREHENSIVE Comments: [facility]; PATIENT NOT FASTINGPERFORMED BY: [facility]CoR[facility], Old BridgeOjhcee0562 [facility] [id number] (96854) ALT (SGPT) 18 [iU]/L (Normal) Range: 0-32 [...] Glucose, Serum 245 mg/dL (Abnormal) Range: 65-99 7-Kkt-046340:51 CBC WITH MANUAL DIFF Comments: PATIENT NOT FASTINGPERFORMED BY: JAIRO [facility] Rlojdk3178 [facility] [id number] Information: [id number] (23485) Immature Grans (Abs) 0.0 {x10E3/uL} (Normal) Range: [...] (Normal) Range: 3.4-10.8 :03 HgA1C , Office (05784) HgA1C , Office 10.0 % (Abnormal) Range: 4.6 - 7.1 :03 Blood Glucose , Office (94963) Blood Glucose , Office 218 (Normal) :39 HgA1C , Office (02972) HgA1C , Office 8.2 % (Abnormal) Range: 4.6 - 7.1 :39 Blood Glucose , Office (99088) Blood Glucose , Office 176 (Normal) Comments: [...] CHOL 327 mg/dL (Abnormal) Comments: <200 mg/dL Cfpkkdneo675-634 mg/dL Borderline>240 mg/dL High Risk :06 MIACRE tMICROCREAT 8.6 {mg/g_CRE} (Normal) MIALB 7.1 mg/L (Normal) CREU 82.2 mg/dL (Normal) :06 TSH 1.07 {uIU/mL} (Normal) Range: 0.358-3.74 :06 [facility] 0 SEEN {/hpf} (Normal) UBAC 0 [...] 250 nm ol/L)Toxicity >100 ng/mL (250 nmol/L)Effective 201213-Jun-201219-Aev-251843:23 Blood Glucose , Office (45450) Blood Glucose , Office 230 (Normal) :23 HgA1C , Office (30830) HgA1C , Office 9.1 % (Abnormal) Range: 4.6 - 7.1 :19 HgA1C , Office (69692) HgA1C , Office 9.8 % (Abnormal) Range: 4.6 - 7.1 :19 Blood Glucose , Office (31438) Blood Glucose , Office 255 (Normal) 4-Ajk-668518:50 CHEST, PA AND LATERAL Radiology Report See [...] atelectasis. Signed:Amisha Mejia M.D.December at 6:59:15 PM [phone] Signed AM/AM If you are the referring physician and would like to consult with theradiologist who provided this interpretation, please contact Amisha jorge M.D. at . If this radiologist is unavailable, you will bedirected to another radiologist to assist. If you are a patient with a question regarding this report, pleasecontactyour refe rring physician directly. Professional Interpretation Provided By: [employer], Phone , These documents contain legally protected [...] Amisha Mejia MD :52 HgA1C , Office (79249) HgA1C , Office 8.5 % (Abnormal) Range: 4.6 - 7.1 :52 Blood Glucose , Office (60635) Blood Glucose , Office 343 (Normal) :33 Metabolic Panel, Basic Comments: PATIENT NOT FASTINGPERFORMED BY: Doutor Recomenda [facility] [id number] Information: [id number] (40283) Calcium, Serum 8.9 mg/dL (Normal) Range: 8.6-10.2 [...] Glucose, Serum 167 mg/dL (Abnormal) Range: 65-99 17-Cah-964897:56 Basic Metabolic Panel (8) Comments: PERFORMED BY: Doutor Recomenda [facility] HospitalSocialmothSampson [facility] [id number] Information: CC:DR VIVAS Calcium, Serum 9.4 mg/dL [...] Glucose, Serum 203 mg/dL (Abnormal) Range: 65-99 67-Aqx-219387:45 Vitamin D Hydroxy (44962) Comments: PATIENT NOT FASTINGPERFORMED BY: [employer] DiagnovusSampson [facility] Medical Center [id number] Vitamin D, 25-Hydroxy 19.3 ng/mL (Abnormal) Range: 30.0-100.0 Comments: Vitamin D deficiency has been defined by the [place] of[facility] Hospitalcine and an Endocrine Society practice guideline as alevel of serum 25-OH vitamin D less than 20 ng/mL (1,2).The Endocrine Society went on to further define vitamin Dinsufficiency as a level between 21 and 29 ng/mL (2).1. IOM ([place] of Medicine). 2010. Dietary reference intakes for calcium and D. [place]: The National Academies Press.2. Yari MF, Caridad [place], Cindy SOTO, et al. Evaluation, treatment, and prevention of vitamin D deficiency: an Endocrine Society clinical practice guideline. JCEM. 2010; 96(7):1911-30. :45 TSH (46445) Comments: PATIENT NOT FASTINGPERFORMED BY: [employer] Hosfwh1175 VoztelecomMission Family Health Centerin [place] [id number] TSH 2.180 {uIU/mL} (Normal) Range: 0.450-4.500 :45 LIPID PANEL (38201) Comments: PATIENT NOT FASTINGPERFORMED BY: [employer] Fpnjac9230 Roy PromoRepublicVid[facility] Hospital [id number] Information: PATIENT NOT FASTING. ADD J 81871 AND DRAW FEE [id number] LDL/HDL Ratio 2.5 {ratio_units} (Normal) Range: 0.0-3.2 [...] EDTElectronically Signed BZ/BZ Professional Interpretation Provided By: [facility], , Fax To consult with a radiologist regarding this report, please call our 24O3digbros line @ Dictated on 07/06/11 1421 by BI HUDSON MDTranscribed on 07/06/11 2326 by ITS IMPORTSig n by BI HUDSON MD on 07/06/117 Sign by: BI HUDSON MD 41-Oov-157196:49 HgA1C , Office (34150) HgA1C , Office 7.8 % (Abnormal) Range: 4.6 - 7.1 :49 Blood Glucose , Office (27275) Blood Glucose , Office 231 (Normal) :49 TSH (THYROID STIMULATING Comments: PATIENT NOT FASTINGPERFORMED BY: LabCoTohatchi Health Care CenterJipblw6074 [facility] [id number] HORMONE) (42654) TSH 2.930 {uIU/mL} (Normal) Range: 0.450-4.500 16-Lxh-881488:00 TSH (35470) Comments: PATIENT NOT FASTINGPERFORMED BY: JAIRO [facility] Msrbbh[address] [place] [id number] Information: [id number] TSH 0.142 {uIU/mL} (Abnormal) Range: 0.450-4.500 09-Cte-125725:44 HgA1C , Office (13974) HgA1C , Office 7.4 % (Abnormal) Range: 4.6 - 7.1 :44 Blood Glucose , Office (68943) Blood Glucose , Office 135 (Normal) :16 HgA1C , Office (74767) HgA1C , Office 7.4 % (Abnormal) Range: 4.6 - 7.1 :16 Blood Glucose , Office (41044) Blood Glucose , Office 118 (Normal) 42-Kyp-764093:19 CBCD,SMEAR DIFF RED CELL MORPH SeeNote {NORMAL} [...] NEGATIVE CLARITY TURBID (Normal) COLOR YELLOW (Normal) 16-Ufy-835863:19 LIPID VLDL 28 mg/dL (Normal) Range: 5-40 [...] 200-240 mg/dL Borderline >240 mg/dL High Risk 30-Cim-004047:19 MICROALB:CRE UR MALB:CREAT 7.6 {mg/g_CRE} (Normal) MICROALBUMIN,UR 15.0 mg/L (Normal) UR CREAT 195.3 mg/dL (Normal) 29-Qrd-527609:19 TSH 0.17 {uIU/mL} (Abnormal) Range: 0.358-3.74 :54 Blood Glucose , Office (08583) Blood Glucose , Office 297 (Normal) :54 HgA1C , Office (79540) HgA1C , Office 8.0 % (Abnormal) Range: 4.6 - 7.1 :35 HgA1C , Office (82379) HgA1C , Office 7.5 % (Abnormal) Range: 4.6 - 7.1 :35 Blood Glucose , Office (93634) Blood Glucose , Office 229 (Normal) :47 HgA1C , Office (59872) HgA1C , Office 6.9 % (Normal) Range: 4.6 - 7.1 :47 Blood Glucose , Office (30776) Blood Glucose , Office 111 (Normal) :28 [...] (Abnormal) Range: 0.358-3.74 :53 HgA1C , Office (64267) HgA1C , Office 7.4 % (Abnormal) Range: 4.6 - 7.1 :53 Blood Glucose , Office (41225) Blood Glucose , Office 113 (Normal) :11 HgA1C , Office (87736) HgA1C , Office 7.2 % (Abnormal) Range: 4.6 - 7.1 :11 Blood Glucose , Office (52921) Blood Glucose , Office 98 (Normal) :37 LOWER EXT/JT ONLY (ROUTINE) Radiology Report See Note (Normal) Comments: Exam Number: [id number] CLINICAL:58-year-old female with a medial right knee [...] intrachondral sign al (signal increase on the [id number] images), but a normal chondral surface of [...] joint effusion. Reported By: BEKAH BOOTHE M.D. [id number] HgA1C , Office (61790) Comments: done HgA1C , Office 7.0 % (Normal) Range: 4.6 - 7.1 [id number] Blood Glucose , Office (32148) Comments: done Blood Glucose , Office 131 (Normal) [id number] CBC Comments: CLAUDIA IBARRA ORDERED VIT DDR.STELLA [...] 11.6-14.6 WBC 5.0 K/mm3 (Normal) Range: 4.4-11.0 [id number] LIVER Comments: CLAUDIA IBARRA ORDERED VIT DDR.STELLA ORDERED CBC,LIVER,CRE ALB 3.6 g/dL (Normal) Range: 3.4-5.0 ALK P 83 U/L (Normal) Range: 50-136 ALT 23 U/L (Normal) Range: 12-78 AST 12 U/L (Abnormal) Range: 15-37 D BILI 0.08 mg/dL (Normal) Range: 0.00-0.30 T BILI 0.30 mg/dL (Normal) Range: 0.00-1.00 T PROT 6.9 g/dL (Normal) Range: 6.4-8.2 17-Bkm-919969:59 SERUM CRE & GFR Comments: CLAUDIA IBARRA ORDERED VIT DDR.STELLA ORDERED CBC,LIVER,CRE CREAT,SERUM 1.2 mg/dL (Abnormal) Range: 0.6-1.0 EST GFR 49 mL/min (Abnormal) EST GFR - AA 59 mL/min (Abnormal) 01-Iaf-837805:59 VIT D,25 03344 50.3 ng/mL (Normal) Comments: CLAUDIA IBARRA ORDERED VIT DDR.STELLA ORDERED CBC,LIVER,CRE Range: 32.0-100.0 Comments: Recent studies consider the lower limit of 32.0 ng/mL to mora threshold for optimal health.Oren KLEIN. J Nutr. 2004;135(2):317-22.Performed At: [facility], [place] [id number] 56-Aze-997068:59 KIDNEY (HP) Radiology Report See Note (Normal) Comments: Exam Number: [id number] CLINICAL:58 year old female with elevated serum [...] IMPRESSION:Normal examination. Reported By: DAYANARA MEDELLIN Dr. 05-Gdl-913677:37 Urinalysis, Office (72427) UA - BLOOD Negative (Normal) UA - LEUKOCYTE ESTERASE Negative (Normal) UA - NITRITE Negative (Normal) UA - PH 6.0 (Normal) UA - PROTEIN Negative mg/dL (Normal) UA - SPECIFIC GRAVITY 1.000 (Normal) URINE UROBILINGN ADRY TIMED Normal mg/dL (Normal) UA - BILIRUBIN Negative (Normal) UA - GLUCOSE Negative (Normal) UA - KETONES Negative mg/dL (Normal) 72-Pdq-655034:00 Blood Glucose , Office (35211) Blood Glucose , Office 128 (Normal) 20-Ghe-275853:00 HgA1C , Office (46708) HgA1C , Office 6.7 % (Normal) Range: 4.6 - 7.1 63-Nxi-562558:10 Blood Glucose , Office (65907) Blood Glucose , Office 118 (Normal) 90-Aao-086991:10 HgA1C , Office (45276) HgA1C , Office 7.2 % (Abnormal) Range: 4.6 - 7.1 65-Sid-772951:56 HgA1C , Office (91827) Comments: done km HgA1C , Office 7.2 % (Abnormal) Range: 4.6 - 7.1 39-Tls-928245:56 Blood Glucose , Office (13592) Comments: done km Blood Glucose , Office 176 (Normal) 54-Hpk-17201:00 Lipoprotein Analysis by NMR Comments: PERFORMED BY: [employer] [place], [place] [address]ner [facility] [id number] Large HDL-P 9.4 umol/L (Normal) Large VLDL-P [...] > 1200 . :52 HgA1C , Office (86981) Comments: done HgA1C , Office 7.0 % (Normal) Range: 4.6 - 7.1 :52 Blood Glucose , Office (25294) Comments: done Blood Glucose , Office 158 (Normal) 74-Lry-345662:39 HgA1C , Office (12025) Comments: done HgA1C , Office 6.8 % (Normal) Range: 4.6 - 7.1 :38 Blood Glucose , Office (24977) Comments: done Blood Glucose , Office 108 (Normal) :27 HgA1C , Office (27172) Comments: done HgA1C , Office 6.7 % (Normal) Range: 4.6 - 7.1 :27 Blood Glucose , Office (17898) Comments: done Blood Glucose , Office 137 [...] Arthritis, rheumatic, acute or subacute : Reviewed Rotary Driller Helper Letter Indication: Arthritis, rheumatic, acute or subacute [...] Arthritis, rheumatic, acute or subacute : Reviewed Rotary Driller Helper Letter Indication: Arthritis, rheumatic, acute or subacute [...] Diagnostic Tests Indication: Pneumonia Pneumonia : Reviewed Rotary Driller Helper Letter Indication: Pneumonia Arthritis, rheumatic, acute or subacute : Reviewed Rotary Driller Helper Letter Indication: Arthritis, rheumatic, acute or subacute [...] Arthritis, rheumatic, acute or subacute : Reviewed Rotary Driller Helper Letter Indication: Arthritis, rheumatic, acute or subacute [...] Arthritis, rheumatic, acute or subacute : Reviewed Rotary Driller Helper Letter Indication: Arthritis, rheumatic, acute or subacute [...] Arthritis, rheumatic, acute or subacute : Reviewed Rotary Driller Helper Letter Indication: Arthritis, rheumatic, acute or subacute [...] Arthritis, rheumatic, acute or subacute : Reviewed Rotary Driller Helper Letter Indication: Arthritis, rheumatic, acute or subacute [...] Arthritis, rheumatic, acute or subacute : Reviewed Rotary Driller Helper Letter Indication: Arthritis, rheumatic, acute or subacute [...] Arthritis, rheumatic, acute or subacute : Reviewed Rotary Driller Helper Letter: seevivian Gurrola-- Indication: Arthritis, rheumatic, acute [...] Arthritis, rheumatic, acute or subacute : Reviewed Rotary Driller Helper Letter Indication: Arthritis, rheumatic, acute or subacute [...] Arthritis, rheumatic, acute or subacute : Reviewed Rotary Driller Helper Letter Indication: Arthritis, rheumatic, acute or subacute [...] Nonprescription Treatment Indication: Hyperlipidemia Planned Observations TSH (11222)Indication: Hypothyroidism On: :16 Request T4, FREE (THYROXINE) (36407)Indication: Hypothyroidism On: :15 Request T3, FREE (TRIDOTHYRONINE) (65205)Indication: Hypothyroidism On: :15 Request CBC W/AUTO DIFF WBC (98012)Indication: Diabetes mellitus type 2, uncontrolled On: 0-Hrw-844333:40 Request METABOLIC PANEL, COMPREHENSIVE (96094)Indication: Diabetes mellitus type 2, uncontrolled On: 3-Djc-337125:40 Request LIPID PANEL (32461)Indication: Hyperlipidemia On: :40 Request T3, FREE (TRIDOTHYRONINE) (97061)Indication: Abnormal TSH On: : Request T4, FREE (THYROXINE) (05117)Indication: Abnormal TSH On: : Request TSH (92865)Indication: Abnormal TSH On: : Request T4, FREE (THYROXINE) (16667)Indication: Abnormal TSH On: : Request T3, FREE (TRIDOTHYRONINE) (54272)Indication: Abnormal TSH On: : Request URINALYSIS, W/ MICRO (05984)Indication: Diabetes mellitus type 2, uncontrolled On: : Request MICROALBUMIN: CREATININE RATIO (84656) AND (15089)Indication: Diabetes mellitus type 2, uncontrolled On: : Request METABOLIC PANEL, COMPREHENSIVE (19951)Indication: Diabetes mellitus type 2, uncontrolled On: : Request CBC W/AUTO DIFF WBC (52356)Indication: Diabetes mellitus type 2, uncontrolled On: : Request LIPID PANEL (91316)Indication: Hyperlipidemia On: : Request TSH (67111)Indication: Abnormal TSH On: : Request CALCIFIDIOL (73268) VIT D 25Indication: Vitamin D deficiency On: : Request CALCIFIDIOL (76646) VIT D 25Indication: Vitamin D deficiency On: :52 Request URINALYSIS, W/ MICRO (46832)Indication: Diabetes mellitus type 2, uncontrolled On: :51 Request MICROALBUMIN: CREATININE RATIO (48275) AND (56439)Indication: Diabetes mellitus type 2, uncontrolled On: :51 Request METABOLIC PANEL, COMPREHENSIVE (68413)Indication: Diabetes mellitus type 2, uncontrolled On: :51 Request CBC W/AUTO DIFF WBC (76127)Indication: Diabetes mellitus type 2, uncontrolled On: :51 Request LIPID PANEL (48716)Indication: Hyperlipidemia On: :51 Request TSH (79387)Indication: Hypothyroidism On: :51 Request TSH (32145)Indication: Abnormal TSH On: :53 Request Comments: do at end of jan 2016 T4, FREE (THYROXINE) (85163)Indication: Abnormal TSH On: :53 Request Comments: do at end 2015 T3, FREE (TRIDOTHYRONINE) (07379)Indication: Abnormal TSH On: :53 Request Comments: do at end of jan 2016 CALCIFIDIOL (61192) VIT D 25Indication: Vitamin D deficiency On: :47 Request URINALYSIS, W/ MICRO (63673)Indication: Diabetes mellitus type 2, uncontrolled On: :47 Request MICROALBUMIN: CREATININE RATIO (29223) AND (14715)Indication: Diabetes mellitus type 2, uncontrolled On: :47 Request METABOLIC PANEL, COMPREHENSIVE (78688)Indication: Diabetes mellitus type 2, uncontrolled On: :47 Request CBC W/AUTO DIFF WBC (28774)Indication: Diabetes mellitus type 2, uncontrolled On: :47 Request FECAL OCCULT- Tubes sent home (25138)Indication: Encounter for screening for malignant neoplasm of colon (Renamed from Special screening for malignant neoplasms, colon) On: :47 Request TSH (14781)Indication: Abnormal TSH On: :57 Request T3, FREE (TRIDOTHYRONINE) (27009)Indication: Abnormal TSH On: :57 Request T4, FREE (THYROXINE) (78150)Indication: Abnormal TSH On: :57 Request URINALYSIS, W/ MICRO (55003)Indication: Diabetes mellitus type 2, uncontrolled On: :10 Request MICROALBUMIN: CREATININE RATIO (88618) AND (12322)Indication: Diabetes mellitus type 2, uncontrolled On: :10 Request METABOLIC PANEL, COMPREHENSIVE (54229)Indication: Diabetes mellitus type 2, uncontrolled On: :10 Request LIPID PANEL (97505)Indication: Hypercholesteremia On: 59-Tzp-917758:10 Request CBC W/AUTO DIFF WBC (00590)Indication: Diabetes mellitus type 2, uncontrolled On: 48-Yht-247657:10 Request TSH (48439)Indication: Hypothyroidism On: 50-Gnm-915587:10 Request CALCIFIDIOL (91454) VIT D 25Indication: Vitamin D deficiency On: 67-Inz-020496:09 Request Blood Glucose , Office (80853)Indication: Diabetes mellitus type 2, uncontrolled On: 75-Gku-621249:32 Request CALCIFIDIOL (06967) VIT D 25Indication: Vitamin D deficiency On: 53-Vrj-227305: Request URINALYSIS, W/ MICRO (81581)Indication: Diabetes mellitus type 2, uncontrolled On: 37-Ylh-801627: Request MICROALBUMIN: CREATININE RATIO (36073) AND (64970)Indication: Diabetes mellitus type 2, uncontrolled On: 79-Nra-889029: Request METABOLIC PANEL, COMPREHENSIVE (54728)Indication: Diabetes mellitus type 2, uncontrolled On: 72-Kvx-569970: Request LIPID PANEL (60121)Indication: Hyperlipidemia On: 78-Xwt-842808:00 Request CBC W/AUTO DIFF WBC (32342)Indication: Diabetes mellitus type 2, uncontrolled On: 62-Yov-521244:00 Request TSH (57967)Indication: Hypothyroidism On: 92-Yct-414749:00 Request URINALYSIS, W/ MICRO (80163)Indication: Diabetes mellitus type 2, uncontrolled On: 5-Cco-502525:24 Request MICROALBUMIN: CREATININE RATIO (10630) AND (27361)Indication: Diabetes mellitus type 2, uncontrolled On: 2-Ymk-995253:24 Request METABOLIC PANEL, COMPREHENSIVE (95000)Indication: Diabetes mellitus type 2, uncontrolled On: 7-Uyi-897480:24 Request CBC W/AUTO DIFF WBC (62739)Indication: Diabetes mellitus type 2, uncontrolled On: 9-Uxd-682992:24 Request Vitamin D Hydroxy (48435)Indication: Vitamin D deficiency On: 1-Oos-564376:24 Request HEPATIC FUNCTION PANEL (96859)Indication: Hyperlipidemia On: :23 Request LIPID PANEL (95806)Indication: Hyperlipidemia On: 9-Mdr-878155:23 Request TSH (84547)Indication: Hypothyroidism On: 9-Zbe-624767:20 Request METABOLIC PANEL, COMPREHENSIVE (11499)Indication: Diabetes mellitus type 2, uncontrolled On: 4-Eyl-285703:16 Request TSH (32945)Indication: Diabetes mellitus type 2, uncontrolled On: 4-Znv-930003:16 Request LIPID PANEL (95262)Indication: Diabetes mellitus type 2, uncontrolled On: :16 Request CBC WITH MANUAL DIFF (53600)Indication: Diabetes mellitus type 2, uncontrolled On: 6-Xot-435900:45 Request Comments: send copy of [facility] URINALYSIS, W/ MICRO (17850)Indication: Diabetes mellitus type 2, uncontrolled On: :43 Request MICROALBUMIN: CREATININE RATIO (28671) AND (24790)Indication: Diabetes mellitus type 2, uncontrolled On: :43 Request LIPID PANEL (25150)Indication: Diabetes mellitus type 2, uncontrolled On: :43 Request TSH (15368)Indication: Hypothyroidism On: :43 Request LIPID PANEL (82078)Indication: Hyperlipidemia On: 0-Kmc-015254:18 Request TSH (77588)Indication: Hypothyroidism On: 37-Neu-867725:27 Request LIPID PANEL (41444)Indication: Hyperlipidemia On: 70-Fep-809018:38 Request Comments: do in 8 weeks TSH (19012)Indication: Hypothyroidism On: 97-Hhm-981009:33 Request Comments: do in 8 weeks HEPATIC FUNCTION PANEL (90681)Indication: Hyperlipidemia On: :58 Request LIPID PANEL (58535)Indication: Hyperlipidemia On: 63-Qij-332174:58 Request URINE ANDRESSA CULTURE (ADRY COL COUNT) (51979)Indication: Other abnormal finding of urine On: 64-Phn-623701:57 Request TSH (08442)Indication: Hypothyroidism On: :55 Request URINALYSIS, W/ MICRO (76646)Indication: Diabetes mellitus type 2, uncontrolled On: 28-Ako-979500:55 Request MICROALBUMIN: CREATININE RATIO (79455) AND (79275)Indication: Diabetes mellitus type 2, uncontrolled On: 29-Zyw-051462:55 Request METABOLIC PANEL, COMPREHENSIVE (78603)Indication: Diabetes mellitus type 2, uncontrolled On: :55 Request LIPOPROTEIN, BLD, BY NMR (45225)Indication: Diabetes mellitus type 2, uncontrolled On: 34-Zlo-563015:55 Request LIPID PANEL (44889)Indication: Diabetes mellitus type 2, uncontrolled On: :55 Request CBC WITH MANUAL DIFF (08700)Indication: Diabetes mellitus type 2, uncontrolled On: :55 Request CALCIFEDIOL (38597)Indication: Vitamin D deficiency On: :33 Request Comments: repeat Mar 03 CALCIFEDIOL (78236)Indication: Abnormal blood chemistry On: :41 Request RENAL FUNCTION PANEL (18320)Indication: Abnormal blood chemistry On: :41 Request PARATHORMONE (60264)Indication: Abnormal blood chemistry On: :40 Request RETICULOCYTE COUNT (80539)Indication: Abnormal blood chemistry On: :40 Request CBC & PLATELETS (AUTO) (07542)Indication: Abnormal blood chemistry On: :40 Request LIPOPROTEIN, BLD, BY NMR (06224)Indication: Diabetes mellitus type 2, uncontrolled On: :29 Request Renal function Panel (33325)Indication: Cramp of limb On: 6-Efv-487593:47 Request TSH (79389)Indication: Hypothyroidism On: :28 Request HEPATIC FUNCTION PANEL (92184)Indication: Hyperlipidemia On: :27 Request Lipid Panel (60415)Indication: Hyperlipidemia On: 44-Cad-278811:27 Request MICROALBUMIN: CREATININE RATIO (31547) AND (72489)Indication: Diabetes mellitus type 2, uncontrolled On: 34-Buk-725029:56 Request METABOLIC PANEL, COMPREHENSIVE (83264)Indication: Diabetes mellitus type 2, uncontrolled On: :56 Request LIPID PANEL (36095)Indication: Diabetes mellitus type 2, uncontrolled On: :56 Request CBC WITH MANUAL DIFF (63961)Indication: Diabetes mellitus type 2, uncontrolled On: :56 Request TSH (86150)Indication: Hypothyroidism On: 71-Rtm-598245:55 Request TSH (83008)Indication: Controlled diabetes mellitus type II without complication On: :21 Request MICROALBUMIN: CREATININE RATIO (30147) AND (13149)Indication: Controlled diabetes mellitus type II without complication On: :21 Request LIPID PANEL (65966)Indication: Controlled diabetes mellitus type II without complication On: : Request METABOLIC PANEL, COMPREHENSIVE (58326)Indication: Controlled diabetes mellitus type II without complication On: : Request CBC WITH MANUAL DIFF (45227)Indication: Controlled diabetes mellitus type II without complication On: : Request CREATININE CLEARANCE (09434) 24 HOURIndication: Controlled diabetes mellitus type II without complication On: Request Planned Encounters Medical; 3 Month FU - On: 28-Feb-2018 14:30 [facility] Lucretia Henson DO, DO, Kathleen Planned Procedures ELECTROCARDIOGRAM, COMPLETE (ECG) On: 02-Jun-2017 Intent (02550)By: Lucretia Henson DO Comments: ICV mild- nsr no acute chg -poor R wave progression and nonspeicici st flattening DO, Lucretia Spirometry (18390)By: Anna KAUR, On: 02-Jun-2017 Intent Lucretia Chahal DO Comments: obstruction pt refused any inhalers Overnight Pulse OX (11544)By: Fast On: 03-Mar-2017 Intent Ghazala KAUR Flu Vaccine (Quadrivalent) 86132Bb: On: 25-Nov-2016 Intent Lucretia Henson DO, DO, Comments: Lot:[id number]:06/09Amt:0.5mlRoute:IMSite: L DltdGiven By: GIULIANO Buitrago signed Lucretia ELECTROCARDIOGRAM, COMPLETE (ECG) On: 11-May-2016 Intent (25678)By: Lucretia Henson DO Comments: nsr no acute chjg DOLucretia Spirometry (59099)By: Anna KAUR On: 11-May-2016 Intent Lucretia Chahal DO Comments: good curve but poor #- pt refused inhalers Flu Vaccine (Quadrivalent) 70732Jh: On: 02-Jan-2016 Intent Lucretia Henson DO, DO, Comments: FLUlot: [id number]:07/08site:Lt deltoidroute:IMdose:.5mlZACH OCHOA MAMMOGRAM, SCREENING, BOTH BREAST On: 11-Sep-2015 Intent (50996)By: Lucretia Henson DO, DO, Kathleen YDGR-BK-ACTX BEHAVIORAL COUNSELING On: 11-Sep-2015 Intent FOR OBESITY, 15 MINUTES (G0447)By: Lucretia Henson DO, DO, Kathleen Six Minute Walk Assessment (93029)By: On: 19-Jun-2015 Intent Lucretia Henson DO, DO, Kathleen Flu Vaccine (Quadrivalent) 29569Bk: On: 03-Dec-2014 Intent Lucretia Henson DO, DO, Comments: Lot:[id number]:08/22/15Dose:0.5mLRoute:IMSite:L DltdGiven By:ANN MARIE signed Lucretia EKG (10633)By: Lucretia Henson DO On: 29-Nov-2013 Intent Lucretia Henson DO FLU VAC, SPLIT, >3 YEARS, INTRAMUSC On: 29-Nov-2013 Intent (54038)By: Lucretia Henson DO Comments: Lot:[id number]:11/07Amt:0.5mlRoute:IMSite: L DltdGiven By: Avril SANTAMARIA signed Lucretia KAUR IZTM-IJ-FSIZ BEHAVIORAL COUNSELING On: 29-May-2013 Intent FOR OBESITY, 15 MINUTES (G0447)By: Lucretia Henson DO, DO, Kathleen ADMINISTRATION OF PNEUMOCOCCAL On: 29-May-2013 Intent VACCINE (G0009)By: Anna KAUR, Comments: Lot #[id number]-L arm, dltd, IMDose-prefilled syringegiven by:GIULIANO Ocasio signed Lucretia Chahal DO PNEUM VAC ADLT/IMUMNOSPR, SBC/INTRM On: 29-May-2013 Intent (18172)By: Lucretia Henson DO, DO, Kathleen Eprescribed prescriptions (G8553)By: On: 29-May-2013 Intent Lucretia Henson DO, DO, Kathleen Six Minute Walk Assessment (63495)By: On: 16-Mar-2013 Intent Lucretia Henson DO, DO, Comments: spirometry stable and O2 93% on room airand walk at lowest-- may discontinue O2 Lucretia Eprescribed prescriptions (G8553)By: On: 15-Mar-2013 Intent Ayah Chavis Radiology - Chest- PA and LatBy: On: 08-Mar-2013 Intent Lucretia Henson DO, DO, Comments: do in 6 weeks Lucretia HYDRATION IV INFUSION, INIT On: 24-Feb-2013 Intent (45812)By: Claudia Ibarra CNP Aerosol Treatment (86510)By: Addi On: 24-Feb-2013 Intent Claudia NO FLU VAC, SPLIT, >3 YEARS, INTRAMUSC On: 24-Nov-2012 Intent (45806)By: Omayra Cunha LPN Comments: Lot:[id number]:6.14Amt:0.5mlRoute:IMSite: L DltdGiven By: GOKUL BuitragoVIS signed ADMINISTRATION OF INFLUENZA VIRUS On: 24-Nov-2012 Intent VACCINE (G0008)By: Omayra Cunha LPN EKG (31321)By: Lucretia Henson DO On: 31-Aug-2012 Intent Lucretia Henson DO Comments: inc /RBBB poor R wave progression / no acute chg Eprescribed prescriptions (G8553)By: On: 31-Aug-2012 Intent Ayah Chavis Eprescribed prescriptions (G8553)By: On: 13-Jun-2012 Intent Omayra Cunha LPN Eprescribed prescriptions (G8553)By: On: 30-Mar-2012 Intent Lucretia Henson DO, DO, Kathleen Aerosol Treatment (19447)By: Anna On: 11-Jan-2012 Intent Lucretia KAUR DO, Kathleen Comments: no noise adnmore a/e after aerosol Radiology - Chest- PA and LatBy: On: 11-Jan-2012 Intent Lucretia Henson DO, DO, Comments: do repeat cxr in around pedro Lucretia Eprescribed prescriptions (G8553)By: On: 11-Jan-2012 Intent Deysi Galvan LPN Aerosol Treatment (94661)By: Anna On: 28-Dec-2011 Intent Lucretia KAUR DO, Kathleen Comments: more a/e - louider but better movenmnt Spirometry (86803)By: Anna KAUR On: 28-Dec-2011 Intent Lucretia Chahal DO Comments: obstruciotn present nad ecent effort /technique considering how sick she is Solu- Medrol Injection, 125mg On: 28-Dec-2011 Intent (J2930)By: Lucretia Henson DO Comments: Lot:[id number]:mt:125mg/2mlRoute:IMSite:R GlutealGiven by: GOKUL Kwon DO, Kathleen Radiology - Chest- PA and LatBy: On: 28-Dec-2011 Lucretia Gasca DO, DO, Kathleen Pulse Oximetry (65861)By: Anna KAUR, On: 28-Dec-2011 Intent Lucretia Chahal DO ADMINISTRATION OF INFLUENZA VIRUS On: 21-Dec-2011 Intent VACCINE (G0008)By: Omayra Cunha Comments: Lot #[id number]-5/30/13Site-left deltoidgiven by: Cameron Keller LPN LPN FLU VAC, SPLIT, >3 YEARS, INTRAMUSC On: 21-Dec-2011 Intent (92802)By: Omayra Cunha LPN EKG (74156)By: Omayra Cunha LPN On: 02-Oct-2011 Intent Comments: nsr no acute chg - inc IVCD - Eprescribed prescriptions (G8553)By: On: 18-Sep-2011 Intent Lucretia Henson DO, DO, Kathleen Spirometry (13901)By: Anna KAUR On: 10-Jun-2011 Intent Lucretia Chahal DO Comments: stable -- no chg in inhalers EKG (17041)By: Lucretia Henson DO On: 10-Jun-2011 Intent Lucretia Henson DO Comments: nsr no acute chg Radiology - Chest- PA and LatBy: On: 10-Jun-2011 Intent Lucretia Henson DO, DO, Kathleen ADMINISTRATION OF INFLUENZA VIRUS On: 15-Dec-2010 Intent VACCINE (G0008)By: Anna KAUR, Comments: Lot #[id number]-1.12Site-L arm, IMDose prefilledgiven by:Lucretia Walsh DO FLU VAC, SPLIT, >3 YEARS, INTRAMUSC On: 15-Dec-2010 Intent (58976)By: Lucretia Henson DO, DO, Kathleen TDAP VACCINE >7 IM (94212)By: Anna On: 18-Sep-2010 Intent Lucretia KAUR DO, Kathleen Comments: Lot #[id number]-6/31/13Site-left deltoidgiven by: Cameron Keller LPN EKG (86450)By: Lucretia Henson DO On: 11-Jun-2010 Intent Lucretia Henson DO Comments: nsr no acute chgng Eprescribed prescriptions (G8553)By: On: 11-Jun-2010 Lucretia Gasca DO, DO, Kathleen FLU VAC, SPLIT, >3 YEARS, INTRAMUSC On: 09-Jan-2010 Intent (68489)By: Omayra Cunha LPN Comments: Lot #[id number]/11Site-left deltoidgiven by:LAYO ADMINISTRATION OF INFLUENZA VIRUS On: 09-Jan-2010 Intent VACCINE (G0008)By: Omayra Cunha LPN MRI - Knee(s) - RightBy: Anna KAUR, On: 10-May-2009 Intent Lucretia Chahal DO EKG (22406)By: Lucretia Henson DO On: 10-May-2009 Intent Lucretia Henson DO Comments: nsr no acute changes FLU VAC, SPLIT, >3 YEARS, INTRAMUSC On: 14-Nov-2008 Intent (60495)By: Claudia Ibarra CNP ADMINISTRATION OF INFLUENZA VIRUS On: 14-Nov-2008 Intent VACCINE (G0008)By: Claudia Ibarra CNP Comments: Lot #: [id number] date: mount given: 0.5 mlRoute: IMSite given: left deltoidGiven by: Nellie Siddiqi LPN Ultrasound - RenalBy: Claudia Ibarra CNP On: 14-Nov-2008 Intent E Pulse Oximetry (82187)By: Anna KAUR, On: 21-May-2008 Intent Lucretia Chahal DO Comments: 97% Pulse Oximetry (56311)By: Addi NO, On: 18-Apr-2008 Intent Claudia Payne Comments: 93% before and after aerosol tx Aerosol Treatment (85494)By: Addi On: 18-Apr-2008 Intent MARYBEL Claudia Payne Comments: done-AW Pulse Oximetry (81090)By: Anna KAUR, On: 04-Apr-2008 Intent Lucretia Chahal DO Comments: post treatment- 98% spo2 Aerosol Treatment (89269)By: Anna On: 04-Apr-2008 Intent Lucretia KAUR DO, Kathleen Inhaler Demo (74017)By: Anna KAUR, On: 02-Apr-2008 Intent Lucretia Chahal DO Aerosol Treatment (61941)By: Anna On: 02-Apr-2008 Intent Lucretia KAUR DO, Kathleen Comments: much more air excchange less noise but still there Solu- Medrol Injection, 125mg On: 02-Apr-2008 Intent (J2930)By: Lucretia Henson DO Comments: lot # [id number]-[id number]- 125mg chenderson tolerated well Lucretia KAUR Pulse Oximetry (54197)By: Anna KAUR On: 02-Apr-2008 Intent Lucretia Chahal DO Comments: after aerosol tx93% on room air Pulse Oximetry (68590)By: Guerline On: 02-Apr-2008 Intent Omayra HODGSON Comments: done km 90 % EKG (74889)By: Lucretia Henson DO On: 15-Dec-2007 Intent Lucretia Henson DO Comments: nsr no acute ischemic changes IMMUNIZ ADMNIN, 1 VAC, SNGL/COMBO On: 15-Dec-2007 Intent (23262)By: Lucretia Henson DO Comments: lot # [id number]- 01/26/09site- RDLTroute-IMdose- o.5mg chenderson MA Lucretia KAUR PNEUM VAC ADLT/IMUMNOSPR, SBC/INTRM On: 15-Dec-2007 Intent (02200)By: Lucretia Henson DO, DO, Kathleen FLU VAC, SPLIT, >3 YEARS, INTRAMUSC On: 15-Dec-2007 Intent (85103)By: Omayra Cunha LPN Comments: 0.5cc given lt arm lot [id number] 6 ADMINISTRATION OF INFLUENZA VIRUS On: [...] make her gain weight- [facility]- admits to [...] The patient does have durable power of estate attorney and living will. The patient has noticed staying at home rather than d oing something new or going out and lack of energy. Other providers contributing to the patient's care are finishing tunnel operator and surgeon.Encounter Diagnosis: Annual Medicare Phyiscal WITHOUT [...] The patient does have durable power of estate attorney and living will. The patient has noticed dropping activities and interests and thinking most people are better off than them. Other providers contributing to the patient's care are finishing tunnel operator ([place], ), surge on ([facility] [...] Disorder (311.) [facility] Payers MedicareUnited [facility] Elvis Meyers; a guarantor
--- OUTSIDE RECORDS SUMMARY | 2018-03-20 09:01 | XMS RPT_ITS ---
:1950 Author Organization [facility] Support Name Relationship Address Phone TIM BARAKAT Sister [address] + [place] [address] R Unknown Unavailable Unavailable M[facility] [address] + [place] [address] YUVAL, TIM Sister [address] + [place] [address] R Unknown Unavailable Unavailable MIRACURTIS Natural[facility] [address] + [place] [address] YUVAL, TIM Sister [address] + [place] [address] R Unknown Unavailable Unavailable MIRA CURTIS [employer] [address] + [place] [address] YUVAL, TIM Sister [address] + [place] [address] R Unknown Unavailable Unavailable [address] + [place] [address] YUVAL, TIM Sister [address] + [place] [address] R Unknown Unavailable Unavailable MIRA CURTIS [employer] [address] + [place] [address] YUVAL, TIM Sister [address] + [place] [address] R Unknown Unavailable Unavailable MIRA CURTIS [employer] [address] + [place] [address] YUVAL, TIM Sister [address] + [place] [address] R Unknown Unavailable Unavailable MIRA CURTIS [employer] [address] + [place] [address] YUVAL, TIM Sister [address] + [place] [address] R Unknown Unavailable Unavailable CURTIS MEYERS [address] + [place] [address] Care Team Providers Name Role Phone Natividad DO, Lucretia Attending Unavailable Natividad DO, Lucretia Referring Unavailable Natividad DO, Lucretia Consulting Unavailable Knapic, Reyes Attending Unavailable Knapic, Reyes Referring Unavailable Natividad, Lucretia Primary Care Unavailable Knapic, Reyes Attending Unavailable Knapic, Reyes Referring Unavailable Natividad, Lucretia Primary Care Unavailable Natividad, Lucretia Attending Unavailable Natividad, Lucretia Referring Unavailable Natividad, Lucretia Primary Care Unavailable Knapic, Reyes Attending Unavailable Knapic, Reyes Referring Unavailable Natividad, Lucretia Primary Care Unavailable Mychak, Jazzy Attending Unavailable Mychak, Jazzy Referring Unavailable Natividad, Lucretia Primary Care Unavailable Mychak, Jazzy Attending Unavailable Mychak, Jazzy Referring Unavailable Natividad, Lucretia Primary Care Unavailable Hayden Mack Attending Unavailable Mychak, Jazzy Referring Unavailable Mychak, Jazzy Attending Unavailable Mychak, Jazzy Referring Unavailable Natividad, Lucretia Primary Care Unavailable Purpose Purpose PROBLEMS PROBLEMS DATE TYPE CONDITION / CODE ATTENDING STATUS SOURCE 02/01/2018 Unknown Z01.810 - Encounter Reyes Jeong Active [facility] for preprocedural [facility] cardiovascular Hospital examination / Repository Z01.810(ICD-10) 02/01/2018 Unknown Z01.818 - Encounter Reyes Jeong Active [facility] for other Community preprocedural Hospital examination / Repository Z01.818(ICD-10) 12/21/2017 Unknown G89.18 - Other acute MychaJazzy pierre Active [facility] postprocedural pain Community / G89.18(ICD-10) Hospital Repository 11/18/2017 Unknown F17.200 - Nicotine Mychak, Jazzy Active [facility] dependence, Community unspecified, Hospital uncomplicated / Repository F17.200(ICD-10) 09/03/2017 Unknown R94.6 - Abnormal Natividad, Active Donald results of thyroid [facility] function studies / Hospital R94.6(ICD-10) Repository 09/03/2017 Unknown E78.5 - Natividad, Active Donald Hyperlipidemia, [facility] unspecified / Hospital E78.5(ICD-10) Repository 09/03/2017 Unknown 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, 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 GROSS DESCRIPTION Received is one container labeled with the patient's name and not further designated. The specimen consists of a churchill, indurated piece of tissue measuring 2.5 x 2 x 1 cm. Sections do not reveal any mass lesion. Gerontology Aide sections are submitted in one cassette. / SJ:bernard 02/04/18 TC:2 CPT: 39165, 00423 x2 HEADER OPERATION: Excision of left olecranon bursa PRE-OP DIAGNOSIS: Olecranon bursitis left elbow TISSUE SUBMITTED: Left elbow olecranon bursa MICROSCOPIC DESCRIPTION Slides are reviewed. MICROSCOPIC DIAGNOSIS Left elbow olecranon bursa, excision: Fibrous and synovial tissue with chronic inflammation and degenerative change. Focal necrotizing granulomas. Negative for acid-fast bacilli and fungal organisms. AM:bernard 02/07/18 Signed Hong Londono DO 02/08/18 <signature on file> Performed By: #### ELENO #### [facility] [address] [place], [address] CBC-COMPLETE BLOOD CNT Collected: 02/01/2018 Status: F Source: [place] NO DIFF 9:40 AM [facility] REPOSITORY TYPE CODE TESTS RESULT OUT OF RANGE REFERENCE UNITS LAB L100.1000 4.4-11.0 K/mm3 Normal WBC 5.6 LAB L100.1200 4.2-5.4 M/mm3 Normal RBC 5.29 LAB L100.1300 12.0-15.0 g/dl Normal HGB 14.4 LAB L100.1400 37-47 % Normal HCT 45.4 LAB L100.1500 81-99 fL Normal MCV 85.8 LAB L100.1600 27.0-32.0 pg Normal MCH 27.2 LAB L100.1700 32-36 g/gl Low MCHC 31.7 LAB L100.1810 11.6-14.6 % Normal RDW CV 13.3 LAB L100.1820 35.1-43.9 fl Normal RDW SD 41.3 LAB L100.1900 150-450 K/mm3 Normal PLT 167 LAB L100.2000 6.2-12.0 fl Normal MPV 11.7 Performed By: #### L100.0500 #### [facility] [address] [place], [address] BASIC METABOLIC Collected: 02/01/2018 Status: F Source: [place] PROFILE (BMP) 9:40 AM [facility] REPOSITORY TYPE CODE TESTS RESULT OUT OF RANGE REFERENCE UNITS LAB L501.0100 74-106 mg/dL High GLU 267 Result Comment: Glucose result greater than or equal to 200 mg/dL suggests DIABETES MELLITUS per A.D.A. criteria. Please note revised GLUCOSE reference range effective 2017. LAB L501.1000 7-18 mg/dL Normal BUN 11 LAB L501.1100 0.55-1.02 mg/dL Normal CREAT,SERUM 0.91 Result Comment: The validity of the calculated GFR AND GFRAA in patients over 70 years has not been determined. Clinical correlation is essential. LAB L501.1110 >60 mL/min Normal EST GFR 66 Result Comment: Non- GFR Calc LAB L501.1115 >60 mL/min Normal EST GFR - AA 80 Result Comment: GFR Calc LAB L501.1300 10-20 RATIO Normal BUN/CRE 12.1 LAB L501.2200 8.5-10.1 mg/dL CA Normal 9.0 LAB L501.5300 136-145 mmol/L NA Normal 141 LAB L501.5600 3.5-5.1 mmol/L K Normal 4.3 LAB L501.5900 98-107 mmol/L CL Normal 101 LAB L501.6100 21.0-32.0 mmol/L Normal CO2 30.0 LAB L501.6200 5-15 Normal GAP 10 Performed By: #### L500.2500 #### [facility] [address] [place], [address] DISCHARGE INSTRUCTION Observed: 12/21/2017 Status: F Source: [place] 11:07 AM [facility] REPOSITORY [facility] Medical Records Department [address] [place] [address] Instructions for Home/Discharge Instructions 12/21/17 1103 MR#: [id number] Acct: [id number] Name: ELIZABETH MEYERS Rep #: [id number] : 1950 67 From: Jazzy Dunn DPM PCP: Lucretia Henson DO [place] [facility] Dis[place] Activity: May not drive while taking narcotic pain medications., May Not Shower - Do NOT get dressing wet. Weight Bearing Status: Weight bearing as tolerated - in surgical shower, limit activity Keep extremity elevated above heart level: Operative Extremity Call your doctor if your incision/area has: Continuous Slow Oozing, Sudden Increased Bleeding, Increased Pain/ Swelling, Increased Redness, Foul Smelling Discharge, Swelling at the incision site, - - if dressing becomes wet! Call your doctor if you observe: Fever of 101 or Higher, Coldness, Increased Pain, Numbness or Tingling, Change in Color, Shortness of breath, Chest pain, Uncontrolled pain Cleanse incision/area with: Keep Dressing Clean AND Dry Allergies/Adverse [...] 01/16/14 Omeprazole [Prilosec] 40 mg PO DAILY 01/16/14 Pioglitazone [Actos] 15 mg PO DAILY 01/16/14 Rosuvastatin Calcium [Crestor] 20 mg PO DAILY 01/16/14 Stool Softner 1 tab PO DAILY 01/16/14 Acetaminophen/Codeine #3 [Tylenol#3] 1 tab PO Q4H PRN PRN 7 Days #30 tab 12/21/17 The following prescriptions were given: Acetaminophen/Codeine #3 [Tylenol#3] 1 tab PO Q4H PRN PRN 7 Days #30 tab PRN Reason: Pain Primary Care Physician: Lucretia Henson DO [Primary Care Provider] - Test Results: Test results from this visit will be discussed in further detail at your follow-up appointment, if applicable. Please Follow Up With: Jazzy Dunn DPM When: as previously scheduled 12/21/17 1107 <Electronically signed by Jazzy Dunn DPM> Date Jazzy Dunn DPM CC: Lucretia Henson DO OPERATIVE REPORT Observed: 12/21/2017 Status: F Source: [place] 10:58 AM [facility] REPOSITORY [facility] Medical Records Department [address] [place] [address] Operative Report 12/21/17 1041 MR#: [id number] Acct: [id number] Name: ELIZABETH MEYERS Rep #: [id number] : 1950 67 From: Jazzy Dunn DPM PCP: Lucretia Henson DO Status: [facility] Y Location: [place] [address] Report of Operation Date of Procedure: 12/21/17 Pre-Operative Diagnosis: Left foot abscess Post-Operative Diagnosis: same Surgery/Procedure Performed:: L foot incision and drainage, washout Description of Surgical Findings:: Indications: Pt is a 67 yo F who presented to my office yesterday for a post-operative appointment for a left EHL tendon soft tissue mass excision, DOI 12/02/2017. Her post operative course had been uneventful until 12/16/2017 when she had gotten her surgical dressing wet while bathing. She did not call the office as she had an appointment already scheduled and felt it would be ok to wait. She presented yesterday with edema, erythema and a small amount of drainage to the surgical site. Two sutures were still intact. She denies pain, fever, chills, nausea, vomiting. She was started on doxycycline and scheduled for surgery this morning. Pt was verbally and visually identified in the pre operative holding area. Risks, benefits and complications were again reviewed with the patient. Patient wished to proceed with the proposed surgery. The left foot was marked as the correct operative extremity. The patient was brought to the operating room by anesthesia and placed on the operating table in the normal supine position. A time out was performed and all present were in agreement. The left lower extremity was then prepped and draped in normal sterile fashion. Attention was the directed to the left dorsal foot. Using a #15 blade a linear incision was made at the previous surgical site. Minimal purulent drainage was noted. The soft tissue was explored with with no jayna abscess noted. Pulse lavage of 3L NSS was used and wound cultures were taken. I felt that the EHL tendon look well healed and did not need opened as the infection appeared to be contained to the superficial soft tissues. I did not want to expose the EHL tendon at this time. Electrocautery was utilized for all bleeders. After copious [...] by a member of the anesthesia team and myself with all vital signs stable. Pt tolerated the anesthesia and procedure well. Capillary refill was < 3 seconds to all digits of the operative extremity. PT will be WBAT in surgical shoe and continue the doxycycline. I will see her in 6 days in clinic or sooner if needed. mailroom coordinator: none Type of Anesthesia:: Local MAC Specimen's removed: wound cx Drains: giorgio Estimated Blood Loss (mL): minimal - Admit VTE Documentation VTE Present on Admission: No VTE Mechan Device Prophylaxis: SCD's 12/21/17 1058 <Electronically signed by Jazzy Dunn DPM> Date Jazzy Dunn DPM CC: ABHAY Dunn; Lucretia Henson Signed Observed: 12/21/2017 Status: F Source: [place] CULTURE, DEEP WOUND 10:41 AM [facility] REPOSITORY Order Date: 09/23/16 List Antibiotics Last 48 Hours? ANCEF Has pt arrived? Y Comments: LEFT FOOT ABSCESS- SWABS Gram Stain Gram Stain 3+ Red Blood Cells No organisms seen Wound Culture ORGANISM 1: Staphylococcus aureus Amount Growth 1+ Staphylococcus aureus: REACTION Benzylpenicillin NF <=0.03 R Cefoxitin *NF - Clindamycin $$ <=0.25 S Inducable Clindamycin Resistan - Erythromycin $ 4 I Gentamicin $ <=0.5 S Levofloxacin $ <=0.12 S Linezolid $$$$ 1 S Moxifloxicin *NF <=0.25 S Oxacillin NF <=0.25 S Tigecycline $$$$ <=0.12 S Rifampin $$ <=0.5 S Tetracycline NF <=1 S Trimethoprim/Sulfametho $ <=10 S Vancomycin $ <=0.5 S (NF) indicates non-formulary drug at [facility]. Approval by Infectious Disease Specialist required before non-formulary drugs may be ordered and/or dispensed. * CLSI guidelines does not recommend testing of cephalosporins. This interpretation is deduced from Beta-lactam/penicillin results. Cult, Anaerobic No anaerobic bacteria isolated. Performed By: #### M100.1500 #### [facility] [address] [place], [address] CBC-COMPLETE BLOOD CNT Collected: 12/21/2017 Status: F Source: [place] NO DIFF 8:58 AM [facility] REPOSITORY TYPE CODE TESTS RESULT OUT OF RANGE REFERENCE UNITS LAB L100.1000 4.4-11.0 K/mm3 Normal WBC 5.3 LAB L100.1200 4.2-5.4 M/mm3 High RBC 5.41 LAB L100.1300 12.0-15.0 g/dl Normal HGB 14.8 LAB L100.1400 37-47 % Normal HCT 45.9 LAB L100.1500 81-99 fL Normal MCV 84.8 LAB L100.1600 27.0-32.0 pg Normal MCH 27.4 LAB L100.1700 32-36 g/gl Normal MCHC 32.2 LAB L100.1810 11.6-14.6 % Normal RDW CV 13.8 LAB L100.1820 35.1-43.9 fl Normal RDW SD 42.5 LAB L100.1900 150-450 K/mm3 Normal PLT 174 LAB L100.2000 6.2-12.0 fl Normal MPV 10.8 Performed By: #### L100.0500 #### [facility] [address] [place], [place], [address] HEMOGLOBIN A1C Collected: 12/21/2017 Status: F Source: [place] 8:58 AM [facility] REPOSITORY TYPE CODE TESTS RESULT OUT OF RANGE REFERENCE UNITS LAB L501.9985 4.2-6.3 % High HGB A1C 10.3 Performed By: #### L501.9985 #### [facility] [address] [place], [place], [address] BASIC METABOLIC Collected: 12/21/2017 Status: F Source: [place] PROFILE (BMP) 8:58 AM [facility] REPOSITORY TYPE CODE TESTS RESULT OUT OF RANGE REFERENCE UNITS LAB L501.0100 74-106 mg/dL High GLU 208 Result Comment: Glucose result greater than or equal to 200 mg/dL suggests DIABETES MELLITUS per A.D.A. criteria. Please note revised GLUCOSE reference range effective 2017. LAB L501.1000 7-18 mg/dL Normal BUN 8 LAB L501.1100 0.55-1.02 mg/dL Normal CREAT,SERUM 0.86 Result Comment: The validity of the calculated GFR AND GFRAA in patients over 70 years has not been determined. Clinical correlation is essential. LAB L501.1110 >60 mL/min Normal EST GFR 70 Result Comment: Non- GFR Calc LAB L501.1115 >60 mL/min Normal EST GFR - AA 85 Result Comment: GFR Calc LAB L501.1255 ml/min Normal Estimated CRCL 60.24 LAB L501.1300 10-20 RATIO Low BUN/CRE 9.3 LAB L501.2200 8.5-10 mg/dL Normal .1 CA 8.9 LAB L501.5300 136-14 mmol/L Normal 5 NA 141 LAB L501.5600 3.5-5. mmol/L Normal 1 K 3.7 LAB L501.5900 98-107 mmol/L Normal CL 103 LAB L501.6100 21.0-3 mmol/L Normal 2.0 CO2 30.0 LAB L501.6200 5-15 Normal GAP 8 Performed By: #### L500.2500, L501.9520 #### [facility] [address] [facility] [place], [address] THYROID STIM HORMONE Collected: 12/21/2017 Status: F Source: [place] (TSH) 8:58 AM [facility] REPOSITORY TYPE CODE TESTS RESULT OUT OF RANGE REFERENCE UNITS LAB L501.9520 0.358-3.74 uIU/mL Low TSH 0.11 Performed By: #### L500.2500, L501.9520 #### [facility] [address] [place], [address] BEDSIDE GLUCOSE Collected: 12/21/2017 Status: F Source: [place] 8:20 AM [facility] REPOSITORY TYPE CODE TESTS RESULT OUT OF REFERENCE UNITS RANGE LAB L501.080 70-110 mg/dL High BEDSIDE GLU 195 Result Comment: MANAGEMENT OF PATIENT CARE PER NURSING PROTOCOL Performed By: #### L501.080 #### [facility] Point of Care [address] [facility] [place] [address] MASS (DEFINE AREA) Observed: 12/02/2017 Status: F Source: [place] 8:03 AM [facility] REPOSITORY Patient: ELIZABETH MEYERS : 1950 (67/F) Acct Num: [id number] Phys: Jazzy Dunn DPM Unit Num: [id number] Loc: LABSPEC Specimen: [id number] Received: 12/02/171558 Spec Type: Mass TISSUES 1 TISSUES: Foot, NOS COMMENT Differential diagnosis also includes rheumatoid nodule or necrobiosis lipoidica. Clinical correlation and appropriate follow up are necessary. Case has been reviewed in consultation with Dr. Londono who concurs with the above diagnosis. IDC:AM GROSS DESCRIPTION Received is one container labeled with the patient's name and not further designated. The specimen consists of three variable sized pieces of churchill, indurated tissue measuring in aggregate 1.5 x 1.4 x 0.2 cm. The entire specimen is submitted in one cassette. / SAMEERA:bernard 12/03/17 TC:5 CPT: 53336, 22145 x2 HEADER OPERATION: Left foot excision of soft tissue PRE-OP DIAGNOSIS: Mass of left foot TISSUE SUBMITTED: Soft tissue mass left extensor hallucis longus tendon sheath MICROSCOPIC DESCRIPTION Slides are reviewed. MICROSCOPIC DIAGNOSIS Soft tissue mass extensor hallucis longus tendon sheath: Palisaded granuloma, consistent with granuloma annulare. Special stains for acid fast bacilli and fungi are negative for organisms; matched controls are appropriate. Negative for malignancy. SJ:bernard 12/06/17 Signed Dru Al 12/07/17 <signature on file> Performed By: #### PMA #### [facility] [address] [facility] [place], [address] 12 LEAD ELECTROCARDIOGRAM Observed: 11/22/2017 Status: F Source: [place] 2:39 PM [facility] REPOSITORY [facility] Cardiovascular Services [address] [place] [address] 12 Lead EKG 11/18/17 1724 MR#: [id number] Acct: [id number] Name: ELIZABETH MEYERS Rep #: [id number] : 1950 67 From: Hayden Mack MD Attending Dr: Jazzy Dunn DPM Status: REG CLI Ordering Dr: Jazzy Dunn DPM Date: 11/18/17 Location: LAB Sex: F C Admitted: Test Reason : PRE-OP Blood Pressure : / mmHG Vent. Rate : 073 BPM Atrial Rate : 073 BPM P-R Int : 154 ms QRS Dur : 100 ms QT Int : 414 ms P-R-T Axes : 074 077 064 degrees QTc Int : 456 ms Normal sinus rhythm Possible Left atrial enlargement Low voltage QRS Borderline ECG Confirmed by MARTINA PAN, HAYDEN ([id number]), photograph editor CATY MEJIA ([id number]) on 11/22/2017 2:38:43 PM Referred By: Jazzy Dunn Confirmed By:HAYDEN MACK MD 11/22/17 1438 Date Hayden Mack MD CC: ABHAY uDnn; Lucretia Henson DO Signed CHEST PA AND LATERAL Observed: 11/18/2017 Status: F Source: [place] 5:03 PM [facility] REPOSITORY [facility] Imaging Services [address] [place] [address] Chest PA and Lateral MR#: [id number] Acct: [id number] Name: ELIZABETH MEYERS Rep #: [id number] : 1950 F 67 From: Shar Arevalo DO PCP: Lucretia Henson DO Status: REG CLI Study: Chest PA and Lateral Date of Exam: 11/18/17 Exam# [id number] Ordering Dr: Jazzy Dunn DPM STUDY: X-RAY CHEST REASON FOR EXAM: Female, 67 years old. Preop TECHNIQUE: Frontal and lateral views COMPARISON: April 09, 2014 FINDINGS: The lungs are clear and expanded. There is no demonstrated pleural abnormality. Normal size heart. Normal mediastinum and gogo. Normal visualized pulmonary arteries. Normal visualized aortic arch and descending thoracic aorta. Degenerative changes of the thoracic spine. Status post surgical fusion of mid cervical levels. Prior right shoulder surgery. There is no demonstrated abnormality of the visualized soft tissue structures of the upper abdomen. RAD/Chest PA and Lateral IMPRESSION: Normal x-ray examination of the chest. Electronically Signed: Shar Arevalo DO at 18:48 EDT Tel [phone], Service support , CC: ABHAY Dunn; Lucretia Henson DO Cable Installer: Signed CBC-COMPLETE BLOOD CNT Collected: 11/18/2017 Status: F Source: [place] NO DIFF 4:54 PM [facility] REPOSITORY TYPE CODE TESTS RESULT OUT OF RANGE REFERENCE UNITS LAB L100.1000 4.4-11.0 K/mm3 Normal WBC 4.7 LAB L100.1200 4.2-5.4 M/mm3 High RBC 5.54 LAB L100.1300 12.0-15.0 g/dl Normal HGB 14.9 LAB L100.1400 37-47 % High HCT 47.8 LAB L100.1500 81-99 fL Normal MCV 86.3 LAB L100.1600 27.0-32.0 pg Low MCH 26.9 LAB L100.1700 32-36 g/gl Low MCHC 31.2 LAB L100.1810 11.6-14.6 % Normal RDW CV 13.8 LAB L100.1820 35.1-43.9 fl Normal RDW SD 43.2 LAB L100.1900 150-450 K/mm3 Normal PLT 165 LAB L100.2000 6.2-12.0 fl Normal MPV 10.1 Performed By: #### L100.0500 #### [facility] [address] [place], [place], [address] BASIC METABOLIC Collected: 11/18/2017 Status: F Source: [place] PROFILE (BMP) 4:54 PM [facility] REPOSITORY TYPE CODE TESTS RESULT OUT OF RANGE REFERENCE UNITS LAB L501.0100 74-106 mg/dL High GLU 205 Result Comment: Glucose result greater than or equal to 200 mg/dL suggests DIABETES MELLITUS per A.D.A. criteria. Please note revised GLUCOSE reference range effective 2017. LAB L501.1000 7-18 mg/dL Low BUN 5 LAB L501.1100 0.55-1.02 mg/dL Normal CREAT,SERUM 0.88 Result Comment: The validity of the calculated GFR AND GFRAA in patients over 70 years has not been determined. Clinical correlation is essential. LAB L501.1110 >60 mL/min Normal EST GFR 68 Result Comment: Non- GFR Calc LAB L501.1115 >60 mL/min Normal EST GFR - AA 82 Result Comment: GFR Calc LAB L501.1300 10-20 RATIO Low BUN/CRE 5.6 LAB L501.2200 8.5-10.1 mg/dL Normal CA 8.9 LAB L501.5300 136-145 mmol/L Normal NA 137 LAB L501.5600 3.5-5.1 mmol/L Normal K 3.8 Result Comment: Moderate Hemolysis, Result may be falsely increased. LAB L501.5900 98-107 mmol/L Normal CL 104 LAB L501.6100 21.0-32.0 mmol/L Normal CO2 29.0 LAB L501.6200 5-15 Low 4 GAP Performed By: #### L500.2500 #### [facility] [address] [place], [place], [address] ERYTHROCYTE SED RATE Collected: 09/27/2017 Status: F Source: [place] 1:36 PM [facility] REPOSITORY TYPE CODE TESTS RESULT OUT OF RANGE REFERENCE UNITS LAB L102.0000 0-30 mm/hr High SED RATE 35 Performed By: #### L101.9900, L100.0100 #### [facility] [address] [place], [address] CBC W/DIFF, AUTOMATED Collected: 09/27/2017 Status: F Source: [place] 1:36 PM [facility] REPOSITORY TYPE CODE TESTS RESULT OUT OF RANGE REFERENCE UNITS LAB L100.1000 4.4-11.0 K/mm3 Normal WBC 7.1 LAB L100.1200 4.2-5.4 M/mm3 High RBC 5.61 LAB L100.1300 12.0-15.0 g/dl High HGB 15.1 LAB L100.1400 37-47 % High HCT 48.4 LAB L100.1500 81-99 fL Normal MCV 86.3 LAB L100.1600 27.0-32.0 pg Low MCH 26.9 LAB L100.1700 32-36 g/gl Low MCHC 31.2 LAB L100.1810 11.6-14.6 % Normal RDW CV 13.1 LAB L100.1820 35.1-43.9 fl Normal RDW SD 41.2 LAB L100.1900 150-450 K/mm3 Normal PLT 187 LAB L100.2000 6.2-12.0 fl Normal MPV 10.7 LAB L100.2100 47-70 % Normal NEUT% 66.4 LAB L100.2200 19-41 % Normal LY% 25.1 LAB L100.2300 0-10 % Normal MONO% 7.0 LAB L100.2400 0-5 % Normal EO% 1.1 LAB L100.2500 0-1 % Normal BASO% 0.4 LAB L100.2550 0.0-0.9 % Normal IM GRAN % 0.000 Result Comment: IG% - Immature Granulocytes (promyelocytes, myelocytes and metamyelocytes) > 1% indicates that a LEFT SHIFT is Present. LAB L100.2620 2.0-7.7 X10 3/uL Normal Absolute Neut 4.7 LAB L100.2720 0.83-4.51 X10 3/ul Normal Absolute Lymph 1.77 Performed By: #### L101.9900, L100.0100 #### [facility] [address] [place], [place], [id number] CRP Collected: 09/27/2017 Status: F Source: [place] 1:36 PM [facility] REPOSITORY TYPE CODE TESTS RESULT OUT OF RANGE REFERENCE UNITS LAB L501.6710 0.0-3.0 mg/L High 24.50 C-REACTIVE PROT Result Comment: C-Reactive Protein (CRP) provides useful information for the diagnosis, therapy and monitoring of inflammatory processes and associated diseases. For the evaluation of Relative Risk for Cardiovascular Disease, a High Sensitivity CRP (HSCRP) should be ordered. Performed By: #### L501.6710 #### [facility] [address] [place], [place], [address] CBC W/DIFF, AUTOMATED Collected: 09/03/2017 Status: F Source: [place] 1:28 PM [facility] REPOSITORY TYPE CODE TESTS RESULT OUT OF RANGE REFERENCE UNITS LAB L100.1000 4.4-11.0 K/mm3 Normal WBC 4.7 LAB L100.1200 4.2-5.4 M/mm3 High RBC 5.77 LAB L100.1300 12.0-15.0 g/dl High HGB 15.7 LAB L100.1400 37-47 % High HCT 49.0 LAB L100.1500 81-99 fL Normal MCV 84.9 LAB L100.1600 27.0-32.0 pg Normal MCH 27.2 LAB L100.1700 32-36 g/gl Normal MCHC 32.0 LAB L100.1810 11.6-14.6 % Normal RDW CV 13.8 LAB L100.1820 35.1-43.9 fl Normal RDW SD 42.4 LAB L100.1900 150-450 K/mm3 Normal PLT 193 LAB L100.2000 6.2-12.0 fl Normal MPV 10.6 LAB L100.2100 47-70 % Normal NEUT% 55.1 LAB L100.2200 19-41 % Normal LY% 35.6 LAB L100.2300 0-10 % Normal MONO% 7.8 LAB L100.2400 0-5 % Normal EO% 1.3 LAB L100.2500 0-1 % Normal BASO% 0.2 LAB L100.2550 0.0-0.9 % Normal IM GRAN % 0.000 Result Comment: IG% - Immature Granulocytes (promyelocytes, myelocytes and metamyelocytes) > 1% indicates that a LEFT SHIFT is Present. LAB L100.2620 2.0-7.7 X10 3/uL Normal Absolute Neut 2.6 LAB L100.2720 0.83-4.51 X10 3/ul Normal Absolute Lymph 1.68 Performed By: #### L100.0100 #### [facility] [address] [place], [address] COMPREHENSIVE METABOLIC Collected: 09/03/2017 Status: F Source: [place] [facility] 1:28 PM [facility] REPOSITORY TYPE CODE TESTS RESULT OUT OF RANGE REFERENCE UNITS LAB L501.0100 74-106 mg/dL High GLU 209 Result Comment: Glucose result greater than or equal to 200 mg/dL suggests DIABETES MELLITUS per A.D.A. criteria. Please note revised GLUCOSE reference range effective 2017. LAB L501.1000 7-18 mg/dL Normal BUN 8 LAB L501.1100 0.55-1.02 mg/dL Normal CREAT,SERUM 0.88 Result Comment: The validity of the calculated GFR AND GFRAA in patients over 70 years has not been determined. Clinical correlation is essential. LAB L501.1110 >60 mL/min Normal EST GFR 69 Result Comment: Non- GFR Calc LAB L501.1115 >60 mL/min Normal EST GFR - AA 83 Result Comment: GFR Calc LAB L501.1300 10-20 RATIO Low BUN/CRE 9.1 LAB L501.1500 6.4-8.2 g/dL Normal T PROT 7.0 LAB L501.1800 3.2-5.0 g/dL Normal ALB 3.5 LAB L501.1950 2.2-4.2 g/dL Normal GLOB 3.5 LAB L501.2000 0.9-2.4 RATIO Normal A/G 1.0 LAB L501.2200 8.5-10.1 mg/dL Normal CA 9.0 LAB L501.4100 15-37 U/L Normal AST 18 LAB L501.4305 45-117 U/L Normal ALK P 105 LAB L501.4405 13-56 U/L Normal ALT 27 LAB L501.4600 0.20-1.00 mg/dL Normal T BILI 0.40 LAB L501.5300 136-145 mmol/L Normal NA 141 LAB L501.5600 3.5-5.1 mmol/L Normal K 4.0 LAB L501.5900 98-107 mmol/L Normal CL 101 LAB L501.6100 21.0-32.0 mmol/L Normal CO2 32.0 LAB L501.6200 5-15 Normal GAP 8 Performed By: #### L500.4050, L500.4100, L501.51212, L501.9520, L506.0400 #### [facility] [place], [address] LIPID PROFILE Collected: 09/03/2017 Status: F Source: [place] 1:28 PM [facility] REPOSITORY TYPE CODE TESTS RESULT OUT OF RANGE REFERENCE UNITS LAB L501.4900 200 mg/dL Normal CHOL 189 Result Comment: <200 mg/dL Desirable 200-240 mg/dL Borderline >240 mg/dL High Risk LAB L501.5000 mg/dL High TRIG 202 Result Comment: The drugs N-Acetylcysteine and Metamizole may falsely depress this assay. Serum Triglycerides Reference Interval Normal <150 mg/dL Borderline high 150 - 199 mg/dL High 200 - 499 mg/dL Very High > or = 500 mg/dL LAB L501.6400 mg/dL Normal HDL 42 Result Comment: The drugs N-Acetylcysteine and Metamizole may falsely depress this assay. Reference Range HDL <40 mg/dL Low HDL Cholesterol HDL >or= 60 mg/dL High HDL Cholesterol LAB L501.6500 0-130 mg/dL Normal LDL 107 LAB L501.6600 5-40 mg/dL Normal VLDL 40 Performed By: #### L500.4050, L500.4100, L501.85265, L501.9520, L506.0400 #### [facility] [address] [place], [place], [address] FREE T3 Collected: 09/03/2017 Status: F Source: [place] 1:28 PM [facility] REPOSITORY TYPE CODE TESTS RESULT OUT OF RANGE REFERENCE UNITS LAB L501.80785 2.18-3.98 pg/mL Normal FREE T3 2.2 Performed By: #### L500.4050, L500.4100, L501.22426, L501.9520, L506.0400 #### [facility] [address] [place], [place], [address] THYROID STIM HORMONE Collected: 09/03/2017 Status: F Source: [place] (TSH) 1:28 PM [facility] REPOSITORY TYPE CODE TESTS RESULT OUT OF RANGE REFERENCE UNITS LAB L501.9520 0.358-3.74 uIU/mL Normal TSH 1.05 Performed By: #### L500.4050, L500.4100, L501.23571, L501.9520, L506.0400 #### [facility] [address] [place], [address] T4 FREE DIRECT Collected: 09/03/2017 Status: F Source: [place] 1:28 PM [facility] REPOSITORY TYPE CODE TESTS RESULT OUT OF REFERENCE UNITS RANGE LAB L506.0400 0.76-1.46 ng/dL High T4 FREE 1.70 DIRECT Performed By: #### L500.4050, L500.4100, L501.88865, L501.9520, L506.0400 #### [facility] [address] [place], [address] ALLERGIES ALLERGIES DATE TYPE / CODE NAME / CODE REACTION SEVERITY SOURCE 02/24/2013 Drug No Known Unknown [place] Allergy/4160 Allergies/F00 Hospital 87202(SNOMED 8742619(RXNOR Repository CT) M) ENCOUNTERS ENCOUNTERS ADMIT/DISCHARGE ACCOUNT ADMITTING ENCOUNTER LOCATION SOURCE NUMBER CLASS 02/28/2018 [id number] Ambulatory Building:[facility] [place] Practices Repository 02/03/2018 [id number] Ambulatory Rosalinda Donald 4 [facility] ing:LABSPEC Repository 02/01/2018 [id number] Ambulatory Rosalinda Rosalinda 7 [facility] ing:MTLAB Repository 12/21/2017/ [id number] Ambulatory Rosalinda Rosalinda 8 0 [facility] ing:SDCRoom: Repository AC08 12/02/2017 [id number] Ambulatory Donald Donald 4 [facility] ing:LABSPEC Repository 11/18/2017 [id number] Ambulatory Donald Donald 1 [facility] ing:LAB Repository 11/18/2017 [id number] Ambulatory BMSBuilding:W Donald 3 [facility] Repository 09/27/2017 [id number] Ambulatory Rosalinda Rosalinda 4 [facility] ing:MTLAB Repository 09/03/2017 [id number] Ambulatory Donald Rosalinda 4 [facility] ing:MTLAB Repository FUNCTIONAL STATUS FUNCTIONAL STATUS No Functional Status Records FoundEQUIPMENT EQUIPMENT No Equipment Records FoundPAYERS PAYERS ENCOUNTER GUARANTOR PAYER SUBSCRIBER SOURCE 02/28/2018 Elizabeth ThomasDOB: Primary Elizabeth ThomasDOB: [place]IP Practices [facility] [id number] Repository [place] Number: [id number] [place], [place] [address]Yai: (330) Date:8434-77-51Sekr 48098Mvx: () Name:CPO Wolfe 345[facility] () [id number], [place] [address]MS: 02/28/2018 Secondary Elizabeth ThomasDOB: OHIP Practices Insurance:[place] [id number] [place] [address] [place] Number: [id number] [place] [address]Effective [address]Nsr: (330) Date:1105-76-17Ectx [phone] () Name:[id number] [place], [place] [address]SD: 02/03/2018 ELIZABETHQUIRINO [id number] Primary ELIZABETH THOMASDOB: Rosalinda BAYBERRY Insurance:MEDICARE [id number] [place] [facility] [address]Odr: (330) Number: Repository [phone] () [id number] Date:2018-02-03 02/03/2018 Secondary ELIZABETH THOMASDOB: Rosalinda Insurance:[facility] [id number] Number: [facility] [id number] Repository Date:3434-04-40[place]CDNKJPORTER, [place] [address]ZK: 02/03/2018 Tertiary NOT GIVENUNK Donald Insurance:SELF PAY [facility] Number: Effective Repository Date:2018-02-03 02/01/2018 ELIZABETH [id number] Primary ELIZABETH THOMASDOB: Donald BAYBERRY Insurance:MEDICARE [id number] [place] [facility] [address]Ahm: (330) Number: Repository [phone] () [id number] Date:2018-02-01 02/01/2018 Secondary ELIZABETH THOMASDOB: Rosalinda Insurance:[employer] OF [id number] [facility] Health [facility] Number: Hospital [id number] Repository Date:6774-46-92PFCACZPORTER, [place] [address]UT: 02/01/2018 Tertiary NOT GIVENUNK [place]inda Insurance:SELF [facility] Number: Effective Repository Date:2018-02-01 12/21/2017 ELIZABETH CONRAD8 Primary ELIZABETH THOMASDOB: Donald BAYBERRY Insurance:MEDICARE [id number] [facility] [address]Eck: (330) Number: Repository [phone] () [id number] Date:2017-12-20 12/21/2017 Secondary ELIZABETH THOMASDOB: Rosalinda Insurance:MUTUAL OF [id number] [facility] Health [facility] Number: Hospital [id number] Repository Date:7550-87-28TVSRAP OF [place], [place] [address]NH: 12/21/2017 Tertiary NOT GIVENUNK Ros[place]inda Insurance:SELF PAY [facility] Number: Effective Repository Date:2017-12-20 12/02/2017 ELIZABETH CONRAD8 Primary ELIZABETH THOMASDOB: Donald BAYBERRY Insurance:MEDICARE [id number] [place] [facility] [address]Cow: (330) Number: Repository [phone] () [id number] Date:2017-12-01 12/02/2017 Secondary ELIZABETH THOMASDOB: Rosalinda Insurance:[employer] OF [id number] [facility] Number: [facility] [id number] Repository Date:2005-43-25SUEDTRPORTER, [place] [address]RA: 12/02/2017 Tertiary NOT GIVENUNK Ros[place]inda Insurance:SELF PAY [facility] Number: Effective Repository Date:2017-12-02 11/18/2017 ELIZABETH CONRAD8 Primary ELIZABETH THOMASDOB: Rosalinda BAYBERRY Insurance:MEDICARE [id number] [place] [facility] [address]Mss: (330) Number: Repository [phone] () [id number] Date:2017-11-18 11/18/2017 Secondary ELIZABETH THOMASDOB: Donald Insurance:M[employer]UAL OF [id number] [facility] Health [facility] Number: Hospital [id number] Repository Date:1741-90-79OMBDDO [place], [place] [address]DN: 11/18/2017 Tertiary NOT GIVENUNK Rosalinda Insurance:SELF PAY [facility] Number: Effective Repository Date:2017-11-18 11/18/2017 ELIZABETH MEYERS3098 Primary ELIZABETH THOMASDOB: Donald BAYBERRY Insurance:MEDICARE [id number] [place] [facility] [address]Wph: (330) Number: Repository [phone] () [id number] Date:2017-11-18 11/18/2017 Secondary ELIZABETH THOMASDOB: Rosalinda Insurance:[employer] OF [id number] [facility] Number: Hospital [id number] Repository Date:0759-81-09EWZMRU [place], [place] [address]SJ: 11/18/2017 Tertiary NOT GIVENUNK Donald Insurance:SELF PAY [facility] Number: Effective Repository Date:2017-11-18 09/27/2017 ELIZABETH CONRAD8 Primary ELIZABETH THOMASDOB: Donald BAYBERRY Insurance:MEDICARE [id number] [place] [facility] [address]Odr: (330) Number: Repository [phone] () [id number] Date:2017-09-27 09/27/2017 Secondary ELIZABETH THOMASDOB: Rosalinda Insurance:MUTUAL OF [id number] Langone Health [facility] Number: [facility] [id number] Repository Date:7157-32-84ZRAVNR OF [place], [place] [address]AV: 09/27/2017 Tertiary NOT GIVENUNK Ros[place]inda Insurance:SELF PAY [facility] Number: Effective Repository Date:2017-09-27 09/03/2017 Elizabeth Conrad8 Primary Elizabeth MiraDOB: Rosalinda BAYBERRY Insurance:MEDICARE [id number] [facility] [place] [facility] [address]Mde: (330) Number: Repository [phone] [id number] Date:2017-09-03 09/03/2017 Secondary Elizabethquirino MeyersB: Rosalinda Insurance:MUTUAL OF [id number] [facility] Health [facility] Number: [facility] [id number] Repository Date:9359-47-04VZQKTE OF [place], [place] [address]SJ: 09/03/2017 Tertiary NOT GIVENUNK Rosalinda Insurance:SELF PAY [facility] Number: Effective Repository Date:2017-09-03 SOCIAL HISTORY SOCIAL HISTORY No Social History Records FoundFAMILY HISTORY FAMILY HISTORY No Family History Records FoundADVANCE DIRECTIVES ADVANCE DIRECTIVES No Advanced Directives Records FoundINFORMATION SOURCE INFORMATION SOURCE DATE CREATED AUTHOR AUTHOR'S ORGANIZATION 03/16/2018 LALO
== END ==
PROVIDERS: Family Provider Internal Medicine; PCP Internal Medicine; Referring Provider Orthopaedic Surgery; Visit Provider Orthopaedic Surgery
DX: Z01.810 Encounter for preprocedural cardiovascular examination (principal); Z01.818 Encounter for other preprocedural examination
CPT/HCPCS: 36415; 80048; 85027

== ENCOUNTER → 2018-02-03 12:33 | Outpatient (CLI) | payer MEDICARE, OTHER, SELFPAY ==
[2017-12-21 08:28] VITALS: BMI 30.4
--- NOTE | 2018-02-03 12:33 | BUR_PTH ---
PATIENT: GERARD MEYERS LOC: [facility] U#:[id number] AGE/SX: 74/F ROOM: RE02/03/[address]: Dr. Reyes Jeong DO : 1950 BED: DIS: SPEC #: [id number] RECD: 02/03/18 16:21 STATUS: AAMIR PRADIP #: [id number] LUPE: 02/03/18 12:[address]: Reyes Jeong DEPT: SURGICAL PATHOLOGY RECD BY: Clifton Valentin ENTERED: 02/04/18 10:17 SP TYPE: BURSA OTHR DR: Dr. Lucretia Henson, [facility] Tissues: Elbow, NOS Procedures: Special Stain Group I Surgery Specimen Level III AFB Stain (control) GMS Stain (control) HEADER OPERATION: Excision of left olecranon bursa PRE-OP DIAGNOSIS: Olecranon bursitis left elbow TISSUE SUBMITTED: Left elbow olecranon bursa MICROSCOPIC DIAGNOSIS Left elbow olecranon bursa, excision: Fibrous and synovial tissue with chronic inflammation and degenerative change. Focal necrotizing granulomas. Negative for acid-fast bacilli and fungal organisms. AM:bernard 02/07/18 COMMENT AFB and GMS stains with matched controls were used in the evaluation of this case. MICROSCOPIC DESCRIPTION Slides are reviewed. GROSS DESCRIPTION Received is one container labeled with the patient's name and not further designated. The specimen consists of a churchill, indurated piece of tissue measuring 2.5 x 2 x 1 cm. Sections do not reveal any mass lesion. Business Law Teacher sections are submitted in one cassette. / SJ:bernard 02/04/18 TC:2 CPT: 51047, 11526 x2
--- OUTSIDE RECORDS SUMMARY | 2018-03-22 21:56 | XMS RPT_ITS ---
:1950 Author Organization [facility] Support Name Relationship Address Phone TIM BARAKAT Sister [address] + [place] [address] R Unknown Unavailable Unavailable MIRACURTISSon [address] + [place] [address] YVUAL, TIM Sister [address] + [place] [address] R Unknown Unavailable Unavailable MIRACURTIS NaturalSon [address] + [place] [address] YUVAL, TIM Sister [address] + [place] [address] R Unknown Unavailable Unavailable MIRA CURTIS NaturalSon [address] + [place] [address] YUVAL, TIM Sister [address] + [place] [address] R Unknown Unavailable Unavailable MIRACURTISSon [address] + [place] [address] YUVAL, TIM Sister [address] + [place] [address] R Unknown Unavailable Unavailable MIRA CURTIS NaturalSon [address] + [place] [address] YUVAL, TIM Sister [address] + [place] [address] R Unknown Unavailable Unavailable MIRA CURTIS NaturalSon [address] + [place] [address] YUVAL, TIM Sister [address] + [place] [address] R Unknown Unavailable Unavailable MIRA CURTIS NaturalSon [address] + [place] [address] YUVAL, TMI Sister [address] + [place] [address] R Unknown Unavailable Unavailable CURTIS MEYERS [address] + [place] [address] Care Team Providers Name Role Phone Natividad [...] Encounter Reyes Jeong Active Rosalinda for preprocedural [facility] cardiovascular Hospital examination / Repository Z01.810(ICD-10) 02/01/2018 [...] 09/03/2017 Unknown R94.6 - Abnormal Natividad, Active Felt results of thyroid [facility] function studies / Hospital R94.6(ICD-10) Repository 09/03/2017 Unknown E78.5 - Natividad, Active Felt Hyperlipidemia, [facility] unspecified / Hospital E78.5(ICD-10) Repository 09/03/2017 Unknown 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, Active Felt diabetes mellitus [facility] with hyperglycemia / Hospital E11.65(ICD-10) Repository PROCEDURES PROCEDURES No Procedure Records FoundVITAL SIGNS VITAL SIGNS No Vital Signs Records FoundRESULTS RESULTS BURSA/SYNOVIAL CYST Observed: 02/03/2018 Status: F Source: [place] 12:33 PM [facility] Patient: ELIZABETH MEYERS : 1950 (67/F) Acct Num: [id number] Phys: Reyes Jeong DO Unit Num: [id number] Loc: LABSPEC Specimen: [id number] Received: 02/03/181620 Spec Type: BURSA TISSUES 1 [...] Sections do not reveal any mass lesion. Dry Cleaning Checker sections are submitted in one cassette. / SJ:bernard 02/04/18 TC:2 CPT: 59924, 38435 x2 HEADER OPERATION: Excision of left olecranon [...] on file> Performed By: #### ELENO #### [facility] [address] [place], [address] CBC-COMPLETE BLOOD CNT Collected: 02/01/2018 Status: F Source: [place]INDA NO DIFF 9:40 AM [facility] TYPE CODE TESTS RESULT OUT OF [...] MPV 11.7 Performed By: #### L100.0500 #### [facility] [address] [place], [address] BASIC METABOLIC Collected: 02/01/2018 Status: F Source: [place] PROFILE (BMP) 9:40 AM [facility] TYPE CODE TESTS RESULT OUT OF [...] GAP 10 Performed By: #### L500.2500 #### [facility] [address] [place], [address] DISCHARGE INSTRUCTION Observed: 12/21/2017 Status: F Source: [place] 11:07 AM [facility] Medical Records Department [address] [place] [address] Instructions for Home/Discharge Instructions 12/21/17 1103 MR#: [id number] Acct: [id number] Name: ELIZABETH MEYERS Rep #: [id number] : 1950 67 From: Jazzy Dunn DPM PCP: Lucretia Henson DO Status: REG [facility] Discharge Activity: May not drive while taking [...] OPERATIVE REPORT Observed: 12/21/2017 Status: F Source: [place] 10:58 AM [facility] Medical Records Department [address] [place] [address] Operative Report 12/21/17 1041 MR#: [id number] Acct: [id number] Name: ELIZABETH MEYERS Rep #: [id number] : 1950 67 From: Jazzy Dunn DPM PCP: Lucretia Henson DO Status: [facility] SDC Y Location: [place] [address] Report of Operation Date of Procedure: 12/21/17 [...] days in clinic or sooner if needed. product marketing executive: none Type of Anesthesia:: Local MAC Specimen's removed: wound cx Drains: giorgio Estimated Blood Loss (mL): minimal - Admit VTE Documentation VTE Present on Admission: No VTE Mechan Device Prophylaxis: SCD's 12/21/17 1058 <Electronically signed by Jazzy Dunn DPM> Date Jazzy Dunn DPM CC: ABHAY Dunn; Lucretia Henson Signed Observed: 12/21/2017 Status: F Source: ROSALINDA CULTURE, DEEP WOUND 10:41 AM [facility] Order Date: 09/23/16 List Antibiotics Last [...] <=0.5 S (NF) indicates non-formulary drug at [facility]. Approval by Infectious Disease Specialist required before non-formulary drugs may be ordered and/or dispensed. * CLSI guidelines does not recommend testing of cephalosporins. This interpretation is deduced from Beta-lactam/penicillin results. Cult, Anaerobic No anaerobic bacteria isolated. Performed By: #### M100.1500 #### [facility] [address] [place] [place], [address] CBC-COMPLETE BLOOD CNT Collected: 12/21/2017 Status: F Source: [place] NO DIFF 8:58 AM [facility] TYPE CODE TESTS RESULT OUT OF [...] MPV 10.8 Performed By: #### L100.0500 #### [facility] [address] [place], [place], [address] HEMOGLOBIN A1C Collected: 12/21/2017 Status: F Source: [place] 8:58 AM [facility] TYPE CODE TESTS RESULT OUT OF RANGE REFERENCE UNITS LAB L501.9985 4.2-6.3 % High HGB A1C 10.3 Performed By: #### L501.9985 #### [facility] [address] [place], [place], [address] BASIC METABOLIC Collected: 12/21/2017 Status: F Source: [place] PROFILE (BMP) 8:58 AM [facility] TYPE CODE TESTS RESULT OUT OF [...] 8 Performed By: #### L500.2500, L501.9520 #### [facility] [address] [facility] [place], [address] THYROID STIM HORMONE Collected: 12/21/2017 Status: F Source: [place] (TSH) 8:58 AM [facility] TYPE CODE TESTS RESULT OUT OF RANGE REFERENCE UNITS LAB L501.9520 0.358-3.74 uIU/mL Low TSH 0.11 Performed By: #### L500.2500, L501.9520 #### [facility] [address] [place], [address] BEDSIDE GLUCOSE Collected: 12/21/2017 Status: F Source: [place] 8:20 AM [facility] TYPE CODE TESTS RESULT OUT OF REFERENCE UNITS RANGE LAB L501.080 70-110 mg/dL High BEDSIDE GLU 195 Result Comment: MANAGEMENT OF PATIENT CARE PER NURSING PROTOCOL Performed By: #### L501.080 #### [facility] Point of Care [address] [facility] [place] [address] MASS (DEFINE AREA) Observed: 12/02/2017 Status: F Source: [place] 8:03 AM [facility] Patient: ELIZABETH MEYERS : 1950 (67/F) Acct Num: [id number] Phys: Jazzy Dunn DPM Unit Num: [id number] Loc: LABSPEC Specimen: [id number] Received: 12/02/171558 Spec Type: Mass TISSUES 1 [...] one cassette. / SAMEERA:bernard 12/03/17 TC:5 CPT: 93946, 70675 x2 HEADER OPERATION: Left foot excision of [...] on file> Performed By: #### PMA #### [facility] [address] [facility] [place], [address] 12 LEAD ELECTROCARDIOGRAM Observed: 11/22/2017 Status: F Source: [place] 2:39 PM [facility] Cardiovascular Services [address] [place] [address] 12 Lead EKG 11/18/17 1724 MR#: [id number] Acct: [id number] Name: ELIZABETH MEYERS Rep #: [id number] : 1950 67 From: Hayden Mack MD [...] Borderline ECG Confirmed by MARTINA PAN, HAYDEN ([id number]), editor in chief newspaper CATY MEJIA ([id number]) on 11/22/2017 2:38:43 PM Referred By: Jazzy Dunn Confirmed By:HAYDEN MACK MD 11/22/17 1438 Date Hayden Mack MD CC: ABHAY Dunn; Lucretia Henson DO Signed CHEST PA AND LATERAL Observed: 11/18/2017 Status: F Source: [place] 5:03 PM [facility] Imaging Services [address] [place] [address] Chest PA and Lateral MR#: [id number] Acct: [id number] Name: ELIZABETH MEYERS Rep #: [id number] : 1950 F 67 From: Shar Arevalo DO PCP: Lucretia Henson DO Status: REG CLI Study: Chest PA and Lateral Date of Exam: 11/18/17 Exam# [id number] Ordering Dr: Jazzy Dunn DPM STUDY: X-RAY [...] Shar Arevalo DO at 18:48 EDT Tel [phone], Service support , CC: ABHAY Dunn; Lucretia Henson DO [employer]person [employer]: Signed CBC-COMPLETE BLOOD CNT Collected: 11/18/2017 Status: F Source: [place] NO DIFF 4:54 PM [facility] TYPE CODE TESTS RESULT OUT OF [...] MPV 10.1 Performed By: #### L100.0500 #### [facility] [address] [place], [place], [address] BASIC METABOLIC Collected: 11/18/2017 Status: F Source: [place] PROFILE (BMP) 4:54 PM [facility] TYPE CODE TESTS RESULT OUT OF [...] 4 GAP Performed By: #### L500.2500 #### [facility] [address] [place], [place], [address] ERYTHROCYTE SED RATE Collected: 09/27/2017 Status: F Source: [place] 1:36 PM [facility] TYPE CODE TESTS RESULT OUT OF RANGE REFERENCE UNITS LAB L102.0000 0-30 mm/hr High SED RATE 35 Performed By: #### L101.9900, L100.0100 #### [facility] [address] [place], [address] CBC W/DIFF, AUTOMATED Collected: 09/27/2017 Status: F Source: [place] 1:36 PM [facility] TYPE CODE TESTS RESULT OUT OF [...] 1.77 Performed By: #### L101.9900, L100.0100 #### [facility] [address] [facility] [place], [place], [address] CRP Collected: 09/27/2017 Status: F Source: [place] 1:36 PM [facility] TYPE CODE TESTS RESULT OUT OF RANGE REFERENCE UNITS LAB L501.6710 0.0-3.0 mg/L High 24.50 C-REACTIVE PROT Result Comment: C-Reactive Protein (CRP) provides useful information for the diagnosis, therapy and monitoring of inflammatory processes and associated diseases. For the evaluation of Relative Risk for Cardiovascular Disease, a High Sensitivity CRP (HSCRP) should be ordered. Performed By: #### L501.6710 #### [facility] [address] [place], [place], [address] CBC W/DIFF, AUTOMATED Collected: 09/03/2017 Status: F Source: [place] 1:28 PM [facility] TYPE CODE TESTS RESULT OUT OF [...] Lymph 1.68 Performed By: #### L100.0100 #### [facility] [address] [place], [address] COMPREHENSIVE METABOLIC Collected: 09/03/2017 Status: F Source: [place]INDA [facility] 1:28 PM [facility] TYPE CODE TESTS RESULT OUT OF [...] GAP 8 Performed By: #### L500.4050, L500.4100, L501.28880, L501.9520, L506.0400 #### [facility] [place], [address] LIPID PROFILE Collected: 09/03/2017 Status: F Source: [place] 1:28 PM [facility] TYPE CODE TESTS RESULT OUT OF [...] VLDL 40 Performed By: #### L500.4050, L500.4100, L501.66671, L501.9520, L506.0400 #### [facility] [address] [facility] [place], [place], [address] FREE T3 Collected: 09/03/2017 Status: F Source: [place] 1:28 PM [facility] TYPE CODE TESTS RESULT OUT OF RANGE REFERENCE UNITS LAB L501.06254 2.18-3.98 pg/mL Normal FREE T3 2.2 Performed By: #### L500.4050, L500.4100, L501.83627, L501.9520, L506.0400 #### [facility] [address] [place], [place], [address] THYROID STIM HORMONE Collected: 09/03/2017 Status: F Source: [place]IN[place] (TSH) 1:28 PM [facility] TYPE CODE TESTS RESULT OUT OF RANGE REFERENCE UNITS LAB L501.9520 0.358-3.74 uIU/mL Normal TSH 1.05 Performed By: #### L500.4050, L500.4100, L501.84867, L501.9520, L506.0400 #### [facility] [address] [place], [address] T4 FREE DIRECT Collected: 09/03/2017 Status: F Source: [place] 1:28 PM [facility] TYPE CODE TESTS RESULT OUT OF REFERENCE UNITS RANGE LAB L506.0400 0.76-1.46 ng/dL High T4 FREE 1.70 DIRECT Performed By: #### L500.4050, L500.4100, L501.92130, L501.9520, L506.0400 #### [facility] [address] [place], [address] ALLERGIES ALLERGIES DATE TYPE / CODE NAME / CODE REACTION SEVERITY SOURCE 02/24/2013 Drug No Known Unknown [facility] Allergy/4160 Allergies/F00 Hospital 62427(SNOMED 5122756(RXNOR Repository CT) M) ENCOUNTERS ENCOUNTERS ADMIT/DISCHARGE ACCOUNT ADMITTING ENCOUNTER LOCATION SOURCE NUMBER CLASS 02/28/2018 [id number] Ambulatory Building:[facility] [place] Practices Repository 02/03/2018 [id number] Ambulatory Rosalinda Felt 4 [facility] ing:LABSPEC Repository 02/01/2018 [id number] Ambulatory Rosalinda Rosalinda 7 [facility] ing:MTLAB Repository 12/21/2017/ [id number] Ambulatory Rosalinda Rosalinda 8 0 [facility] ing:SDCRoom: Repository AC08 12/02/2017 [id number] Ambulatory Felt Felt 4 [facility] ing:LABSPEC Repository 11/18/2017 [id number] Ambulatory Felt Felt 1 [facility] ing:LAB Repository 11/18/2017 [id number] Ambulatory BMSBuilding:W Felt 3 [facility] Repository 09/27/2017 [id number] Ambulatory Rosalinda Rosalinda 4 [facility] ing:MTLAB Repository 09/03/2017 [id number] Ambulatory Felt Rosalinda 4 [facility] ing:MTLAB Repository FUNCTIONAL STATUS FUNCTIONAL STATUS No Functional Status Records FoundEQUIPMENT EQUIPMENT No Equipment Records FoundPAYERS PAYERS ENCOUNTER GUARANTOR PAYER SUBSCRIBER SOURCE 02/28/2018 Elizabeth ThomasDOB: Primary Elizabeth ThomasDOB: [place] Practices [facility] [id number] Repository [place] Number: [id number] [place]wp[address] [place], [place] [address]Gmj: (330) Date:2653-76-92Foon 09114Ekn: () Name:CPO [facility] [address] () [id number], [place] [address]ST: 02/28/2018 Secondary Elizabeth ThomasDOB: [place]IP Practices Insurance:[place] [id number] [place] [address] [place] Number: [id number] [place] [address]Effective [address]Vdf: (330) Date:3570-40-72Eyjf [phone] () Name:[id number] [place], [place] [address]EQ: 02/03/2018 ELIZABETHQUIRINO [id number] Primary ELIZABETH THOMASDOB: Rosalinda BAYBERRY Insurance:MEDICARE [id number] PART A [facility] [address]Vlr: (330) Number: Repository [phone] () [id number] Date:2018-02-03 02/03/2018 Secondary ELIZABETH THOMASDOB: Rosalinda Insurance[id number] Number: [facility] [id number] Repository Date:2072-43[place]14HGYSKVGAYS [place], [place] [address]GE: 02/03/2018 Tertiary NOT GIVENUNK Felt Insurance:SELF PAY [facility] Number: Effective Repository Date:2018-02-03 02/01/2018 ELIZABETH [id number] Primary ELIZABETH THOMASDOB: Felt BAYBERRY Insurance:MEDICARE [id number] PART A [facility] [address]Yun: (330) Number: Repository [phone] () [id number] Date:2018-02-01 02/01/2018 Secondary ELIZABETH THOMASDOB: Rosalinda Insurance:MUTUAL OF [id number] Park Psychiatric Center Number: Hospital [id number] Repository Date:8630-39-92CJMAJWGAYS [place]ILLS, [place] [address]QO: 02/01/2018 Tertiary NOT GIVENUNK Rosalinda Insurance:SELF PAY [facility] Number: Effective Repository Date:2018-02-01 12/21/2017 ELIZABETH CONRAD8 Primary ELIZABETH THOMASDOB: Felt BAYBERRY Insurance:MEDICARE [id number] PART A [facility] [address]Zwp: (330) Number: Repository [id number] () [id number] Date:2017-12-20 12/21/2017 Secondary ELIZABETH THOMASDOB: Rosalinda Insurance:MUTUAL OF [id number] Park Psych[facility] Center Number: Hospital [id number] Repository Date:6613-85-66NZCYLM OF [place], [place] [address]XG: 12/21/2017 Tertiary NOT GIVENUNK Rosalinda Insurance:SELF PAY [facility] Number: Effective Repository Date:2017-12-20 12/02/2017 ELIZABETH CONRAD8 Primary ELIZABETH THOMASDOB: Felt [place] Insurance:MEDICARE [id number] [facility] [address]Tjj: (330) Number: Repository [phone] () [id number] Date:2017-12-01 12/02/2017 Secondary ELIZABETH THOMASDOB: Rosalinda Insurance:MUTUAL OF [id number] Park Psychiatric Center Number: [facility] [id number] Repository Date:1692-40-27LZAXWEGAYS MILLS, [place] [address]KP: 12/02/2017 Tertiary NOT GIVENUNK Rosalinda Insurance:SELF PAY [facility] Number: Effective Repository Date:2017-12-02 11/18/2017 ELIZABETH CONRAD8 Primary ELIZABETH THOMASDOB: Rosalinda BAYBERRY Insurance:MEDICARE [id number] [facility] [address]Dwm: (330) Number: Repository [phone] () [id number] Date:2017-11-18 11/18/2017 Secondary ELIZABETH THOMASDOB: Felt Insurance:MUTUAL OF [id number] Park Psychiatric Center Number: Hospital [id number] Repository Date:8873-34-11ZVJOZL OF [place], [place] [address]YR: 11/18/2017 Tertiary NOT GIVENUNK Rosalinda Insurance:SELF PAY [facility] Number: Effective Repository Date:2017-11-18 11/18/2017 ELIZABETH MEYERS3098 Primary ELIZABETH THOMASDOB: Felt BAYBERRY Insurance:MEDICARE [id number] [facility] [address]Rjg: (330) Number: Repository [phone] () [id number] Date:2017-11-18 11/18/2017 Secondary ELIZABETH THOMASDOB: Rosalinda Insurance:MUTUAL OF [id number] Park Psychiatric Center Number: Hospital [id number] Repository Date:0778-42-87ILVQFL OF [place], [place] [address]ZV: 11/18/2017 Tertiary NOT GIVENUNK Felt Insurance:SELF PAY [facility] Number: Effective Repository Date:2017-11-18 09/27/2017 ELIZABETH CONRAD8 Primary ELIZABETH THOMASDOB: Felt [place]AYBERR[place] Insurance:MEDICARE [id number] [facility] [address]Lyy: (330) Number: Repository [phone] () [id number] Date:2017-09-27 09/27/2017 Secondary ELIZABETH THOMASDOB: Rosalinda Insurance:MUTUAL OF [id number] Park Psychiatric Center Number: [facility] [id number] Repository Date:4938-52-37RTASFB OF [place], [place] [address]YZ: 09/27/2017 Tertiary NOT GIVENUNK Rosalinda Insurance:SELF PAY [facility] Number: Effective Repository Date:2017-09-27 09/03/2017 Elizabeth Conrad8 Primary Elizabeth MiraDOB: Rosalinda BAYBERRY Insurance:MEDICARE [id number] [place] [facility] [address]Arw: (330) Number: Repository [phone] [id number] Date:2017-09-03 09/03/2017 Secondary Elizabethquirino MeyersB: Rosalinda Insurance:MUTUAL OF [id number] Park Psychiatric Center Number: [facility] [id number] Repository Date:3435-69-66XSKKCM OF [place], [place] [address]BS: 09/03/2017 Tertiary NOT GIVENUNK Rosalinda Insurance:SELF PAY [facility] Number: Effective Repository Date:2017-09-03 SOCIAL HISTORY SOCIAL HISTORY No Social History Records FoundFAMILY HISTORY FAMILY HISTORY No Family History Records FoundADVANCE DIRECTIVES ADVANCE DIRECTIVES No Advanced Directives Records FoundINFORMATION SOURCE INFORMATION SOURCE DATE CREATED AUTHOR AUTHOR'S ORGANIZATION 03/16/2018 LALO
== END ==
PROVIDERS: Family Provider Internal Medicine; PCP Internal Medicine; Referring Provider Orthopaedic Surgery; Visit Provider Orthopaedic Surgery
DX: M70.22 Olecranon bursitis, left elbow (principal)
CPT/HCPCS: 88304; 88312

== ENCOUNTER → 2018-04-08 14:48 | Outpatient (CLI) | payer MEDICARE, OTHER, SELFPAY ==
--- NOTE | 2018-04-08 14:52 | BI_ITS ---
MAMMOGRAPHY - BILATERAL SCREENING REASON FOR EXAM: Female, 67 years old. Routine annual screening examination. PERTINENT HISTORY: Non-contributory. TECHNIQUE: Digital bilateral breast haleigh (3D mammographic acquisition) in the CC and MLO projections. 2-D mediolateral oblique (MLO) and craniocaudad (CC) views of both breasts were obtained. CAD: Full Field Digital Mammography with Computer Added Detection was performed. COMPARISON: Comparison is made with prior examination dated November 18, 2004. FINDINGS: Breast Composition: There are scattered areas of fibroglandular density. There are no dominant masses or suspicious calcifications. Stable asymmetry of breast tissue were more breast tissue is seen in the upper outer quadrant of the right breast. No other significant abnormalities are identified. There has been no significant change since the prior study. BI/SCREENING MAMM (CAD), BILAT IMPRESSION: Stable bilateral screening mammogram. Yearly follow-up mammogram recommended. (A) ASSESSMENT CATEGORY: BIRADS Category 2: Benign. A letter regarding these results will be sent to the patient by the facility within 30 days. Approximately 10% of breast cancers are not detected by mammography. A normal mammogram should not delay biopsy of a clinically suspicious abnormality. [id number] Electronically Signed: Mane Stephens MD at 8:43 EST , Service support ,
== END ==
PROVIDERS: Family Provider Internal Medicine; PCP Internal Medicine; Referring Provider Internal Medicine; Visit Provider Internal Medicine
DX: Z12.31 Encounter for screening mammogram for malignant neoplasm of breast (principal)
CPT/HCPCS: 77063; 77067

== ENCOUNTER → 2018-05-26 12:46 | Outpatient (CLI) | payer MEDICARE, OTHER, SELFPAY ==
[2018-05-26 12:56] LABS: Bacteria 0 SEEN /hpf (None Seen); Mucous, Urine 0 SEEN /hpf (<or=2+); Red Blood Cells-Urine 0 SEEN /hpf (0-5); White Blood Cells 0 SEEN /hpf (0-5)
[2018-05-26 14:20] LABS: Absolute Lymphocyte Count 1.95 X10^3/ul (0.83-4.51); Absolute Neutrophil Count 2.6 X10^3/uL (2.0-7.7); Basophil# 0.02 X10^3/uL; Basophil% 0.4 % (0-1); Color, Urine Yellow (Yellow); Eosinophil# 0.07 X10^3/uL; Eosinophils% 1.4 % (0-5); Glucose, Dipstick 250 mg/dl (Normal); Hemoglobin 14.6 g/dl (12.0-15.0); Ketone-Dipstick Negative (Negative); Leukocyte Esterase-Dipstick 25 /ul (Negative); Lymphocyte # 1.95 X10^3/ul (4.0); Lymphocyte % 39.5 % (19-41); Mean Corp Hgb Conc 31.7 g/gl (32-36); Mean Corpuscular Hgb 26.9 pg (27.0-32.0); Mean Corpuscular Volume 84.7 fL (81-99); Monocyte# 0.32 X10^3/uL; Monocyte% 6.5 % (0-10); Neutrophil # 2.58 X10^3/uL (2.7-7.7); Neutrophil % 52.2 % (47-70); Nitrite-Dipstick Negative (Negative); Occult Blood-Urine Negative /ul (Negative); Platelet Count 185 K/mm3 (150-450); Protein-Dipstick Negative (Negative); RBC Distribution Width CV 13.3 % (11.6-14.6); RBC Distribution Width SD 40.4 fl (35.1-43.9); Red Blood Count 5.43 M/mm3 (4.2-5.4); Urine Bilirubin Dipstick Negative (Negative); Urine Clarity Clear (Clear); Urine Urobilinogen Normal (Normal); Urine pH 6.5 (5.0 - 8.0); White Blood Count 4.9 K/mm3 (4.4-11.0)
[2018-05-26 14:22] LABS: POSITIVE COUNT NO; POSITIVE DIFFERENTIAL NO; POSITIVE MORPHOLOGY NO
[2018-05-26 14:36] LABS: AST(SGOT) 16 U/L (15-37); Alanine Aminotransfer ALT/SGPT 25 U/L (13-56); Albumin, Serum 3.3 g/dL (3.2-5.0); Alkaline Phosphatase 113 U/L (45-117); Anion Gap 9 (5-15); BUN 7 mg/dL (7-18); BUN/Creat Ratio 7.8 RATIO (10-20); Calcium,Total 8.6 mg/dL (8.5-10.1); Chloride 102 mmol/L (98-107); EST Glomerular Filtration Rate 67 mL/min (>60); Est Glom Filt Rate - Afr Amer 81 mL/min (>60); Globulin 3.4 g/dL (2.2-4.2); Glucose 231 mg/dL (74-106); Microalbumin,Random Urine 8.7 mg/L (NO RANGE EST.); Microalbumin:Creatinine Ratio 8.8 mg/g CRE (<30 mg/g CRE); Potassium 3.8 mmol/L (3.5-5.1); Protein, Total 6.7 g/dL (6.4-8.2); Sodium Level 140 mmol/L (136-145); Squamous Epithelial Cells - UA 0-5 SEEN /hpf (5-10); T4 Free Direct 1.59 ng/dL (0.76-1.46); Thyroid Stim Hormone (TSH) 0.48 uIU/mL (0.358-3.74)
[2018-05-26 14:39] LABS: Vitamin D,25 Hydroxy 62.4 ng/mL (29.95-100.01)
[2018-05-27 17:03] LABS: CHOLESTEROL TOTAL 214 mg/dL (100-199); HDL-C 44 mg/dL (>39); HDL-P TOTAL 34.1 umol/L (>=30.5); SMALL LDL-P 945 nmol/L (<=527); TRIGLYCERIDES 263 mg/dL (0-149)
[2018-05-27 17:20] LABS: INSULIN RESISTANCE SCORE 59 (<=45); LDL SIZE 20.3 nm (>20.5); LDL-C 117 mg/dL (0-99); LDL-P 1544 nmol/L (<1000)
== END ==
PROVIDERS: Family Provider Internal Medicine; PCP Internal Medicine; Referring Provider Internal Medicine; Visit Provider Internal Medicine
DX: E55.9 Vitamin D deficiency, unspecified (principal); E03.9 Hypothyroidism, unspecified; E11.65 Type 2 diabetes mellitus with hyperglycemia
CPT/HCPCS: 36415; 80053; 80061; 81001; 82043; 82306; 82570; 83704; 84439; 84443; 84481; 85025

== ENCOUNTER → 2018-10-13 | Outpatient (CLI) | payer MEDICARE, OTHER, SELFPAY ==
--- NOTE | 2018-10-13 13:05 | NEURO ---
NCS and/or EMG Patient Report Ordering Doctor: Tory Mederos DATE OF SERVICE: 10/13/18 Elizabeth Messina is a 68-year-old female presents for electrodiagnostic testing of the upper limbs. She reports numbness and tingling in hands, primarily over the past 6 months. She reports intermittent neck pain. Electrodiagnostic findings: Median motor nerve demonstrates normal distal latency and amplitude bilaterally with reduced conduction velocity. Normal ulnar motor response bilaterally. Normal median and ulnar F-wave. Prolonged median sensory latency at the wrist is noted bilaterally. On needle EMG, all muscles tested in upper limbs showed no evidence of denervation with normal motor unit action potentials. Elective diagnostic impression: This is an abnormal study in the upper limbs. 1. Electrodiagnostic findings demonstrate bilateral median mononeuropathy. This is consistent with a mild bilateral carpal tunnel syndrome. 2. No electrodiagnostic evidence for cervical radiculopathy. If there are any further questions, please do not hesitate to contact me.
== END | disposition home or self-care (01) ==
LOC: PSN 10:14
PROVIDERS: Family Provider Internal Medicine; PCP Internal Medicine; Referring Provider Nurse Practitioner; Visit Provider Nurse Practitioner
DX: M54.12 Radiculopathy, cervical region (principal)
CPT/HCPCS: 95886; 95912

== ENCOUNTER → 2019-03-13 12:32 | Outpatient (CLI) | payer MEDICARE, OTHER, SELFPAY ==
--- NOTE | 2019-03-13 12:41 | CDU_ITS ---
Reason For Study: TIA Rt. Velocities/BP Lt. Velocities/BP Prox CCA 94.3/22.6 cm/sec. Prox CCA 87.4/16.0 cm/sec. Mid CCA 87.8/23.9 cm/sec. Mid CCA 87.5/22.6 cm/sec. Dist CCA 68.2/22.6 cm/sec. Dist CCA 88.2/14.6 cm/sec. Prox ICA 72.1/22.6 cm/sec. Prox ICA 92.5/32.3 cm/sec. Mid ICA 83.9/35.6 cm/sec. Mid ICA 98.6/31.1 cm/sec. Dist ICA 94.3/36.9 cm/sec. Dist ICA 94.0/32.5 cm/sec. Rt. ICA/CCA = 94.3/94.3=1.0. Lt. ICA/CCA = 98.6/88.2=1.1. Prox ECA 94.3/14.7 cm/sec. Prox ECA 124.4/15.1 cm/sec. Rt. Vert. 48.7/11.0 cm/sec. Lt. Vert. 54.4/16.6 cm/sec. Right Extracranial There is intimal thickening but no significant atherosclerotic plaque noted in the right common carotid artery. There is intimal thickening but no significant atherosclerotic plaque noted in the right internal carotid artery. There is no significant atherosclerotic plaque noted in the right external carotid artery. Antegrade flow is noted in the right vertebral artery. Left Extracranial There is intimal thickening but no significant atherosclerotic plaque noted in the left common carotid artery. There is intimal thickening but no significant atherosclerotic plaque noted in the left internal carotid artery. There is no significant atherosclerotic plaque noted in the left external carotid artery. Antegrade flow is noted in the left vertebral artery. Procedure Carotid Duplex [id number]. The exam was diagnostic. Exam performed in department. Interpretation Summary No significant atherosclerotic plaque or stenosis noted in the internal carotid arteries bilaterally. Flow within the vertebral arteries is antegrade bilaterally. Ordering Physician: Lucretia Henson Referring Physician: Lucretia Henson Performed By: Maia Villafana, MADAI, RVT
--- NOTE | 2019-03-13 12:41 | ECHOD_ITS ---
Reason For Study: Weakness of right leg Procedure This was a 2D Doppler, Color Flow transthoracic echocardiogram. Exam performed in department. Left Ventricle Normal LV size. Left ventricular systolic function is normal. The estimated ejection fraction is 60 %. Stage 1 diastolic dysfunction. No regional wall motion abnormalities noted. Right Ventricle Normal RV size. Normal systolic function. Atria Normal left atrium. Normal right atrium. Mitral Valve Normal mitral valve. Tricuspid Valve Normal tricuspid valve. Mild (1+) tricuspid valve insufficiency. Pulmonary artery systolic pressure is 30 mmHg. Aortic Valve Normal aortic valve. Pulmonic Valve Normal pulmonic valve. Great Vessels Normal aortic root. The pulmonary artery is normal size. Normal inferior vena cava. Pericardium/Pleural No pericardial effusion. MMode/2D Measurements & Calculations LVIDd: 4.1 cm IVSd: 1.1 cm Ao root diam: 3.5 cm LVIDs: 2.7 cm LVPWd: 1.0 cm LA dimension: 3.1 cm FS: 35.3 % LAV(MOD-bp): 40.4 ml LA A4 area: 15.5 cm2 RA A4 area: 16.7 cm2 LAV(MOD-bp) Indexed: 22.3 ml/m2 LAV(MOD-sp2): 42.3 ml LAV(MOD-sp4): 36.9 ml Time Measurements MV dec time: 0.23 sec Doppler Measurements & Calculations MV E max arnulfo: 72.6 cm/sec Lat Peak E' Arnulfo: 8.8 cm/sec Med Peak E' Arnulfo: 6.8 cm/sec MV A max arnulfo: 54.2 cm/sec E/E' lat: 8.2 E/E' med: 10.6 MV E/A: 1.3 MV V2 max: 76.6 cm/sec MV P1/2t max arnulfo: 76.6 cm/sec Ao V2 max: 106.8 cm/sec MV max P.3 mmHg MV P1/2t: 58.6 msec Ao max P.6 mmHg MV V2 mean: 41.9 cm/sec MV dec slope: 382.9 cm/sec2 MV mean P.83 mmHg MVA(P1/2t): 3.8 cm2 MV V2 VTI: 21.7 cm LV V1 max: 110.1 cm/sec PA V2 max: 82.8 cm/sec TR max arnulfo: 255.7 cm/sec LV V1 max P.8 mmHg TR max P.2 mmHg Interpretation Summary Normal LV size. Left ventricular systolic function is normal. The estimated ejection fraction is 60 %. Stage 1 diastolic dysfunction. Ordering Physician: Lucretia Henson Referring Physician: Lucretia Henson Performed By: Christ Rodriguez RCS
--- NOTE | 2019-03-13 14:17 | CT_ITS ---
STUDY: CT BRAIN WITHOUT CONTRAST REASON FOR EXAM: Female, 68 years old. RT LEG WEAKNESS/DROP SINCE FALL ON 03/09/19. No hx cancer,stroke,seizure or HTN. Pt is diabetic and has RA RADIATION DOSAGE (If Supplied By Facility): CTDIvol = ( 60.81 ) mGy, DLP = ( 1044.28 ) mGycm TECHNIQUE: Transaxial CT imaging of the brain was performed without administration of intravenous contrast material. Individualized dose optimization techniques were used for this CT. COMPARISON: No relevant priors. FINDINGS: Normal soft tissue structures. Normal calvarium. Normal size ventricles and extra-axial spaces for the patient''s age. There are areas of decreased attenuation within the white matter tracts of the supratentorial brain, consistent with microvascular disease changes. Normal basal ganglia and thalami. Normal brainstem. Normal cerebellum. There is no intracranial hemorrhage. There are no findings of an acute ischemic infarction. Normal visualized paranasal sinuses. CT/Brain/Head without Contrast IMPRESSION: Microangiopathic white matter disease otherwise normal unenhanced CT scan of the brain. Specifically, no acute intracranial hemorrhage or space-occupying lesion. Electronically Signed: Samanta Angeles MD at 1:16 EST , Service support ,
== END ==
PROVIDERS: Family Provider Internal Medicine; PCP Internal Medicine; Referring Provider Internal Medicine; Visit Provider Internal Medicine
DX: Z86.73 Personal history of transient ischemic attack (TIA), and cerebral infarction without residual deficits (principal); R29.898 Other symptoms and signs involving the musculoskeletal system
CPT/HCPCS: 70450; 93306; 93880

== ENCOUNTER → 2019-06-26 14:47 | Outpatient (CLI) | payer MEDICARE, OTHER, SELFPAY ==
--- NOTE | 2019-06-26 14:55 | RAD_ITS ---
STUDY: X-RAY - ACUTE ABDOMINAL SERIES REASON FOR EXAM: Female, 69 years old. Patient complains of constipation TECHNIQUE: Single view of the chest. Supine, and erect view(s) of the abdomen were obtained. COMPARISON: Comparison is made with prior chest radiograph dated November 18, 2017. FINDINGS: Scattered calcified granulomas are seen. Normal size heart. Normal mediastinum and gogo. Normal visualized pulmonary arteries. Normal visualized aortic arch and descending thoracic aorta. There is a moderate amount of colonic fecal material. The soft tissue structures of the abdomen and pelvis are unremarkable. There are diffuse degenerative changes of the visualized lumbar spine. Mild dextroscoliosis. RAD/Acute Abdomen Inc Chest IMPRESSION: Moderate amount of fecal material is seen in the colon. Electronically Signed: Mane Stephens, at 15:38 EDT , Service support ,
== END ==
PROVIDERS: PCP Internal Medicine; Referring Provider Internal Medicine; Visit Provider Internal Medicine
DX: K59.00 Constipation, unspecified (principal)
CPT/HCPCS: 74022

== ENCOUNTER → 2019-09-25 13:46 | Outpatient (CLI) | payer MEDICARE, OTHER, SELFPAY ==
[2019-08-03 14:13] VITALS: BMI 30.4
--- NOTE | 2019-09-25 14:10 | RAD_ITS ---
STUDY: X-RAY - LEFT KNEE REASON FOR EXAM: Female, 69 years old. PAIN S/P FALL TECHNIQUE: 4 view(s) of the knee. COMPARISON: None. FINDINGS: Normal visualized distal femur. Normal visualized proximal tibia and fibula. Normal proximal tibiofibular articulation. Normal medial femorotibial compartment. Normal lateral femorotibial compartment. Normal patellofemoral articulation. The soft tissue structures are unremarkable. RAD/Knee 4 or More Views IMPRESSION: Normal x-ray examination of the knee. Electronically Signed: Mane Stephens, at 14:02 EDT , Service support ,
--- NOTE | 2019-09-25 14:10 | RAD_ITS ---
STUDY: X-RAY - PELVIS AND LEFT HIP REASON FOR EXAM: Female, 69 years old. PAIN S/P FALL TECHNIQUE: 3 views of the pelvis and hip. COMPARISON: Comparison is made with prior examination dated 01/29/2014. FINDINGS: Moderate amount of fecal material is seen throughout the colon. Normal visualized soft tissue structures. Normal bilateral iliac wings, sacroiliac joints and visualized sacrum. Normal bilateral superior and inferior pubic rami. There is narrowing with sclerosis of the pubic symphysis. Normal bilateral ischial tuberosities. The patient is status post right hip replacement. Marked degree of joint space narrowing of the left hip joint. RAD/HIP, UNI W/ Pelvis 2-3 Views IMPRESSION: Status post right total hip replacement. Marked degree of joint space narrowing of the left hip joint. Electronically Signed: Mane Stephens, at 14:04 EDT , Service support ,
[2019-09-25 16:08] LABS: Vitamin B12 578 pg/mL (211-911)
[2019-09-27 16:08] LABS: Free Kappa Light Chains 20.2 mg/L (3.3-19.4); Free Lambda Light Chains 16.6 mg/L (5.7-26.3)
== END ==
PROVIDERS: Nurse Practitioner Family; PCP Internal Medicine; Referring Provider Psychiatry & Neurology Neurology; Visit Provider Psychiatry & Neurology Neurology
DX: M25.562 Pain in left knee (principal); G62.9 Polyneuropathy, unspecified; M25.552 Pain in left hip
CPT/HCPCS: 36415; 73502; 73564; 82607; 82746; 83883

== ENCOUNTER → 2019-10-04 12:33 | Outpatient (CLI) | payer MEDICARE, OTHER, SELFPAY ==
[2019-08-03 14:13] VITALS: BMI 30.4
--- NOTE | 2019-10-04 14:15 | NEURO ---
NCS and/or EMG Patient Report Ordering Doctor: Oziel Zhang DATE OF SERVICE: 10/04/19 Elizabeth Messina presents for electrodiagnostic testing of the lower limbs. She reports weakness in both legs with a stinging sensation in the left thigh. She reports multiple falls. Electrodiagnostic findings: Peroneal motor nerve demonstrates normal distal latency, amplitude and conduction velocity on the left side. Right peroneal motor response demonstrates normal distal latency with reduced amplitude and conduction velocity. Normal tibial motor response bilaterally. Prolonged sural and superficial peroneal latency noted bilaterally. Prolonged H reflex bilaterally. Prolonged right peroneal and left tibial F waves. On needle EMG, motor units of increased amplitude and duration are noted in the gastrocnemius bilaterally. Electrodiagnostic impression: This is an abnormal study in the lower limbs. 1. Electrodiagnostic findings suggestive of peripheral polyneuropathy, with involvement of motor and sensory nerve fibers. This may be secondary to longstanding diabetes. 2. No electrodiagnostic evidence is noted for lumbar radiculopathy.
== END ==
PROVIDERS: Nurse Practitioner Family; PCP Internal Medicine; Referring Provider Psychiatry & Neurology Neurology; Visit Provider Psychiatry & Neurology Neurology
DX: G62.9 Polyneuropathy, unspecified (principal); R20.0 Anesthesia of skin
CPT/HCPCS: 36415; 82784; 84165; 86334; 95886; 95913

== ENCOUNTER → 2019-10-11 10:39 | Outpatient (CLI) | payer MEDICARE, OTHER, SELFPAY ==
[2019-08-03 14:13] VITALS: BMI 30.4
[2019-10-11 10:50] VITALS: BP 108/82; PULSE 99; RESP 16; TEMP 36.4; O2SAT 94; BMI 24.3
[2019-10-11] MEDS: Cosyntropin 0.25 MG Vial IM (10:57)
== END ==
PROVIDERS: PCP Internal Medicine; Referring Provider Internal Medicine; Visit Provider Internal Medicine
DX: I10 Essential (primary) hypertension (principal)
CPT/HCPCS: 36415; 82533; 96372; J0834

== ENCOUNTER 2019-12-11 15:00 | Outpatient (RCR) | payer MEDICARE, OTHER, SELFPAY ==
[2019-10-31 15:29] VITALS: BMI 24.3
--- NOTE | 2019-11-07 12:52 | HP.PTEVAL ---
Patient's Visit Information GERARD MEYERS is a 69 year old F referred to Physical Therapy by SANTINO Singh with a diagnosis of OA L hip, Pain in L hip, Polyneuropathy, Unsteadiness on feet.. Date of Evaluation: 11/07/19 Physical Therapist: JOAQUIN Atkins - Visit Plan Frequency: 2x /Week Duration: 2 Months Plan: 2X/ week for 4-8 weeks for gait training, balance training on and off the foam, with and without seated and standing/walking head movements in vertical and horizontal, LE strength, with HEP - Subjective Pt reports that he Dr said she has polyneuropathy B feet. She feels it is more her R leg than the L because she did have R drop foot. One Dr said she had a stroke and one Dr said no. Pt reports that her L hip hurts. They did x-ray and MRI and they said that it was more or less arthritis and bone to bone. She reports that she is having trouble with her balance. When she sit to stand she sometimes has to hold onto something and its always when she stands up. No falls lately. She always uses the cane even in the house mostly. She reports that she has no dizziness now but she did have some when she was on her previous meds.... resloved now. She has not stairs in her home. She reports that sometimes she did have some veering with gait but not recently. She feels that sometimes her legs are weak. Pt wants to be able to better move around. - Pain L hip and thigh Pain Intensity (Out of 10): 7 - Objective Gait: walks with a straight cane in her R hand wit smaller step length and increase veering... pt does correct her self but it is obvious. LE MMT: R hip flex 3+/5 and L hip flex 4-/5, B knee flex 4-/5, B knee ext 4/5, R hip abd 3-/5 and L hip abd 4-/5, Pt is able to do a bridge but not able to raise the R hip as high as the L. Sensation: increase tingling sensation with light touch on the R compared to the L. Patellar DTR's R 0/3 and L 2+//3. FGA: 6. Sit to stand: Has to use arms to get up out of a chair on first attempt. CATSIB 80. Eyes and head together vertical and horizontal increase some slight dizzy feelings - Balance Scores Functional Gait Assessment Score: 6 % Disability: 80.0000 CATSIB Score (Max score 120 seconds): 80 - Goals Goal 1:: I HEP Goal Time Frame: 6-8 Weeks Goal 2:: Increase LE strength by 1/2 muscle grade (at the time of the eval: LE MMT: R hip flex 3+/5 and L hip flex 4-/5, B knee flex 4-/5, B knee ext 4/5, R hip abd 3-/5 and L hip abd 4-/5, Pt is able to do a bridge but not able to raise the R hip as high as the L) Goal Time Frame: 6-8 Weeks Goal 3:: Be able to complete 30 seconds and head and eye movements without dizziness in sitting Goal Time Frame: 4-6 Weeks Goal 4:: Be able to walk with head movements with cane and CGA without any dizziness Goal Time Frame: 4-6 Weeks Goal 5:: Increase FGA by 5 points to decrease fall risk (at time of eval score was a 6). Goal Time Frame: 4-6 Weeks Goal 6:: Be able to walk 100 feet with straight cane with normal stride and no veering with CGA Goal Time Frame: 4-6 Weeks - Rehabilitation Potential Rehabilitation Potential: Good - Anticipated Interventions Patient/Client Instruction: Educate patient on: Condition, Plan of Care For the Purpose of:: To improve nutrient delivery to tissue, To improve muscle performance and motor function, To improve ability to perform ADL's, To increase tolerance to activity/condition/position, To improve performance and independence with ADL's, To improve gait and locomotor functions, To improve endurance, To improve balance, To improve safety with gait Therapeutic Exercise to Include: Strength training, Endurance training, Balance training, Body mechanics, Postural training, Gait and locomotor training, Neuromotor development, Active ROM For the Purpose of:: To improve nutrient delivery to tissue, To improve muscle performance and motor function, To improve ability to perform ADL's, To increase tolerance to activity/condition/position, To improve performance and independence with ADL's, To decrease level of supervision to perform tasks, To improve ability of physical actions for home/community/work/leisure, To improve gait and locomotor functions, To improve endurance, To improve balance, To improve safety with gait Functional Training to Include: Gait training For the Purpose of:: To improve gait and locomotor functions, To improve safety with gait Thank you for the opportunity to evaluate your patient. For Medicare and Medicare HMO plans, please review the plan of care and approve it. It will need to be FAXED BACK to us at [phone] for Medicare purposes. For Medicare only, by signing this I certify the plan of care. Please let me know if there are questions or concerns regarding this plan of care. Physician Signature: Date:
--- NOTE | 2019-12-14 15:27 | HP.PT.NRP ---
GERARD MEYERS was seen in my office for initial evaluation on 11/07/19. The following Plan of Care was established for this patient: Initial Frequency: 2x /Week Initial Duration: 2 Months Patient/Client Instruction: Educate patient on: Condition, Plan of Care For the Purpose of:: To improve nutrient delivery to tissue, To improve muscle performance and motor function, To improve ability to perform ADL's, To increase tolerance to activity/condition/position, To improve performance and independence with ADL's, To improve gait and locomotor functions, To improve endurance, To improve balance, To improve safety with gait Therapeutic Exercise to Include: Strength training, Endurance training, Balance training, Body mechanics, Postural training, Gait and locomotor training, Neuromotor development, Active ROM For the Purpose of:: To improve nutrient delivery to tissue, To improve muscle performance and motor function, To improve ability to perform ADL's, To increase tolerance to activity/condition/position, To improve performance and independence with ADL's, To decrease level of supervision to perform tasks, To improve ability of physical actions for home/community/work/leisure, To improve gait and locomotor functions, To improve endurance, To improve balance, To improve safety with gait Functional Training to Include: Gait training For the Purpose of:: To improve gait and locomotor functions, To improve safety with gait This patient was last seen in our office . Pertinent comments regarding their Physical therapy will appear below: At this point I will be discontinuing this patient from physical therapy. I would be happy to see this patient again in the future if found appropriate by the physician. Thank you! JOAQUIN Atkins
== END 2019-12-11 19:00 | disposition home or self-care (01) ==
LOC: PT 15:00
PROVIDERS: PCP Internal Medicine; Referring Provider Nurse Practitioner Family; Visit Provider Nurse Practitioner Family
DX: M16.12 Unilateral primary osteoarthritis, left hip (principal); G62.9 Polyneuropathy, unspecified; R26.81 Unsteadiness on feet; M25.552 Pain in left hip
CPT/HCPCS: 97110; 97161; 97530

== ENCOUNTER → 2020-05-07 13:54 | Outpatient (CLI) | payer MEDICARE, OTHER, SELFPAY ==
[2019-10-31 15:29] VITALS: BMI 24.3
--- NOTE | 2020-05-07 13:59 | BD_ITS ---
STUDY: DUAL ENERGY X-RAY ABSORPTIOMETRY / DXA REASON FOR EXAM: Female, 69 years old. [id number]. The patient is postmenopausal. Prior right total hip replacement. TECHNIQUE: Bone Mineral Density (BMD) measurements of lumbar spine and left hip were obtained. COMPARISON: None. FINDINGS: Lumbar Spine (L1-L4): g/cm2 (1.232) / T-score (0.6) / Z-score (2.2) Findings are suggestive of normal bone density with a low fracture risk. Left Femur Total: g/cm2 (0.964) / T-score (-0.3) / Z-score (1.0) Left Femoral Neck: g/cm2 (0.976) / T-score (-0.4) / Z-score (1.2) BD/Dexa Bone Density Study IMPRESSION: The patient is considered normal as outlined below according to World Deuce Organization (WHO) criteria with a low fracture risk. Reference Information: The T-score is the number of standard deviations above or below the standard which is normal for young adults at their peak bone mineral density. The World Health Organization (WHO) interprets the T-scores as follows: Above -1 Normal bone density Between -1 and -2.5 Osteopenia Equal to / or below -2.5 Osteoporosis As a practical clinical guideline, osteopenia may be graded as follows: Mild -1 through -1.5 Moderate -1.6 through -2.0 Severe -2.1 through -2.4 The Z-score is the number of standard deviations above or below age-matched controls. A Z-score of less than -1.5 would be considered abnormal. References: 1. NIH Osteoporosis and Related Bone Diseases www osteo.org 2. International Society for Clinical Densitometry www iscd.org 3. National Osteoporosis Foundation www nof.org Electronically Signed: Mane Stephens MD at 14:54 EDT , Service support ,
== END ==
PROVIDERS: PCP Internal Medicine; Referring Provider Internal Medicine; Visit Provider Internal Medicine
DX: Z78.0 Asymptomatic menopausal state (principal)
CPT/HCPCS: 77080

== ENCOUNTER → 2020-07-16 13:29 | Outpatient (CLI) | payer MEDICARE, OTHER, SELFPAY ==
[2020-07-16 13:03] VITALS: BMI 24.3
[2020-07-18 20:08] LABS: Albumin 3.3 g/dL (2.9-4.4); Alpha-1-Globulins 0.3 g/dL (0.0-0.4); Alpha-2-Globulins 0.8 g/dL (0.4-1.0); Immunoglobulin A 152 mg/dL (87-352); Immunoglobulin G 1009 mg/dL (586-1602); Immunoglobulin M 132 mg/dL (26-217); PROEL- TOTAL PROTEIN 6.4 g/dL (6.0-8.5)
== END ==
PROVIDERS: PCP Internal Medicine; Referring Provider Psychiatry & Neurology Neurology; Visit Provider Psychiatry & Neurology Neurology
DX: G62.9 Polyneuropathy, unspecified (principal)
CPT/HCPCS: 36415; 82784; 84165; 86334

== ENCOUNTER → 2021-02-06 12:55 | Outpatient (CLI) | payer MEDICARE, OTHER, SELFPAY ==
--- NOTE | 2021-02-06 13:06 | EKG12_ITS ---
Test Reason : PRE OP Blood Pressure : / mmHG Vent. Rate : 077 BPM Atrial Rate : 077 BPM P-R Int : 140 ms QRS Dur : 086 ms QT Int : 400 ms P-R-T Axes : 078 073 066 degrees QTc Int : 452 ms Normal sinus rhythm Low voltage QRS Borderline ECG Confirmed by DAQUAN PAN, YESI ([id number]), technical writer and editor GIFTY MACKENZIE ([id number]) on 02/07/2021 12:45:00 PM Referred By: Siddharth Mendoza Confirmed By:JACKSON BUTT MD
[2021-02-06 14:01] LABS: Hematocrit 51.2 % (37-47); Hemoglobin 15.9 g/dL (12.0-15.0); Mean Corp Hgb Conc 31.1 g/dL (32-36); Mean Corpuscular Hgb 27.5 pg (27.0-32.0); Mean Corpuscular Volume 88.4 fL (81-99); Mean Platelet Vol. 10.9 fl (6.2-12.0); Platelet Count 203 K/mm3 (150-450); RBC Distribution Width CV 14.7 % (11.6-14.6); RBC Distribution Width SD 47.6 fl (35.1-43.9); Red Blood Count 5.79 M/mm3 (4.2-5.4); White Blood Count 5.9 K/mm3 (4.4-11.0)
[2021-02-06 14:22] LABS: Hemoglobin A1c 7.8 % (3.8-5.6)
[2021-02-06 14:41] LABS: Anion Gap 7 (5-15); BUN 9 mg/dL (7-18); BUN/Creat Ratio 10.8 RATIO (10-20); Calcium,Total 8.7 mg/dL (8.5-10.1); Chloride 104 mmol/L (98-107); Creatinine, Serum 0.83 mg/dL (0.55-1.02); EST Glomerular Filtration Rate 72 mL/min (>60); Est Glom Filt Rate - Afr Amer 87 mL/min (>60); Glucose 131 mg/dL (74-106); Potassium 4.3 mmol/L (3.5-5.1); Sodium Level 140 mmol/L (136-145)
== END ==
PROVIDERS: PCP Internal Medicine; Referring Provider Physician Assistant; Visit Provider Physician Assistant
DX: Z01.810 Encounter for preprocedural cardiovascular examination (principal); Z11.59 Encounter for screening for other viral diseases
CPT/HCPCS: 36415; 80048; 83036; 85027; 87635; 93005; C9803; U0005; U0003

== ENCOUNTER → 2021-02-12 | Outpatient (CLI) | payer MEDICARE, OTHER, SELFPAY ==
--- NOTE | 2021-02-12 | FEM_PTH ---
PATIENT: GERARD MEYERS LOC: [facility] U#:[id number] AGE/SX: 70/F ROOM: RE02/12/[address]: Dr. Reyes Jeong DO : 1950 BED: DIS: 02/12/2021 SPEC #: [id number] RECD: 02/12/21 15:04 STATUS: AAMIR RECadence #: [id number] LUPE: 02/12/21 00:[address]: Reyes Jeong DEPT: SURGICAL PATHOLOGY RECD BY: Minnie Rodriguez ENTERED: 02/13/21 08:29 SP TYPE: FEM HEAD OTHR DR: Dr. Lucretia Henson, [facility] Tissues: Femoral region, NOS Procedures: Decalcification bone/plaque Surgery Specimen Level IV HEADER OPERATION: Left total hip arthroplasty PRE-OP DIAGNOSIS: Primary osteoarthritis TISSUE SUBMITTED: Femur head, bone and soft tissue left hip MICROSCOPIC DIAGNOSIS Left hip bone and soft tissue, total hip replacement/resection: Femoral head with degenerative osteoarthritic changes. Fragments of fibroadipose tissue and fibroconnective tissue. SJ:bernard 02/19/2021 MICROSCOPIC DESCRIPTION Slides are reviewed. GROSS DESCRIPTION Received is one container labeled with the patient's name and designated bone and soft tissue hip, left. The specimen consists of a churchill femoral head measuring 6 x 4.5 x 4.5 cm. The articular surface displays prominent osteophyte formation and pitting. Also present in the specimen container are multiple irregular fragments of bone reamings and pink-yellow soft tissue measuring in aggregate 7 x 7 x 1 cm. Band Teacher sections are submitted in two cassettes as follows: 1 - soft tissue, 2 - bone after decalcification. / AM:bernard 02/13/21 TC:5 CPT: 08037, 12545
== END | disposition home or self-care (01) ==
LOC: LABSPEC 15:23
PROVIDERS: PCP Internal Medicine; Referring Provider Orthopaedic Surgery; Visit Provider Orthopaedic Surgery
DX: M16.12 Unilateral primary osteoarthritis, left hip (principal)
CPT/HCPCS: 88305; 88307; 88311

== ENCOUNTER 2021-03-13 12:52 | Outpatient (CLI) | payer MEDICARE, OTHER, SELFPAY ==
--- NOTE | 2021-03-13 13:10 | VDLE_ITS ---
Reason For Study: pain Procedure LEFT This is a venous duplex using B-mode, color GSV is normal. flow and spectral Doppler. CFV is compressible, spontaneous, phasic, Exam performed in department. competent, and demonstrates normal The exam was abbreviated due to the COVID 19 augmentation. protocol. FV is compressible, spontaneous, phasic, The exam was diagnostic. competent and demonstrates normal A preliminary report was called and/or faxed augmentation. to Dr. Jeong. POP V is compressible, spontaneous, phasic, competent and demonstrates normal augmentation. T/P Trunk is compressible. PTV is compressible. LT PerV is compressible. VL/Venous Duplex US, Unilateral Interpretation Summary Deep veins of the left lower extremity are patent and compressible segmentally. There is no evidence of left lower extremity deep vein thrombosis. Valvular competence appears intac t within the proximal deep venous system on the left . The left great saphenous vein appears patent a nd compressible segmentally. Ordering Physician: Reyes Jeong Performed By: Matthias Willams RVT
== END 2021-03-13 23:59 | disposition short-term general hospital (02) ==
PROVIDERS: PCP Internal Medicine; Referring Provider Orthopaedic Surgery; Visit Provider Orthopaedic Surgery
DX: M79.605 Pain in left leg (principal)
CPT/HCPCS: 93971

== ENCOUNTER 2021-04-04 13:46 | Outpatient (CLI) | payer MEDICARE, OTHER, SELFPAY ==
--- NOTE | 2021-04-04 13:51 | CDU_ITS ---
Reason For Study: Stoke symptoms 02/20/2021 Rt. Velocities/BP Lt. Velocities/BP Prox CCA 72.1/14.7 cm/sec. Prox CCA 89.1/18.6 cm/sec. Mid CCA 76/20 cm/sec. Mid CCA 78.6/20 cm/sec. Dist CCA 68.2/17.3 cm/sec. Dist CCA 57.8/13.4 cm/sec. Prox ICA 69.5/16 cm/sec. Prox ICA 82/13.5 cm/sec. Mid ICA 82.6/25.2 cm/sec. Mid ICA 80.5/25.6 cm/sec. Dist ICA 66.9/18.6 cm/sec. Dist ICA 101.4/32.2 cm/sec. Rt. ICA/CCA = 1.15. Lt. ICA/CCA = 1.29. Prox ECA 74.7/9.5 cm/sec. Prox ECA 83.8/8.2 cm/sec. Rt. Vert. 51.3/13.4 cm/sec. Lt. Vert. 67.4/18.2 cm/sec. Right Extracranial There is homogeneous, smooth atherosclerotic plaque noted in the right common carotid artery. There is intimal thickening but no significant atherosclerotic plaque noted in the right internal carotid artery. There is intimal thickening but no significant atherosclerotic plaque noted in the right external carotid artery. Antegrade flow is noted in the right vertebral artery. Left Extracranial There is homogeneous, smooth atherosclerotic plaque noted in the left common carotid artery. There is intimal thickening but no significant atherosclerotic plaque noted in the left internal carotid artery. There is intimal thickening but no significant atherosclerotic plaque noted in the left external carotid artery. Antegrade flow is noted in the left vertebral artery. Procedure Carotid Duplex [id number]. This is a Carotid Duplex examination using B-mode, color flow and specral Doppler. Exam performed in department. VL/Carotid Duplex Ultrasound Interpretation Summary Intimal thickening bilateral proximal internal carotid arteries with less than 50% stenosis bilaterally Less than 50% stenosis bilateral external carotid arteries Patent antegrade vertebrals bilaterally Ordering Physician: Tonya Jolley Referring Physician: Lucretia Henson M.D. Performed By: Lanie Bonilla RVT
== END 2021-04-04 23:59 | disposition home or self-care (01) ==
LOC: CVS 13:49
PROVIDERS: PCP Internal Medicine; Referring Provider Nurse Practitioner Family; Visit Provider Nurse Practitioner Family
DX: Z86.73 Personal history of transient ischemic attack (TIA), and cerebral infarction without residual deficits (principal)
CPT/HCPCS: 93880

== ENCOUNTER 2021-05-14 14:12 | Outpatient (CLI) | payer MEDICARE, OTHER, SELFPAY ==
[2021-05-14 17:52] LABS: Absolute Lymphocyte Count 2.53 X10^3/uL (0.83-4.51); Absolute Neutrophil Count 3.5 X10^3/uL (2.0-7.7); Basophil# 0.04 X10^3/uL; Basophil% 0.6 % (0-1); Eosinophil# 0.07 X10^3/uL; Eosinophils% 1.1 % (0-5); Hematocrit 48.3 % (37-47); Hemoglobin 15.5 g/dL (12.0-15.0); Lymphocyte # 2.53 X10^3/ul (0.83-4.51); Lymphocyte % 38.5 % (19-41); Mean Corp Hgb Conc 32.1 g/dL (32-36); Mean Corpuscular Hgb 27.5 pg (27.0-32.0); Mean Corpuscular Volume 85.6 fL (81-99); Mean Platelet Vol. 10.5 fl (6.2-12.0); Monocyte# 0.41 X10^3/uL; Monocyte% 6.2 % (0-10); NRBC Flagged by Analyzer 0 % (0-5); Neutrophil # 3.51 X10^3/uL (2.7-7.7); Neutrophil % 53.4 % (47-70); Platelet Count 193 K/mm3 (150-450); RBC Distribution Width CV 15.1 % (11.6-14.6); RBC Distribution Width SD 47.5 fl (35.1-43.9); Red Blood Count 5.64 M/mm3 (4.2-5.4); White Blood Count 6.6 K/mm3 (4.4-11.0)
[2021-05-14 18:02] LABS: Erythrocyte Sedimentation Rate 18 mm/hr (0-30)
[2021-05-14 18:36] LABS: AST(SGOT) 13 U/L (15-37); Alanine Aminotransfer ALT/SGPT 25 U/L (13-56); Albumin, Serum 3.6 g/dL (3.2-5.0); Alkaline Phosphatase 113 U/L (45-117); Anion Gap 6 (5-15); BUN 9 mg/dL (7-18); BUN/Creat Ratio 10.9 RATIO (10-20); CRP < 2.90 mg/L (0.0-3.0); Calcium,Total 8.9 mg/dL (8.5-10.1); Chloride 101 mmol/L (98-107); Creatinine, Serum 0.83 mg/dL (0.55-1.02); EST Glomerular Filtration Rate 73 mL/min (>60); Est Glom Filt Rate - Afr Amer 88 mL/min (>60); Globulin 3.6 g/dL (2.2-4.2); Glucose 155 mg/dL (74-106); Potassium 3.7 mmol/L (3.5-5.1); Protein, Total 7.2 g/dL (6.4-8.2); Sodium Level 138 mmol/L (136-145)
[2021-05-15 09:12] LABS: Hepatitis B Surface Antibody Non-Reactive; Hepatitis B Surface Antigen Non-Reactive (Nonreactive); Hepatitis C Antibody Non-Reactive (Nonreactive)
[2021-05-16 15:48] LABS: ANTINUCLEAR ANTIBODIES DIRECT Negative (Negative)
[2021-05-20 00:07] LABS: QNTFERON TB Mitogen Value > 10.00 IU/mL (.); QNTFERON TB Nil Value 0.03 IU/mL (.); QNTFERON TB1+ Ag Value 0.05 IU/mL (.); QNTFERON TB2+ Ag Value 0.05 IU/mL (.)
[2021-05-20 09:06] LABS: CCP IgG Antibodies > 250 units (0-19); QNTIFERON TB Positive Criteria Negative (Negative)
== END 2021-05-14 23:59 | disposition home or self-care (01) ==
LOC: MTLAB 14:13
PROVIDERS: PCP Internal Medicine; Referring Provider Internal Medicine Rheumatology; Visit Provider Internal Medicine Rheumatology
DX: M05.79 Rheumatoid arthritis with rheumatoid factor of multiple sites without organ or systems involvement (principal); Z79.899 Other long term (current) drug therapy; M79.7 Fibromyalgia
CPT/HCPCS: 36415; 80053; 85025; 85652; 86038; 86140; 86200; 86431; 86480; 86706; 86803; 87340

== ENCOUNTER → 2021-07-29 | Outpatient (CLI) | payer MEDICARE, OTHER, SELFPAY ==
[2021-07-29 17:48] LABS: Absolute Lymphocyte Count 2.28 X10^3/uL (0.83-4.51); Absolute Neutrophil Count 4.3 X10^3/uL (2.0-7.7); Basophil# 0.02 X10^3/uL; Basophil% 0.3 % (0-1); Eosinophil# 0.06 X10^3/uL; Eosinophils% 0.8 % (0-5); Hematocrit 47.1 % (37-47); Hemoglobin 14.5 g/dL (12.0-15.0); Lymphocyte # 2.28 X10^3/ul (0.83-4.51); Lymphocyte % 31.3 % (19-41); Mean Corp Hgb Conc 30.8 g/dL (32-36); Mean Corpuscular Hgb 26.6 pg (27.0-32.0); Mean Corpuscular Volume 86.4 fL (81-99); Mean Platelet Vol. 10.7 fl (6.2-12.0); Monocyte# 0.57 X10^3/uL; Monocyte% 7.8 % (0-10); NRBC Flagged by Analyzer 0 % (0-5); Neutrophil # 4.33 X10^3/uL (2.7-7.7); Neutrophil % 59.5 % (47-70); Platelet Count 226 K/mm3 (150-450); RBC Distribution Width CV 16.3 % (11.6-14.6); RBC Distribution Width SD 50.5 fl (35.1-43.9); Red Blood Count 5.45 M/mm3 (4.2-5.4); White Blood Count 7.3 K/mm3 (4.4-11.0)
[2021-07-29 18:03] LABS: AST(SGOT) 13 U/L (15-37); Alanine Aminotransfer ALT/SGPT 22 U/L (13-56); Albumin, Serum 3.4 g/dL (3.2-5.0); Alkaline Phosphatase 109 U/L (45-117); Anion Gap 6 (5-15); BUN 9 mg/dL (7-18); BUN/Creat Ratio 8.8 RATIO (10-20); Chloride 101 mmol/L (98-107); Creatinine, Serum 1.02 mg/dL (0.55-1.02); EST Glomerular Filtration Rate 57 mL/min (>60); Est Glom Filt Rate - Afr Amer 69 mL/min (>60); Globulin 3.5 g/dL (2.2-4.2); Glucose 242 mg/dL (74-106); Potassium 3.8 mmol/L (3.5-5.1); Protein, Total 6.9 g/dL (6.4-8.2); Sodium Level 137 mmol/L (136-145)
== END | disposition home or self-care (01) ==
LOC: MTLAB 15:20
PROVIDERS: PCP Internal Medicine; Referring Provider Internal Medicine Rheumatology; Visit Provider Internal Medicine Rheumatology
DX: M05.79 Rheumatoid arthritis with rheumatoid factor of multiple sites without organ or systems involvement (principal); E11.51 Type 2 diabetes mellitus with diabetic peripheral angiopathy without gangrene; J44.9 Chronic obstructive pulmonary disease, unspecified; Z79.899 Other long term (current) drug therapy; M79.7 Fibromyalgia; M17.0 Bilateral primary osteoarthritis of knee; M16.0 Bilateral primary osteoarthritis of hip; M47.892 Other spondylosis, cervical region; M47.897 Other spondylosis, lumbosacral region; E89.0 Postprocedural hypothyroidism; E78.5 Hyperlipidemia, unspecified; K21.9 Gastro-esophageal reflux disease without esophagitis
CPT/HCPCS: 36415; 80053; 85025

== ENCOUNTER → 2021-09-29 | Outpatient (CLI) | payer MEDICARE, OTHER, SELFPAY ==
[2021-09-29 17:35] LABS: Absolute Lymphocyte Count 2.58 X10^3/uL (0.83-4.51); Absolute Neutrophil Count 3.8 X10^3/uL (2.0-7.7); Basophil# 0.04 X10^3/uL; Basophil% 0.6 % (0-1); Eosinophil# 0.06 X10^3/uL; Eosinophils% 0.9 % (0-5); Hematocrit 49.5 % (37-47); Hemoglobin 15.4 g/dL (12.0-15.0); Lymphocyte # 2.58 X10^3/ul (0.83-4.51); Lymphocyte % 37.1 % (19-41); Mean Corp Hgb Conc 31.1 g/dL (32-36); Mean Corpuscular Hgb 27.3 pg (27.0-32.0); Mean Corpuscular Volume 87.6 fL (81-99); Mean Platelet Vol. 11.1 fl (6.2-12.0); Monocyte# 0.46 X10^3/uL; Monocyte% 6.6 % (0-10); NRBC Flagged by Analyzer 0 % (0-5); Neutrophil # 3.81 X10^3/uL (2.7-7.7); Neutrophil % 54.7 % (47-70); Platelet Count 227 K/mm3 (150-450); RBC Distribution Width SD 45.1 fl (35.1-43.9); Red Blood Count 5.65 M/mm3 (4.2-5.4)
[2021-09-29 17:52] LABS: ALB/GLOB Ratio 0.9 RATIO (0.9-2.4); AST(SGOT) 13 U/L (15-37); Alanine Aminotransfer ALT/SGPT 22 U/L (13-56); Albumin, Serum 3.3 g/dL (3.2-5.0); Alkaline Phosphatase 105 U/L (45-117); Anion Gap 3 (5-15); BUN 7 mg/dL (7-18); BUN/Creat Ratio 6.8 RATIO (10-20); Calcium,Total 8.9 mg/dL (8.5-10.1); Chloride 99 mmol/L (98-107); Creatinine, Serum 1.03 mg/dL (0.55-1.02); EST Glomerular Filtration Rate 56 mL/min (>60); Est Glom Filt Rate - Afr Amer 68 mL/min (>60); Globulin 3.6 g/dL (2.2-4.2); Glucose 377 mg/dL (74-106); Protein, Total 6.9 g/dL (6.4-8.2); Sodium Level 134 mmol/L (136-145)
== END | disposition home or self-care (01) ==
LOC: MTLAB 15:47
PROVIDERS: PCP Internal Medicine; Referring Provider Internal Medicine Rheumatology; Visit Provider Internal Medicine Rheumatology
DX: M05.79 Rheumatoid arthritis with rheumatoid factor of multiple sites without organ or systems involvement (principal); E11.51 Type 2 diabetes mellitus with diabetic peripheral angiopathy without gangrene; J44.9 Chronic obstructive pulmonary disease, unspecified; Z79.899 Other long term (current) drug therapy; M79.7 Fibromyalgia; M17.0 Bilateral primary osteoarthritis of knee; M16.0 Bilateral primary osteoarthritis of hip; M47.892 Other spondylosis, cervical region; M47.897 Other spondylosis, lumbosacral region; E89.0 Postprocedural hypothyroidism; E78.5 Hyperlipidemia, unspecified; K21.9 Gastro-esophageal reflux disease without esophagitis
CPT/HCPCS: 36415; 80053; 85025

== ENCOUNTER → 2021-11-12 | Outpatient (CLI) | payer MEDICARE, OTHER, SELFPAY ==
--- NOTE | 2021-11-12 18:30 | US_ITS ---
STUDY: ULTRASOUND OF THE FEMALE PELVIS - COMPLETE REASON FOR EXAM: Female, 71 years old. Post menopausal bleeding. TECHNIQUE: Transabdominal and Transvaginal TECHNICAL QUALITY: Adequate. COMPARISON: None. FINDINGS: The uterus is anteverted and is in a midline position. The uterus measures 7.3 x 6.0 x 3.9 cm. Normal uterine cervix. The endometrium measures 9 mm in thickness, and is hyperechoic. There is no demonstrated endometrial mass. There are multiple fibroids. In the left uterine fundus there is a 2.3 x 2.1 x 2.4 cm hypoechoic mass. Also in the left fundus is a 2.7 x 2.6 x 2.5 cm fibroid. Posteriorly in the mid fundus is a 1.7 x 1.7 x 1.1 cm hypoechoic nodule. There is calculated to 0.4 x 2.9 x 2.4 cm fibroid off the superior fundus. The right ovary is not seen. There is no visualized right adnexal mass or complex lesion. The left ovary is is not seen.. There is no visualized left adnexal mass or complex lesion. There is no fluid in the cul-de-sac. The poorly distended urinary bladder demonstrates a volume 18.6 ml. The urinary bladder is otherwise grossly unremarkable Polycystic ovary disease: No. US/Transvaginal Non- IMPRESSION: 1. Multiple uterine fibroids. There is no evidence of endometrial abnormality. 2. Nonvisualization of the ovaries Electronically Signed: Mario Saxena DO at 19:20 EDT ,
== END | disposition home or self-care (01) ==
LOC: US 18:26
PROVIDERS: PCP Internal Medicine; Visit Provider Internal Medicine
DX: N93.9 Abnormal uterine and vaginal bleeding, unspecified (principal)
CPT/HCPCS: 76830

== ENCOUNTER → 2021-11-25 | Outpatient (CLI) | payer MEDICARE, OTHER, SELFPAY ==
[2021-11-25 15:12] LABS: Absolute Lymphocyte Count 2.08 X10^3/uL (0.83-4.51); Absolute Neutrophil Count 4.5 X10^3/uL (2.0-7.7); Basophil# 0.03 X10^3/uL; Basophil% 0.4 % (0-1); Eosinophil# 0.06 X10^3/uL; Eosinophils% 0.8 % (0-5); Hematocrit 52.1 % (37-47); Hemoglobin 16.2 g/dL (12.0-15.0); Lymphocyte # 2.08 X10^3/ul (0.83-4.51); Lymphocyte % 28.8 % (19-41); Mean Corp Hgb Conc 31.1 g/dL (32-36); Mean Corpuscular Hgb 27.2 pg (27.0-32.0); Mean Corpuscular Volume 87.4 fL (81-99); Mean Platelet Vol. 10.7 fl (6.2-12.0); Monocyte% 6.9 % (0-10); NRBC Flagged by Analyzer 0 % (0-5); Neutrophil # 4.53 X10^3/uL (2.7-7.7); Neutrophil % 62.8 % (47-70); Platelet Count 259 K/mm3 (150-450); RBC Distribution Width CV 14.1 % (11.6-14.6); RBC Distribution Width SD 45.2 fl (35.1-43.9); Red Blood Count 5.96 M/mm3 (4.2-5.4); White Blood Count 7.2 K/mm3 (4.4-11.0)
[2021-11-25 15:43] LABS: ALB/GLOB Ratio 0.8 RATIO (0.9-2.4); AST(SGOT) 17 U/L (15-37); Alanine Aminotransfer ALT/SGPT 26 U/L (13-56); Albumin, Serum 3.3 g/dL (3.2-5.0); Alkaline Phosphatase 100 U/L (45-117); Anion Gap 8 (5-15); BUN 10 mg/dL (7-18); BUN/Creat Ratio 9.3 RATIO (10-20); Calcium,Total 9.1 mg/dL (8.5-10.1); Chloride 102 mmol/L (98-107); Creatinine, Serum 1.07 mg/dL (0.55-1.02); EST Glomerular Filtration Rate 54 mL/min (>60); Est Glom Filt Rate - Afr Amer 65 mL/min (>60); Glucose 206 mg/dL (74-106); Potassium 3.7 mmol/L (3.5-5.1); Protein, Total 7.3 g/dL (6.4-8.2); Sodium Level 138 mmol/L (136-145)
== END | disposition home or self-care (01) ==
LOC: MTLAB 11:27
PROVIDERS: PCP Internal Medicine; Referring Provider Internal Medicine Rheumatology; Visit Provider Internal Medicine Rheumatology
DX: M05.79 Rheumatoid arthritis with rheumatoid factor of multiple sites without organ or systems involvement (principal); J44.9 Chronic obstructive pulmonary disease, unspecified; I73.9 Peripheral vascular disease, unspecified; M17.0 Bilateral primary osteoarthritis of knee; M16.0 Bilateral primary osteoarthritis of hip; M47.892 Other spondylosis, cervical region; M47.897 Other spondylosis, lumbosacral region; E78.5 Hyperlipidemia, unspecified; Z79.899 Other long term (current) drug therapy
CPT/HCPCS: 36415; 80053; 85025

== ENCOUNTER → 2021-12-09 | Outpatient (CLI) | payer MEDICARE, OTHER, SELFPAY ==
--- NOTE | 2021-12-09 | EMB_PTH ---
PATIENT: GERARD MEYERS LOC: [facility] U#:[id number] AGE/SX: 71/F ROOM: RE12/09/[address]: SANTINO Zavaleta : 1950 BED: DIS: 12/09/2021 SPEC #: [id number] RECD: 12/09/21 15:00 STATUS: AAMIR PRADIP #: [id number] LUPE: 12/09/21 00:[address]: Winsome Quiroga NP DEPT: SURGICAL PATHOLOGY RECD BY: Norberto Hinkle ENTERED: 12/10/21 07:22 SP TYPE: ENDOM BX/C SILVIA DR: Dr. Lucretia Henson DO Tissues: Endometrium, NOS Procedures: Surgery Specimen Level IV HEADER OPERATION: Endometrial biopsy PRE-OP DIAGNOSIS: Abnormal uterine bleeding TISSUE SUBMITTED: Endometrial tissue MICROSCOPIC DIAGNOSIS Endometrium, biopsy: Scant strips of benign superficial glandular mucosa. AM:bernard 12/11/2021 MICROSCOPIC DESCRIPTION Slides are reviewed. GROSS DESCRIPTION Received is one container labeled with the patient's name and not further designated. The specimen consists of multiple irregular fragments of churchill-brown soft tissue mixed with mucoid tissue that in aggregate measure 3 x 2.5 x 0.3 cm. The specimen is totally submitted in one cassette. / SJ:rg 12/10/2021 TC:5 CPT: 86033
== END | disposition home or self-care (01) ==
LOC: LABSPEC 15:11
PROVIDERS: PCP Internal Medicine; Visit Provider Nurse Practitioner Women's Health
DX: N93.9 Abnormal uterine and vaginal bleeding, unspecified (principal)
CPT/HCPCS: 88305

== ENCOUNTER → 2022-02-11 | Outpatient (CLI) | payer MEDICARE, OTHER, SELFPAY ==
[2022-02-11 15:09] LABS: Mucous, Urine 0 SEEN /hpf (<or=2+); Red Blood Cells-Urine 0 SEEN /hpf (0-5)
[2022-02-11 18:05] LABS: Absolute Neutrophil Count 3.1 X10^3/uL (2.0-7.7); Basophil# 0.04 X10^3/uL; Basophil% 0.7 % (0-1); Eosinophil# 0.11 X10^3/uL; Eosinophils% 1.9 % (0-5); Hematocrit 47.5 % (37-47); Hemoglobin 14.9 g/dL (12.0-15.0); Lymphocyte % 36.6 % (19-41); Mean Corp Hgb Conc 31.4 g/dL (32-36); Mean Corpuscular Hgb 28.2 pg (27.0-32.0); Mean Corpuscular Volume 89.8 fL (81-99); Mean Platelet Vol. 10.3 fl (6.2-12.0); Monocyte# 0.37 X10^3/uL; Monocyte% 6.5 % (0-10); NRBC Flagged by Analyzer 0 % (0-5); Neutrophil % 54.1 % (47-70); Platelet Count 211 K/mm3 (150-450); RBC Distribution Width CV 14.7 % (11.6-14.6); RBC Distribution Width SD 48.7 fl (35.1-43.9); Red Blood Count 5.29 M/mm3 (4.2-5.4); White Blood Count 5.7 K/mm3 (4.4-11.0)
[2022-02-11 18:38] LABS: Vitamin D,25 Hydroxy 48.3 ng/mL
[2022-02-11 18:40] LABS: Color, Urine Yellow (Yellow); Glucose, Dipstick 1000 mg/dl (Normal); Ketone-Dipstick 5 mg/dl (Negative); Leukocyte Esterase-Dipstick 25 /ul (Negative); Nitrite-Dipstick Negative (Negative); Occult Blood-Urine Negative /ul (Negative); Protein-Dipstick 30 mg/dl (Negative); Urine Bilirubin Dipstick Negative (Negative); Urine Clarity Sl. Cloudy (Clear); Urine Urobilinogen Normal (Normal); Urine pH 6.5 (5.0 - 8.0)
[2022-02-11 19:22] LABS: ALB/GLOB Ratio 1.1 RATIO (0.9-2.4); AST(SGOT) 14 U/L (15-37); Alanine Aminotransfer ALT/SGPT 24 U/L (13-56); Albumin, Serum 3.2 g/dL (3.2-5.0); Alkaline Phosphatase 91 U/L (45-117); Anion Gap 10 (5-15); BUN 7 mg/dL (7-18); BUN/Creat Ratio 7.2 RATIO (10-20); Calcium,Total 8.5 mg/dL (8.5-10.1); Chloride 100 mmol/L (98-107); Cholesterol 178 mg/dL (200); Creatinine, Serum 0.98 mg/dL (0.55-1.02); EST Glomerular Filtration Rate 60 mL/min (>60); Est Glom Filt Rate - Afr Amer 72 mL/min (>60); Glucose 327 mg/dL (74-106); High Density Lipoprotein 48 mg/dL; Potassium 3.7 mmol/L (3.5-5.1); Protein, Total 6.2 g/dL (6.4-8.2); Sodium Level 137 mmol/L (136-145); Triglycerides 240 mg/dL; Very Low Density Lipoprotein 48 mg/dL (5-40)
[2022-02-11 19:30] LABS: Squamous Epithelial Cells - UA 5-10 SEEN /hpf (5-10)
[2022-02-11 19:31] LABS: White Blood Cells 0-5 SEEN /hpf (0-5)
[2022-02-11 19:32] LABS: Bacteria 2+ /hpf (None Seen)
== END | disposition home or self-care (01) ==
LOC: MTLAB 14:54
PROVIDERS: PCP Internal Medicine; Referring Provider Internal Medicine Rheumatology; Visit Provider Internal Medicine Rheumatology
DX: E55.9 Vitamin D deficiency, unspecified (principal); E11.9 Type 2 diabetes mellitus without complications; E03.9 Hypothyroidism, unspecified; E78.5 Hyperlipidemia, unspecified
CPT/HCPCS: 36415; 80053; 80061; 81001; 82043; 82306; 82570; 84443; 85025

== ENCOUNTER → 2022-05-08 | Outpatient (CLI) | payer MEDICARE, OTHER, SELFPAY ==
[2022-05-08 17:45] LABS: Absolute Lymphocyte Count 2.16 X10^3/uL (0.83-4.51); Absolute Neutrophil Count 4.5 X10^3/uL (2.0-7.7); Basophil# 0.04 X10^3/uL; Basophil% 0.5 % (0-1); Eosinophil# 0.06 X10^3/uL; Eosinophils% 0.8 % (0-5); Hematocrit 51.2 % (37-47); Lymphocyte # 2.16 X10^3/ul (0.83-4.51); Lymphocyte % 29.6 % (19-41); Mean Corp Hgb Conc 31.3 g/dL (32-36); Mean Corpuscular Hgb 27.7 pg (27.0-32.0); Mean Corpuscular Volume 88.6 fL (81-99); Mean Platelet Vol. 11.3 fl (6.2-12.0); Monocyte# 0.53 X10^3/uL; Monocyte% 7.3 % (0-10); NRBC Flagged by Analyzer 0 % (0-5); Neutrophil # 4.48 X10^3/uL (2.7-7.7); Neutrophil % 61.4 % (47-70); Platelet Count 227 K/mm3 (150-450); RBC Distribution Width CV 14.8 % (11.6-14.6); RBC Distribution Width SD 47.7 fl (35.1-43.9); Red Blood Count 5.78 M/mm3 (4.2-5.4); White Blood Count 7.3 K/mm3 (4.4-11.0)
[2022-05-08 18:33] LABS: AST(SGOT) 15 U/L (15-37); Alanine Aminotransfer ALT/SGPT 26 U/L (13-56); Albumin, Serum 3.5 g/dL (3.2-5.0); Alkaline Phosphatase 101 U/L (45-117); Anion Gap 6 (5-15); BUN 11 mg/dL (7-18); BUN/Creat Ratio 10.6 RATIO (10-20); Calcium,Total 9.4 mg/dL (8.5-10.1); Chloride 99 mmol/L (98-107); Creatinine, Serum 1.04 mg/dL (0.55-1.02); EST Glomerular Filtration Rate 56 mL/min (>60); Est Glom Filt Rate - Afr Amer 67 mL/min (>60); Globulin 3.6 g/dL (2.2-4.2); Glucose 433 mg/dL (74-106); Potassium 3.5 mmol/L (3.5-5.1); Protein, Total 7.1 g/dL (6.4-8.2); Sodium Level 136 mmol/L (136-145)
== END | disposition home or self-care (01) ==
LOC: MTLAB 15:34
PROVIDERS: PCP Internal Medicine; Referring Provider Internal Medicine Rheumatology; Visit Provider Internal Medicine Rheumatology
DX: M05.79 Rheumatoid arthritis with rheumatoid factor of multiple sites without organ or systems involvement (principal); J44.9 Chronic obstructive pulmonary disease, unspecified; E11.59 Type 2 diabetes mellitus with other circulatory complications; I73.9 Peripheral vascular disease, unspecified; Z79.899 Other long term (current) drug therapy; M79.7 Fibromyalgia; M17.0 Bilateral primary osteoarthritis of knee; M16.0 Bilateral primary osteoarthritis of hip; M47.892 Other spondylosis, cervical region; M47.897 Other spondylosis, lumbosacral region; E89.0 Postprocedural hypothyroidism; E78.5 Hyperlipidemia, unspecified; K21.9 Gastro-esophageal reflux disease without esophagitis
CPT/HCPCS: 36415; 80053; 85025

== ENCOUNTER → 2022-08-10 | Outpatient (CLI) | payer MEDICARE, OTHER, SELFPAY ==
[2022-08-10 14:15] LABS: Bacteria 0 SEEN /hpf (None Seen); Mucous, Urine 0 SEEN /hpf (<or=2+); Red Blood Cells-Urine 0 SEEN /hpf (0-5); White Blood Cells 0 SEEN /hpf (0-5)
[2022-08-10 18:00] LABS: Color, Urine Yellow (Yellow); Glucose, Dipstick Normal (Normal); Ketone-Dipstick Negative (Negative); Leukocyte Esterase-Dipstick Negative /ul (Negative); Nitrite-Dipstick Negative (Negative); Occult Blood-Urine Negative /ul (Negative); Protein-Dipstick Negative (Negative); Specific Gravity, Urine 1.005 (1.002-1.030); Urine Bilirubin Dipstick Negative (Negative); Urine Clarity Clear (Clear); Urine Urobilinogen Normal (Normal)
[2022-08-10 18:18] LABS: Microalbumin,Random Urine 10.3 mg/L (NO RANGE EST.); Microalbumin:Creatinine Ratio 51.8 mg/g CRE (<30 mg/g CRE)
[2022-08-10 18:22] LABS: Absolute Lymphocyte Count 2.08 X10^3/uL (0.83-4.51); Absolute Neutrophil Count 4.2 X10^3/uL (2.0-7.7); Basophil# 0.03 X10^3/uL; Basophil% 0.4 % (0-1); Eosinophil# 0.02 X10^3/uL; Eosinophils% 0.3 % (0-5); Hematocrit 50.2 % (37-47); Hemoglobin 15.7 g/dL (12.0-15.0); Lymphocyte # 2.08 X10^3/ul (0.83-4.51); Lymphocyte % 30.5 % (19-41); Mean Corp Hgb Conc 31.3 g/dL (32-36); Mean Corpuscular Hgb 27.3 pg (27.0-32.0); Mean Corpuscular Volume 87.2 fL (81-99); Mean Platelet Vol. 9.9 fl (6.2-12.0); Monocyte# 0.52 X10^3/uL; Monocyte% 7.6 % (0-10); NRBC Flagged by Analyzer 0 % (0-5); Neutrophil # 4.16 X10^3/uL (2.7-7.7); Neutrophil % 60.9 % (47-70); Platelet Count 200 K/mm3 (150-450); RBC Distribution Width CV 14.8 % (11.6-14.6); RBC Distribution Width SD 46.2 fl (35.1-43.9); Red Blood Count 5.76 M/mm3 (4.2-5.4); White Blood Count 6.8 K/mm3 (4.4-11.0)
[2022-08-10 18:39] LABS: Squamous Epithelial Cells - UA 0-5 SEEN /hpf (5-10); Vitamin D,25 Hydroxy 72.3 ng/mL
[2022-08-10 18:54] LABS: ALB/GLOB Ratio 0.9 RATIO (0.9-2.4); AST(SGOT) 21 U/L (15-37); Alanine Aminotransfer ALT/SGPT 34 U/L (13-56); Alkaline Phosphatase 79 U/L (45-117); Anion Gap 6 (5-15); BUN 7 mg/dL (7-18); BUN/Creat Ratio 8.9 RATIO (10-20); Calcium,Total 8.6 mg/dL (8.5-10.1); Chloride 103 mmol/L (98-107); Cholesterol 176 mg/dL (200); Creatinine, Serum 0.79 mg/dL (0.55-1.02); EST Glomerular Filtration Rate 76 mL/min (>60); Est Glom Filt Rate - Afr Amer 93 mL/min (>60); Globulin 3.3 g/dL (2.2-4.2); Glucose 207 mg/dL (74-106); High Density Lipoprotein 58 mg/dL; Potassium 3.1 mmol/L (3.5-5.1); Protein, Total 6.3 g/dL (6.4-8.2); Sodium Level 140 mmol/L (136-145); Thyroid Stim Hormone (TSH) 1.62 uIU/mL (0.358-3.74); Triglycerides 192 mg/dL; Very Low Density Lipoprotein 38 mg/dL (5-40)
== END | disposition home or self-care (01) ==
LOC: MTLAB 14:10
PROVIDERS: PCP Internal Medicine; Referring Provider Internal Medicine Rheumatology; Visit Provider Internal Medicine Rheumatology
DX: M05.79 Rheumatoid arthritis with rheumatoid factor of multiple sites without organ or systems involvement (principal); E11.51 Type 2 diabetes mellitus with diabetic peripheral angiopathy without gangrene; J44.9 Chronic obstructive pulmonary disease, unspecified; E11.65 Type 2 diabetes mellitus with hyperglycemia; I73.9 Peripheral vascular disease, unspecified; M79.7 Fibromyalgia; M17.0 Bilateral primary osteoarthritis of knee; M16.0 Bilateral primary osteoarthritis of hip; M47.892 Other spondylosis, cervical region; M47.897 Other spondylosis, lumbosacral region; E78.5 Hyperlipidemia, unspecified; K21.9 Gastro-esophageal reflux disease without esophagitis; Z79.899 Other long term (current) drug therapy; E55.9 Vitamin D deficiency, unspecified; E03.9 Hypothyroidism, unspecified
CPT/HCPCS: 36415; 80053; 80061; 81001; 82043; 82306; 82570; 84443; 85025

== ENCOUNTER → 2022-11-12 | Outpatient (CLI) | payer MEDICARE, OTHER, SELFPAY ==
[2022-11-12 18:12] LABS: ALB/GLOB Ratio 0.9 RATIO (0.9-2.4); AST(SGOT) 10 U/L (15-37); Alanine Aminotransfer ALT/SGPT 23 U/L (13-56); Albumin, Serum 3.2 g/dL (3.2-5.0); Alkaline Phosphatase 89 U/L (45-117); Anion Gap 4 (5-15); BUN 5 mg/dL (7-18); BUN/Creat Ratio 5.5 RATIO (10-20); Calcium,Total 8.8 mg/dL (8.5-10.1); Chloride 102 mmol/L (98-107); EST Glomerular Filtration Rate 65 mL/min (>60); Est Glom Filt Rate - Afr Amer 79 mL/min (>60); Globulin 3.4 g/dL (2.2-4.2); Glucose 279 mg/dL (74-106); Potassium 3.8 mmol/L (3.5-5.1); Protein, Total 6.6 g/dL (6.4-8.2); Sodium Level 138 mmol/L (136-145)
[2022-11-12 18:29] LABS: Absolute Lymphocyte Count 2.45 X10^3/uL (0.83-4.51); Absolute Neutrophil Count 4.6 X10^3/uL (2.0-7.7); Basophil# 0.04 X10^3/uL; Basophil% 0.5 % (0-1); Eosinophil# 0.09 X10^3/uL; Eosinophils% 1.2 % (0-5); Hemoglobin 15.6 g/dL (12.0-15.0); Lymphocyte # 2.45 X10^3/ul (0.83-4.51); Lymphocyte % 31.9 % (19-41); Mean Corp Hgb Conc 30.6 g/dL (32-36); Mean Corpuscular Hgb 27.8 pg (27.0-32.0); Mean Corpuscular Volume 90.7 fL (81-99); Mean Platelet Vol. 11.3 fl (6.2-12.0); Monocyte# 0.39 X10^3/uL; Monocyte% 5.1 % (0-10); NRBC Flagged by Analyzer 0 % (0-5); Neutrophil # 4.63 X10^3/uL (2.7-7.7); Neutrophil % 60.1 % (47-70); Platelet Count 193 K/mm3 (150-450); RBC Distribution Width CV 14.2 % (11.6-14.6); RBC Distribution Width SD 47.1 fl (35.1-43.9); Red Blood Count 5.62 M/mm3 (4.2-5.4); White Blood Count 7.7 K/mm3 (4.4-11.0)
== END | disposition home or self-care (01) ==
LOC: MTLAB 14:43
PROVIDERS: PCP Internal Medicine; Visit Provider Internal Medicine Rheumatology
DX: M05.79 Rheumatoid arthritis with rheumatoid factor of multiple sites without organ or systems involvement (principal); Z79.899 Other long term (current) drug therapy; M79.7 Fibromyalgia
CPT/HCPCS: 36415; 80053; 85025

== ENCOUNTER → 2022-12-28 | Outpatient (CLI) | payer MEDICARE, OTHER, SELFPAY ==
--- NOTE | 2022-12-28 15:01 | BI_ITS ---
MAMMOGRAPHY - BILATERAL SCREENING REASON FOR EXAM: Female, 72 years old. Routine annual screening examination. PERTINENT HISTORY: Non-contributory. TECHNIQUE: Digital bilateral breast joaquin (3D mammographic acquisition) in the CC and MLO projections. 2-D mediolateral oblique (MLO) and craniocaudad (CC) views of both breasts were obtained. CAD: Full Field Digital Mammography with Computer Added Detection was performed. COMPARISON: Comparison is made with prior study dated April 08, 2018. FINDINGS: Breast Composition: There are scattered areas of fibroglandular density. There are no dominant masses or suspicious calcifications. Stable asymmetric breast tissue with more breast tissue is seen in the upper-outer quadrant of the right breast as compared to the left side. No other significant abnormalities are identified. There has been no significant change since the prior study. BI/SCRN MAMM (CAD)W/JOAQUIN BILAT IMPRESSION: Stable bilateral screening mammogram. Yearly follow-up mammogram recommended. (A) ASSESSMENT CATEGORY: BIRADS Category 2: Benign. A letter regarding these results will be sent to the patient by the facility within 30 days. Approximately 10% of breast cancers are not detected by mammography. A normal mammogram should not delay biopsy of a clinically suspicious abnormality. [id number] Electronically Signed: Mane Stephens MD at 15:43 EST ,
== END | disposition home or self-care (01) ==
LOC: OPBI 15:00
PROVIDERS: PCP Internal Medicine; Referring Provider Internal Medicine; Visit Provider Internal Medicine
DX: Z12.31 Encounter for screening mammogram for malignant neoplasm of breast (principal)
CPT/HCPCS: 77063; 77067

== ENCOUNTER → 2023-03-11 | Outpatient (CLI) | payer MEDICARE, OTHER, SELFPAY ==
[2023-03-11 17:51] LABS: Absolute Lymphocyte Count 2.81 X10^3/uL (0.83-4.51); Absolute Neutrophil Count 3.7 X10^3/uL (2.0-7.7); Basophil# 0.04 X10^3/uL; Basophil% 0.5 % (0-1); Eosinophil# 0.08 X10^3/uL; Eosinophils% 1.1 % (0-5); Hematocrit 53.6 % (37-47); Hemoglobin 15.9 g/dL (12.0-15.0); Lymphocyte # 2.81 X10^3/ul (0.83-4.51); Lymphocyte % 38.5 % (19-41); Mean Corp Hgb Conc 29.7 g/dL (32-36); Mean Corpuscular Hgb 26.4 pg (27.0-32.0); Mean Platelet Vol. 10.9 fl (6.2-12.0); Monocyte# 0.61 X10^3/uL; Monocyte% 8.4 % (0-10); NRBC Flagged by Analyzer 0 % (0-5); Neutrophil # 3.74 X10^3/uL (2.7-7.7); Neutrophil % 51.4 % (47-70); Platelet Count 223 K/mm3 (150-450); RBC Distribution Width SD 48.1 fl (35.1-43.9); Red Blood Count 6.02 M/mm3 (4.2-5.4); White Blood Count 7.3 K/mm3 (4.4-11.0)
[2023-03-11 17:57] LABS: Color, Urine Yellow (Yellow); Glucose, Dipstick 1000 mg/dl (Normal); Ketone-Dipstick 5 mg/dl (Negative); Leukocyte Esterase-Dipstick 25 /ul (Negative); Nitrite-Dipstick Negative (Negative); Occult Blood-Urine 10 /ul (Negative); Protein-Dipstick 30 mg/dl (Negative); Specific Gravity, Urine 1.015 (1.002-1.030); Urine Clarity Clear (Clear); Urine Urobilinogen 1 mg/dl (Normal)
[2023-03-11 18:01] LABS: Vitamin D,25 Hydroxy 60.8 ng/mL
[2023-03-11 18:05] LABS: Urine Bilirubin Dipstick 1 mg/dL (Negative)
[2023-03-11 18:06] LABS: Microalbumin,Random Urine 60.6 mg/L (NO RANGE EST.); Microalbumin:Creatinine Ratio 46.6 mg/g CRE (<30 mg/g CRE)
[2023-03-11 18:10] LABS: ALB/GLOB Ratio 0.9 RATIO (0.9-2.4); AST(SGOT) 14 U/L (15-37); Alanine Aminotransfer ALT/SGPT 22 U/L (13-56); Albumin, Serum 3.3 g/dL (3.2-5.0); Alkaline Phosphatase 95 U/L (45-117); Anion Gap 6 (5-15); BUN 10 mg/dL (7-18); BUN/Creat Ratio 10.4 RATIO (10-20); Calcium,Total 8.9 mg/dL (8.5-10.1); Chloride 100 mmol/L (98-107); Cholesterol 256 mg/dL (200); Creatinine, Serum 0.96 mg/dL (0.55-1.02); EST Glomerular Filtration Rate 61 mL/min (>60); Est Glom Filt Rate - Afr Amer 74 mL/min (>60); Globulin 3.6 g/dL (2.2-4.2); Glucose 309 mg/dL (74-106); High Density Lipoprotein 61 mg/dL; Protein, Total 6.9 g/dL (6.4-8.2); Sodium Level 138 mmol/L (136-145); Triglycerides 227 mg/dL; Very Low Density Lipoprotein 45 mg/dL (5-40)
== END | disposition home or self-care (01) ==
LOC: MTLAB 14:22
PROVIDERS: PCP Internal Medicine; Referring Provider Internal Medicine; Visit Provider Internal Medicine
DX: M05.79 Rheumatoid arthritis with rheumatoid factor of multiple sites without organ or systems involvement (principal); E11.65 Type 2 diabetes mellitus with hyperglycemia; Z79.899 Other long term (current) drug therapy; M79.7 Fibromyalgia; M17.0 Bilateral primary osteoarthritis of knee; M16.0 Bilateral primary osteoarthritis of hip; E78.5 Hyperlipidemia, unspecified; R80.9 Proteinuria, unspecified; E03.9 Hypothyroidism, unspecified; E55.9 Vitamin D deficiency, unspecified
CPT/HCPCS: 36415; 80053; 80061; 81002; 82043; 82306; 82570; 84443; 85025

== ENCOUNTER → 2023-06-21 | Outpatient (CLI) | payer MEDICARE, OTHER, SELFPAY ==
[2023-06-21 15:09] LABS: Absolute Lymphocyte Count 2.02 X10^3/uL (0.83-4.51); Absolute Neutrophil Count 4.9 X10^3/uL (2.0-7.7); Basophil# 0.05 X10^3/uL; Basophil% 0.7 % (0-1); Eosinophil# 0.08 X10^3/uL; Eosinophils% 1.1 % (0-5); Hemoglobin 16.8 g/dL (12.0-15.0); Lymphocyte # 2.02 X10^3/ul (0.83-4.51); Lymphocyte % 26.6 % (19-41); Mean Corp Hgb Conc 30.2 g/dL (32-36); Mean Corpuscular Hgb 26.3 pg (27.0-32.0); Mean Platelet Vol. 11.1 fl (6.2-12.0); Monocyte# 0.49 X10^3/uL; Monocyte% 6.4 % (0-10); NRBC Flagged by Analyzer 0 % (0-5); Neutrophil # 4.94 X10^3/uL (2.7-7.7); Neutrophil % 64.9 % (47-70); Platelet Count 196 K/mm3 (150-450); RBC Distribution Width CV 16.2 % (11.6-14.6); RBC Distribution Width SD 47.8 fl (35.1-43.9); White Blood Count 7.6 K/mm3 (4.4-11.0)
[2023-06-21 15:20] LABS: Hematocrit 55.7 % (37-47)
[2023-06-21 15:34] LABS: ALB/GLOB Ratio 0.8 RATIO (0.9-2.4); AST(SGOT) 14 U/L (15-37); Alanine Aminotransfer ALT/SGPT 18 U/L (13-56); Alkaline Phosphatase 119 U/L (45-117); Anion Gap 3 (5-15); BUN 6 mg/dL (7-18); Calcium,Total 8.7 mg/dL (8.5-10.1); Chloride 101 mmol/L (98-107); EST Glomerular Filtration Rate 58 mL/min (>60); Est Glom Filt Rate - Afr Amer 70 mL/min (>60); Globulin 3.8 g/dL (2.2-4.2); Glucose 364 mg/dL (74-106); Potassium 3.8 mmol/L (3.5-5.1); Protein, Total 6.8 g/dL (6.4-8.2); Sodium Level 138 mmol/L (136-145)
== END | disposition home or self-care (01) ==
LOC: MTLAB 13:49
PROVIDERS: PCP Internal Medicine; Referring Provider Internal Medicine Rheumatology; Visit Provider Internal Medicine Rheumatology
DX: M05.70 Rheumatoid arthritis with rheumatoid factor of unspecified site without organ or systems involvement (principal); Z79.899 Other long term (current) drug therapy; M79.7 Fibromyalgia; M17.0 Bilateral primary osteoarthritis of knee; M16.0 Bilateral primary osteoarthritis of hip
CPT/HCPCS: 36415; 80053; 85025

== ENCOUNTER → 2023-09-13 | Outpatient (CLI) | payer MEDICARE, SELFPAY ==
[2023-09-13 14:40] LABS: Bacteria 0 SEEN /hpf (None Seen); Mucous, Urine 0 SEEN /hpf (<or=2+); Red Blood Cells-Urine 0 SEEN /hpf (0-5)
[2023-09-13 17:43] LABS: Absolute Lymphocyte Count 1.62 X10^3/uL (0.83-4.51); Basophil# 0.03 X10^3/uL; Basophil% 0.4 % (0-1); Eosinophil# 0.03 X10^3/uL; Eosinophils% 0.4 % (0-5); Hematocrit 52.6 % (37-47); Hemoglobin 16.1 g/dL (12.0-15.0); Lymphocyte # 1.62 X10^3/ul (0.83-4.51); Lymphocyte % 20.2 % (19-41); Mean Corp Hgb Conc 30.6 g/dL (32-36); Mean Corpuscular Hgb 25.8 pg (27.0-32.0); Mean Corpuscular Volume 84.4 fL (81-99); Mean Platelet Vol. 11.1 fl (6.2-12.0); Monocyte# 0.36 X10^3/uL; Monocyte% 4.5 % (0-10); NRBC Flagged by Analyzer 0 % (0-5); Neutrophil # 5.97 X10^3/uL (2.7-7.7); Neutrophil % 74.4 % (47-70); Platelet Count 183 K/mm3 (150-450); RBC Distribution Width CV 18.6 % (11.6-14.6); RBC Distribution Width SD 53.5 fl (35.1-43.9); Red Blood Count 6.23 M/mm3 (4.2-5.4)
[2023-09-13 17:52] LABS: Vitamin D,25 Hydroxy 80.2 ng/mL
[2023-09-13 18:11] LABS: ALB/GLOB Ratio 0.8 RATIO (0.9-2.4); AST(SGOT) 18 U/L (15-37); Alanine Aminotransfer ALT/SGPT 20 U/L (13-56); Alkaline Phosphatase 123 U/L (45-117); Anion Gap 4 (5-15); BUN 10 mg/dL (7-18); Calcium,Total 8.5 mg/dL (8.5-10.1); Chloride 105 mmol/L (98-107); Cholesterol 116 mg/dL (200); Creatinine, Serum 0.77 mg/dL (0.55-1.02); EST Glomerular Filtration Rate 78 mL/min (>60); Est Glom Filt Rate - Afr Amer 94 mL/min (>60); Globulin 3.8 g/dL (2.2-4.2); Glucose 78 mg/dL (74-106); High Density Lipoprotein 61 mg/dL; Potassium 3.9 mmol/L (3.5-5.1); Protein, Total 6.8 g/dL (6.4-8.2); Sodium Level 140 mmol/L (136-145); Thyroid Stim Hormone (TSH) 0.16 uIU/mL (0.358-3.74); Triglycerides 56 mg/dL; Very Low Density Lipoprotein 11 mg/dL (5-40)
[2023-09-13 18:20] LABS: Microalbumin,Random Urine < 5.0 mg/L (NO RANGE EST.)
[2023-09-13 18:23] LABS: Color, Urine Yellow (Yellow); Glucose, Dipstick 1000 mg/dl (Normal); Ketone-Dipstick Negative (Negative); Leukocyte Esterase-Dipstick 500 /ul (Negative); Nitrite-Dipstick Negative (Negative); Occult Blood-Urine 10 /ul (Negative); Protein-Dipstick 15 mg/dl (Negative); Urine Bilirubin Dipstick Negative (Negative); Urine Clarity Sl. Cloudy (Clear); Urine Urobilinogen Normal (Normal)
[2023-09-13 18:42] LABS: Squamous Epithelial Cells - UA 5-10 SEEN /hpf (5-10); White Blood Cells 5-10 SEEN /hpf (0-5)
== END | disposition home or self-care (01) ==
LOC: MTLAB 14:36
PROVIDERS: PCP Internal Medicine; Referring Provider Internal Medicine; Visit Provider Internal Medicine
DX: E78.5 Hyperlipidemia, unspecified (principal); E11.65 Type 2 diabetes mellitus with hyperglycemia; R80.9 Proteinuria, unspecified; E03.9 Hypothyroidism, unspecified; E55.9 Vitamin D deficiency, unspecified
CPT/HCPCS: 36415; 80053; 80061; 81001; 82043; 82306; 82570; 84443; 85025

== ENCOUNTER → 2023-11-10 | Outpatient (CLI) | payer MEDICARE, SELFPAY ==
--- NOTE | 2023-11-10 11:30 | RAD_ITS ---
STUDY: X-RAY - RIGHT HAND REASON FOR EXAM: Female, 73 years old. Pain. TECHNIQUE: 3 view(s) of the hand. COMPARISON: None. FINDINGS: Osteopenia. Mild arthrosis of the radiocarpal articulation. Mild arthrosis of the distal radioulnar articulation. Moderate arthrosis of the radial carpal row. Moderate arthrosis of the first CMC joint. Moderate arthrosis of the MCP and IP joints. Vascular calcification. RAD/Hand Min 3 Views IMPRESSION: Osteopenia with osteoarthritic changes as described. No acute abnormality or erosive changes. Electronically Signed: Siddharth Wahl MD at 12:44 EDT ,
--- NOTE | 2023-11-10 11:36 | RAD_ITS ---
STUDY: X-RAY - RIGHT WRIST REASON FOR EXAM: Female, 73 years old. Wrist pain. TECHNIQUE: 3 view(s) of the wrist were obtained. COMPARISON: None. FINDINGS: Osteopenia. Mild arthrosis of the radiocarpal articulation. Mild arthrosis of the distal radioulnar articulation. Moderate arthrosis of the radial carpal row. Moderate arthrosis of the first CMC joint. Vascular calcification. RAD/Wrist min 3 Views IMPRESSION: Osteopenia with osteoarthritic changes as described. Electronically Signed: Siddharth Wahl MD at 12:38 EDT ,
== END | disposition home or self-care (01) ==
LOC: MTRAD 11:26
PROVIDERS: PCP Internal Medicine; Referring Provider Anesthesiology Pain Medicine; Visit Provider Anesthesiology Pain Medicine
DX: M79.641 Pain in right hand (principal)
CPT/HCPCS: 73110; 73130

== ENCOUNTER → 2023-11-17 | Outpatient (CLI) | payer MEDICARE, SELFPAY ==
[2023-11-17 15:44] LABS: Mucous, Urine 0 SEEN /hpf (<or=2+); Red Blood Cells-Urine 0 SEEN /hpf (0-5)
[2023-11-17 17:33] LABS: Absolute Lymphocyte Count 1.43 X10^3/uL (0.83-4.51); Absolute Neutrophil Count 10.1 X10^3/uL (2.0-7.7); Basophil# 0.04 X10^3/uL; Basophil% 0.3 % (0-1); Eosinophil# 0.06 X10^3/uL; Eosinophils% 0.5 % (0-5); Hemoglobin 16.9 g/dL (12.0-15.0); Lymphocyte # 1.43 X10^3/ul (0.83-4.51); Lymphocyte % 11.8 % (19-41); Mean Corp Hgb Conc 30.1 g/dL (32-36); Mean Corpuscular Volume 86.6 fL (81-99); Mean Platelet Vol. 11.2 fl (6.2-12.0); Monocyte# 0.49 X10^3/uL; NRBC Flagged by Analyzer 0 % (0-5); Neutrophil # 10.05 X10^3/uL (2.7-7.7); Platelet Count 231 K/mm3 (150-450); RBC Distribution Width CV 15.6 % (11.6-14.6); RBC Distribution Width SD 48.4 fl (35.1-43.9); Red Blood Count 6.49 M/mm3 (4.2-5.4); White Blood Count 12.1 K/mm3 (4.4-11.0)
[2023-11-17 17:44] LABS: Vitamin D,25 Hydroxy 59.9 ng/mL
[2023-11-17 17:55] LABS: Color, Urine Yellow (Yellow); Glucose, Dipstick 1000 mg/dl (Normal); Ketone-Dipstick Negative (Negative); Leukocyte Esterase-Dipstick Negative /ul (Negative); Nitrite-Dipstick Negative (Negative); Occult Blood-Urine Negative /ul (Negative); Protein-Dipstick Negative (Negative); Urine Bilirubin Dipstick Negative (Negative); Urine Clarity Clear (Clear); Urine Urobilinogen Normal (Normal)
[2023-11-17 18:08] LABS: Hematocrit 56.2 % (37-47)
[2023-11-17 18:26] LABS: Bacteria RARE /hpf (None Seen); Squamous Epithelial Cells - UA 0-5 SEEN /hpf (5-10); White Blood Cells 0-5 SEEN /hpf (0-5); White Cell Cast 0-5 SEEN /lpf (None Seen)
[2023-11-17 18:30] LABS: Microalbumin,Random Urine 5.2 mg/L (NO RANGE EST.); Microalbumin:Creatinine Ratio 16.6 mg/g CRE (<30 mg/g CRE)
[2023-11-17 18:40] LABS: ALB/GLOB Ratio 0.8 RATIO (0.9-2.4); AST(SGOT) 9 U/L (15-37); Alanine Aminotransfer ALT/SGPT 19 U/L (13-56); Alkaline Phosphatase 104 U/L (45-117); Anion Gap 9 (5-15); BUN 12 mg/dL (7-18); BUN/Creat Ratio 11.9 RATIO (10-20); Calcium,Total 9.1 mg/dL (8.5-10.1); Chloride 100 mmol/L (98-107); Cholesterol 188 mg/dL (200); Creatinine, Serum 1.01 mg/dL (0.55-1.02); EST Glomerular Filtration Rate 57 mL/min (>60); Est Glom Filt Rate - Afr Amer 69 mL/min (>60); Globulin 3.6 g/dL (2.2-4.2); Glucose 376 mg/dL (74-106); High Density Lipoprotein 55 mg/dL; Protein, Total 6.6 g/dL (6.4-8.2); Sodium Level 135 mmol/L (136-145); Thyroid Stim Hormone (TSH) 0.355 uIU/mL (0.358-3.740); Triglycerides 267 mg/dL; Very Low Density Lipoprotein 53 mg/dL (5-40)
== END | disposition home or self-care (01) ==
LOC: MTLAB 15:38
PROVIDERS: PCP Internal Medicine; Referring Provider Internal Medicine; Visit Provider Internal Medicine
DX: E78.5 Hyperlipidemia, unspecified (principal); M05.70 Rheumatoid arthritis with rheumatoid factor of unspecified site without organ or systems involvement; E11.65 Type 2 diabetes mellitus with hyperglycemia; R80.9 Proteinuria, unspecified; E03.9 Hypothyroidism, unspecified; E55.9 Vitamin D deficiency, unspecified; R79.89 Other specified abnormal findings of blood chemistry; Z79.899 Other long term (current) drug therapy; M79.7 Fibromyalgia; M17.0 Bilateral primary osteoarthritis of knee; M16.0 Bilateral primary osteoarthritis of hip
CPT/HCPCS: 36415; 80053; 80061; 81001; 82043; 82306; 82570; 84156; 84443; 85025

== ENCOUNTER → 2023-12-31 | Outpatient (CLI) | payer MEDICARE, SELFPAY | END | disposition home or self-care (01) | LOC: OPBI 14:53 | PROVIDERS: PCP Internal Medicine; Referring Provider Internal Medicine; Visit Provider Internal Medicine | DX: Z12.31 Encounter for screening mammogram for malignant neoplasm of breast (principal) | CPT/HCPCS: 77063; 77067 ==

== ENCOUNTER → 2024-01-14 | Outpatient (CLI) | payer MEDICARE, SELFPAY ==
[2024-01-14 17:29] LABS: Absolute Lymphocyte Count 2.66 X10^3/uL (0.83-4.51); Absolute Neutrophil Count 4.1 X10^3/uL (2.0-7.7); Basophil# 0.04 X10^3/uL; Basophil% 0.5 % (0-1); Eosinophil# 0.08 X10^3/uL; Eosinophils% 1.1 % (0-5); Hematocrit 54.4 % (37-47); Hemoglobin 16.7 g/dL (12.0-15.0); Lymphocyte # 2.66 X10^3/ul (0.83-4.51); Lymphocyte % 35.3 % (19-41); Mean Corp Hgb Conc 30.7 g/dL (32-36); Mean Corpuscular Hgb 26.6 pg (27.0-32.0); Mean Corpuscular Volume 86.8 fL (81-99); Mean Platelet Vol. 10.2 fl (6.2-12.0); NRBC Flagged by Analyzer 0 % (0-5); Neutrophil # 4.13 X10^3/uL (2.7-7.7); Neutrophil % 54.8 % (47-70); Platelet Count 266 K/mm3 (150-450); RBC Distribution Width CV 17.6 % (11.6-14.6); RBC Distribution Width SD 52.3 fl (35.1-43.9); Red Blood Count 6.27 M/mm3 (4.2-5.4); White Blood Count 7.5 K/mm3 (4.4-11.0)
[2024-01-14 17:57] LABS: ALB/GLOB Ratio 0.9 RATIO (0.9-2.4); AST(SGOT) 7 U/L (15-37); Alanine Aminotransfer ALT/SGPT 18 U/L (13-56); Albumin, Serum 3.3 g/dL (3.2-5.0); Alkaline Phosphatase 116 U/L (45-117); Anion Gap 8 (5-15); BUN 12 mg/dL (7-18); BUN/Creat Ratio 15.4 RATIO (10-20); Calcium,Total 9.2 mg/dL (8.5-10.1); Chloride 101 mmol/L (98-107); Creatinine, Serum 0.78 mg/dL (0.55-1.02); EST Glomerular Filtration Rate 77 mL/min (>60); Est Glom Filt Rate - Afr Amer 93 mL/min (>60); Globulin 3.8 g/dL (2.2-4.2); Glucose 158 mg/dL (74-106); Potassium 3.8 mmol/L (3.5-5.1); Protein, Total 7.1 g/dL (6.4-8.2); Sodium Level 137 mmol/L (136-145)
== END | disposition home or self-care (01) ==
LOC: MTLAB 14:36
PROVIDERS: PCP Internal Medicine; Referring Provider Internal Medicine Rheumatology; Visit Provider Internal Medicine Rheumatology
DX: M05.70 Rheumatoid arthritis with rheumatoid factor of unspecified site without organ or systems involvement (principal); M79.7 Fibromyalgia; Z79.899 Other long term (current) drug therapy
CPT/HCPCS: 36415; 80053; 85025

== ENCOUNTER → 2024-03-29 | Outpatient (CLI) | payer MEDICARE, SELFPAY ==
--- NOTE | 2024-03-29 13:20 | BD_ITS ---
PROCEDURE: DEXA BONE DENSITY STUDY REASON FOR EXAM: 73-year-old female. Osteoporosis screening. TECHNIQUE: DEXA scan of the lumbar spine and both hips. COMPARISON: 05/07/2020 FINDINGS: Lumbar spine: T-score 2.1. (Bone mineral density 1.273 g per cm2. Prior T-score 1.1) 8.8% increased bone mineral density from the previous study. Left forearm: T-score 0.6 (bone mineral density 0.731 g per cm2. no prior T- score available. FRAX* Results: Not calculated as the hips were not scanned. *FRAX is a trademark of the [employer]'s [employer] Metabolic Bone Disease, World Health Organization (WHO) Collaborating [employer]. 1-The 10-year probability of fracture may be lower than reported if the patient has received treatment. 2-Major Osteoporotic Fracture: Clinical Spine, Forearm, Hip or Shoulder. The T-scores are also available for review on the [facility] PACS or by accessing the [facility] electronic medical record. BD/Dexa Bone Density Study IMPRESSION: Normal bone mineral density. Reading Location: [facility]
== END | disposition home or self-care (01) ==
LOC: OPBD 13:12
PROVIDERS: PCP Internal Medicine; Referring Provider Internal Medicine; Visit Provider Internal Medicine
DX: Z78.0 Asymptomatic menopausal state (principal)
CPT/HCPCS: 77080

== ENCOUNTER → 2024-04-06 | Outpatient (CLI) | payer MEDICARE, SELFPAY ==
[2024-04-06 17:38] LABS: Absolute Lymphocyte Count 1.35 X10^3/uL (0.83-4.51); Absolute Neutrophil Count 6.4 X10^3/uL (2.0-7.7); Basophil# 0.04 X10^3/uL; Basophil% 0.5 % (0-1); Eosinophil# 0.01 X10^3/uL; Eosinophils% 0.1 % (0-5); Hemoglobin 16.7 g/dL (12.0-15.0); Lymphocyte # 1.35 X10^3/ul (0.83-4.51); Lymphocyte % 16.8 % (19-41); Mean Corp Hgb Conc 29.5 g/dL (32-36); Mean Corpuscular Hgb 26.7 pg (27.0-32.0); Mean Corpuscular Volume 90.6 fL (81-99); Mean Platelet Vol. 9.8 fl (6.2-12.0); Monocyte% 2.5 % (0-10); NRBC Flagged by Analyzer 0 % (0-5); Neutrophil # 6.41 X10^3/uL (2.7-7.7); Platelet Count 220 K/mm3 (150-450); RBC Distribution Width CV 14.1 % (11.6-14.6); Red Blood Count 6.26 M/mm3 (4.2-5.4)
[2024-04-06 17:41] LABS: Hematocrit 56.7 % (37-47)
[2024-04-06 18:04] LABS: ALB/GLOB Ratio 0.8 RATIO (0.9-2.4); AST(SGOT) 17 U/L (15-37); Alanine Aminotransfer ALT/SGPT 19 U/L (13-56); Albumin, Serum 3.4 g/dL (3.2-5.0); Alkaline Phosphatase 112 U/L (45-117); Anion Gap 7 (5-15); BUN 11 mg/dL (7-18); BUN/Creat Ratio 10.7 RATIO (10-20); Calcium,Total 9.5 mg/dL (8.5-10.1); Chloride 102 mmol/L (98-107); Creatinine, Serum 1.03 mg/dL (0.55-1.02); EST Glomerular Filtration Rate 56 mL/min (>60); Est Glom Filt Rate - Afr Amer 68 mL/min (>60); Glucose 223 mg/dL (74-106); Potassium 4.3 mmol/L (3.5-5.1); Protein, Total 7.4 g/dL (6.4-8.2); Sodium Level 136 mmol/L (136-145)
== END | disposition home or self-care (01) ==
LOC: MTLAB 14:37
PROVIDERS: PCP Internal Medicine; Referring Provider Internal Medicine Rheumatology; Visit Provider Internal Medicine Rheumatology
DX: M05.731 Rheumatoid arthritis with rheumatoid factor of right wrist without organ or systems involvement (principal); Z79.899 Other long term (current) drug therapy; M79.7 Fibromyalgia
CPT/HCPCS: 36415; 80053; 85025

== ENCOUNTER → 2024-06-13 | Outpatient (CLI) | payer MEDICARE, SELFPAY ==
[2024-06-13 18:22] LABS: Absolute Lymphocyte Count 2.37 X10^3/uL (0.83-4.51); Absolute Neutrophil Count 3.2 X10^3/uL (2.0-7.7); Basophil# 0.04 X10^3/uL; Basophil% 0.6 % (0-1); Eosinophil# 0.08 X10^3/uL; Eosinophils% 1.3 % (0-5); Hematocrit 51.9 % (37-47); Hemoglobin 16.4 g/dL (12.0-15.0); Lymphocyte # 2.37 X10^3/ul (0.83-4.51); Lymphocyte % 38.4 % (19-41); Mean Corp Hgb Conc 31.6 g/dL (32-36); Mean Corpuscular Hgb 27.1 pg (27.0-32.0); Mean Corpuscular Volume 85.8 fL (81-99); Monocyte# 0.43 X10^3/uL; NRBC Flagged by Analyzer 0 % (0-5); Neutrophil # 3.24 X10^3/uL (2.7-7.7); Neutrophil % 52.5 % (47-70); Platelet Count 200 K/mm3 (150-450); RBC Distribution Width CV 13.7 % (11.6-14.6); RBC Distribution Width SD 43.3 fl (35.1-43.9); Red Blood Count 6.05 M/mm3 (4.2-5.4); White Blood Count 6.2 K/mm3 (4.4-11.0)
[2024-06-13 18:51] LABS: Cholesterol 148 mg/dL (<=200); Free T3 2.5 pg/mL (2.18-3.98); High Density Lipoprotein 47 mg/dL; Low Density Lipoprotein Calc. 73 mg/dL; Thyroid Stim Hormone (TSH) 0.408 uIU/mL (0.300-4.200); Triglycerides 137 mg/dL; Very Low Density Lipoprotein 27 mg/dL (5-40); Vitamin D,25 Hydroxy 62.9 ng/mL (30-100); cholesterol:hdl ratio screen 3.14
[2024-06-13 18:52] LABS: ALB/GLOB Ratio 1.1 RATIO (0.9-2.4); AST(SGOT) 19 U/L (<=31); Alanine Aminotransfer ALT/SGPT 13 U/L (<=34); Albumin, Serum 3.4 g/dL (3.4-4.8); Alkaline Phosphatase 117 U/L (35-104); Anion Gap 12 (5-15); BUN 7 mg/dL (4-19); BUN/Creat Ratio 9.7 RATIO (10-20); Carbon Dioxide 25.3 mmol/L (21.0-32.0); Chloride 98 mmol/L (98-108); Creatinine, Serum 0.73 mg/dL (0.70-1.20); EST Glomerular Filtration Rate 87 (>60); Glucose 293 mg/dL (70-99); Potassium 3.9 mmol/L (3.3-5.1); Protein, Total 6.4 g/dL (5.9-8.4); Sodium Level 136 mmol/L (133-145); Total Bilirubin 0.35 mg/dL (0.00-1.30)
[2024-06-13 19:12] LABS: Color, Urine Yellow (Yellow); Glucose, Dipstick 1000 mg/dl (Normal); Ketone-Dipstick Negative (Negative); Leukocyte Esterase-Dipstick Negative /ul (Negative); Nitrite-Dipstick Negative (Negative); Occult Blood-Urine 10 /ul (Negative); Protein-Dipstick 30 mg/dl (Negative); Urine Bilirubin Dipstick Negative (Negative); Urine Clarity Clear (Clear); Urine Urobilinogen Normal (Normal)
[2024-06-13 19:58] LABS: Bacteria 1+ /hpf (None Seen); Mucous, Urine RARE /hpf (<or=2+); Red Blood Cells-Urine 0-5 SEEN /hpf (0-5); Squamous Epithelial Cells - UA 5-10 SEEN /hpf (5-10); White Blood Cells 0-5 SEEN /hpf (0-5)
[2024-06-13 20:05] LABS: Microalbumin:Creatinine Ratio 816.2 mg/g CRE
== END | disposition home or self-care (01) ==
LOC: MTLAB 14:34
PROVIDERS: PCP Internal Medicine; Referring Provider Internal Medicine; Visit Provider Internal Medicine
DX: E55.9 Vitamin D deficiency, unspecified (principal); E11.65 Type 2 diabetes mellitus with hyperglycemia; R79.89 Other specified abnormal findings of blood chemistry
CPT/HCPCS: 36415; 80053; 80061; 81001; 82043; 82306; 82570; 84439; 84443; 84481; 85025

== ENCOUNTER 2024-07-26 14:53 | Outpatient (CLI) | payer MEDICARE, SELFPAY ==
--- NOTE | 2024-07-26 14:56 | CT_ITS ---
PROCEDURE: LOW DOSE CT LUNG SCREENING 07/26/2024 REASON FOR EXAM: LDCT FOR LUNG CA SCREEN (MEDICARE) (58332) TECHNIQUE: Low Dose CT Lung screening without contrast. Coronal and Sagittal reconstruction series were provided. One or more dose reduction techniques were used (e.g., Automated exposure control, adjustment of the mA and/or kV according to patient size, use of iterative reconstruction technique). REFERENCE LINK: [email or web address] Lung-RADS RADIATION DOSE SUMMARY: CTDlvol: 3.0 mGy DLP: 116 mGycm COMPARISON: None FINDINGS: Lymph Nodes:No significant lymphadenopathy. Heart and Vasculature:Normal heart size. [id number]-[id number] coronary calcification. Mild aortic atherosclerosis. Lungs and Airways: Central airways are clear. No focal consolidation. There is a solid nodule measuring 3 mm in the right lower lobe (series 2, image 212). Pleura: No effusion. Upper Abdomen:Unremarkable Bones:Surgical anchors in the humeral heads. Calcification adjacent to the left humeral head may be the sequela of calcific tendinopathy. Degenerative changes of the spine. CT/Low Dose CT Lung Screening IMPRESSION: Lung-RADS Category: 2 BENIGN (BASED ON IMAGING FEATURES OR INDOLENT BEHAVIOR). RECOMMEND 12-MONTH SCREENING LDCT. Other Significant Findings: Fkae-bq-iuwzejki coronary calcification.. Reading Location: [facility]
== END 2024-07-26 23:59 | disposition home or self-care (01) ==
LOC: CT 14:54
PROVIDERS: PCP Internal Medicine; Referring Provider Internal Medicine; Visit Provider Internal Medicine
DX: F17.210 Nicotine dependence, cigarettes, uncomplicated (principal); R91.1 Solitary pulmonary nodule; I25.10 Atherosclerotic heart disease of native coronary artery without angina pectoris
CPT/HCPCS: 71271

== ENCOUNTER → 2024-12-01 | Outpatient (CLI) | payer MEDICARE, SELFPAY ==
[2024-12-01 15:04] LABS: Mucous, Urine 0 SEEN /hpf (<or=2+); Red Blood Cells-Urine 0 SEEN /hpf (0-5)
[2024-12-01 18:32] LABS: Color, Urine Yellow (Yellow); Glucose, Dipstick 250 mg/dl (Normal); Ketone-Dipstick Negative (Negative); Leukocyte Esterase-Dipstick Negative /ul (Negative); Nitrite-Dipstick Negative (Negative); Occult Blood-Urine Negative /ul (Negative); Protein-Dipstick 30 mg/dl (Negative); Specific Gravity, Urine 1.015 (1.002-1.030); Urine Bilirubin Dipstick Negative (Negative)
[2024-12-01 18:57] LABS: Creatinine, Urine (random) 92.60 mg/dL (28.00-217.00); Microalbumin,Random Urine 52.6 mg/L (<20 mg/L)
[2024-12-01 18:58] LABS: Hematocrit 49.2 % (37-47); Hemoglobin 15.5 g/dL (12.0-15.0); Immature Granulocytes Count 0.010 X10^3/uL (0.0-0.0); Mean Corp Hgb Conc 31.5 g/dL (32-36); Mean Corpuscular Volume 86.3 fL (81-99); Mean Platelet Vol. 11.1 fl (6.2-12.0); NRBC Flagged by Analyzer 0 % (0-5); Platelet Count 195 K/mm3 (150-450); RBC Distribution Width CV 14.3 % (11.6-14.6); RBC Distribution Width SD 45.1 fl (35.1-43.9); Red Blood Count 5.70 M/mm3 (4.2-5.4); White Blood Count 6.8 K/mm3 (4.4-11.0)
[2024-12-01 19:09] LABS: AST(SGOT) 22 U/L (<=31); Alanine Aminotransfer ALT/SGPT 21 U/L (<=34); Albumin, Serum 3.4 g/dL (3.4-4.8); Alkaline Phosphatase 126 U/L (35-104); Anion Gap 9 (5-15); BUN 6 mg/dL (4-19); BUN/Creat Ratio 8.8 RATIO (10-20); Calcium,Total 9.0 mg/dL (7.6-11.0); Carbon Dioxide 28.4 mmol/L (21.0-32.0); Chloride 100 mmol/L (98-108); Cholesterol 127 mg/dL (<=200); Globulin 2.9 g/dL (2.2-4.2); Glucose 202 mg/dL (70-99); Low Density Lipoprotein Calc. 60 mg/dL; Potassium 3.9 mmol/L (3.3-5.1); Triglycerides 107 mg/dL; Very Low Density Lipoprotein 21 mg/dL (5-40); Vitamin D,25 Hydroxy 69.1 ng/mL (30-100); cholesterol:hdl ratio screen 2.77
[2024-12-01 22:52] LABS: Squamous Epithelial Cells - UA 5-10 SEEN /hpf (5-10)
== END | disposition home or self-care (01) ==
LOC: MTLAB 01-03 12:18
PROVIDERS: PCP Internal Medicine; Referring Provider Internal Medicine; Visit Provider Internal Medicine
DX: E03.9 Hypothyroidism, unspecified (principal); E78.5 Hyperlipidemia, unspecified; E55.9 Vitamin D deficiency, unspecified
CPT/HCPCS: 36415; 80053; 80061; 81001; 82043; 82306; 82570; 84443; 85025

== ENCOUNTER → 2024-12-20 | Outpatient (CLI) | payer MEDICARE, SELFPAY ==
--- NOTE | 2024-12-20 15:08 | RAD_ITS ---
PROCEDURE: CERV SPINE OBL/FLEX/EXT COMP 12/20/2024 REASON FOR EXAM: PAIN TECHNIQUE: Procedure Code: RADSPCFE Modality: DX Procedure: CERV SPINE OBL/FLEX/EXT COMP COMPARISON: None FINDINGS: There is fusion hardware anteriorly at C4-C5 and fusion of the disc spaces between C4 and C6. Degenerative disc space narrowing is noted at C6-C7. There is straightening of the cervical lordosis. There is minimal anterolisthesis of C2 on C3 and C3 on C4 with flexion. This normalizes at C2-C3 with extension and in neutral positioning. The subluxation at C3-C4 persists with all positions. Prevertebral soft tissues are unremarkable. Bony neural foraminal narrowing is noted at multiple levels, particularly on right. Lung apices are clear. RAD/Cerv Spine Obl/Flex/Ext Comp IMPRESSION: Surgical changes and degenerative disc disease with a alignment abnormalities a s above. Reading Location[facility]
== END | disposition home or self-care (01) ==
LOC: MTRAD 15:06
PROVIDERS: PCP Internal Medicine; Referring Provider Anesthesiology Pain Medicine; Visit Provider Anesthesiology Pain Medicine
DX: M50.30 Other cervical disc degeneration, unspecified cervical region (principal)
CPT/HCPCS: 72052